=== PATIENT | male | born 1980 | race Caucasian/White ===

== ENCOUNTER 2017-12-06 16:10 | Emergency (ER) | payer BC, SELFPAY ==
--- NOTE | 2017-12-06 16:17 | PC.NURSE ---
PT STATES TO .NET ARCHITECT HE EXPERIENCE CHEST PAIN ABOUT AN HOUR AGO. A/O PWD, TO ER VIA WC
--- NOTE | 2017-12-06 16:27 | XR_ITS ---
XR chest 2V HISTORY: ITS.REASON: CHEST CONGESTION AND COUGH ORDERING PHYSICIAN: Mary Kent PATIENT AGE: 37 years COMPARISON: 03/15/2017 FINDINGS: The cardiomediastinal silhouette and pulmonary vascularity are within normal limits. The lungs are clear without infiltrates, suspicious nodules, or pleural effusions. No acute bony abnormalities. IMPRESSION: Negative chest, no acute finding
[2017-12-06 16:30] VITALS: BP 143/76; PULSE 69; RESP 20; TEMP 36.8; O2SAT 97; BMI 37.5
--- NOTE | 2017-12-06 16:37 | HMH.EDUTC ---
[facility] [place] Disposition Clinical Impression: URI (upper respiratory infection) Qualifiers: URI type: unspecified URI Qualified Code(s): J06.9 - Acute upper respiratory infection, unspecified Disposition: Home, Self-Care Condition on Discharge: Good Instructions: DI for Cough -- Adult, Sore Throat Additional Instructions: * Monitor Temp. Tylenol and/or Ibuprofen as needed. ER if fever is no less than 101 despite alternating Tylenol and Ibuprofen * Encourage fluids, water, Gatorade, powerade, pedialyte if /toddler/or child * Warm salt water gargles for throat irritation *Warm fluids *Sore throat lozenges *Sleep elevated *humidifier or vaporizer Lots of rest Increase fluids, water, Gatorade, powerade *Your throat swab was sent to lab for culture. Those results area typically sent to your primary care physician. Be sure to follow up in 2-3 days if no improvement so they can review those results and treat if necessary If you dont have primary care I recommend you get one, but in the mean time you will have to return to a walk in clinic Follow up IMMEDIATELY for new or worsening of symptoms OR no noticeable improvement over the next 48-72 hours. 911 immediately for any life threatening symptoms such as chest pain or difficulty breathing Prescriptions: Azithromycin [Z-Qamar 250mg Tab] 250 mg PO UD DOSE PK #6 tab Benzonatate [Tessalon Perle 100mg Cap] 100 mg PO TID PRN #15 cap PRN Reason: Cough predniSONE [Prednisone 5mg Tab Dose-Pack] 5 mg PO UD DOSE PK #21 pack Forms: Work/School Release Time of Disposition: 17:35 Medical Decision Making - Medical Records Medical records reviewed: Yes: I reviewed the patient's medical records. - Teofilo Inquiry Pt receiving controlled substance: No Teofilo was queried for this patient: No Vital Signs: 12/06/17 16:30 12/06/17 17:20 Temperature 98.2 F 98.2 F Temperature Source Temporal Artery Scan Pulse Rate 70 Pulse Rate [Right] 69 Respiratory Rate 20 20 Blood Pressure 144/70 Blood Pressure [Right Arm] 143/76 Blood Pressure Mean [Right Arm] 98 Blood Pressure Source [Right Arm] Automatic Cuff Blood Pressure Position [Right Arm] Sitting 02 Sat by Pulse Oximetry 97 Oxygen Delivery Method Room Air Orders (Tests/Meds): ORDERS Category Date Time Status CXR 2 view (NOT portable) [XR chest 2V] Stat Exams 12/06/17 16:27 Taken - Radiology Data #1 Image(s): Chest Image Reviewed: Yes I reviewed the patient's radiology image w/the ED provider Preliminary Findings: Normal/NAD, No Infiltrates Seen [facility] [place] HPI - General Stated complaint: cough,dizzy,pain in back Time Seen by Provider: 12/06/17 16:30 Mode of Arrival: Ambulatory Source of Information: Patient Limitations: No Limitations Description of Symptoms (Recalled from Triage Doc. by RN): COUGH, CONGESTION TODAY HEENT Symptoms (Recalled from RN notes): Yes Resp Symptoms (Recalled from RN notes): Yes Skin Symptoms (Recalled from RN notes): No MS Symptoms (Recalled from RN notes): No Functional Status (Recalled from RN notes): N - History of Present Illness Provider Complaint: Patient state that he has been having cough and congestion State that when he starts coughing he feels a little sore in his back States that he has been outside alot during this weather changes and was worried that he may have bronchitis or pneumonia States that he has also had nasal congestion and sore throat and over all not feeling well - Related Data Home Medications Medication Instructions Recorded Confirmed ibuprofen 200 mg capsule 200 mg PO ONCE 10/03/17 Previous Rx's Medication Instructions Recorded Azithromycin [Z-Qamar 250mg Tab] 250 mg PO UD DOSE PK #6 tab 12/06/17 Benzonatate [Tessalon Perle 100mg 100 mg PO TID PRN #15 cap 12/06/17 Cap] predniSONE [Prednisone 5mg Tab 5 mg PO UD DOSE PK #21 pack 12/06/17 Dose-Pack] Allergies Allergy/AdvReac Type Severity Reaction Status Date / Time No Known Allergie
--- NOTE | 2017-12-06 16:41 | ED_ITS ---
[facility] [place] Clinical Impression: URI (upper respiratory infection) Qualifiers: URI type: unspecified URI Qualified Code(s): J06.9 - Acute upper respiratory infection, unspecified Disposition: Home, Self-Care Condition on Discharge: Good Instructions: DI for Cough -- Adult, Sore Throat Additional Instructions: * Monitor Temp. Tylenol and/or Ibuprofen as needed. ER if fever is no less than 101 despite alternating Tylenol and Ibuprofen * Encourage fluids, water, Gatorade, powerade, pedialyte if /toddler/or child * Warm salt water gargles for throat irritation *Warm fluids *Sore throat lozenges *Sleep elevated *humidifier or vaporizer Lots of rest Increase fluids, water, Gatorade, powerade *Your throat swab was sent to lab for culture. Those results area typically sent to your primary care physician. Be sure to follow up in 2-3 days if no improvement so they can review those results and treat if necessary If you don? t have primary care I recommend you get one, but in the mean time you will have to return to a walk in clinic Follow up IMMEDIATELY for new or worsening of symptoms OR no noticeable improvement over the next 48-72 hours. 911 immediately for any life threatening symptoms such as chest pain or difficulty breathing Prescriptions: Azithromycin [Z-Qamar 250mg Tab] 250 mg PO UD DOSE PK #6 tab Benzonatate [Tessalon Perle 100mg Cap] 100 mg PO TID PRN #15 cap PRN Reason: Cough predniSONE [Prednisone 5mg Tab Dose-Pack] 5 mg PO UD DOSE PK #21 pack Forms: Work/School Release Time of Disposition: 17:35 Medical Decision Making - Medical Records Medical records reviewed: Yes: I reviewed the patient's medical records. - Teofilo Inquiry Pt receiving controlled substance: No Teofilo was queried for this patient: No Vital Signs: 12/06/17 16:30 12/06/17 17:20 Temperature 98.2 F 98.2 F Temperature Source Temporal Artery Scan Pulse Rate 70 Pulse Rate [Right] 69 Respiratory Rate 20 20 Blood Pressure 144/70 Blood Pressure [Right Arm] 143/76 Blood Pressure Mean [Right Arm] 98 Blood Pressure Source [Right Arm] Automatic Cuff Blood Pressure Position [Right Arm] Sitting 02 Sat by Pulse Oximetry 97 Oxygen Delivery Method Room Air Orders (Tests/Meds): ORDERS Category Date Time Status CXR 2 view (NOT portable) [XR chest 2V] Stat Exams 12/06/17 16:27 Taken - Radiology Data #1 Image(s): Chest Image Reviewed: Yes I reviewed the patient's radiology image w/the ED provider Preliminary Findings: Normal/NAD, No Infiltrates Seen [facility] [place] HPI - General Stated complaint: cough,dizzy,pain in back Time Seen by Provider: 12/06/17 16:30 Mode of Arrival: Ambulatory Source of Information: Patient Limitations: No Limitations Description of Symptoms (Recalled from Triage Doc. by RN): COUGH, CONGESTION TODAY HEENT Symptoms (Recalled from RN notes): Yes Resp Symptoms (Recalled from RN notes): Yes Skin Symptoms (Recalled from RN notes): No MS Symptoms (Recalled from RN notes): No Functional Status (Recalled from RN notes): N - History of Present Illness Provider Complaint: Patient state that he has been having cough and congestion State that when he starts coughing he feels a little sore in his back States that he has been outside alot during this weather changes and was worried that he may have bronchitis or pneumonia States that he has also had nasal congestion and sore throat and over
[2017-12-06 17:20] VITALS: BP 144/70; PULSE 70; RESP 20; TEMP 36.8
== END 2017-12-06 17:42 | disposition home or self-care (01) ==
PROVIDERS: Emergency Provider Nurse Practitioner; Family Provider Internal Medicine
DX: J06.9 Acute upper respiratory infection, unspecified (principal); I10 Essential (primary) hypertension
CPT/HCPCS: 71046; 99201

== ENCOUNTER 2019-03-19 14:09 | Emergency (ER) | payer SELFPAY ==
[2019-03-19 14:15] VITALS: BP 145/89; PULSE 94; RESP 18; TEMP 36.8; O2SAT 100; BMI 39.3
[2019-03-19 14:22] VITALS: BP 149/63; PULSE 84; RESP 18; TEMP 36.7; O2SAT 100; BMI 39.3
[2019-03-19 14:28] LABS: POC Glucose,Bedside 118 (70-110)
--- NOTE | 2019-03-19 14:29 | HMH.EDUTC ---
[facility] Disposition Clinical Impression: Otitis media Qualifiers: Otitis media type: unspecified Laterality: right Qualified Code(s): H66.91 - Otitis media, unspecified, right ear Disposition: Home, Self-Care Condition on Discharge: Good Instructions: Ear Infections (Alternative Therapy), Ear Infections (Middle Ear) (Alternative Therapy), Middle Ear Infection Additional Instructions: *Monitor Temp, Over the counter Motrin or Tylenol as directed/as needed Tylenol every 4 hours and Motrin every 6 hours (as long as your family doctor has told you that you can take it) for fever or pain. and straight to ER if unable to lower temp less than 101.0 after medication given *Warm salt water gargles may help to soothe the throat *Throat Lozenges *Warm fluids *Sleep elevated *Humidifier/Vaporizer Take medication as prescribed You was given a list of family doctors call and make appointment with Doctor of your choice for further testing and evaluation and monitor Finger sticks and evaluation for elevated blood pressure Return if needed Follow up IMMEDIATELY for new or worsening symptoms or no Noticeable improvement over the next 48-72 hours. 911 for difficulty breathing or swallowing Prescriptions: Amoxicillin [Amoxicillin 500mg Cap] 500 mg PO TID #30 cap Referrals: Provider,Referral, MD [Primary Care Provider] - As needed Time of Disposition: 14:34 Medical Decision Making - Teofilo Inquiry Pt receiving controlled substance: No Teofilo was queried for this patient: No Vital Signs: 03/19/19 14:15 03/19/19 14:22 Temperature 98.2 F 98.1 F Temperature Source Oral Oral Pulse Rate [Right Brachial] 94 H 84 Respiratory Rate 18 18 Blood Pressure [Right Arm] 145/89 H 149/63 H Blood Pressure Mean [Right Arm] 107 91 Blood Pressure Source [Right Arm] Automatic Cuff Blood Pressure Position [Right Arm] Sitting 02 Sat by Pulse Oximetry 100 100 Oxygen Delivery Method Room Air Room Air - Lab Data Lab Results 03/19/19 14:20: POC Glucose 118 H [facility] HPI - General Stated complaint: sugar was 53 Time Seen by Provider: 03/19/19 14:29 Mode of Arrival: Ambulatory Source of Information: Patient Limitations: No Limitations Description of Symptoms (Recalled from Triage Doc. by RN): PT C/O BLOOD SUGAR WAS READING 53 ON MOTHERS HOME METER. FSBS 118 HERE. PT C/O RT EAR PAIN WELL. HEENT Symptoms (Recalled from RN notes): Yes Resp Symptoms (Recalled from RN notes): No Skin Symptoms (Recalled from RN notes): No MS Symptoms (Recalled from RN notes): No Functional Status (Recalled from RN notes): N/A - History of Present Illness Provider Complaint: Patient state that he has been having pain in his right ear for over a week States that this morning he was in the shower and got a little dizzy after bending over State that he checked his blood sugar with his mothers machine and it said 53 States that he came in to have his ear looked at and recheck his blood sugar - Related Data Previous Rx's Medication Instructions Recorded Amoxicillin [Amoxicillin 500mg 500 mg PO TID #30 cap 03/19/19 Cap] Allergies Allergy/AdvReac Type Severity Reaction Status Date / Time No Known Allergies Allergy Verified 01/21/19 20:42 - Worker's Comp Is this a Worker's Comp case?: No [facility] History - Hepatitis A Screen Drug use history?: No High risk sexual behaviors?: No History of sexually transmitted infection?: No Currently employed?: No Childcare worker?: No Do you have indoor plumbing?: Yes Do you have electricity?: Yes Attestation statement:: This patient has been screened for Hepatitis A risk factors. I have reviewed the patient's past medical history: Yes Medical History: Reports:: Hypertension Denies:: Diabetes Mellitus Type 1, Diabetes Mellitus Type 2 Other Medical History: Reports: Other (IBS, environmental allergies, sinusitis) Laterality Cases: Bilateral: Other Other Surgeries: Yes: Cholecystectomy, Other (cleft p
--- NOTE | 2019-03-19 14:32 | ED_ITS ---
[facility] [place] Clinical Impression: Otitis media Qualifiers: Otitis media type: unspecified Laterality: right Qualified Code(s): H66.91 - Otitis media, unspecified, right ear Disposition: Home, Self-Care Condition on Discharge: Good Instructions: Ear Infections (Alternative Therapy), Ear Infections (Middle Ear) (Alternative Therapy), Middle Ear Infection Additional Instructions: *Monitor Temp, Over the counter Motrin or Tylenol as directed/as needed Tylenol every 4 hours and Motrin every 6 hours (as long as your family doctor has told you that you can take it) for fever or pain. and straight to ER if unable to lower temp less than 101.0 after medication given *Warm salt water gargles may help to soothe the throat *Throat Lozenges *Warm fluids *Sleep elevated *Humidifier/Vaporizer Take medication as prescribed You was given a list of family doctors call and make appointment with Doctor of your choice for further testing and evaluation and monitor Finger sticks and evaluation for elevated blood pressure Return if needed Follow up IMMEDIATELY for new or worsening symptoms or no Noticeable improvement over the next 48-72 hours. 911 for difficulty breathing or swallowing Prescriptions: Amoxicillin [Amoxicillin 500mg Cap] 500 mg PO TID #30 cap Referrals: Provider,Referral, MD [Primary Care Provider] - As needed Time of Disposition: 14:34 Medical Decision Making - Teofilo Inquiry Pt receiving controlled substance: No Teofilo was queried for this patient: No Vital Signs: 03/19/19 14:15 03/19/19 14:22 Temperature 98.2 F 98.1 F Temperature Source Oral Oral Pulse Rate [Right Brachial] 94 H 84 Respiratory Rate 18 18 Blood Pressure [Right Arm] 145/89 H 149/63 H Blood Pressure Mean [Right Arm] 107 91 Blood Pressure Source [Right Arm] Automatic Cuff Blood Pressure Position [Right Arm] Sitting 02 Sat by Pulse Oximetry 100 100 Oxygen Delivery Method Room Air Room Air - Lab Data Lab Results 03/19/19 14:20: POC Glucose 118 H [facility] [facility] [place] - General Stated complaint: sugar was 53 Time Seen by Provider: 03/19/19 14:29 Mode of Arrival: Ambulatory Source of Information: Patient Limitations: No Limitations Description of Symptoms (Recalled from Triage Doc. by RN): PT C/O BLOOD SUGAR WAS READING 53 ON MOTHERS HOME METER. FSBS 118 HERE. PT C/O RT EAR PAIN WELL. HEENT Symptoms (Recalled from RN notes): Yes Resp Symptoms (Recalled from RN notes): No Skin Symptoms (Recalled from RN notes): No MS Symptoms (Recalled from RN notes): No Functional Status (Recalled from RN notes): N/A - History of Present Illness Provider Complaint: Patient state that he has been having pain in his right ear for over a week States that this morning he was in the shower and got a little dizzy after bending over State that he checked his blood sugar with his mothers machine and it said 53 States that he came in to have his ear looked at and recheck his blood sugar - Related Data Previous Rx's Medication Instructions Recorded Amoxicillin [Amoxicillin 500mg 500 mg PO TID #30 cap 03/19/19 Cap] Allergies Allergy/AdvReac Type Severity Reaction Status Date / Time No Known Allergies Allergy Verified 01/21/19 20:42 - Worker's Comp
[2019-03-19 14:36] VITALS: BP 126/66; PULSE 65; RESP 18; TEMP 36.6; O2SAT 100
== END 2019-03-19 14:38 | disposition home or self-care (01) ==
LOC: ER 14:16 → UTC 14:17
PROVIDERS: Emergency Provider Nurse Practitioner
DX: H66.91 Otitis media, unspecified, right ear (principal); I10 Essential (primary) hypertension
CPT/HCPCS: 82962; 99201

== ENCOUNTER → 2019-06-17 11:01 | Outpatient (CLI) | payer BC, SELFPAY ==
[2019-06-17 13:01] LABS: Anion Gap 13.2 mEq/L (5-15); Blood Urea Nitrogen 14 mg/dL (7-18); Calcium 9.2 mg/dL (8.5-10.1); Carbon Dioxide 28 mmol/L (21.0-32.0); Chloride 103 mmol/L (98-107); Creatinine,Serum 0.78 mg/dL (0.70-1.30); Estimated Glomerular Filt Rate 113 ml/min (>60); Free Thyroxine Index 2.9 ug/dL (5.93-13.13); GFR (African American) 136 ML/MIN (>60); Glucose 93 mg/dL (74-106); Potassium 4.2 mmoL/L (3.5-5.1); Sodium 140 mmol/L (136-145); T4 (Thyroxine) 8.1 ug/dl (4.7-13.3); Thyroid Stimulating Hormone 3.31 uIU/ml (0.358-3.740); Triiodothryronine (T3) Uptake 36 % (31-39)
== END ==
PROVIDERS: PCP Internal Medicine; Visit Provider Urology
DX: R00.2 Palpitations (principal); K21.9 Gastro-esophageal reflux disease without esophagitis; R06.09 Other forms of dyspnea; R07.9 Chest pain, unspecified; Z87.891 Personal history of nicotine dependence
CPT/HCPCS: 36415; 80048; 84436; 84443; 84479; 93270

== ENCOUNTER → 2019-06-24 09:22 | Outpatient (CLI) | payer BC, SELFPAY ==
--- NOTE | 2019-06-24 09:24 | CA_ITS ---
APPROVED REPORT EXAM: Comprehensive 2D, Doppler, and color-flow Echocardiogram Cover Cutter Machine: Carin Valenzuela RVT Ht: 5 ft 11 in Wt: 261lbs BSA: 2.36 BP: 141/84 mmHg Indications: Shortness of Breath, Palpitations Chest Pain, Murmur, Shortness of Breath, Palpitations, Hypertension,Hx of smoking 2D Dimensions LVOT 2.10 cm (M/F) 1.5-2.5 M-Mode Dimensions RVDd 2.00 cm (0.9-2.6) LA Diam 4.50 cm (1.9-4.0) LVDd 6.60 cm (3.5-5.7) Ao Diam 2.60 cm (2.0-3.7) LVDs 4.60 cm (3.5-5.7) AV Cusp 2.00 cm (1.5-2.6) IVSd 1.00 cm (0.6-1.1) PWd 1.10 cm (0.6-1.1) EF (Teich) 56.60% FS 30.30% EDV (Teich) 224.00 mL ESV (Teich) 97.30 mL LV Diastology E/A Ratio 1.0 MED E' 7.21 (< 7 cm/sec) E'/MED E' Ratio 12.60 (>14) LAT E' 14.40 (<10 cm/sec) E/LAT E' Ratio 6.30 (>14) Aortic Valve AoV Peak Geronimo. 126.00 (50-130 cm/s) AO Peak GR. 6.00 mmHg Mitral Valve MV E Max Geronimo. 90.80 (40-130 cm/s) MV A Velocity 93.30 (40-130 cm/s) E/A Ratio 1.00 Pulmonary Valve PA Accel Time 134.00 (>120 msec) Tricuspid Valve TR P. Velocity 286.00 cm/s Left Ventricle Left atrium is mildly enlarged, left ventricle is normal size, left ventricle wall thickness is upper limit of the normal, there is preserved left ventricular systolic function, visually estimated ejection fraction 55% with no regional wall motion abnormality. Diastolic parameters are within normal range. Right Ventricle Right atrium and right ventricular normal size and contractility. Aortic Valve Aortic valve is minimally thickened and fibrosed, there is no aortic stenosis aortic insufficiency. Mitral Valve Mitral valve is grossly normal, there is no mitral stenosis, there is mild mitral regurgitation. Tricuspid Valve Tricuspid valve is grossly normal, there is mild tricuspid regurgitation, tricuspid regurgitation jet velocity is inadequate for calculation of the right ventricular systolic pressure. Pulmonic Valve Pulmonic valve is poorly visualized. Great Vessels Aortic root is normal size. Pericardium No significant pericardial effusion noted. Conclusion 1. Mildly enlarged left atrium, normal left ventricular size, visually estimated ejection fraction 55% with no regional wall motion abnormality, diastolic parameters are within normal range. 2. Mild mitral and tricuspid regurgitation 3. No significant pericardial effusion noted. Electronically signed by : Pranay Huff, 06/27/2019 16:08:04
== END ==
PROVIDERS: PCP Internal Medicine; Visit Provider Urology
DX: R07.9 Chest pain, unspecified (principal); R06.09 Other forms of dyspnea; R00.2 Palpitations; K21.9 Gastro-esophageal reflux disease without esophagitis; Z82.49 Family history of ischemic heart disease and other diseases of the circulatory system; Z87.891 Personal history of nicotine dependence
CPT/HCPCS: 93306

== ENCOUNTER → 2019-07-01 12:58 | Outpatient (CLI) | payer BC, SELFPAY ==
--- NOTE | 2019-07-01 | CA_ITS ---
APPROVED REPORT Exam: Exercise Treadmill Technologist: Stella De La Cruz HR: 64 bpm BP: 125/69 mmHg Indications: Chest pain Stress Test Details Test: Juan Jose HR Resting HR: 77 bpm Max Heart Rate (APMHR): 184 bpm Max HR Achieved: 143 bpm Target HR (85% APMHR): 156 bpm % of APMHR: 77 Recovery HR: 69 bpm BP Resting BP: 125.0/69.0 mmHg Max BP: 166.0/86.0 mmHg Recovery BP: 125.0/57.0 mmHg ECG Clinical Exercise duration: 10:14 min Highest Stage Achieved: Exercise capacity: 12.8 METs Stress ECG Conclusion Resting ECG: Sinus rhythm Juan Jose protocol completed. Patient exercised 10:14. Stopped due to lower back pain. Symptoms: Lower back pain, resolved in recovery. No chest pain, no shortness of breath, no dizziness. Arrhythmias/Ectopy: No ectopy noted. ST-T Changes: less than 1.5mm ST depression. Conclusion:Good exercise capapcity. No ectopy. Appropriate blood pressure response. Unable to achieved maximum heart rate(predicted) due to beta-hermilo. Test Summary REST . . . . . . . Sitting REST 04:54 0.0 0.0 77 . 125/ 69 . . Stage 1 01:00 10.0 1.7 88 . . . . Stage 1 02:00 10.0 1.7 94 . . . . Stage 1 03:00 10.0 1.7 100 . 138/ 80 . . Stage 2 01:00 12.0 2.5 112 . . . . Stage 2 02:00 12.0 2.5 113 . . . . Stage 2 03:00 12.0 2.5 113 . 142/ 80 . . Stage 3 01:00 14.0 3.4 124 . . . . Stage 3 02:00 14.0 3.4 128 . . . . Stage 3 03:00 14.0 3.4 128 . 160/ 84 . . Stage 4 01:00 16.0 4.2 142 . . . . Stage 4 01:14 16.0 4.2 142 . . . Stop exercise at 10:14 RECOVERY 01:00 0.0 0.0 105 . . . . RECOVERY 02:00 0.0 0.0 94 . 166/ 86 . . RECOVERY 03:00 0.0 0.0 73 . 166/ 86 . . RECOVERY 04:00 0.0 0.0 72 . 147/ 70 . . RECOVERY 05:00 0.0 0.0 70 . 147/ 70 . . RECOVERY 05:25 0.0 0.0 71 . 125/ 57 . . Electronically signed by : Pranay Huff, 07/01/2019 21:41:50
== END ==
PROVIDERS: PCP Internal Medicine; Visit Provider Nurse Practitioner Family
DX: R07.9 Chest pain, unspecified (principal); K21.9 Gastro-esophageal reflux disease without esophagitis
CPT/HCPCS: 93017

== ENCOUNTER → 2019-07-15 15:11 | Outpatient (CLI) | payer BC, SELFPAY ==
[2019-07-15 15:13] LABS: Microscopic, Urine URINE MICROSCOPIC (MICROSCOPIC)
[2019-07-15 15:55] LABS: Appearance,Urine CLEAR (Clear); Bilirubin,Urine Negative (Negative); Blood, Urine Negative (Negative); Color,Urine YELLOW (Yellow); Glucose,Urine (UA) Negative (Negative); Ketones,Urine Negative (Negative); Leukocyte Esterase,Urine Negative (Negative); Nitrate,Urine Negative (Negative); Protein,Urine Negative (Negative); Specific Gravity, Urine 1.025 (1.005-1.030); Urobilinogen,Urine 0.2 EU/dl (0.2)
[2019-07-15 16:09] LABS: Bacteria,Urine 1+ /lpf; Calcium Oxalate Crystals,Urine 2+ /lpf; Squamous Epithelial Cell,Urine Occasional #/hpf (0-5); WBC,Urine Occasional #/hpf (0-3)
[2019-07-15 17:11] LABS: Hemoglobin A1C 5.4 % (0.0-7.0)
[2019-07-15 17:42] LABS: Alanine Aminotransferase 30 U/L (12-78); Albumin Level 3.8 gm/dL (3.4-5.0); Albumin/Globulin Ratio 1.1 (1.1-1.8); Alkaline Phosphatase 66 U/L (46-116); Anion Gap 10.1 mEq/L (5-15); Aspartate Amino Transferase 15 U/L (15-37); Bilirubin,Total 0.2 mg/dL (0.2-1.0); Blood Urea Nitrogen 12 mg/dL (7-18); Calcium 8.8 mg/dL (8.5-10.1); Carbon Dioxide 25 mmol/L (21.0-32.0); Chloride 106 mmol/L (98-107); Chol/HDL Ratio 3.6 (1-3.5); Cholesterol 182 mg/dL (140-200); Estimated Glomerular Filt Rate 109 ml/min (>60); GFR (African American) 132 ML/MIN (>60); Globulin 3.5 gm/dl (1.3-3.2); Glucose 108 mg/dL (74-106); HDL Cholesterol 50 mg/dL (27-67); LDL Cholesterol 91 mg/dL (0-130); Potassium 4.1 mmoL/L (3.5-5.1); Sodium 137 mmol/L (136-145); Total Protein,Serum 7.3 gm/dL (6.4-8.2); Triglycerides 206 mg/dL (30-200); VLDL Cholesterol 41 mg/dL (0-40)
== END ==
PROVIDERS: Visit Provider Internal Medicine
DX: R53.83 Other fatigue (principal); E66.9 Obesity, unspecified; Z13.1 Encounter for screening for diabetes mellitus
CPT/HCPCS: 36415; 80053; 80061; 81001; 83036; 84443

== ENCOUNTER → 2019-07-19 21:30 | Outpatient (CLI) | payer BC, SELFPAY | PROVIDERS: PCP Internal Medicine; Visit Provider Nurse Practitioner Family | DX: G47.9 Sleep disorder, unspecified (principal); R06.83 Snoring; R40.0 Somnolence | CPT/HCPCS: G0399 ==

== ENCOUNTER 2020-01-08 18:55 | Emergency (ER) | payer BC, SELFPAY ==
[2020-01-08 19:20] VITALS: BP 138/91; PULSE 67; RESP 18; TEMP 36.8; O2SAT 97; BMI 37.8
[2020-01-08 19:25] LABS: POC Glucose,Bedside 142 (70-110)
[2020-01-08 19:33] VITALS: BP 138/91; PULSE 67; RESP 18; TEMP 36.8; O2SAT 97
--- NOTE | 2020-01-08 19:40 | HMH.EDUTC ---
[facility] [place] Disposition Clinical Impression: Hyperglycemia Disposition: Home, Self-Care Condition on Discharge: Good Instructions: DI for Hyperglycemia -- Adult Additional Instructions: Follow up with your regular doctor. Have your doctor do fasting lab work on you and watch you closely for s/s of diabetes. GO TO THE ER FOR ANY WORSENING SYMPTOMS OR CONCERNS Referrals: Rico Brady [Primary Care Provider] - Time of Disposition: 19:45 Medical Decision Making - Medical Records Medical records reviewed: No: I reviewed the patient's medical records. - Teofilo Inquiry Pt receiving controlled substance: No Vital Signs: 01/08/20 19:20 01/08/20 19:33 Temperature 98.3 F 98.3 F Temperature Source Oral Pulse Rate 67 Pulse Rate [Left Brachial] 67 Respiratory Rate 18 18 Blood Pressure 138/91 H Blood Pressure [Left Arm] 138/91 H Blood Pressure Mean [Left Arm] 106 Blood Pressure Source [Left Arm] Automatic Cuff Blood Pressure Position [Left Arm] Sitting 02 Sat by Pulse Oximetry 97 Oxygen Delivery Method Room Air - Lab Data Lab results reviewed: Yes: I reviewed the patient's lab results. Lab Results 01/08/20 19:16: POC Glucose 142 H Medical Decision Narrative: His blood sugar read 140 on the glucometer here in the [facility]. He states that he drunk a bunch of lemonade and ate fried chicked approx 45 minutes ago. [facility] [place] HPI - General Stated complaint: Sugar high Time Seen by Provider: 01/08/20 19:40 Mode of Arrival: Ambulatory Source of Information: Patient Limitations: No Limitations Description of Symptoms (Recalled from Triage Doc. by RN): PATIENT STATES HE CHECKED HIS BLOOD SUGAR AT HOME AND STATES HIS GLUCOMETER READ 188; PATIENT IS NOT DIABETIC AND REQUESTED HIS BLOOD SUGAR BE CHECKED HEENT Symptoms (Recalled from RN notes): No Resp Symptoms (Recalled from RN notes): No Skin Symptoms (Recalled from RN notes): No MS Symptoms (Recalled from RN notes): No Functional Status (Recalled from RN notes): WNL - History of Present Illness Provider Complaint: He does not have a history of diabetes himself. He has been using his dad's glucometer to check his blood sugar off and on for the past several months. Today he checked it and it read 180. It has never read this high. He has a pcp that he sees regularly. He states that he last had fasting lab work 2 or 3 months ago and he was told his results were normal. - Related Data Home Medications Medication Instructions Recorded Confirmed Bisoprolol Fumarate [Bisoprolol 10 mg PO DAILY 07/18/19 01/08/20 5mg Tablet] Escitalopram Oxalate 20 mg PO DAILY 07/18/19 01/08/20 Allergies Allergy/AdvReac Type Severity Reaction Status Date / Time No Known Allergies Allergy Verified 06/26/19 13:19 - Worker's Comp Is this a Worker's Comp case?: No [facility] History - Hepatitis A Screen Drug use history?: No High risk sexual behaviors?: No History of sexually transmitted infection?: No Currently employed?: No Childcare worker?: No Do you have indoor plumbing?: Yes Do you have electricity?: Yes Attestation statement:: This patient has been screened for Hepatitis A risk factors. I have reviewed the patient's past medical history: Yes Medical History: Reports:: Heart Murmur, Hypertension, Palpitations Denies:: Cancer, Diabetes Mellitus Type 1, Diabetes Mellitus Type 2, Internal Pacemaker, MRSA Other Medical History: Reports: Other (IBS, environmental allergies, sinusitis) Laterality Cases: Bilateral: Other Other Surgeries: Yes: Cholecystectomy, Other (cleft palate, lip, distal bicep tendon on right). No: Pacemaker Amputation: No Fractures: No - Social History Smoking Status: Former smoker Tobacco Type: cigarettes Alcohol Intake: never Substance Use Type: denies use Occupational Status: other Housing: house Household Members: spouse Family Hx:: Cancer, Diabetes, Coronary Artery Disease, Hypertension Comment: Father-CABG@60. Mother
== END 2020-01-08 19:52 | disposition home or self-care (01) ==
PROVIDERS: Emergency Provider Nurse Practitioner Family; PCP Internal Medicine
DX: R73.9 Hyperglycemia, unspecified (principal); I10 Essential (primary) hypertension; R00.2 Palpitations; Z87.891 Personal history of nicotine dependence; Z90.49 Acquired absence of other specified parts of digestive tract
CPT/HCPCS: 82962; 99201

== ENCOUNTER 2020-02-20 15:10 | Emergency (ER) | payer MEDICAID, SELFPAY ==
[2020-02-20 15:26] VITALS: BP 156/91; PULSE 88; RESP 20; TEMP 36.7; O2SAT 98; BMI 39.2
[2020-02-20 15:54] VITALS: BP 156/91; PULSE 88; RESP 20; TEMP 36.7; O2SAT 98; BMI 39.3
--- NOTE | 2020-02-20 15:57 | CT_ITS ---
PROCEDURE: CT HEAD/BRAIN WO CON CLINICAL INDICATION: pain Head injury with pain, Head injury with headache/pain, contusion, abrasion or hematoma, blurred vision with headache following injury COMPARISON: No exams were available for comparison TECHNIQUE: Axial images obtained. All CT scans at the facility use one or more dose reduction, viz: automated exposure control, ma/kV adjustment per patient size (including targeted exams where dose is matched to indication, i.e. head), or iterative reconstruction technique. FINDINGS: No midline shift, mass effect, intracranial hemorrhage, hydrocephalus, or extra-axial fluid collection is evident. The calvarium has an unremarkable appearance. Minor opacification noted in the right mastoid sinus no sinus air-fluid level. IMPRESSION: No acute intracranial finding Dictated by: Zak Lee MD 02/20/2020 16:18 Electronically signed by Zak Lee MD in [facility] 02/20/2020 16:18
--- NOTE | 2020-02-20 16:01 | PC.NURSE ---
PATIENT SENT TO ER PER ISELA SHELDON APRN FOR FURTHER EVALUATION
--- NOTE | 2020-02-20 17:03 | HMH.EDGENADL ---
ED Disposition Clinical Impression: Concussion Disposition: Home, Self-Care Condition on Discharge: Good Instructions: DI for Concussion Referrals: Rico Brady [Primary Care Provider] - - Critical Care Critical Care Time: No Attestation: On 02/20/20, the high probability of a clinically significant, sudden or life threatening deterioration of the following system(s) required my full and direct attention, intervention and personal management. The time I documented below is in addition to time spent performing reported procedures but includes the following listed in this critical care notation. Medical Decision Making - Medical Records Medical records reviewed: Yes: I reviewed the patient's medical records. - Teofilo Inquiry Pt receiving controlled substance: No Vital Signs: 02/20/20 15:26 02/20/20 15:54 Temperature 98.1 F 98.1 F Temperature Source Oral Oral Pulse Rate [Right Brachial] 88 88 Respiratory Rate 20 20 Blood Pressure [Right Arm] 156/91 H 156/91 H Blood Pressure Mean [Right Arm] 112 112 Blood Pressure Source [Right Arm] Automatic Cuff Automatic Cuff Blood Pressure Position [Right Arm] Sitting Sitting 02 Sat by Pulse Oximetry 98 98 Oxygen Delivery Method Room Air Room Air - Lab Data Lab results reviewed: Yes: I reviewed the patient's lab results. - CT Data CT Scan: Head Time Received: 17:00 Preliminary Findings: Normal/NAD General Adult HPI - General Chief complaint: PAIN Stated complaint: AO [id number] eye pain,headache home accident Time Seen by Provider: 02/20/20 17:00 Mode of Arrival: Ambulatory Limitations: No Limitations Description of Symptoms (Recalled from ER Triage Doc. by RN): PATIENT STATES THAT MONDAY HE WAS HEAD-BUTTED BY A HORSE ON THE RIGHT SIDE OF HIS HEAD. LAST NIGHT WHILE DRIVING HE STARTED NOTICING VERY BLURRED VISION TO HIS RIGHT EYE TO WHERE HE COULD NOT READ ROAD SIGNS. C/O LOCALIZED HEADACHE TO AREA OF INJURY. DENIES LOC, NAUSEA/VOMITING - History of Present Illness HPI narrative: 39-year-old male presents the ED with headache and some blurred blurred vision in his right eye. Patient states that on Monday of this week he was head butted by a horse did not have any loss of consciousness but he did state that it did stunned him. He denies any loss of balance. He denies any nausea or vomiting but he does have a slight headache that is been persistent since then. Otherwise no other acute issues. - Related Data Home Medications Medication Instructions Recorded Confirmed Bisoprolol Fumarate [Bisoprolol 5 mg PO DAILY 07/18/19 02/20/20 5mg Tablet] Aspirin [Aspirin 81mg chewable 81 mg PO DAILY 02/20/20 02/20/20 tab] dilTIAZem HCL [Diltiazem ER] 5 mg PO DAILY 02/20/20 02/20/20 Allergies Allergy/AdvReac Type Severity Reaction Status Date / Time No Known Allergies Allergy Verified 06/26/19 13:19 [facility] History - Hepatitis A Screen Drug use history?: No High risk sexual behaviors?: No History of sexually transmitted infection?: No Currently employed?: No Childcare worker?: No Do you have indoor plumbing?: Yes Do you have electricity?: Yes Attestation statement:: This patient has been screened for Hepatitis A risk factors. I have reviewed the patient's past medical history: Yes Medical History: Reports:: Heart Murmur, Hypertension, Palpitations Denies:: Cancer, Diabetes Mellitus Type 1, Diabetes Mellitus Type 2, Internal Pacemaker, MRSA Other Medical History: Reports: Other (IBS, environmental allergies, sinusitis) Laterality Cases: Bilateral: Other Other Surgeries: Yes: Cholecystectomy, Other (cleft palate, lip, distal bicep tendon on right). No: Pacemaker Amputation: No Fractures: No - Social History Smoking Status: Former smoker Tobacco Type: cigarettes Alcohol Intake: never Substance Use Type: denies use Occupational Status: employed Housing: house Household Members: spouse Family Hx:: Cancer, Diabetes, Coronary Artery
[2020-02-20 17:12] VITALS: BP 156/91; PULSE 88; RESP 20; TEMP 36.7; O2SAT 98
== END 2020-02-20 17:13 | disposition home or self-care (01) ==
LOC: UTC 15:15 → ER 15:54
PROVIDERS: Emergency Provider Family Medicine; PCP Internal Medicine
DX: S06.0X0A Concussion without loss of consciousness, initial encounter (principal); I10 Essential (primary) hypertension; W55.12XA Struck by horse, initial encounter; Y92.89 Other specified places as the place of occurrence of the external cause; Z87.891 Personal history of nicotine dependence; Z90.49 Acquired absence of other specified parts of digestive tract
CPT/HCPCS: 70450; 99282

== ENCOUNTER 2020-03-21 03:30 | Emergency (ER) | payer MEDICAID, SELFPAY ==
--- NOTE | 2020-03-21 03:27 | ECG_ITS ---
APPROVED REPORT Exam: Resting ECG HR:99 bpm ECG Measurements Heart Rate 99 AXES VA 152 P 48 QRSd 84 QRS 41 QT 370 T 15 QTc 474 <Conclusion> Normal sinus rhythm Possible Inferior infarct, old Abnormal ECG Electronically signed by : iMkey Yu, 03/21/2020 12:14:29
[2020-03-21 03:31] VITALS: BP 169/101; PULSE 92; RESP 16; TEMP 36.6; O2SAT 96; BMI 40.1
--- NOTE | 2020-03-21 03:38 | XR_ITS ---
PROCEDURE: XR CHEST 2V Patient Age:39Y CLINICAL HISTORY: chest pain Right-sided chest pain pain with inhaling. Nonsmoker COMPARISON: XR CHEST 2V from 05/27/2019 XR CHEST 2V from 09/01/2019 XR CHEST 2V from 10/10/2019 FINDINGS: PA and lateral chest performed Stable appearing chest with no significant change since 10/10/2019 CXR Heart upper normal in size. Pulmonary vascularity is only very slightly more pronounced than on previous studies but no vascular congestion, no overt CHF period but mediastinal structures unremarkable and stable A lungs are clear with nothing definitely acute. No infiltrates, suspicious nodules, nor pleural effusions. No acute bony abnormalities. IMPRESSION: No acute findings. Stable chestsince September 2019. Nothing definitely acute Dictated by: Pasha Garrison MD 03/22/2020 22:06 Electronically signed by Pasha Garrison MD in [place] 03/22/2020 22:06
--- NOTE | 2020-03-21 03:49 | PC.NURSE ---
pt transported to radiology via wheelchair.
[2020-03-21 03:51] LABS: Anion Gap 13.5 mEq/L (5-15); Blood Urea Nitrogen 19 mg/dl (9-20); Calcium 10.1 mg/dl (8.4-10.2); Carbon Dioxide 30 mmol/L (22.0-30.0); Chloride 98 mmol/L (98-107); Creatinine Clearance Estimated 182 mL/min (50-200); Estimated Glomerular Filt Rate 84 ml/min (>60); GFR (African American) 102 ML/MIN (>60); Glucose 132 mg/dl (74-100); Potassium 3.5 mmoL/L (3.5-5.1); Sodium 138 mmol/L (136-145)
[2020-03-21 03:53] LABS: Basophils % 0.4 % (0.1-2.0); Eosinophils # 0.2 K/mm3 (0.0-0.4); Eosinophils % 2.2 % (0.1-12.0); Hematocrit 47.1 % (42.0-52.0); Hemoglobin 15.9 g/dL (14.1-18.0); Lymphocytes # 2.6 K/mm3 (0.7-4.5); Lymphocytes % 27.4 % (10-50); Mean Corpuscular HGB Conc 33.8 g/dL (31.8-35.4); Mean Corpuscular Hemoglobin 30.2 pg (27.0-31.2); Mean Corpuscular Volume 89.1 fl (80-94); Mean Platelet Volume 7.9 fl (7.4-10.4); Monocytes # 0.6 K/mm3 (0.1-1.0); Monocytes % 6.5 % (1.7-9.3); Neutrophils # 6.1 K/mm3 (1.8-7.8); Neutrophils % 63.5 % (37.0-80.0); Platelet Count 266 K/mm3 (142-424); Red Blood Count 5.29 M/mm3 (4.60-6.20); Red Cell Distribution Width 12.7 % (11.5-17.5); White Blood Count 9.5 K/mm3 (4.8-10.8)
--- NOTE | 2020-03-21 03:54 | PC.NURSE ---
pt returned from radiology.
[2020-03-21 04:05] LABS: Troponin I < 0.01 ng/ml (0.00-0.034)
[2020-03-21 04:12] VITALS: BP 135/87; PULSE 78; RESP 18; O2SAT 97
[2020-03-21 04:18] LABS: Coronavirus 19 IgG Antibody Negative (Negative); Coronavirus 19 IgM Antibody Negative (Negative)
--- NOTE | 2020-03-21 04:25 | HMH.EDCP ---
ED Disposition Clinical Impression: Chest pain Qualifiers: Chest pain type: unspecified Qualified Code(s): R07.9 - Chest pain, unspecified Disposition: Home, Self-Care Condition on Discharge: Good Instructions: DI for Atypical Chest Pain Additional Instructions: please use meds and see pcp for follow up Referrals: Rico Brady [Primary Care Provider] - - Critical Care Critical Care Time: No Attestation: On 03/21/20, the high probability of a clinically significant, sudden or life threatening deterioration of the following system(s) required my full and direct attention, intervention and personal management. The time I documented below is in addition to time spent performing reported procedures but includes the following listed in this critical care notation. Medical Decision Making - Medical Records Medical records reviewed: Yes: I reviewed the patient's medical records. - Teofilo Inquiry Pt receiving controlled substance: No Vital Signs: 03/21/20 03:31 03/21/20 04:12 Temperature 97.8 F Temperature Source Oral Pulse Rate [Right] 92 H 78 Respiratory Rate 16 18 Blood Pressure [Right Arm] 169/101 H 135/87 Blood Pressure Mean [Right Arm] 123 103 Blood Pressure Source [Right Arm] Automatic Cuff Blood Pressure Position [Right Arm] Supine 02 Sat by Pulse Oximetry 96 97 Oxygen Delivery Method Room Air Room Air - Lab Data Lab results reviewed: Yes: I reviewed the patient's lab results. Lab Results 03/21/20 03:35: WBC 9.5, RBC 5.29, Hgb 15.9, Hct 47.1, MCV 89.1, MCH 30.2, MCHC 33.8, RDW 12.7, Plt Count 266, MPV 7.9, Neut % (Auto) 63.5, Lymph % (Auto) 27.4, [place] % (Auto) 6.5, Eos % (Auto) 2.2, Baso % (Auto) 0.4, Neut # (Auto) 6.1, Lymph # (Auto) 2.6, [place] # (Auto) 0.6, Eos # (Auto) 0.2, Baso # (Auto) 0.0 03/21/20 03:35: Sodium 138, Potassium 3.5, Chloride 98, Carbon Dioxide 30, Anion Gap 13.5, BUN 19, Creatinine 1.00, Estimated Creat Clear 182, Estimated GFR 84, Est GFR ( Amer) 102, Glucose 132 H, Calcium 10.1, Troponin I < 0.01 03/21/20 03:35: SARS-CoV-2 IgG Ab (Rapid) Negative, SARS-CoV-2 IgM Ab (Rapid) Negative Result diagrams: 03/21/20 03:35 03/21/20 03:35 Orders (Tests/Meds): ED MEDICATIONS Generic Name Dose Route Start Last Admin Trade Name Freq PRN Reason Stop Dose Admin Sodium Chloride 1,000 mls @ 999 mls/hr 03/21/20 03:45 03/21/20 03:47 Sod Chlor 0.9% 1000ml Bag IV 03/21/20 04:45 999 mls/hr .Q1H1M BARBARA Administration Discontinued Medications Generic Name Dose Route Start Last Admin Trade Name Freq PRN Reason Stop Dose Admin Aspirin 324 mg 03/21/20 03:38 03/21/20 03:47 Aspirin 81mg Chewable Tablet PO 03/21/20 03:39 324 mg ONCE ONE Administration Clonidine HCl 0.1 mg 03/21/20 03:44 03/21/20 03:47 Clonidine 0.1mg Tablet PO 03/21/20 03:45 0.1 mg ONCE ONE Administration Nitroglycerin 0.4 mg 03/21/20 03:38 03/21/20 03:47 Nitrostat 0.4mg Sl Tablet SL 03/21/20 03:39 1 tab ONCE ONE Administration ORDERS Category Date Time Status XR chest 2V Stat Exams 03/21/20 03:38 Taken Troponin I Q3H Lab 03/21/20 06:45 Ordered Troponin I Q3H Lab 03/21/20 09:45 Ordered - Radiology Data #1 Image(s): Chest Image Reviewed: Yes I reviewed the patient's radiology image Preliminary Findings: Normal/NAD - ECG Data Tracing #1 Normal Sinus Rhythm: Yes Ischemic changes: non-specific ST-T wave changes Chest Pain HPI - General Chief Complaint: Chest Pain Stated Complaint: Chest Pain Time Seen by Provider: 03/21/20 03:45 Mode of Arrival: Ambulatory Source of Information: Patient, Medical Record Limitations: No Limitations Description of Symptoms (Recalled from ER Triage Doc. by RN): Pt did not take his BP meds or his lexapro and now he feels anxious and having chest pain - History of Present Illness HPI narrative: pt has been off meds this week with episode of not feeling right with rt sided chest pain - felt like hot f
--- NOTE | 2020-03-21 04:36 | PC.NURSE ---
BRET WICK at bedside.
[2020-03-21 05:01] VITALS: BP 143/87; PULSE 81; RESP 16; TEMP 36.6; O2SAT 98
== END 2020-03-21 05:03 | disposition home or self-care (01) ==
PROVIDERS: Emergency Provider Emergency Medicine; PCP Internal Medicine
DX: R07.9 Chest pain, unspecified (principal); R01.1 Cardiac murmur, unspecified; R00.2 Palpitations; I10 Essential (primary) hypertension; F41.9 Anxiety disorder, unspecified; Z87.891 Personal history of nicotine dependence
CPT/HCPCS: 71046; 80048; 84484; 85025; 86328; 93005; 96365; 99283

== ENCOUNTER 2020-04-26 03:20 | Emergency (ER) | payer MEDICAID, SELFPAY ==
--- NOTE | 2020-04-26 03:30 | ECG_ITS ---
APPROVED REPORT Exam: Resting ECG HR:74 bpm ECG Measurements Heart Rate 74 AXES CO 156 P 39 QRSd 84 QRS 31 QT 396 T 30 QTc 439 <Conclusion> Normal sinus rhythm Normal ECG Electronically signed by : Mikey Yu, 04/26/2020 21:51:01
--- NOTE | 2020-04-26 03:36 | HMH.EDGENADL ---
ED Disposition Clinical Impression: Palpitations, PVCs (premature ventricular contractions), Chest wall pain Forearm strain Qualifiers: Encounter type: initial encounter Laterality: left Qualified Code(s): S56.912A - Strain of unspecified muscles, fascia and tendons at forearm level, left arm, initial encounter Disposition: Home, Self-Care Condition on Discharge: Good Instructions: DI for Palpitations, DI for Atypical Chest Pain Additional Instructions: Follow-up with your manager assurance, call for appointment. Additional instructions for CHEST PAIN: See your physician as soon as possible for further evaluation. Return immediately if worsening chest pain, vomiting, shortness of breath, fever, coughing of blood. Referrals: Rico Brady [Primary Care Provider] - - Critical Care Critical Care Time: No Attestation: On , the high probability of a clinically significant, sudden or life threatening deterioration of the following system(s) required my full and direct attention, intervention and personal management. The time I documented below is in addition to time spent performing reported procedures but includes the following listed in this critical care notation. Medical Decision Making - Teofilo Inquiry Pt receiving controlled substance: No Vital Signs: 04/26/20 03:40 04/26/20 03:55 Temperature 97.7 F Temperature Source Oral Pulse Rate [Right Brachial] 74 69 Respiratory Rate 11 L 18 Blood Pressure [Right Arm] 151/99 H 129/91 H Blood Pressure Mean [Right Arm] 116 103 Blood Pressure Source [Right Arm] Automatic Cuff Blood Pressure Position [Right Arm] Sitting 02 Sat by Pulse Oximetry 98 98 Oxygen Delivery Method Room Air Room Air - Lab Data Lab Results 04/26/20 03:39: WBC 9.3, RBC 5.12, Hgb 15.5, Hct 44.9, MCV 87.7, MCH 30.3, MCHC 34.5, RDW 12.8, Plt Count 274, MPV 8.2, Neut % (Auto) 67.7, Lymph % (Auto) 24.0, [place] % (Auto) 6.4, Eos % (Auto) 1.5, Baso % (Auto) 0.4, Neut # (Auto) 6.3, Lymph # (Auto) 2.2, [place] # (Auto) 0.6, Eos # (Auto) 0.1, Baso # (Auto) 0.0 04/26/20 03:39: Sodium 140, Potassium 3.7, Chloride 101, Carbon Dioxide 27, Anion Gap 15.7 H, BUN 15, Creatinine 0.80, Estimated Creat Clear 114, Estimated GFR 109, Est GFR ( Amer) 132, Glucose 101 H, Calcium 9.7, Troponin I < 0.01 04/26/20 03:39: SARS-CoV-2 IgG Ab (Rapid) Negative, SARS-CoV-2 IgM Ab (Rapid) Negative 04/26/20 03:47: Urine Color Yellow, Urine Appearance Clear, Urine pH 6.0, Ur Specific [place] 1.010, Urine Protein Negative, Urine Glucose (UA) Negative, Urine Ketones Negative, Urine Blood Negative, Urine Nitrate Negative, Urine Bilirubin Negative, Urine Urobilinogen 0.2, Ur Leukocyte Esterase Negative, Amorphous Sediment Trace Result diagrams: 04/26/20 03:39 04/26/20 03:39 Orders (Tests/Meds): ORDERS Category Date Time Status XR chest portable Stat Exams 04/26/20 04:03 Taken - Radiology Data #1 Image(s): Chest Image Reviewed: Yes I reviewed the patient's radiology image Preliminary Findings: Normal/NAD - ECG Data Tracing #1 EKG interpreted by Jermaine Blanton MD: Rhythm: sinus Rate: 74 [place]: normal Ectopy: none Conduction: normal ST Segment Changes: none T Wave Changes: none Q Waves: none No evidence of acute ischemia or injury Normal electrocardiogram General Adult HPI - General Stated complaint: chest palpitations,left rib pain Time Seen by Provider: 04/26/20 03:36 - History of Present Illness HPI narrative: The patient complains of a worsening of his palpitations, which is a chronic problem for him. He has had palpitations for a couple of years. He sees a manager assurance in [place], Dr. Hernandez. He takes bisoprolol for that as well as hypertension. He is also on diltiazem. He says that he has had a stress echocardiogram this year which was unremarkable. He says that he has had a cardiac cath a couple of years ago at [facility] that also was unremarkable. Aside from palpitations
[2020-04-26 03:40] VITALS: BP 151/99; PULSE 74; RESP 11; TEMP 36.5; O2SAT 98; BMI 45.1
[2020-04-26 03:55] VITALS: BP 129/91; PULSE 69; RESP 18; O2SAT 98
[2020-04-26 04:03] LABS: Microscopic, Urine URINE MICROSCOPIC (MICROSCOPIC)
--- NOTE | 2020-04-26 04:03 | XR_ITS ---
PROCEDURE: XR CHEST PORTABLE Patient Age:39Y CLINICAL HISTORY: L rib pain COMPARISON: XR CHEST 2V from 09/01/2019 XR CHEST 2V from 10/10/2019 XR CHEST 2V from 03/21/2020 FINDINGS: AP portable upright CXR with high slightly lordotic projection Heart appears upper normal in size in part accentuated by the lordotic projection. Initially question if there may be might be slight left atrial enlargement questioning slight splaying of the domonique but on further review I believe domonique satisfactory and are other lines accounting for this spurring is appearance The pulmonary vascularity appears normal to upper normal. No convincing focal pneumonia on this slightly limited portable chest film. Upper normal markings at the medial left base retrocardiac region accentuated I believe by technique possible mild atelectasis here. Doubt infiltrate. The lungs appear clear with nothing definitely acute t The chest wall (with attention particularly to the left chest wall) unremarkable on this limited portable study. No pneumothorax but no pleural effusion. IMPRESSION: Today's limited rather lordotic AP portable reveals NOTHING DEFINITELY ACUTE Upper normal markings medial left lung base may reflect mild atelectasis, unlikely infiltrate Heart upper normal in size, likely accentuated by today's AP projection.. Dictated by: Pasha Garrison MD 04/26/2020 12:29 Electronically signed by Pasha Garrison MD in [place] 04/26/2020 12:29
[2020-04-26 04:04] LABS: Basophils % 0.4 % (0.1-2.0); Eosinophils # 0.1 K/mm3 (0.0-0.4); Eosinophils % 1.5 % (0.1-12.0); Hematocrit 44.9 % (42.0-52.0); Hemoglobin 15.5 g/dL (14.1-18.0); Lymphocytes # 2.2 K/mm3 (0.7-4.5); Mean Corpuscular HGB Conc 34.5 g/dL (31.8-35.4); Mean Corpuscular Hemoglobin 30.3 pg (27.0-31.2); Mean Corpuscular Volume 87.7 fl (80-94); Mean Platelet Volume 8.2 fl (7.4-10.4); Monocytes # 0.6 K/mm3 (0.1-1.0); Monocytes % 6.4 % (1.7-9.3); Neutrophils # 6.3 K/mm3 (1.8-7.8); Neutrophils % 67.7 % (37.0-80.0); Platelet Count 274 K/mm3 (142-424); Red Blood Count 5.12 M/mm3 (4.60-6.20); Red Cell Distribution Width 12.8 % (11.5-17.5); White Blood Count 9.3 K/mm3 (4.8-10.8)
[2020-04-26 04:10] VITALS: BP 115/74; PULSE 66; RESP 17; O2SAT 96
[2020-04-26 04:11] LABS: Anion Gap 15.7 mEq/L (5-15); Blood Urea Nitrogen 15 mg/dl (9-20); Calcium 9.7 mg/dl (8.4-10.2); Carbon Dioxide 27 mmol/L (22.0-30.0); Chloride 101 mmol/L (98-107); Creatinine Clearance Estimated 114 mL/min (50-200); Estimated Glomerular Filt Rate 109 ml/min (>60); GFR (African American) 132 ML/MIN (>60); Glucose 101 mg/dl (74-100); Potassium 3.7 mmoL/L (3.5-5.1); Sodium 140 mmol/L (136-145)
[2020-04-26 04:11] LABS: Appearance,Urine CLEAR (Clear); Bilirubin,Urine Negative (Negative); Blood, Urine Negative (Negative); Color,Urine YELLOW (Yellow); Glucose,Urine (UA) Negative (Negative); Ketones,Urine Negative (Negative); Leukocyte Esterase,Urine Negative (Negative); Nitrate,Urine Negative (Negative); Protein,Urine Negative (Negative); Urobilinogen,Urine 0.2 EU/dl (0.2)
[2020-04-26 04:17] LABS: Amorphous Sediment,Urine Trace /lpf
[2020-04-26 04:21] LABS: Coronavirus 19 IgG Antibody Negative (Negative)
[2020-04-26 04:22] LABS: Coronavirus 19 IgM Antibody Negative (Negative)
[2020-04-26 04:24] LABS: Troponin I < 0.01 ng/ml (0.00-0.034)
[2020-04-26 04:34] VITALS: BP 115/78; PULSE 65; RESP 17; TEMP 36.5; O2SAT 97
== END 2020-04-26 04:37 | disposition home or self-care (01) ==
PROVIDERS: Emergency Provider Emergency Medicine; PCP Internal Medicine
DX: I49.3 Ventricular premature depolarization (principal); R07.89 Other chest pain; S56.912A Strain of unspecified muscles, fascia and tendons at forearm level, left arm, initial encounter; I10 Essential (primary) hypertension; R73.9 Hyperglycemia, unspecified; Z90.49 Acquired absence of other specified parts of digestive tract; Z87.891 Personal history of nicotine dependence
CPT/HCPCS: 71045; 80048; 81001; 84484; 85025; 86328; 93005; 99284

== ENCOUNTER 2020-09-29 13:27 | Emergency (ER) | payer OTHER, SELFPAY ==
[2020-09-29] VITALS (7 sets, daily range): BP systolic 111–145; BP diastolic 65–84; PULSE 60–82; RESP 14–18; TEMP 36.8; O2SAT 94–99; BMI 36.7
--- NOTE | 2020-09-29 13:25 | ECG_ITS ---
APPROVED REPORT Exam: Resting ECG HR:74 bpm ECG Measurements Heart Rate 74 AXES TX 140 P 39 QRSd 88 QRS 53 QT 382 T 50 QTc 424 Conclusion Normal sinus rhythm Normal ECG Electronically signed by : Wilfrido Lala, 09/29/2020 19:54:46
--- NOTE | 2020-09-29 13:34 | XR_ITS ---
PROCEDURE: XR CHEST 2V CLINICAL HISTORY: pain Chest pain COMPARISON: CR XR CHEST 2V from 10/10/2019 CR XR CHEST 2V from 03/21/2020 CR XR CHEST PORTABLE from 04/26/2020 FINDINGS: The cardiomediastinal silhouette and pulmonary vascularity are within normal limits. The lungs are clear without infiltrates, suspicious nodules, or pleural effusions. No acute bony abnormalities. IMPRESSION: No acute findings. Dictated by: Zak Lee MD 09/29/2020 15:01 Zak Lee MD in [facility] 09/29/2020 15:01
--- NOTE | 2020-09-29 13:40 | HMH.EDGENADL ---
ED Disposition Clinical Impression: Atypical chest pain, Epigastric pain Disposition: Home, Self-Care Condition on Discharge: Good Instructions: DI for Atypical Chest Pain Additional Instructions: You have been evaluated for chest pain, atypical. Please take all medications as prescribed. Follow-up with your primary care physician. Follow-up with your psychologist chief. Return to the emergency department if you have any new or worsening symptoms. Referrals: Ronnie Brady [Primary Care Provider] - Fidel Black MD [Staff Physician] - Time of Disposition: 15:53 - Critical Care Critical Care Time: No Attestation: On , the high probability of a clinically significant, sudden or life threatening deterioration of the following system(s) required my full and direct attention, intervention and personal management. The time I documented below is in addition to time spent performing reported procedures but includes the following listed in this critical care notation. Medical Decision Making - Medical Records Medical records reviewed: Yes: I reviewed the patient's medical records. - Teofilo Inquiry Pt receiving controlled substance: No Vital Signs: 09/29/20 13:27 09/29/20 14:11 09/29/20 14:36 Temperature 98.3 F Temperature Source Oral Pulse Rate [Left Radial] 81 68 63 Respiratory Rate 18 Blood Pressure [Right Arm] 145/84 H 123/65 115/67 Blood Pressure Mean [Right Arm] 104 84 83 Blood Pressure Source [Right Arm] Automatic Cuff Automatic Cuff Automatic Cuff Blood Pressure Position [Right Arm] Sitting Sitting Sitting 02 Sat by Pulse Oximetry 98 98 95 Oxygen Delivery Method Room Air Room Air Room Air 09/29/20 15:08 09/29/20 15:37 Temperature Temperature Source Pulse Rate [Left Radial] 63 60 Respiratory Rate Blood Pressure [Right Arm] 111/71 117/70 Blood Pressure Mean [Right Arm] 84 85 Blood Pressure Source [Right Arm] Automatic Cuff Automatic Cuff Blood Pressure Position [Right Arm] Sitting Sitting 02 Sat by Pulse Oximetry 97 99 Oxygen Delivery Method Room Air Room Air - Lab Data Lab Results 09/29/20 13:35: WBC 10.7, RBC 5.22, Hgb 15.9, Hct 46.1, MCV 88.4, MCH 30.4, MCHC 34.5, RDW 12.9, Plt Count 287, MPV 8.0, Neut % (Auto) 79.4, Lymph % (Auto) 14.5, [place] % (Auto) 5.3, Eos % (Auto) 0.5, Baso % (Auto) 0.3, Neut # (Auto) 8.5 H, Lymph # (Auto) 1.6, [place] # (Auto) 0.6, Eos # (Auto) 0.1, Baso # (Auto) 0.0 09/29/20 13:35: Sodium 142, Potassium 3.9, Chloride 103, Carbon Dioxide 27, Anion Gap 15.9 H, BUN 16, Creatinine 0.80, Estimated Creat Clear 206, Estimated GFR 108, Est GFR ( Amer) 131, Glucose 125 H, Calcium 10.3 H, Troponin I < 0.01 09/29/20 13:35: Lipase 109 09/29/20 13:35: SARS-CoV-2 IgG Ab (Rapid) Negative, SARS-CoV-2 IgM Ab (Rapid) Negative 09/29/20 15:30: Troponin I < 0.01 Result diagrams: 09/29/20 13:35 09/29/20 13:35 Orders (Tests/Meds): ED MEDICATIONS Discontinued Medications Generic Name Dose Route Start Last Admin Trade Name Freq PRN Reason Stop Dose Admin Aspirin 325 mg 09/29/20 13:40 09/29/20 13:43 Aspirin 325mg Tablet PO 09/29/20 13:41 Not Given ONCE ONE Aspirin 324 mg 09/29/20 13:44 09/29/20 13:45 Aspirin 81mg Chewable Tablet PO 09/29/20 13:45 324 mg ONCE ONE Administration ORDERS Category Date Time Status Troponin I Q3H Lab 09/29/20 19:45 Ordered Troponin I Q3H Lab 09/29/20 22:45 Ordered Troponin I Q3H Lab 09/30/20 01:45 Ordered Troponin I Q3H Lab 09/30/20 04:45 Ordered Troponin I Q3H Lab 09/30/20 07:45 Ordered Troponin I Q3H Lab 09/30/20 10:45 Ordered - ECG Data Tracing #1 Sinus rhythm with ventricular rate of 74 bpm. QRS 88, QTc 424. - ADAMS Score for Non-Stemi Age of Patient: 30-39 years old Heart Rate: 70-89 bpm Systolic Blood Pressure: 140-159 mmHg Serum Creatinine: 0.80-1.19 mg/dl CHF [place] Class: I-No CHF Other Risk Factors: None Non-Stemi Risk Score: 48 Medical Decision Narrative: 40-ye
[2020-09-29 13:59] LABS: Chloride 103 mmol/L (98-107); Potassium 3.9 mmoL/L (3.5-5.1); Sodium 142 mmol/L (136-145)
[2020-09-29 14:01] LABS: Blood Urea Nitrogen 16 mg/dl (9-20); Creatinine Clearance Estimated 206 mL/min (50-200); Estimated Glomerular Filt Rate 108 ml/min (>60); GFR (African American) 131 ML/MIN (>60)
[2020-09-29 14:02] LABS: Anion Gap 15.9 mEq/L (5-15); Calcium 10.3 mg/dl (8.4-10.2); Carbon Dioxide 27 mmol/L (22.0-30.0); Glucose 125 mg/dl (74-100); Lipase 109 U/L (23-300)
[2020-09-29 14:15] LABS: Basophils % 0.3 % (0.1-2.0); Eosinophils # 0.1 K/mm3 (0.0-0.4); Eosinophils % 0.5 % (0.1-12.0); Hematocrit 46.1 % (42.0-52.0); Hemoglobin 15.9 g/dL (14.1-18.0); Lymphocytes # 1.6 K/mm3 (0.7-4.5); Lymphocytes % 14.5 % (10-50); Mean Corpuscular HGB Conc 34.5 g/dL (31.8-35.4); Mean Corpuscular Hemoglobin 30.4 pg (27.0-31.2); Mean Corpuscular Volume 88.4 fl (80-94); Monocytes # 0.6 K/mm3 (0.1-1.0); Monocytes % 5.3 % (1.7-9.3); Neutrophils # 8.5 K/mm3 (1.8-7.8); Neutrophils % 79.4 % (37.0-80.0); Platelet Count 287 K/mm3 (142-424); Red Blood Count 5.22 M/mm3 (4.60-6.20); Red Cell Distribution Width 12.9 % (11.5-17.5); White Blood Count 10.7 K/mm3 (4.8-10.8)
[2020-09-29 14:18] LABS: Troponin I < 0.01 ng/ml (0.00-0.034)
[2020-09-29 14:23] LABS: Coronavirus 19 IgG Antibody Negative (Negative); Coronavirus 19 IgM Antibody Negative (Negative)
[2020-09-29 16:23] LABS: Troponin I < 0.01 ng/ml (0.00-0.034)
== END 2020-09-29 16:40 | disposition home or self-care (01) ==
PROVIDERS: Emergency Provider Emergency Medicine; PCP Pediatrics
DX: R07.89 Other chest pain (principal); R10.13 Epigastric pain; R01.1 Cardiac murmur, unspecified; I10 Essential (primary) hypertension; Z01.84 Encounter for antibody response examination; Z87.891 Personal history of nicotine dependence; Z79.899 Other long term (current) drug therapy
CPT/HCPCS: 71046; 80048; 83690; 84484; 85025; 86328; 93005; 99283

== ENCOUNTER 2021-02-08 20:40 | Emergency (ER) | payer BC, OTHER, SELFPAY ==
--- NOTE | 2021-02-08 20:34 | ECG_ITS ---
APPROVED REPORT Exam: Resting ECG HR:79 bpm ECG Measurements Heart Rate 79 AXES W[place] 128 P 51 QRSd 92 QRS 48 QT 366 T 44 QTc 419 Conclusion Normal sinus rhythm Normal ECG Electronically signed by : Wilfrido Lala, 02/09/2021 17:09:50
[2021-02-08 20:41] VITALS: BP 157/91; PULSE 86; RESP 22; TEMP 36.7; O2SAT 98; BMI 33.7
--- NOTE | 2021-02-08 20:49 | XR_ITS ---
PROCEDURE INFORMATION: Exam: XR Chest Exam date and time: 02/08/2021 8:49 PM Age: 40 years old Clinical indication: On breathing; Patient HX: Chestpain on inspiration SOB; Additional info: Chest pain TECHNIQUE: Imaging protocol: XR of the chest. Views: 2 views. COMPARISON: CR XR CHEST 2V 09/29/2020 1:57 PM FINDINGS: Lungs: Normal. Pleural spaces: Unremarkable. No pleural effusion. No pneumothorax. Heart/Mediastinum: Normal. Bones/joints: No acute abnormality. IMPRESSION: No acute findings.
[2021-02-08 20:57] LABS: Basophils % 0.3 % (0.1-2.0); Eosinophils # 0.1 K/mm3 (0.0-0.4); Eosinophils % 0.8 % (0.1-12.0); Hematocrit 41.8 % (42.0-52.0); Hemoglobin 14.2 g/dL (14.1-18.0); Lymphocytes # 2.3 K/mm3 (0.7-4.5); Lymphocytes % 22.9 % (10-50); Mean Corpuscular HGB Conc 33.9 g/dL (31.8-35.4); Mean Corpuscular Hemoglobin 29.2 pg (27.0-31.2); Mean Corpuscular Volume 86.4 fl (80-94); Mean Platelet Volume 8.1 fl (7.4-10.4); Monocytes # 0.6 K/mm3 (0.1-1.0); Monocytes % 6.3 % (1.7-9.3); Neutrophils # 7.1 K/mm3 (1.8-7.8); Neutrophils % 69.7 % (37.0-80.0); Platelet Count 265 K/mm3 (142-424); Red Blood Count 4.84 M/mm3 (4.60-6.20); Red Cell Distribution Width 13.4 % (11.5-17.5); White Blood Count 10.1 K/mm3 (4.8-10.8)
[2021-02-08 21:10] LABS: Anion Gap 9.4 mEq/L (5-15); Blood Urea Nitrogen 10 mg/dl (9-20); Calcium 9.4 mg/dl (8.4-10.2); Carbon Dioxide 27 mmol/L (22.0-30.0); Chloride 106 mmol/L (98-107); Creatinine Clearance Estimated 168 mL/min (50-200); Estimated Glomerular Filt Rate 94 ml/min (>60); GFR (African American) 114 ML/MIN (>60); Glucose 110 mg/dl (74-100); Potassium 3.4 mmoL/L (3.5-5.1); Sodium 139 mmol/L (136-145)
[2021-02-08 21:15] LABS: C-Reactive Protein 1.5 mg/L (0-4)
[2021-02-08 21:26] LABS: Troponin I < 0.01 ng/ml (0.00-0.034)
[2021-02-08 21:29] LABS: Erythrocyte Sedimentation Rate 20 mm/hr (0-15)
[2021-02-08 21:39] LABS: Procalcitonin < 0.030 ng/mL (0.0-2.0)
--- NOTE | 2021-02-08 21:45 | HMH.EDCP ---
ED Disposition Clinical Impression: Atypical chest pain Disposition: Home, Self-Care Condition on Discharge: Good Instructions: DI for Atypical Chest Pain Additional Instructions: see pcp for follow up Referrals: Ronnie Brady [Primary Care Provider] - - Critical Care Critical Care Time: No Attestation: On 02/08/21, the high probability of a clinically significant, sudden or life threatening deterioration of the following system(s) required my full and direct attention, intervention and personal management. The time I documented below is in addition to time spent performing reported procedures but includes the following listed in this critical care notation. Medical Decision Making - Medical Records Medical records reviewed: Yes: I reviewed the patient's medical records. - Teofilo Inquiry Pt receiving controlled substance: No Vital Signs: 02/08/21 20:41 Temperature 98.0 F Temperature Source Oral Pulse Rate [Right] 86 Respiratory Rate 22 Blood Pressure [Right Arm] 157/91 H Blood Pressure Mean [Right Arm] 113 Blood Pressure Source [Right Arm] Automatic Cuff Blood Pressure Position [Right Arm] Supine 02 Sat by Pulse Oximetry 98 Oxygen Delivery Method Room Air - Lab Data Lab results reviewed: Yes: I reviewed the patient's lab results. Lab Results 02/08/21 20:40: WBC 10.1, RBC 4.84, Hgb 14.2, Hct 41.8 L, MCV 86.4, MCH 29.2, MCHC 33.9, RDW 13.4, Plt Count 265, MPV 8.1, Neut % (Auto) 69.7, Lymph % (Auto) 22.9, [place] % (Auto) 6.3, Eos % (Auto) 0.8, Baso % (Auto) 0.3, Neut # (Auto) 7.1, Lymph # (Auto) 2.3, [place] # (Auto) 0.6, Eos # (Auto) 0.1, Baso # (Auto) 0.0 02/08/21 20:40: Sodium 139, Potassium 3.4 L, Chloride 106, Carbon Dioxide 27, Anion Gap 9.4, BUN 10, Creatinine 0.90, Estimated Creat Clear 168, Estimated GFR 94, Est GFR ( Amer) 114, Glucose 110 H, Calcium 9.4, Troponin I < 0.01, C-Reactive Protein 1.5 02/08/21 20:40: ESR 20 H 02/08/21 20:40: Procalcitonin < 0.030 Result diagrams: 02/08/21 20:40 02/08/21 20:40 Orders (Tests/Meds): ED MEDICATIONS Generic Name Dose Route Start Last Admin Trade Name Freq PRN Reason Stop Dose Admin Sodium Chloride 1,000 mls @ 999 mls/hr 02/08/21 21:00 02/08/21 21:08 Sod Chlor 0.9% 1000ml Bag IV 02/08/21 22:00 999 mls/hr .Q1H1M BARBARA Administration Discontinued Medications Generic Name Dose Route Start Last Admin Trade Name Freq PRN Reason Stop Dose Admin Aspirin 324 mg 02/08/21 20:49 02/08/21 21:07 Aspirin 81mg Chewable Tablet PO 02/08/21 20:50 324 mg ONCE ONE Administration Nitroglycerin 0.4 mg 02/08/21 20:49 02/08/21 21:07 Nitroglycerin 0.4mg Sl Tablet SL 02/08/21 20:50 1 tab ONCE ONE Administration Nitroglycerin 1 gm 02/08/21 21:30 02/08/21 21:32 Nitroglycerin 1 Gm Ointment TD 02/08/21 21:31 1 gm ONCE ONE Administration ORDERS Category Date Time Status XR chest 2V Stat Exams 02/08/21 20:49 Taken Troponin I Q3H Lab 02/08/21 23:50 Ordered Troponin I Q3H Lab 02/09/21 02:50 Ordered - Radiology Data #1 Image(s): Chest Image Reviewed: Yes I reviewed the patient's radiology image Preliminary Findings: Normal/NAD - ECG Data Tracing #1 Normal Sinus Rhythm: Yes Ischemic changes: non-specific ST-T wave changes Medical Decision Narrative: atypical chest pain with stable labs and exam Chest Pain HPI - General Chief Complaint: Chest Pain Stated Complaint: Chest Pain Time Seen by Provider: 02/08/21 21:00 Mode of Arrival: Ambulatory Source of Information: Patient, Medical Record Limitations: No Limitations Description of Symptoms (Recalled from ER Triage Doc. by RN): Pt states he has been having Chest Pain since this AM,pt thinks its anxiety. Pt has generalized chest pain, Nausea and SOA - History of Present Illness HPI narrative: ant chest pain today with no fever or rash MD complaint: chest pain indicative of cardiac Onset (ago): hour(s) Duration: intermitt
[2021-02-08 23:03] VITALS: BP 146/84; PULSE 82; RESP 16; TEMP 36.7; O2SAT 97
== END 2021-02-08 22:35 | disposition home or self-care (01) ==
PROVIDERS: Emergency Provider Emergency Medicine; PCP Pediatrics
DX: R07.89 Other chest pain (principal); I10 Essential (primary) hypertension; R00.2 Palpitations
CPT/HCPCS: 71046; 80048; 84145; 84484; 85025; 85651; 86140; 93005; 96365; 99282

== ENCOUNTER 2021-05-17 13:49 | Emergency (ER) | payer BC, SELFPAY ==
--- NOTE | 2021-05-17 14:43 | PC.NURSE ---
Went in to triage patient and he advised he only needed a tetanus shot. Looked up in registry for pateint and seen he had one in 2019. Pt advised he needed nothing else and decided to LWBS
[2021-05-17 14:45] VITALS: BP 0/0; PULSE 0; RESP 0; TEMP -17.7; TEMP 0; O2SAT 0
== END 2021-05-17 14:46 | disposition left against medical advice (07) ==
LOC: UTC 13:52
PROVIDERS: Emergency Provider Nurse Practitioner Family; PCP Emergency Medicine
DX: Z53.21 Procedure and treatment not carried out due to patient leaving prior to being seen by health care provider (principal)

== ENCOUNTER 2021-05-24 18:39 | Emergency (ER) | payer BC, SELFPAY ==
[2021-05-24 18:49] VITALS: BMI 34.8
--- NOTE | 2021-05-24 18:52 | XR_ITS ---
PROCEDURE INFORMATION: Exam: XR Lumbosacral Spine Exam date and time: 05/24/2021 6:52 PM Age: 40 years old Clinical indication: Low back pain TECHNIQUE: Imaging protocol: XR of the lumbosacral spine. Views: 2 or 3 views. COMPARISON: CR XR LUMBAR SPINE MIN 4V 07/18/2019 9:48 AM FINDINGS: Bones/joints: Normal. No acute fracture. Normal alignment. Soft tissues: Unremarkable. IMPRESSION: No acute findings.
--- NOTE | 2021-05-24 18:52 | XR_ITS ---
PROCEDURE INFORMATION: Exam: XR Left Knee Exam date and time: 05/24/2021 6:52 PM Age: 40 years old Clinical indication: Pain; Knee; Left TECHNIQUE: Imaging protocol: XR Left knee. Views: 3 views. COMPARISON: CR [id number] XR knee LT 3V 12/21/2018 9:14 AM FINDINGS: Bones/joints: Normal. Soft tissues: Normal. IMPRESSION: No acute findings.
[2021-05-24 20:20] VITALS: BP 125/75; PULSE 75; RESP 18; TEMP 36.6; O2SAT 98; BMI 35.6
--- NOTE | 2021-05-24 20:51 | HMH.EDUTC ---
[facility] [place] Disposition Clinical Impression: Low back pain Qualifiers: Chronicity: unspecified Back pain laterality: unspecified Sciatica presence: without sciatica Qualified Code(s): M54.5 - Low back pain Knee pain Qualifiers: Chronicity: unspecified Laterality: left Qualified Code(s): M25.562 - Pain in left knee Disposition: Home, Self-Care Condition on Discharge: Good Instructions: Low Back Pain, DI for Low Back Pain, DI for Knee Pain Additional Instructions: Make sure to follow up with your Family Doctor for further treatment and evaluation Return if needed Straight to ER if any life threatening symptoms *Ibuprofen herminia 6 hours with meal as needed for pain/inflammation if you can take it *Not additional anti-inflammatory like motrin, aleve, advil with the above amount of ibuprofen. You can still take Tylenol every 4 hours as needed if you need something else for pain *Ice 20 minutes every 2 hours for the first 48 hours after the initial injury followed by moist heat every 20 minutes 3-4 times a day to affected area *Keep this area active, no movement leads to more stiffness, However take it easy and avoid heavy lifting pushing or pulling *Follow up with you family doctor if no improvement for further treatment Referrals: Donn Rodriguez MD [Primary Care Provider] - As needed Time of Disposition: 21:02 Medical Decision Making - Teofilo Inquiry Pt receiving controlled substance: No Teofilo was queried for this patient: No Vital Signs: 05/24/21 20:20 05/24/21 21:12 Temperature 97.8 F 97.8 F Temperature Source Oral Pulse Rate 75 Pulse Rate [Right Brachial] 75 Respiratory Rate 18 18 Blood Pressure 125/75 Blood Pressure [Right Arm] 125/75 Blood Pressure Mean [Right Arm] 91 Blood Pressure Source [Right Arm] Automatic Cuff Blood Pressure Position [Right Arm] Sitting 02 Sat by Pulse Oximetry 98 Oxygen Delivery Method Room Air - Radiology Data #1 Image(s): L-Spine Image Reviewed: Yes I have reviewed radiologist's interpretation IMPRESSION: No acute findings. #2 Image(s): Knee Image Reviewed: Yes I have reviewed radiologist's interpretation IMPRESSION: No acute findings. Medical Decision Narrative: Discussed with patient about medication and he reports that PCP started him on Gabapentin and he would follow up with him he just wanted to get xrays done Patient requested injection of Toradol and patient declined state i dont want it [facility] [place] HPI - General Stated complaint: back pain knee pain no accident Time Seen by Provider: 05/24/21 20:51 Mode of Arrival: Ambulatory Source of Information: Patient Limitations: No Limitations Description of Symptoms (Recalled from Triage Doc. by RN): PATIENT C/O LEFT KNEE PAIN AND LOWER BACK PAIN THAT RADIATES DOWN FRONT OF LEG INTO GROIN HEENT Symptoms (Recalled from RN notes): No Resp Symptoms (Recalled from RN notes): No Skin Symptoms (Recalled from RN notes): No MS Symptoms (Recalled from RN notes): Yes Functional Status (Recalled from RN notes): wnl - History of Present Illness Provider Complaint: Patient state that he has been having pain in his lower back off and on that at times radiates to groin area and pain and swelling on and off in left knee for about a year State that he spoke with his PCP and they told him he may need to come in and get some xrays States that he works 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
[2021-05-24 21:12] VITALS: BP 125/75; PULSE 75; RESP 18; TEMP 36.6; O2SAT 98
== END 2021-05-24 21:13 | disposition home or self-care (01) ==
PROVIDERS: Emergency Provider Nurse Practitioner; PCP Emergency Medicine
DX: M54.5 Low back pain (principal); M25.562 Pain in left knee; K21.9 Gastro-esophageal reflux disease without esophagitis; I10 Essential (primary) hypertension; F41.9 Anxiety disorder, unspecified; Z79.899 Other long term (current) drug therapy
CPT/HCPCS: 72100; 73562; 99202; G0463

== ENCOUNTER 2021-06-20 16:01 | Emergency (ER) | payer BC, SELFPAY ==
[2021-06-20 16:02] VITALS: BP 141/83; PULSE 86; RESP 20; TEMP 36.7; O2SAT 96; BMI 37.3
--- NOTE | 2021-06-20 16:20 | CT_ITS ---
PROCEDURE INFORMATION: Exam: CT Lumbar Spine Without Contrast Exam date and time: 06/20/2021 4:20 PM Age: 40 years old Clinical indication: Injury or trauma; Work related; Sprain or strain, lumbar ligaments; Injury details: Patient was lifting heavy object at [employer] when he felt a pop in his low back. Pain in low back radiating down left leg. TECHNIQUE: Imaging protocol: Computed tomography images of the lumbar spine without contrast. Radiation optimization: All CT scans at this facility use at least one of these dose optimization techniques: automated exposure control; mA and/or kV adjustment per patient size (includes targeted exams where dose is matched to clinical indication); or iterative reconstruction. COMPARISON: CR XR LUMBAR SPINE 2-3V 05/24/2021 6:56 PM FINDINGS: Vertebrae: No acute fracture. Normal alignment. Discs/Spinal canal/Neural foramina: No significant disc protrusion. No severe spinal canal stenosis. No significant neural foraminal narrowing. Soft tissues: Unremarkable. IMPRESSION: No acute findings.
--- NOTE | 2021-06-20 16:56 | HMH.EDBACK ---
ED Disposition Clinical Impression: Lumbar radiculopathy Strain of lumbar region Qualifiers: Encounter type: initial encounter Qualified Code(s): S39.012A - Strain of muscle, fascia and tendon of lower back, initial encounter Disposition: Home, Self-Care Condition on Discharge: Good Instructions: DI for Low Back Pain Prescriptions: Ibuprofen [Ibuprofen 800mg Tablet] 800 mg PO TIDP PRN #20 tab PRN Reason: Moderate Pain [facility] methocarbamoL [Methocarbamol] 750 mg PO QID 7 Days #28 tab Transmission [facility]: [facility] Referrals: Donn Rodriguez MD [Primary Care Provider] - - Critical Care Critical Care Time: No Attestation: On 06/20/21, the high probability of a clinically significant, sudden or life threatening deterioration of the following system(s) required my full and direct attention, intervention and personal management. The time I documented below is in addition to time spent performing reported procedures but includes the following listed in this critical care notation. Medical Decision Making - Medical Records Medical records reviewed: Yes: I reviewed the patient's medical records. - Teofilo Inquiry Pt receiving controlled substance: No Vital Signs: 06/20/21 16:02 06/20/21 17:00 Temperature 98.1 F Temperature Source Oral Pulse Rate 79 Pulse Rate [Right Radial] 86 Respiratory Rate 20 Blood Pressure 107/66 L Blood Pressure [Right Arm] 141/83 H Blood Pressure Mean 80 Blood Pressure Mean [Right Arm] 102 Blood Pressure Source [Right Arm] Automatic Cuff Blood Pressure Position [Right Arm] Sitting 02 Sat by Pulse Oximetry 96 98 Oxygen Delivery Method Room Air Orders (Tests/Meds): ED MEDICATIONS Discontinued Medications Generic Name Dose Route Start Last Admin Trade Name Freq PRN Reason Stop Dose Admin Ketorolac Tromethamine 30 mg 06/20/21 16:20 06/20/21 16:51 Ketorolac 30mg/Ml Vial IM 06/20/21 16:21 30 mg ONCE ONE Administration Methocarbamol 1,000 mg 06/20/21 16:20 06/20/21 16:50 Methocarbamol 500mg Tablet PO 06/20/21 16:21 1,000 mg ONCE STA Administration - CT Data CT Scan: L-Spine Time Received: 17:[address] Reviewed: Yes: I have reviewed the patient's CT results, I have viewed the radiologist's interpretation Preliminary Findings: Normal/NAD - Reevaluation(s) Time: 17:26 Reevaluation #1: Reevaluation, patient is feeling better. There is no evidence of fracture or malalignment. No evidence spinal cord compression. Patient will follow up with PCP in 48 hours. Given strict return precautions. Verbalized understanding. Medical Decision Narrative: 40-year-old male presenting with some lower back pain. Patient symptoms appear to be consistent with disc herniation. No evidence of spinal cord compression. Imaging obtained. Treated symptomatically. Back Pain HPI - General Chief Complaint: Back Pain/Injury Stated Complaint: back pain from lifting at work Time Seen by Provider: 06/20/21 16:10 Mode of Arrival: Ambulatory Limitations: No Limitations Description of Symptoms (Recalled from ER Triage Doc. by RN): Pt c/o lower back pain that extends into left leg after lifting something out of the bathtub - History of Present Illness HPI Narrative: 40-year-old male presented to the emergency department with some lower back pain. The patient states that he was lifting something as he was twisting and he felt a large pop in his back. Is been having some consistent pain since then. It is dull in nature. Radiates down his left leg. States it is worse when he bends forward or tries to walk. Denies any fevers or chills. No chest pain or shortness of breath. No abdominal pain or vomiting. No headache or change in vision. - Related Data Home Medications Medication Instructions Recorded Confirmed Bisoprolol Fumarate [Bisoprolol 5 mg PO DAILY 07/18/19 04/14/21
[2021-06-20 17:00] VITALS: BP 107/66; PULSE 79; O2SAT 98
[2021-06-20 17:44] VITALS: BP 107/66; PULSE 79; RESP 18; TEMP 36.9; O2SAT 98
== END 2021-06-20 17:45 | disposition home or self-care (01) ==
PROVIDERS: Emergency Provider Emergency Medicine; PCP Emergency Medicine
DX: S39.012A Strain of muscle, fascia and tendon of lower back, initial encounter (principal); X50.0XXA Overexertion from strenuous movement or load, initial encounter; Y92.019 Unspecified place in single-family (private) house as the place of occurrence of the external cause; F41.9 Anxiety disorder, unspecified; K21.9 Gastro-esophageal reflux disease without esophagitis; I10 Essential (primary) hypertension; R01.1 Cardiac murmur, unspecified; Z87.891 Personal history of nicotine dependence
CPT/HCPCS: 72131; 96372; 99282

== ENCOUNTER 2021-08-10 16:00 | Outpatient (RCR) | payer BC, SELFPAY ==
--- NOTE | 2021-07-14 09:55 | HMH.PTOPEV ---
PT Outpatient Evaluation Rehab PT Outpatient Evaluation Start: 07/14/21 09:05 Freq: Status: Active Protocol: Document 07/14/21 09:43 THIAGO (Rec: 07/14/21 09:55 PHORNE [id number]) Electronically Signed By Dale Prather, PT 07/14/21 09:43 Outpatient Therapy Subjective History Subjective History Pt is 40 yowm who presents with c/o pain in low back x ~ 1 mo after, I lifted something and felt a 'pop' and my back started hurting after that and my legs felt really weak. Pt reports intermittent radiation of pain into B LE to knees distally as well as into the groin, worse on the R side. Lumbar CT performed at [facility] ED was negative for lumbar pathology. Pt reports no significant PMH. Chief Complaint Pain,Stiff Symptom Type Ache,Sharp Symptoms Relieved By Rest/Positioning,Prescription Meds Symptoms Aggravated By Sitting,Bending/Stooping Prior Functional Limitations None Current Functional Limitations Sitting,Bending/Stooping Symptom Description Intermittent,Activity Dependent Level of pain today (0-10) 5 Pain scale - at its worst (0-10) 10 Lumbopelvic Eval Posture Thoracic Spine Posture Standing Position Neutral Lumbar Spine Posture Standing Position Neutral Gait Observation General Gait Pattern Observation No Deviations/Normal Palapation tenderness bilateral lumbar spinal tenderness Yes paraspinal tenderness Yes Lumbar/Sacral Palpation Findings Tenderness Accessory Movement L-spine Vertebrae Accessory Movements Central [place] [place] that Elicit Symptoms L3 bilateral L4 bilateral Range of Motion Lumbar Spine Active Flexion Range of 0-45 Motion (degrees) Lumbar Spine Active Extension Range of 0-10 Motion (degrees) Left Lumbar Spine Lateral Flexion Active 0-10 Range of Motion (degrees) Right Lumbar Spine Lateral Flexion 0-10 Active Range of Motion (degrees) Lumbar Spine ROM Limitations Pain Manual Muscle Test Bilateral Knee Extension Strength Grade 5 Normal Knee Flexion Strength Grade 5 Normal Hip Flexion Strength Grade 5 Normal Hip Abduction Strength Grade 5 Normal Hip Adduction Strength Grade 5 Normal Gluteus Abel Strength Grade 5 Normal Extensor Hallucis Longus Strength Grade 5 Normal Ankle Dorsiflexion Strength
== END 2021-08-10 16:05 | disposition home or self-care (01) ==
LOC: PT 16:00
PROVIDERS: PCP Emergency Medicine; Visit Provider Emergency Medicine
DX: M54.16 Radiculopathy, lumbar region (principal); S39.92XA Unspecified injury of lower back, initial encounter
CPT/HCPCS: 97010; 97012; 97014; 97110; 97163; G0283

== ENCOUNTER → 2021-09-02 15:56 | Outpatient (CLI) | payer BC, SELFPAY ==
--- NOTE | 2021-09-02 15:56 | MR_ITS ---
PROCEDURE: MR LUMBAR SPINE WO CON CLINICAL INDICATION: back pain COMPARISON: No exams were available for comparison TECHNIQUE: Standard multiplanar multiecho sequences are performed without contrast. 3-D MIP and myelographic images are also rendered and reviewed FINDINGS: There is normal alignment. The spinal cord ends at the L1 level. L1-L2, L2-L3, and L3-L4 demonstrates mild facet and ligamentum hypertrophic change.. L4-5: Mild concentric bulging disc. There is a small central disc protrusion very slightly eccentric to the left abutting the anterior medial aspect of the left L5 nerve root and S1 nerve root. There is facet and ligamentum hypertrophic change resulting in bilateral lateral recess narrowing. This is greater on the left due to the disc protrusion with severe left lateral recess narrowing. There is moderate to severe left-sided foraminal narrowing and moderate right foraminal narrowing. Increased T2 signal involves the inferior facet on the right at L4 consistent with underlying bone marrow edema. Canal stenosis present at this level. L4-5: Minimal bulging disc. Mild facet hypertrophic change. IMPRESSION: 1. At L4-L5 there is a mild concentric bulging disc and there is a small central disc protrusion very slightly eccentric to the left abutting the anterior medial aspect of the left L5 nerve root and S1 nerve root. There is facet and ligamentum hypertrophic change resulting in bilateral lateral recess narrowing. This is greater on the left due to the disc protrusion with severe left lateral recess narrowing. There is moderate to severe left-sided foraminal narrowing and moderate right foraminal narrowing. Increased T2 signal involves the inferior facet on the right at L4 consistent with underlying bone marrow edema. Canal stenosis present at this level. 2. Multilevel facet and ligamentum hypertrophy. Dictated by: Zak Lee MD 09/03/2021 07:49 Zak Lee MD in OV 09/03/2021 07:49
== END ==
LOC: RAD 15:56
PROVIDERS: PCP Emergency Medicine; Visit Provider Emergency Medicine
DX: M54.9 Dorsalgia, unspecified (principal); M54.50 Low back pain, unspecified
CPT/HCPCS: 72148; 76376

== ENCOUNTER 2021-09-12 15:09 | Emergency (ER) | payer BC, SELFPAY ==
[2021-09-12 15:09] VITALS: BP 126/72; PULSE 74; RESP 16; TEMP 36.8; O2SAT 98; BMI 35.6
--- NOTE | 2021-09-12 15:29 | HMH.EDGENADL ---
ED Disposition Clinical Impression: Lumbar disc disease Disposition: Home, Self-Care Condition on Discharge: Fair Instructions: DI for Low Back Pain Additional Instructions: Continue current prescribed medications. Also take prednisone as prescribed. Follow-up with primary care provider on 09/14/2021 as scheduled. Follow-up with pain management on 09/16/2021 as scheduled. Additional instructions for BACK PAIN: Return immediately if back pain becomes intolerable, or if fever, numbness or weakness of your legs, loss of control of your bowels or bladder. Prescriptions: predniSONE [Prednisone 20mg Tab] 20 mg PO BID #10 tab Transmission Status: Pending to [facility] Referrals: Donn Rodriguez MD [Primary Care Provider] - - Critical Care Critical Care Time: No Attestation: On 09/12/21, the high probability of a clinically significant, sudden or life threatening deterioration of the following system(s) required my full and direct attention, intervention and personal management. The time I documented below is in addition to time spent performing reported procedures but includes the following listed in this critical care notation. Medical Decision Making - Medical Records Medical records reviewed: Yes: I reviewed the patient's medical records. MR Comment: Reviewed most recent primary care provider office note. He has been referred to pain management. It is noted that he has an appointment scheduled for 09/16/2021 and a primary care visit scheduled for 09/14/2021. Reviewed recent lumbar MRI, lumbar CT, and lumbar x-ray reports, see below. - Teofilo Inquiry Pt receiving controlled substance: No Vital Signs: 09/12/21 15:09 Temperature 98.3 F Temperature Source Oral Pulse Rate [Radial] 74 Respiratory Rate 16 Blood Pressure [Right Radial Artery] 126/72 Blood Pressure Mean [Right Radial Artery] 90 Blood Pressure Position [Right Radial Artery] Sitting 02 Sat by Pulse Oximetry 98 Oxygen Delivery Method Room Air Orders (Tests/Meds): back pain 07/18/19 10/02/18 06/20/21 PROCEDURE: MR LUMBAR SPINE WO CON CLINICAL INDICATION: back pain COMPARISON: No exams were available for comparison TECHNIQUE: Standard multiplanar multiecho sequences are performed without contrast. 3-D MIP and myelographic images are also rendered and reviewed FINDINGS: There is normal alignment. The spinal cord ends at the L1 level. L1-L2, L2-L3, and L3-L4 demonstrates mild facet and ligamentum hypertrophic change.. L4-5: Mild concentric bulging disc. There is a small central disc protrusion very slightly eccentric to the left abutting the anterior medial aspect of the left L5 nerve root and S1 nerve root. There is facet and ligamentum hypertrophic change resulting in bilateral lateral recess narrowing. This is greater on the left due to the disc protrusion with severe left lateral recess narrowing. There is moderate to severe left-sided foraminal narrowing and moderate right foraminal narrowing. Increased T2 signal involves the inferior facet on the right at L4 consistent with underlying bone marrow edema. Canal stenosis present at this level. L4-5: Minimal bulging disc. Mild facet hypertrophic change. IMPRESSION: 1. At L4-L5 there is a mild concentric bulging disc and there is a small central disc protrusion very slightly eccentric to the left abutting the anterior medial aspect of the left L5 nerve root and S1 nerve root. There is facet and ligamentum hypertrophic change resulting in bilateral lateral recess narrowing. This is greater on the left due to the disc protrusion with severe left lateral recess narrowing. There is moderate to severe left-sided foraminal narrowing and moderate right foraminal narrowing. Increased T2 signal involves the inferior facet on the right at L4 consistent with underlying bone marrow edema. Canal stenosis present
[2021-09-12 15:57] VITALS: BP 132/68; PULSE 78; RESP 16; TEMP 36.6; O2SAT 98
== END 2021-09-12 15:58 | disposition home or self-care (01) ==
PROVIDERS: Emergency Provider Emergency Medicine; PCP Emergency Medicine
DX: M54.16 Radiculopathy, lumbar region (principal); M47.816 Spondylosis without myelopathy or radiculopathy, lumbar region; I10 Essential (primary) hypertension; R01.1 Cardiac murmur, unspecified; K21.9 Gastro-esophageal reflux disease without esophagitis
CPT/HCPCS: 96372; 99282

== ENCOUNTER → 2021-09-16 10:15 | Outpatient (POV) | payer BC, SELFPAY ==
[2021-09-16 10:41] VITALS: BP 121/88; PULSE 62; RESP 18; O2SAT 97; BMI 36.0
--- NOTE | 2021-09-16 11:46 | HMH.PMCON ---
Assessment and Plan (1) Degenerative joint disease (DJD) of lumbar spine Status: Acute Category: Medical Code(s): M47.816 - Spondylosis without myelopathy or radiculopathy, lumbar region (2) Lumbar radiculopathy Status: Acute Category: Medical Code(s): M54.16 - Radiculopathy, lumbar region (3) Lumbar nerve root impingement Status: Acute Category: Medical Code(s): M54.16 - Radiculopathy, lumbar region - Assessment and plan all Dx Assessment and Plan for all problems:: The patient and I did review his MRI today. He does have nerve root impingement at the L5-S1 area. The patient does have a protruding disc at the L4-L5 area as well. He is having significant pain with any type of movement with radiation into his lower extremities. He is having numbness and tingling as well into the lower extremities. He has tried physical therapy for more than 6 weeks along with anti-inflammatories with minimal relief. He has had multiple visits to the emergency room for pain. He has had rounds of corticosteroids orally with out success. He was started on gabapentin which caused significant edema to his bilateral upper and lower extremities. After further review of the MRI, we will schedule him for a lumbar epidural steroid injection at L4-L5 area. He is not on any anticoagulation therapy. He is not diabetic. We will also order Lyrica 75 mg 1 tablet p.o. twice daily. We will plan to see him back in clinic after the injection for further evaluation. Possible side effects of corticosteroids have been discussed with the patient. Risks and benefits of the procedure have been explained to the patient. Patient would like to proceed with the procedure. Patient has been instructed to contact the clinic with any concerns before the next appointment. Dr. Coats has reviewed this note and agrees with this plan of care. This note was dictated using voice recognition software and make contain errors or omissions. HPI - Data of Consult Patient: new to practice Consult date: 09/16/21 Requesting Physician: Dary Chris APRN - Consult Narrative Reason for consult: back pain, leg pain History of present illness: Mr. Carter is a 41 year old male who presents today for consultation for low back pain and bilateral lower extremity pain. 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 He immediately felt pain in the low back area with pain into the groin area. He says his pain does worsen with twisting or when rising from a sitting position in a chair. He is having difficulty standing, walking. This started in June 2021. The pain is progressively worsening. He does say the pain is going into bilateral lower extremities with occasional numbness and tingling. He denies any history of fractures, surgical intervention to lumbar spine. He denies any bladder or bowel incontinence. He denies any saddle anesthesia. He has tried physical therapy for more than 6 weeks and got minimal relief. He has been taking anti-inflammatories as well as corticosteroids. He has gone to the emergency room on multiple occasions for worsening pain with minimal relief. Patient was started on gabapentin but was having significant swelling due to the medication. He has since stopped the medicine. Today, he does rate his pain a 7 out of 10. He does have imaging of his lumbar spine. CC: Dary Chris APRN [facility] History I have reviewed the patient's past medical history: Yes Medical History: Reports:: Anxiety, Gastroesophageal Reflux Disease(GERD), Heart Murmur, Hypertension, Palpitations Denies:: Cancer, Diabetes Mellitus Type 1, Diabetes Mellitus Type 2, Internal Pacemaker, MRSA *Have you ever received a pneumonia vaccine?: No *Have you received a flu vaccine this season?: No Other Medical History: Reports: Other Laterality Cases: Bilateral: Other Other Surgeries: Yes: Chel
== END ==
PROVIDERS: Visit Provider Clinical Nurse Specialist Family Health
DX: M47.896 Other spondylosis, lumbar region (principal); M54.16 Radiculopathy, lumbar region
CPT/HCPCS: 99202; G0463

== ENCOUNTER 2021-10-08 13:29 | Day surgery (SDC) | payer BC, SELFPAY ==
[2021-10-08 13:38] VITALS: BP 141/77; PULSE 64; RESP 20; TEMP 36.7; O2SAT 99; BMI 37.3
--- NOTE | 2021-10-08 14:13 | HMH.PMPROC ---
- Procedure Date: 10/08/21 Time: 14:13 Anesthesiologist:: Marie Gastelum MD Complications:: None Pre-procedure Diagnosis:: Degenerative disc disease of the lumbar spine with lumbar radiculopathy Post-procedure Diagnosis:: Same Indications for Procedure:: Patient very pleasant 41-year-old male who presents today with chronic low back pain radiating into the lower extremities related to above diagnosis. He is trialed conservative treatment including oral pain medications and stretching program for greater than 6 weeks. The plan for today is for the patient to undergo a lumbar epidural steroid injection at L5-S1 under fluoroscopy #1 Procedure Details:: Informed consent was obtained and the risk and benefits of the procedure was explained to the patient. The patient was taken to the procedure room. The patient was placed prone on the procedure table. The patient was prepped and draped in sterile fashion. C-arm fluoroscopy was used to view the lumbar spine. Skin and subcutaneous tissues were anesthetized using lidocaine. I placed an 18-gauge epidural needle and advanced into the L5-S1 interspace using fluoroscopic guidance and [id number] to air and saline. After confirmation of needle placement in the epidural space with dye I injected 1 mL of lidocaine 1.0% with Depo-Medrol 80 mg. Patient tolerated the procedure well with no complications. Plan and Disposition:: We will follow-up with this patient in 2 weeks. Will reevaluate pain symptoms at that time.
[2021-10-08 14:17] VITALS: BP 112/79; PULSE 60; RESP 18; O2SAT 99
[2021-10-08 14:18] VITALS: PULSE 66; RESP 18; O2SAT 99
[2021-10-08 14:31] VITALS: BP 147/82; PULSE 67; RESP 20; O2SAT 98
== END 2021-10-08 14:32 | disposition home or self-care (01) ==
LOC: SC.PAINP 13:30
PROVIDERS: PCP Emergency Medicine; Visit Provider Anesthesiology Pain Medicine
DX: M51.16 Intervertebral disc disorders with radiculopathy, lumbar region (principal); R00.2 Palpitations; I10 Essential (primary) hypertension; K21.9 Gastro-esophageal reflux disease without esophagitis; M19.90 Unspecified osteoarthritis, unspecified site; F41.9 Anxiety disorder, unspecified; F32.A Depression, unspecified; Z87.442 Personal history of urinary calculi; Z87.19 Personal history of other diseases of the digestive system
CPT/HCPCS: 62323; J1040; Q9966

== ENCOUNTER → 2021-11-01 09:28 | Outpatient (POV) | payer BC, SELFPAY ==
[2021-11-01 09:37] VITALS: BP 145/68; PULSE 74; RESP 18; O2SAT 97; BMI 37.1
--- NOTE | 2021-11-01 11:14 | HMH.PAINSOAP ---
[facility] Pain Management SOAP Note Subjective:: Patient is a 41-year-old white male who presents today for follow-up. The patient did have a lumbar epidural steroid injection on 10/08/2021. He rates his pain an 8 out of 10. He says he got 3 days of relief, but following the injection pain worsened. He says he feels the injection has made his pain different and worse in nature. He is having low back pain and left leg pain. He has tried gabapentin, Lyrica, tramadol and anti-inflammatories with minimal relief. He has had to quit work. He is not interested in further injective therapy due to minimal relief. He has tried physical therapy for more than 6 weeks and continues with home stretching. He is having significant pain today. He says he is unable to sleep stand or walk due to pain. Review of Systems General: No recent weight changes, no fever, no sleep disturbances Respiratory: No cough, no shortness of air, no recurring pulmonary infections Cardiovascular/peripheral vascular: No chest pain, no palpitations, no edema, no shortness of breath Gastrointestinal: No new onset incontinence, normal bowel movements reported Genitourinary: No new onset incontinence Musculoskeletal: Low back pain with radiation into left lower extremity Psychiatric: [Normal mood/affect] Neurological: [Denies weakness in extremities], [denies balance issues] Objective:: Physical exam General: Alert and oriented x3, no acute distress, pleasant and cooperative Lungs: Respirations even and unlabored, symmetrical chest expansion Eyes: PERRL Musculoskeletal: Flexion and extension of lumbar [spine] somewhat guarded secondary to pain, [antalgic gait noted] Neurological: Speech clear, no gross sensory deficit Assessment:: Degenerative disc disease lumbar spine with lumbar radiculopathy symptoms Plan:: We will order the patient prednisone 20 mg 1 tablet p.o. twice daily for 5 days. We did discuss possible intrathecal therapy versus spinal cord stimulation. Spinal cord stimulation is likely a better option for the patient. We will also get the patient a neurosurgical evaluation to determine if he is a neurosurgical candidate. We will follow-up with him in 2 weeks. Patient has been instructed to contact the clinic with any concerns before the next appointment. Dr. Coats has reviewed this note and agrees with this plan of care. This note was dictated using voice recognition software and make contain errors or omissions. [facility] History I have reviewed the patient's past medical history: Yes Medical History: Reports:: Anxiety, Gastroesophageal Reflux Disease(GERD), Heart Murmur, Hypertension, Palpitations Denies:: Cancer, Diabetes Mellitus Type 1, Diabetes Mellitus Type 2, Internal Pacemaker, MRSA *Have you ever received a pneumonia vaccine?: No *Have you received a flu vaccine this season?: No Other Medical History: Reports: Arthritis, Other Laterality Cases: Bilateral: Other Other Surgeries: Yes: Cholecystectomy, Other. No: Pacemaker Amputation: No Fractures: Yes - *Social History Smoking Status: Former smoker Tobacco Type: smokeless tobacco Alcohol Intake: never Substance Use Type: denies use *Occupational Status:: employed Housing: house Household Members: spouse *Travel in the last 8 weeks: None - Psychiatric History Pschychiatric History:: Reports:: Anxiety Family Hx:: Other
== END ==
PROVIDERS: Visit Provider Clinical Nurse Specialist Family Health
DX: M51.16 Intervertebral disc disorders with radiculopathy, lumbar region (principal)
CPT/HCPCS: 99212; G0463

== ENCOUNTER 2022-01-24 01:42 | Emergency (ER) | payer BC, SELFPAY ==
[2022-01-24 01:43] VITALS: BP 131/80; PULSE 65; RESP 19; TEMP 36.5; O2SAT 99; BMI 40.4
[2022-01-24 02:30] VITALS: BP 106/66; PULSE 48; O2SAT 98
[2022-01-24 02:45] LABS: Basophils # 0.2 K/mm3 (0-0.2); Eosinophils # 0.2 K/mm3 (0.0-0.4); Eosinophils % 2.8 % (0.1-12.0); Hematocrit 44.3 % (42.0-52.0); Lymphocytes # 2.5 K/mm3 (0.7-4.5); Lymphocytes % 29.6 % (10-50); Mean Corpuscular HGB Conc 33.9 g/dL (31.8-35.4); Mean Corpuscular Hemoglobin 30.2 pg (27.0-31.2); Mean Corpuscular Volume 89.1 fl (80-94); Mean Platelet Volume 8.3 fl (7.4-10.4); Monocytes # 0.5 K/mm3 (0.1-1.0); Monocytes % 5.9 % (1.7-9.3); Neutrophils # 5.1 K/mm3 (1.8-7.8); Neutrophils % 59.8 % (37.0-80.0); Platelet Count 270 K/mm3 (142-424); Red Blood Count 4.97 M/mm3 (4.60-6.20); Red Cell Distribution Width 12.7 % (11.5-17.5); White Blood Count 8.5 K/mm3 (4.8-10.8)
[2022-01-24 02:51] LABS: Alanine Aminotransferase 39 U/L (12-78); Albumin Level 4.4 g/dl (3.5-5.0); Alkaline Phosphatase 55 U/L (38-126); Anion Gap 11.7 mEq/L (5-15); Aspartate Amino Transferase 46 U/L (17-59); Bilirubin,Direct 0.2 mg/dl (0.0-0.4); Bilirubin,Indirect 0.5 mg/dL (0.0-0.9); Bilirubin,Total 0.7 mg/dl (0.2-1.3); Bilirubin,Unconjugated 0.5 mg/dL (0.0-1.1); Blood Urea Nitrogen 15 mg/dl (9-20); Calcium 9.1 mg/dl (8.4-10.2); Carbon Dioxide 30 mmol/L (22.0-30.0); Chloride 102 mmol/L (98-107); Creatinine Clearance Estimated 205 mL/min (50-200); Estimated Glomerular Filt Rate 108 ml/min (>60); GFR (African American) 130 ML/MIN (>60); Glucose 104 mg/dl (74-100); Potassium 3.7 mmoL/L (3.5-5.1); Sodium 140 mmol/L (136-145); Total Protein,Serum 7.2 g/dl (6.3-8.2)
[2022-01-24 02:56] LABS: C-Reactive Protein 2.8 mg/L (0-4)
[2022-01-24 03:00] VITALS: BP 115/64; PULSE 52; O2SAT 97
[2022-01-24 03:04] LABS: Troponin I < 0.01 ng/ml (0.00-0.034)
[2022-01-24 03:08] LABS: Procalcitonin 0.065 ng/mL (0.0-2.0)
[2022-01-24 03:10] LABS: Erythrocyte Sedimentation Rate 10 mm/hr (0-15)
[2022-01-24 03:30] VITALS: BP 123/80; PULSE 55; O2SAT 99
--- NOTE | 2022-01-24 03:30 | XR_ITS ---
PROCEDURE INFORMATION: Exam: XR Chest Exam date and time: 01/24/2022 3:42 AM Age: 41 years old Clinical indication: Pain; Right-sided; Additional info: R chest pain TECHNIQUE: Imaging protocol: XR of the chest. Views: 2 views. COMPARISON: CR XR CHEST 2V 02/08/2021 8:54 PM FINDINGS: Lungs: Normal. Pleural spaces: Unremarkable. No pleural effusion. No pneumothorax. Heart/Mediastinum: Normal. Bones/joints: No acute abnormality. IMPRESSION: No acute findings.
--- NOTE | 2022-01-24 03:50 | PC.NURSE ---
pt to Xray
--- NOTE | 2022-01-24 04:11 | HMH.EDGENADL ---
ED Disposition Clinical Impression: Chest pain Qualifiers: Chest pain type: unspecified Qualified Code(s): R07.9 - Chest pain, unspecified Disposition: Home, Self-Care Condition on Discharge: Good Instructions: DI for Atypical Chest Pain Additional Instructions: see pcp for follow up Referrals: Donn Rodriguez MD [Primary Care Provider] - - Critical Care Critical Care Time: No Attestation: On 01/24/22, the high probability of a clinically significant, sudden or life threatening deterioration of the following system(s) required my full and direct attention, intervention and personal management. The time I documented below is in addition to time spent performing reported procedures but includes the following listed in this critical care notation. Medical Decision Making - Medical Records Medical records reviewed: Yes: I reviewed the patient's medical records. - Teofilo Inquiry Pt receiving controlled substance: No Vital Signs: 01/24/22 01:43 01/24/22 02:30 01/24/22 03:00 Temperature 97.7 F Temperature Source Oral Pulse Rate 48 L 52 L Pulse Rate [Right] 65 Respiratory Rate 19 Blood Pressure 106/66 L 115/64 Blood Pressure [Right Arm] 131/80 Blood Pressure Mean [Right Arm] 97 02 Sat by Pulse Oximetry 99 98 97 Oxygen Delivery Method Room Air Room Air Room Air 01/24/22 03:30 Temperature Temperature Source Pulse Rate 55 L Pulse Rate [Right] Respiratory Rate Blood Pressure 123/80 Blood Pressure [Right Arm] Blood Pressure Mean [Right Arm] 02 Sat by Pulse Oximetry 99 Oxygen Delivery Method Room Air - Lab Data Lab results reviewed: Yes: I reviewed the patient's lab results. Lab Results 01/24/22 02:00: ESR 10 01/24/22 02:00: Troponin I < 0.01, C-Reactive Protein 2.8, Procalcitonin 0.065 01/24/22 02:00: WBC 8.5, RBC 4.97, Hgb 15.0, Hct 44.3, MCV 89.1, MCH 30.2, MCHC 33.9, RDW 12.7, Plt Count 270, MPV 8.3, Neut % (Auto) 59.8, Lymph % (Auto) 29.6, [place] % (Auto) 5.9, Eos % (Auto) 2.8, Baso % (Auto) 2.0, Neut # (Auto) 5.1, Lymph # (Auto) 2.5, [place] # (Auto) 0.5, Eos # (Auto) 0.2, Baso # (Auto) 0.2 01/24/22 02:00: Sodium 140, Potassium 3.7, Chloride 102, Carbon Dioxide 30, Anion Gap 11.7, BUN 15, Creatinine 0.80, Estimated Creat Clear 205, Estimated GFR 108, Est GFR ( Amer) 130, Glucose 104 H, Calcium 9.1, Total Bilirubin 0.7, Direct Bilirubin 0.2, Conjugated Bilirubin 0.0, Indirect Bilirubin 0.5, Unconjugated Bilirubin 0.5, AST 46, ALT 39, Alkaline Phosphatase 55, Total Protein 7.2, Albumin 4.4 Result diagrams: 01/24/22 02:00 01/24/22 02:00 Orders (Tests/Meds): ED MEDICATIONS Generic Name Dose Route Start Last Admin Trade Name Freq PRN Reason Stop Dose Admin Lactated Ringer's 1,000 mls @ 999 mls/hr 01/24/22 02:45 01/24/22 03:43 Lactated Ringer's 1000 Ml Bag IV 01/24/22 03:45 999 mls/hr .Q1H1M BARBARA Administration ORDERS Category Date Time Status CXR 2 view (NOT portable) [XR chest 2V] Stat Exams 01/24/22 03:30 Taken Troponin I Q3H Lab 01/24/22 05:00 Ordered Troponin I Q3H Lab 01/24/22 08:00 Ordered - Radiology Data #1 Image(s): Chest Image Reviewed: Yes I reviewed the patient's radiology image Preliminary Findings: Normal/NAD - ECG Data Tracing #1 Arrhythmias present: sinus genoveva Ischemic changes: non-specific ST-T wave changes ECG compared to prior tracings: there are no significant changes - ADAMS Score for Non-Stemi Age of Patient: 30-39 years old Heart Rate: 50-69 bpm Systolic Blood Pressure: 120-139 mmhg Serum Creatinine: 0.80-1.19 mg/dl CHF Killip Class: I-No CHF Other Risk Factors: None Non-Stemi Risk Score: 52 Medical Decision Narrative: stable exam at this time - atypical chest pain General Adult HPI - General Chief complaint: PAIN Stated complaint: Sharp muscpain in top rt side of chest Time Seen by Provider: 01/24/22 04:11 Mode of Arrival: Family Vehicle Source of Information: Patient, Medical Record
[2022-01-24 04:56] VITALS: BP 150/88; PULSE 53; RESP 16; TEMP 36.6; O2SAT 97
== END 2022-01-24 04:58 | disposition home or self-care (01) ==
PROVIDERS: Emergency Provider Emergency Medicine; PCP Emergency Medicine
DX: R07.9 Chest pain, unspecified (principal); F41.9 Anxiety disorder, unspecified; K21.9 Gastro-esophageal reflux disease without esophagitis; I10 Essential (primary) hypertension; R01.1 Cardiac murmur, unspecified; Z79.899 Other long term (current) drug therapy
CPT/HCPCS: 71046; 80048; 80076; 84145; 84484; 85025; 85651; 86140; 96360; 99283

== ENCOUNTER → 2022-01-24 11:59 | Outpatient (POV) | payer BC, SELFPAY ==
--- NOTE | 2022-01-24 02:02 | ECG_ITS ---
APPROVED REPORT Exam: Resting ECG HR:58 bpm ECG Measurements Heart Rate 58 AXES WV 147 P 36 QRSd 102 QRS 60 QT 416 T 5 QTc 413 Conclusion SINUS BRADYCARDIA Inferior Q waves of questionable significance. ABNORMAL ECG UNCONFIRMED REPORT Electronically signed by : Wilfrido Lala MD 01/26/2022 17:59:42
--- NOTE | 2022-01-24 12:33 | HMH.PAINSOAP ---
[facility] Pain Management SOAP Note Subjective:: Is a pleasant 41-year-old white male that returns our clinic today for follow-up visit. Patient has been denied spinal cord stimulator trial by insurance. Patient continues having low back pain as well as bilateral hip and leg radicular symptoms. Patient describes his pain as constant, dull, aching. It is lumbar back pain 8/10 most days. Patient did have a lumbar epidural steroid injection on 10/08/2021. He reports 1 to 2 days of relief. I discussed in detail with the patient regarding trying another lumbar epidural steroid injection. He wishes to proceed. Patient is also tried Lyrica, tramadol and other anti-inflammatories without any relief. Objective:: Patient is awake alert oriented x3. In no acute distress. Flexion extension lumbar spine somewhat guarded secondary to pain. Deep tendon reflexes upper lower extremities normal. Motor strength upper and lower extremities normal. There is no gross sensory deficit. Gait is normal. Assessment:: Degenerative disc disease lumbar spine. Lumbar radiculopathy symptoms. Plan:: Discussed in detail with the patient regarding a second lumbar epidural steroid injection. Patient wishes to proceed. [facility] History Medical History: Reports:: Anxiety, Gastroesophageal Reflux Disease(GERD), Heart Murmur, Hypertension, Palpitations Denies:: Cancer, Diabetes Mellitus Type 1, Diabetes Mellitus Type 2, Internal Pacemaker, MRSA *Have you ever received a pneumonia vaccine?: No *Have you received a flu vaccine this season?: No Other Medical History: Reports: Arthritis, Other Laterality Cases: Bilateral: Other Other Surgeries: Yes: Cholecystectomy, Other. No: Pacemaker Amputation: No Fractures: Yes - *Social History Smoking Status: Former smoker Tobacco Type: smokeless tobacco Alcohol Intake: never Substance Use Type: denies use *Occupational Status:: employed Housing: house Household Members: spouse *Travel in the last 8 weeks: Inside the [place] - Psychiatric History Pschychiatric History:: Reports:: Anxiety Family Hx:: Other
[2022-01-24 12:35] VITALS: BP 145/64; PULSE 68; RESP 18; TEMP 36.4; O2SAT 96; BMI 37.0
== END ==
LOC: SC.PAIN 11:59
PROVIDERS: Visit Provider Nurse Anesthetist, Certified Registered
DX: M51.16 Intervertebral disc disorders with radiculopathy, lumbar region (principal)
CPT/HCPCS: 93005; 99212; G0463

== ENCOUNTER 2022-02-09 14:33 | Emergency (ER) | payer BC, SELFPAY ==
[2022-02-09 15:30] VITALS: BP 118/71; PULSE 78; RESP 19; TEMP 37; O2SAT 98; BMI 35.8
[2022-02-09 15:51] LABS: UTC Influenza A Antigen Negative (Negative)
[2022-02-09 15:52] LABS: UTC Influenza B Antigen Negative (Negative)
--- NOTE | 2022-02-09 16:03 | HMH.EDUTC ---
[facility] Disposition Clinical Impression: Sinusitis Qualifiers: Sinusitis location: unspecified location Chronicity: unspecified Qualified Code(s): J32.9 - Chronic sinusitis, unspecified Disposition: Home, Self-Care Condition on Discharge: Good Instructions: Sinusitis, DI for Sinusitis Additional Instructions: *Monitor Temp, Over the counter Motrin or Tylenol as directed/as needed Tylenol every 4 hours and Motrin every 6 hours (as long as your family doctor has told you that you can take it) for fever or pain. and straight to ER if unable to lower temp less than 101.0 after medication given *Warm salt water gargles may help to soothe the throat *Throat Lozenges *Warm fluids like tea with honey may help to soothe the throat *Sleep elevated *Humidifier/Vaporizer Take medication as prescribed Follow up IMMEDIATELY for new or worsening symptoms or no Noticeable improvement over the next 48-72 hours. 911 for difficulty breathing or swallowing Prescriptions: Amoxicillin/Potassium Clav [Amox-Clav 875-125 mg Tablet] 1 tab PO BID #14 tab Transmission Status: Pending to [facility] methylPREDNISolone [Medrol 4mg tab] 4 mg PO DIRECTED #21 tab Transmission Status: Pending to [facility] Referrals: Donn Rodriguez MD [Primary Care Provider] - As needed Forms: Work/School Release Time of Disposition: 16:12 Medical Decision Making - Teofilo Inquiry Pt receiving controlled substance: No Teofilo was queried for this patient: No Vital Signs: 02/09/22 15:30 Temperature 98.6 F Temperature Source Oral Pulse Rate [Right Brachial] 78 Respiratory Rate 19 Blood Pressure [Right Arm] 118/71 Blood Pressure Mean [Right Arm] 86 Blood Pressure Source [Right Arm] Automatic Cuff Blood Pressure Position [Right Arm] Sitting 02 Sat by Pulse Oximetry 98 Oxygen Delivery Method Room Air - Lab Data Lab results reviewed: Yes: I reviewed the patient's lab results. Lab Results 02/09/22 15:51: Influenza Type A Ag Negative, Influenza Type B Ag Negative [facility] HPI - General Stated complaint: sinus drainage, bodyaches, sore throat, fever Time Seen by Provider: 02/09/22 16:03 Mode of Arrival: Ambulatory Source of Information: Patient Limitations: No Limitations Description of Symptoms (Recalled from Triage Doc. by RN): PATIENT C/O BODY ACHES, CHILLS, AND SINUS DRAINAGE X 3 DAYS HEENT Symptoms (Recalled from RN notes): Yes Resp Symptoms (Recalled from RN notes): No Skin Symptoms (Recalled from RN notes): No MS Symptoms (Recalled from RN notes): No Functional Status (Recalled from RN notes): WNL - History of Present Illness Provider Complaint: Patient states that he has been having sinus pain and pressure along with bodyaches, chills and headache States that he feels like he may have the flu or sinus infection so he came in to get checked - Related Data Home Medications Medication Instructions Recorded Confirmed Diclofenac Sodium [Voltaren 2 g TOPICAL QID 10/08/21 01/24/22 Arthritis Pain] Buspirone HCl [Buspar 10mg 10 mg PO BID 01/24/22 01/24/22 tablet] predniSONE [Prednisone 20mg 20 mg PO BID 01/24/22 01/24/22 Tab] Previous Rx's Medication Instructions Recorded bisoprolol fumarate 10 mg tablet 10 mg PO DAILY #30 tab 12/01/21 quetiapine 50 mg tablet 50 mg PO QHS #30 tab 12/27/21 hydrocodone 5 mg-acetaminophen 325 1 tab PO BID #14 tab 01/24/22 mg tablet methylprednisolone 4 mg tablets in See Rx Instructions PO PER PKG DIR 01/24/22 a dose pack #21 tab Amoxicillin/Potassium Clav 1 tab PO BID #14 tab 02/09/22 [Amox-Clav 875-125 mg Tablet] methylPREDNISolone [Medrol 4mg 4 mg PO DIRECTED #21 tab 02/09/22 tab] Allergies Allergy/AdvReac Type Severity Reaction Status Date / Time No Known Allergies Allergy Verified 12/27/21 09:03 - Worker's Comp Is this a Worker's Comp case?: No [facility] History - Hepatitis A Screen Attestation statement:: This patient has
[2022-02-09 16:13] VITALS: BP 118/71; PULSE 78; RESP 19; TEMP 37; O2SAT 98
== END 2022-02-09 16:15 | disposition home or self-care (01) ==
PROVIDERS: Emergency Provider Nurse Practitioner; PCP Emergency Medicine
DX: J32.9 Chronic sinusitis, unspecified (principal); K21.9 Gastro-esophageal reflux disease without esophagitis; R01.1 Cardiac murmur, unspecified; I10 Essential (primary) hypertension
CPT/HCPCS: 87804; 99212; G0463

== ENCOUNTER 2022-02-25 13:56 | Day surgery (SDC) | payer BC, SELFPAY ==
[2022-02-25 14:20] VITALS: BP 148/85; PULSE 77; RESP 20; TEMP 36.9; O2SAT 99; BMI 37.8
[2022-02-25 14:22] VITALS: BP 160/99; PULSE 76; RESP 18; O2SAT 98
[2022-02-25 14:23] VITALS: BP 159/91; PULSE 76; RESP 18; O2SAT 97
[2022-02-25 14:42] VITALS: BP 143/78; PULSE 78; RESP 20; O2SAT 98
--- NOTE | 2022-02-25 14:57 | HMH.PMPROC ---
- Procedure Date: 02/25/22 Time: 14:57 Anesthesiologist:: Gerardo Coats MD Complications:: None Pre-procedure Diagnosis:: Degenerative disc disease of lumbar spine with lumbar radiculopathy symptoms Post-procedure Diagnosis:: Same Indications for Procedure:: Patient is a pleasant 41-year-old white male who we are treating for low back pain with lumbar radiculopathy symptoms. He has increasing pain in his back rating down his legs. He has had previous epidural steroid injections which have given him temporary relief. He presents for repeat lumbar pleural steroid injection under fluoroscopy today. Procedure Details:: Informed consent was obtained and the risk and benefits of the procedure was explained to the patient. The patient was taken to the procedure room. The patient was placed prone on the procedure table. The patient was prepped and draped in sterile fashion. C-arm fluoroscopy was used to view the lumbar spine. Skin and subcutaneous tissues were anesthetized using lidocaine. I placed an 18-gauge epidural needle and advanced into the L4-L5 interspace using fluoroscopic guidance and [id number] to air. After confirmation of needle placement in the epidural space with dye I injected 2 mL of lidocaine 1.5% with Depo-Medrol 80 mg. Patient tolerated the procedure well with no complications. Plan and Disposition:: We will follow-up with him in 2 weeks. Will reevaluate symptoms at that time. He was denied for spinal cord stimulator trial. We will seek approval for intrathecal pump trial as a long-term solution to help him with his pain symptoms.
== END 2022-02-25 14:42 | disposition home or self-care (01) ==
LOC: SC.PAINP 13:58
PROVIDERS: PCP Emergency Medicine; Visit Provider Anesthesiology
DX: M51.16 Intervertebral disc disorders with radiculopathy, lumbar region (principal); M19.90 Unspecified osteoarthritis, unspecified site; I10 Essential (primary) hypertension; F41.9 Anxiety disorder, unspecified; K21.9 Gastro-esophageal reflux disease without esophagitis
CPT/HCPCS: 62323; J1040; Q9966

== ENCOUNTER 2022-03-11 11:10 | Emergency (ER) | payer BC, SELFPAY ==
--- NOTE | 2022-03-11 11:17 | HMH.EDUTC ---
[facility] [place] Disposition Clinical Impression: Right leg pain Sciatica Qualifiers: Laterality: right Qualified Code(s): M54.31 - Sciatica, right side Disposition: Home, Self-Care Condition on Discharge: Good Instructions: Sciatica, DI for Sciatica Additional Instructions: Go home and rest. It would be best if you rested tomorrow too. No heavy lifting. No twisting. Take the oral medications as directed. The muscle relaxer (cyclobenzaprine--Flexeril) will make you drowsy, so don't drive or operate heavy machinery after taking it. Don't start the oral steroids (medrol dose pack) until tomorrow, since you had the shots in here today. Follow up with your regular doctor. GO TO THE ER FOR ANY WORSENING SYMPTOMS OR CONCERN, ESPECIALLY BOWEL OR BLADDER ISSUES, SADDLE AREA NUMBNESS, FEVER, ETC Prescriptions: Cyclobenzaprine HCl [Cyclobenzaprine 10mg Tab] 10 mg PO BIDP PRN #20 tab PRN Reason: Muscle Spasm Transmission Status: Received by [employer] methylPREDNISolone [Medrol] 4 mg PO DIRECTED 6 Days #21 packet Transmission Status: Received by [employer] Referrals: Donn Rodriguez MD [Primary Care Provider] - Forms: Work/School Release Time of Disposition: 12:43 Medical Decision Making - Medical Records Medical records reviewed: No: I reviewed the patient's medical records. - Teofilo Inquiry Pt receiving controlled substance: No Vital Signs: 03/11/22 11:31 03/11/22 12:46 Temperature 98.8 F 98.8 F Temperature Source Oral Pulse Rate 68 Pulse Rate [Left Radial] 68 Respiratory Rate 18 18 Blood Pressure 127/76 Blood Pressure [Right Arm] 127/76 Blood Pressure Mean [Right Arm] 93 02 Sat by Pulse Oximetry 97 Orders (Tests/Meds): ED MEDICATIONS Discontinued Medications Generic Name Dose Route Start Last Admin Trade Name Freq PRN Reason Stop Dose Admin Ketorolac Tromethamine 60 mg 03/11/22 12:30 03/11/22 12:41 Ketorolac 60mg/2ml Vial IM 03/11/22 12:31 60 mg ONCE ONE Administration Methylprednisolone Sodium Succinate 125 mg 03/11/22 12:30 03/11/22 12:41 Methylprednisolone Sod Succ 125mg Vial IM 03/11/22 12:31 125 mg ONCE ONE Administration [facility] [place] HPI - General Stated complaint: rt leg pain no accident Time Seen by Provider: 03/11/22 11:40 - History of Present Illness Provider Complaint: He states that he has had right sided lower back pain that radiates down his right leg at times. He denies any fever, chills, falls or other trauma. - Related Data Home Medications Medication Instructions Recorded Confirmed Diclofenac Sodium [Voltaren 2 g TOPICAL QID 10/08/21 02/25/22 Arthritis Pain] Buspirone HCl [Buspar 10mg 10 mg PO BID 01/24/22 03/11/22 tablet] predniSONE [Prednisone 20mg 20 mg PO BID 01/24/22 02/25/22 Tab] Amoxicillin/Potassium Clav 1 tab PO BID 02/25/22 02/25/22 [Amox-Clav 875-125 mg Tablet] Hydrocod/Acet 5/325 mg [[place] 1 tab PO BID 02/25/22 02/25/22 5/325mg tablet] methylPREDNISolone [Medrol 4mg 4 mg PO DIRECTED 02/25/22 02/25/22 tab] Previous Rx's Medication Instructions Recorded bisoprolol fumarate 10 mg tablet 10 mg PO DAILY #30 tab 12/01/21 quetiapine 50 mg tablet 50 mg PO QHS #30 tab 12/27/21 Cyclobenzaprine HCl 10 mg PO BIDP PRN #20 tab 03/11/22 [Cyclobenzaprine 10mg Tab] methylPREDNISolone [Medrol] 4 mg PO DIRECTED 6 Days #21 03/11/22 packet Allergies Allergy/AdvReac Type Severity Reaction Status Date / Time No Known Allergies Allergy Verified 03/11/22 11:34 [facility] History - Hepatitis A Screen Attestation statement:: This patient has been screened for Hepatitis A risk factors. I have reviewed the patient's past medical history: Yes Medical History: Reports:: Anxiety, Gastroesophageal Reflux Disease(GERD), Heart Murmur, Hyperlipidemia, Hypertension, Palpitations Denies:: Cancer, Diabetes Mellitus Type 1, Diabetes Mellitus Type 2, Internal P
--- NOTE | 2022-03-11 11:29 | XR_ITS ---
FINAL REPORT CLINICAL HISTORY: pain FINDINGS: Three views of the right knee reveal no evidence of fracture or dislocation. The bony alignment is normal. The joint spaces are preserved. There is no evidence of joint effusion. No localized soft tissue abnormality is identified. IMPRESSION: No acute abnormality identified. Reviewed, Interpreted and Dictated by Roderick Grimaldo III, MD Transcribed by David Barrios Authenticated and [facility]
[2022-03-11 11:31] VITALS: BP 127/76; PULSE 68; RESP 18; TEMP 37.1; O2SAT 97; BMI 37.7
--- NOTE | 2022-03-11 11:35 | CA_ITS ---
FINAL REPORT TECHNIQUE: Color Doppler, duplex Doppler and compression sonography of the right lower extremity venous system was performed. CLINICAL HISTORY: RIGHT leg pain, no known injury. PAIN IN RIGHT LEG SINCE LUMBAR INJECTION 1 WK AGO FINDINGS: There is no evidence of deep venous thrombosis from the level of the groin to the calf. The veins are patent and compressible. IMPRESSION: No evidence of deep venous thrombosis right lower extremity. Reviewed, Interpreted and Dictated by Roderick Grimaldo III, MD Transcribed by Lisbeth Dias Authenticated and [facility]
[2022-03-11 12:46] VITALS: BP 127/76; PULSE 68; RESP 18; TEMP 37.1
== END 2022-03-11 12:49 | disposition home or self-care (01) ==
PROVIDERS: Emergency Provider Nurse Practitioner Family; PCP Emergency Medicine
DX: M54.31 Sciatica, right side (principal); R00.2 Palpitations; I10 Essential (primary) hypertension; K21.9 Gastro-esophageal reflux disease without esophagitis; E78.5 Hyperlipidemia, unspecified; M19.90 Unspecified osteoarthritis, unspecified site; F17.290 Nicotine dependence, other tobacco product, uncomplicated; Z79.51 Long term (current) use of inhaled steroids; Z79.52 Long term (current) use of systemic steroids; Z79.899 Other long term (current) drug therapy; Z82.49 Family history of ischemic heart disease and other diseases of the circulatory system
CPT/HCPCS: 73562; 93971; 96372; 99213; G0463

== ENCOUNTER 2022-03-18 07:40 | Day surgery (SDC) | payer BC, SELFPAY ==
[2022-03-18] VITALS (9 sets, daily range): BP systolic 129–161; BP diastolic 78–97; PULSE 59–74; RESP 18–22; TEMP 36.4; O2SAT 96–99; BMI 37.8
--- NOTE | 2022-03-18 09:09 | HMH.PMPROC ---
- Procedure Date: 03/18/22 Time: 09:09 Anesthesiologist:: Gerardo Coats MD Complications:: None Pre-procedure Diagnosis:: Degenerative disc disease of lumbar spine with lumbar radiculopathy symptoms Post-procedure Diagnosis:: Same Indications for Procedure:: Patient is a pleasant 41-year-old white male who we are treating for low back pain with lumbar radiculopathy symptoms. He has had epidural steroid injections without any long-lasting relief. He has failed all other conservative therapy including an injections physical therapy and oral medications. He is not a surgical candidate. He has had a successful psychological evaluation. He presents for intrathecal pump trial today. Procedure Details:: Pain pump trial Informed consent was obtained and the risk and benefits of the procedure was explained to the patient. The patient was taken to the procedure room and placed prone on the procedure table. Patient was prepped and draped in sterile fashion. C-arm fluoroscopy was used to view the lumbar spine. The skin and subcutaneous tissues were anesthetized using lidocaine. I placed a 18-gauge spinal needle into the L4-5 interspace and advanced until clear CSF was obtained. After this intrathecal catheter was inserted and advanced very easily to the L1 vertebral body. The needle was withdrawn. We were able to freely withdraw clear CSF through the catheter. We then injected intrathecal fentanyl single shot bolus of 25 mcg followed by saline and followed by the previous CSF that was withdrawn. The needle and catheter were then removed and a Band-Aid was placed. Patient tolerated the procedure well with no complications. We reevaluated the patient after 30 minutes to 1 hour. He was also reassessed by physical therapy. Patient was 60 to 70% better he was much more functional. 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 He is doing well with a pain pump trial. I do believe this is a successful trial. We will plan on seeking approval for permanent placement. This will be with intrathecal morphine 5 mg/mL to start at 0.25 mg/day. Catheter tip will be at the L1 vertebral body. Plan and Disposition:: Patient is doing very well. This was a successful intrathecal pump trial. We will seek approval for permanent placement. We will follow-up with him in 1 week to answer any questions and confirm treatment plan for permanent placement of intrathecal pain pump with morphine 5 mg/mL to start at 0.25 mg/day with catheter tip at the L1 vertebral body.
--- NOTE | 2022-03-18 09:28 | PC.NURSE ---
0822 pt complained of some itching, benadryl given at this time
== END 2022-03-18 10:25 | disposition home or self-care (01) ==
LOC: SC.PAINP 07:42
PROVIDERS: PCP Emergency Medicine; Visit Provider Anesthesiology
DX: M51.16 Intervertebral disc disorders with radiculopathy, lumbar region (principal); I10 Essential (primary) hypertension
CPT/HCPCS: 62327

== ENCOUNTER 2022-03-19 11:35 | Emergency (ER) | payer BC, SELFPAY ==
[2022-03-19] VITALS (10 sets, daily range): BP systolic 122–173; BP diastolic 63–97; PULSE 60–95; RESP 17–20; TEMP 36.6; O2SAT 62–100; BMI 37.8
--- NOTE | 2022-03-19 12:10 | PC.NURSE ---
Dr Coats paged
--- NOTE | 2022-03-19 12:12 | PC.NURSE ---
Dr Rodriguez speaking with Dr Coats
--- NOTE | 2022-03-19 12:12 | HMH.EDHA ---
ED Disposition Clinical Impression: Headache, spinal, postoperative Disposition: Home, Self-Care Condition on Discharge: Good Instructions: DI for Post-Spinal Puncture Headache Additional Instructions: fluids and call dr zamudio on monday Referrals: Donn Rodriguez MD [Primary Care Provider] - - Critical Care Critical Care Time: No Attestation: On 03/19/22, the high probability of a clinically significant, sudden or life threatening deterioration of the following system(s) required my full and direct attention, intervention and personal management. The time I documented below is in addition to time spent performing reported procedures but includes the following listed in this critical care notation. Medical Decision Making - Medical Records Medical records reviewed: Yes: I reviewed the patient's medical records. - Teofilo Inquiry Pt receiving controlled substance: No Vital Signs: 03/19/22 11:40 03/19/22 11:42 03/19/22 12:00 Temperature 97.8 F Temperature Source Oral Pulse Rate 60 64 Pulse Rate [Left Radial] 62 Respiratory Rate 17 20 Blood Pressure 173/97 H 164/82 H Blood Pressure [Right Arm] 173/97 H Blood Pressure Mean 114 116 Blood Pressure Mean [Right Arm] 122 02 Sat by Pulse Oximetry 100 98 98 Oxygen Delivery Method Room Air 03/19/22 13:42 Temperature Temperature Source Pulse Rate 70 Pulse Rate [Left Radial] Respiratory Rate 18 Blood Pressure 132/85 Blood Pressure [Right Arm] Blood Pressure Mean 97 Blood Pressure Mean [Right Arm] 02 Sat by Pulse Oximetry 97 Oxygen Delivery Method - Lab Data Lab results reviewed: Yes: I reviewed the patient's lab results. Orders (Tests/Meds): ED MEDICATIONS Discontinued Medications Generic Name Dose Route Start Last Admin Trade Name Connie PRN Reason Stop Dose Admin Fentanyl Citrate 50 mcg 03/19/22 14:04 03/19/22 14:06 Fentanyl 250mcg/5ml Vial IV 03/19/22 14:05 50 mcg ONCE ONE Administration Sodium Chloride 1,000 mls @ 999 mls/hr 03/19/22 12:15 03/19/22 12:30 Sod Chlor 0.9% 1000ml Bag IV 03/19/22 13:15 999 mls/hr .Q1H1M BARBARA Administration Midazolam HCl 2 mg 03/19/22 14:04 03/19/22 14:06 Midazolam 2mg/2ml Vial IV 03/19/22 14:05 2 mg ONCE ONE Administration - Physician Consults Physician Consulted: lizz Reason -: Pt condition Medical Decision Narrative: has post spinal headache and will have blood patch placed by ansthesia Headache HPI - General Chief Complaint: Headache Stated Complaint: upset stomach, h/a Time Seen by Provider: 03/19/22 11:35 Mode of Arrival: Ambulatory Source of Information: Patient, Medical Record Limitations: No Limitations Description of Symptoms (Recalled from ER Triage Doc. by RN): pt to ed c/o headache. pt states he had a pain pump trial procedure yesterday with dr zamudio. pt states they took spinal fluid and gave me medication in my back. pt states he had relief of chronic pain after the procedure, but woke up around midnight with nausea and a generalized headache. pt denies vomiting. pt denies visual changes. pt states he is sensitive to light, but not to sound. - History of Present Illness HPI Narrative: had procedure yesterday which included lumbar and now with headache and nausea MD Complaint: headache Onset (ago): hour(s) Onset description: gradual Location: diffuse Severity: moderate Quality: aching, different than previous headaches Associated symptoms: none Treatments prior to arrival: none - Related Data Home Medications Medication Instructions Recorded Confirmed Diclofenac Sodium [Voltaren 2 g TOPICAL QID 10/08/21 03/18/22 Arthritis Pain] Buspirone HCl [Buspar 10mg 10 mg PO BID 01/24/22 03/18/22 tablet] predniSONE [Prednisone 20mg 20 mg PO BID 01/24/22 03/18/22 Tab] Amoxicillin/Potassium Clav 1 tab PO BID 02/25/22 03/18/22 [Amox-Clav 875-125 mg Tablet] Hydrocod/Acet 5/325 mg [[place] 1 tab PO BID
--- NOTE | 2022-03-19 12:15 | PC.NURSE ---
Dr Rodriguez speaking with anesthesia
--- NOTE | 2022-03-19 12:16 | PC.NURSE ---
anesthesia reports they would be here in approx 45 minutes for blood patch
--- NOTE | 2022-03-19 14:49 | HMH.ANESCL ---
[facility] [place] Anesthesia Checklist - Patient Identification Patient Identification: Arm Band, Verbal (Name & ) - Structural Data Admitted From: Emergency Dept Planned Operative Procedure/s: Epidural Blood Patch Consent for Planned Operative Procedure(s) Verified: Yes Verified Documents: Surgical Consent - Airway Assessment C-Spine Mobility Assessed: Yes TMJ Mobility Assessed: Yes - Neurological Assessment Level of Consciousness: Awake, Alert, Appropriate - Anesthesia Plan ASA Class: III Anesthesia Type: Epidural [facility] [place] History I have reviewed the patient's past medical history: Yes Medical History: Reports:: Anxiety, Gastroesophageal Reflux Disease(GERD), Heart Murmur, Hyperlipidemia, Hypertension, Palpitations Denies:: Cancer, Diabetes Mellitus Type 1, Diabetes Mellitus Type 2, Internal Pacemaker, MRSA *Have you ever received a pneumonia vaccine?: No *Have you received a flu vaccine this season?: No Other Medical History: Reports: Arthritis, Other Anesthesia experience/problems:: none Laterality Cases: Bilateral: Other Other Surgeries: Yes: Cholecystectomy, Other. No: Pacemaker Amputation: No Fractures: Yes - *Social History Smoking Status: Current every day smoker Tobacco Type: cigarettes # Packs/Day (cigarettes): 1 Alcohol Intake: never Substance Use Type: denies use *Occupational Status:: employed Housing: house Household Members: spouse *Travel in the last 8 weeks: None - Psychiatric History Pschychiatric History:: Reports:: Anxiety Family Hx:: No significant family history
--- NOTE | 2022-03-19 14:53 | PC.NURSE ---
This RN at the bedside with Kym WELLS for spinal blood patch procedure. consent witnessed, procedure performed. verbal medication orders given by RISK ENGINEER. medication orders placed. pt lying flat in bed at this time with visitor back at the bedside. pt has no complaints of pain
--- NOTE | 2022-03-19 14:55 | HMH.PROC ---
[facility] Procedure Note Procedure Note:: Called to evaluate patient after c/o headache and light sensitivity after pain pump trial yesterday. Patient history reviewed and after discussing risks and benefits with patient proceeded with blood patch. Procedure completed after sterile prep and local infiltrate of 5 ml 1% lido. 18g Tuohy needle inserted at L2-3. KEEGAN at 10 cm. No blood or CSF noted. Catheter threaded to 20cm for verification of placement. 20 ml autoglogus blood injected with ease. Patient tolerated procedure well.
--- NOTE | 2022-03-19 15:07 | PC.NURSE ---
COTTON GINNER HELPER at the bedside speaking to family about procedure. states pt is to lay flat 1 hour post procedure.
--- NOTE | 2022-03-19 15:55 | PC.NURSE ---
pt ambulatory with no pain or issues
== END 2022-03-19 15:59 | disposition home or self-care (01) ==
PROVIDERS: Emergency Provider Emergency Medicine; PCP Emergency Medicine
DX: G97.1 Other reaction to spinal and lumbar puncture (principal); Y84.4 Aspiration of fluid as the cause of abnormal reaction of the patient, or of later complication, without mention of misadventure at the time of the procedure; R11.0 Nausea
CPT/HCPCS: 62273; 62270; 96361; 96374; 96375; 96376; 99285

== ENCOUNTER → 2022-03-21 12:56 | Outpatient (POV) | payer BC, SELFPAY ==
[2022-03-21 13:09] VITALS: BP 141/93; PULSE 69; RESP 20; TEMP 36.8; O2SAT 98; BMI 37.8
--- NOTE | 2022-03-21 13:17 | HMH.PAINSOAP ---
[facility] Pain Management SOAP Note Subjective:: Patient is a pleasant 41-year-old male who presents today for follow-up. Patient is current being treated for degenerative disc disease of lumbar spine with lumbar radiculopathy symptoms. We have been managing this patient with injective therapy such as lumbar epidural steroid injection. He gets significant but temporary relief from these injections. Pain is worse with lumbar flexion, extension, and rotation. 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 He cannot tolerate any prolonged activity such as standing and walking. He rates his pain as 8 out of 10. Since patient gets temporary relief from conservative therapy, we have discussed with the patient that he is a good candidate for intrathecal pain pump placement. During his intrathecal pain pump trial, patient had significant relief of 60-70%. Patient was able to walk around the postop area without difficulty. He did have headache related to lumbar puncture on Monday and had to go to the ER. They did a blood patch in the ER. He is doing okay so far with the headache. Review of Systems: General: No recent weight changes, no fever, no sleep disturbances Respiratory: No cough, no shortness of air, no recurring pulmonary infections Cardiovascular/peripheral vascular: No chest pain, no palpitations, no edema, no shortness of breath Gastrointestinal: No new onset incontinence, normal bowel movements reported Genitourinary: No new onset incontinence Musculoskeletal: Low back pain Psychiatric: [Normal mood/affect] Neurological: [Denies weakness in extremities], [denies balance issues] Objective:: Physical Exam: General: Alert and oriented x3, no acute distress, pleasant and cooperative Lungs: Respirations even and unlabored, symmetrical chest expansion Eyes: PERRL Musculoskeletal: Flexion and extension of lumbar [spine] somewhat guarded secondary to pain, [antalgic gait noted] Neurological: Speech clear, no gross sensory deficit Assessment:: Degenerative disease of lumbar spine with lumbar radiculopathy symptoms Plan:: Patient is significant relief after the intrathecal pain pump trial. We will schedule the patient for permanent placement of intrathecal pain pump. Dr. Coats has recommended to start the patient on morphine 5 mg/mL at a rate of 0.25 mg/day. We will place the catheter tip at the L1 vertebral body. Risks and benefits of the procedure have been explained to the patient. Patient would like to proceed with the procedure. Patient is not on any blood thinners. Patient has been instructed to contact the clinic with any concerns before the next appointment. Dr. Coats has reviewed this note and agrees with this plan of care. This note was dictated using voice recognition software and make contain errors or omissions. [facility] History Medical History: Reports:: Anxiety, Gastroesophageal Reflux Disease(GERD), Heart Murmur, Hyperlipidemia, Hypertension, Palpitations Denies:: Cancer, Diabetes Mellitus Type 1, Diabetes Mellitus Type 2, Internal Pacemaker, MRSA *Have you ever received a pneumonia vaccine?: Yes *Have you received a flu vaccine this season?: No Other Medical History: Reports: Arthritis, Other Laterality Cases: Bilateral: Other Other Surgeries: Yes: Cholecystectomy, Other. No: Pacemaker Amputation: No Fractures: Yes - *Social History Smoking Status: Current every day smoker Tobacco Type: cigarettes # Packs/Day (cigarettes): 1 Alcohol Intake: never Substance Use Type: denies use *Occupational Status:: other Housing: house Household Members: spouse *Travel in the last 8 weeks: None - Psychiatric History Pschychiatric History:: Reports:: Anxiety Family Hx:: No significant family history
== END ==
PROVIDERS: PCP Emergency Medicine; Visit Provider Student in an Organized Health Care Education/Training Program
DX: M51.16 Intervertebral disc disorders with radiculopathy, lumbar region (principal)
CPT/HCPCS: 99212; G0463

== ENCOUNTER 2022-03-31 16:38 | Emergency (ER) | payer OTHER, SELFPAY ==
[2022-03-31 16:51] VITALS: BP 148/88; PULSE 95; RESP 19; TEMP 38.2; O2SAT 99; BMI 38.4
--- NOTE | 2022-03-31 17:00 | HMH.EDUTC ---
[facility] [place] Disposition Clinical Impression: Pharyngitis Qualifiers: Pharyngitis/tonsillitis etiology: unspecified etiology Qualified Code(s): J02.9 - Acute pharyngitis, unspecified Otitis media Qualifiers: Otitis media type: suppurative Chronicity: acute Laterality: bilateral Recurrence: non-recurrent Spontaneous tympanic membrane rupture: without spontaneous rupture Qualified Code(s): H66.003 - Acute suppurative otitis media without spontaneous rupture of ear drum, bilateral Disposition: Home, Self-Care Condition on Discharge: Good Instructions: Strep Throat, DI for Strep Throat Additional Instructions: Drink plenty of fluids. Take tylenol or ibuprofen for pain or fever. Take the medications as directed. Follow up with your regular doctor. GO TO THE ER FOR ANY WORSENING SYMPTOMS Throw your tooth brush away and get a new one. Prescriptions: Amoxicillin/Potassium Clav [Amox-Clav 875-125 mg Tablet] 1 tab PO BID #20 tab Transmission Status: Received by [employer] methylPREDNISolone [Medrol] 4 mg PO DIRECTED 6 Days #21 packet Transmission Status: Received by [employer] Referrals: Donn Rodriguez MD [Primary Care Provider] - Forms: Work/School Release Time of Disposition: 17:12 Medical Decision Making - Medical Records Medical records reviewed: No: I reviewed the patient's medical records. - Teofilo Inquiry Pt receiving controlled substance: No Vital Signs: 03/31/22 16:51 03/31/22 17:17 Temperature 100.7 F H 99.0 F Temperature Source Temporal Artery Scan Pulse Rate 95 H Pulse Rate [Left Brachial] 95 H Respiratory Rate 19 19 Blood Pressure 148/88 H Blood Pressure [Left Arm] 148/88 H Blood Pressure Mean [Left Arm] 108 Blood Pressure Source [Left Arm] Automatic Cuff Blood Pressure Position [Left Arm] Sitting 02 Sat by Pulse Oximetry 99 Oxygen Delivery Method Room Air - Lab Data Lab Results 03/31/22 16:50: Group A Strep Rapid Negative Orders (Tests/Meds): ORDERS Category Date Time Status Strep Screen Confirmation Stat Micro 03/31/22 16:50 Received [facility] [place] HPI - General Stated complaint: L ear pain and fever 100.2 Time Seen by Provider: 03/31/22 17:00 Mode of Arrival: Ambulatory Source of Information: Patient Description of Symptoms (Recalled from Triage Doc. by RN): pt reports he has left ear pain that radiates down into his throat when swallowing. He reports a low grade fever and is unable to sleep due to the pain. he states this has been going on since last night and states he believes his may have strep. He has taking tylenol this AM. HEENT Symptoms (Recalled from RN notes): Yes (fever, ear ad throat pain) Resp Symptoms (Recalled from RN notes): No Skin Symptoms (Recalled from RN notes): No MS Symptoms (Recalled from RN notes): No Functional Status (Recalled from RN notes): na - History of Present Illness Provider Complaint: He states that his has had strep throat and now he is having a sore throat and low grade fever. He refuses a covid-19 test. - Related Data Home Medications Medication Instructions Recorded Confirmed Diclofenac Sodium [Voltaren 2 g TOPICAL QID 10/08/21 03/31/22 Arthritis Pain] Buspirone HCl [Buspar 10mg 10 mg PO BID 01/24/22 03/31/22 tablet] predniSONE [Prednisone 20mg 20 mg PO BID 01/24/22 03/31/22 Tab] Hydrocod/Acet 5/325 mg [[place] 1 tab PO BID 02/25/22 03/31/22 5/325mg tablet] methylPREDNISolone [Medrol] 4 mg PO DIRECTED 03/18/22 03/31/22 Previous Rx's Medication Instructions Recorded bisoprolol fumarate 10 mg tablet 10 mg PO DAILY #30 tab 12/01/21 quetiapine 50 mg tablet 50 mg PO QHS #30 tab 12/27/21 Cyclobenzaprine HCl 10 mg PO BIDP PRN #20 tab 03/11/22 [Cyclobenzaprine 10mg Tab] Amoxicillin/Potassium Clav 1 tab PO BID #20 tab 03/31/22 [Amox-Clav 875-125 mg Tablet] methylPREDNISolone [Medrol] 4 mg PO DIRECTED 6 Days #21 03/31/22 packet
[2022-03-31 17:17] VITALS: BP 148/88; PULSE 95; RESP 19; TEMP 37.2
[2022-03-31 17:31] LABS: Strep Scrn Group A (Rapid) Negative (Negative)
== END 2022-03-31 17:17 | disposition home or self-care (01) ==
PROVIDERS: Emergency Provider Nurse Practitioner Family; PCP Emergency Medicine
DX: J02.9 Acute pharyngitis, unspecified (principal); H66.003 Acute suppurative otitis media without spontaneous rupture of ear drum, bilateral
CPT/HCPCS: 87430; 99212; G0463

== ENCOUNTER 2022-04-11 14:33 | Emergency (ER) | payer OTHER, SELFPAY ==
[2022-04-11 15:10] VITALS: BP 126/82; PULSE 91; RESP 18; TEMP 37.7; O2SAT 98; BMI 39.8
--- NOTE | 2022-04-11 15:21 | HMH.EDUTC ---
[facility] [place] Clinical Impression: Bronchitis Sinusitis Qualifiers: Sinusitis location: unspecified location Chronicity: unspecified Qualified Code(s): J32.9 - Chronic sinusitis, unspecified Disposition: Home, Self-Care Condition on Discharge: Good Instructions: Sinusitis, DI for Sinusitis, DI for Acute Bronchitis Additional Instructions: ? Start antibiotic today. Be sure to complete entire prescription even if feeling better ? Monitor temp. Tylenol every 4 hours as needed and / or ibuprofen every 6 hours as needed ( As long as your primary care physician has told you that it ok to take both. For fever/aches/pains ER if no less than 101 despite Tylenol or Motrin ? Humidifier/vaporizer or hot steamy shower ? Mucinex for your cough Be sure to drink lots of water. Follow up IMMEDIATELY for new or worsening of symptoms OR no noticeable improvement over the next 48-72 hours. 911 immediately for any life threatening symptoms such as chest pain or difficulty breathing Prescriptions: guaiFENesin [Mucinex 600mg tablet] 1 - 2 tab PO Q12HP PRN #20 tab PRN Reason: Congestion Transmission Status: Pending to [facility] Fluticasone Propionate [Flonase 50mcg nasal spray 16gm] 1 spr NS DAILY #1 each Transmission Status: Pending to [facility] Azithromycin [Z-Qamar 250mg Tab] 250 mg PO DIRECTED #6 tab Transmission Status: Pending to [facility] Referrals: Donn Rodriguez MD [Primary Care Provider] - As needed Forms: Work/School Release Time of Disposition: 15:43 Medical Decision Making - Teofilo Inquiry Pt receiving controlled substance: No Teofilo was queried for this patient: No Vital Signs: 04/11/22 15:10 04/11/22 15:37 Temperature 99.8 F H 99.8 F H Temperature Source Oral Pulse Rate 91 H Pulse Rate [Right Brachial] 91 H Respiratory Rate 18 18 Blood Pressure 126/82 Blood Pressure [Right Arm] 126/82 Blood Pressure Mean [Right Arm] 96 Blood Pressure Source [Right Arm] Automatic Cuff Blood Pressure Position [Right Arm] Sitting 02 Sat by Pulse Oximetry 98 Oxygen Delivery Method Room Air [facility] [place] HPI - General Stated complaint: fever, cough, congestion Time Seen by Provider: 04/11/22 15:21 Mode of Arrival: Ambulatory Source of Information: Patient Limitations: No Limitations Description of Symptoms (Recalled from Triage Doc. by RN): PATIENT C/O FEVER, CONGESTION, COUGH WITH MUCOUS, SINUS CONGESTION, HEADACHE, AND DIZZINESS X 2 DAYS HEENT Symptoms (Recalled from RN notes): Yes Resp Symptoms (Recalled from RN notes): Yes Skin Symptoms (Recalled from RN notes): No MS Symptoms (Recalled from RN notes): No Functional Status (Recalled from RN notes): WNL - History of Present Illness Provider Complaint: Patient states that he has been having sinus congestion, pressure and drainage in the back of his throat and coughing up mucous at times States that he feels like his ears are full and makes him feel a little dizzy at times States that his girlfriend has been having similar symptoms and was tested for COVID and it was negative States that he just got off antiobitics but they didnt help much - Related Data Home Medications Medication Instructions Recorded Confirmed Diclofenac Sodium [Voltaren 2 g TOPICAL QID 10/08/21 03/31/22 Arthritis Pain] Buspirone HCl [Buspar 10mg 10 mg PO BID 01/24/22 03/31/22 tablet] predniSONE [Prednisone 20mg 20 mg PO BID 01/24/22 03/31/22 Tab] Hydrocod/Acet 5/325 mg [[place] 1 tab PO BID 02/25/22 03/31/22 5/325mg tablet] methylPREDNISolone [Medrol] 4 mg PO DIRECTED 03/18/22 03/31/22 Previous Rx's Medication Instructions Recorded quetiapine 50 mg tablet 50 mg PO QHS #30 tab 12/27/21 Cyclobenzaprine HCl 10 mg PO BIDP PRN #20 tab 03/11/22 [Cyclobenzaprine 10mg Tab] Amoxicillin/Potassium Clav 1 tab PO BID #20 tab 03/31/22 [Amox-Clav 875-125 mg Tablet] methylPREDNISolone [Medrol] 4 mg PO DIRECTED 6 Days #21 /
[2022-04-11 15:37] VITALS: BP 126/82; PULSE 91; RESP 18; TEMP 37.7; O2SAT 98
== END 2022-04-11 15:59 | disposition home or self-care (01) ==
PROVIDERS: Emergency Provider Nurse Practitioner; PCP Emergency Medicine
DX: J40 Bronchitis, not specified as acute or chronic (principal); J32.9 Chronic sinusitis, unspecified; U07.1 COVID-19
CPT/HCPCS: 99212; C9803; G0463; U0003; U0005

== ENCOUNTER 2022-06-14 09:20 | Emergency (ER) | payer OTHER, SELFPAY ==
[2022-06-14 09:23] VITALS: BP 113/60; PULSE 89; RESP 16; TEMP 36.6; O2SAT 98; BMI 37.3
--- NOTE | 2022-06-14 09:38 | ECG_ITS ---
APPROVED REPORT Exam: Resting ECG HR:88 bpm ECG Measurements Heart Rate 88 AXES NM 142 P 45 QRSd 93 QRS 39 QT 363 T 34 QTc 409 Conclusion SINUS RHYTHM Old inferior Q waves - questionable significance BORDERLINE ECG UNCONFIRMED REPORT Electronically signed by : Wilfrido Lala MD 06/14/2022 21:08:15
--- NOTE | 2022-06-14 09:40 | XR_ITS ---
FINAL REPORT CLINICAL HISTORY: chest pain, dizziness, x last night COMPARISON: January 24, 2022 FINDINGS: PORTABLE CHEST. The heart is normal in size. The mediastinum is unremarkable. There is linear density at the lung bases consistent with scar or atelectasis. The lungs are otherwise clear. There is no pneumothorax. IMPRESSION: Bibasilar scar or atelectasis. Reviewed, Interpreted and Dictated by Etienne Cuellar MD Transcribed by Grisel Alfaro Authenticated and [facility]
[2022-06-14 10:05] VITALS: BP 115/68; PULSE 72; RESP 13; O2SAT 93
--- NOTE | 2022-06-14 10:10 | HMH.EDGENADL ---
Discharge Plan Disposition Patient Disposition: Home, Self-Care Condition: Good Prescriptions Prescriptions: No Action quetiapine [Seroquel] 100 mg tablet 100 mg PO QHS Qty: 30 1RF omeprazole 20 mg capsule,delayed release(DR/EC) 20 mg PO DAILY Qty: 30 2RF bisoprolol fumarate 10 mg tablet See Rx Instructions .ROUTE .COMPLEX Qty: 30 1RF Dose Instruction: TAKE ONE TABLET BY MOUTH EVERY DAY Rx Instructions: TAKE ONE TABLET BY MOUTH EVERY DAY hydroxyzine pamoate [Vistaril] 25 mg capsule 25 mg PO TID PRN (Reason: for increased anxiety) Qty: 90 0RF diclofenac sodium 20 GM gel 2 g TP QID Rx Instructions: apply to single elbow, wrist or hand; for hand includes palm/fingers/back of hand cyclobenzaprine 10 MG tablet 10 mg PO BIDP PRN (Reason: Muscle Spasm) Qty: 20 0RF hydrocodone-acetaminophen 1 TAB tablet 1 tab PO BID azithromycin 250 MG tablet 250 mg PO DIRECTED Qty: 6 0RF Rx Instructions: Take two (2) tablets on day #1, then one (1) tablet day #2 thru #5 guaifenesin 600 MG tablet extended release 12hr 1 - 2 tab PO Q12HP PRN (Reason: Congestion) Qty: 20 0RF fluticasone propionate 120 SPRAY bottle 1 spr NS DAILY Qty: 1 0RF Rx Instructions: one spray in each nostril daily Referrals Follow up/Referrals: Donn Rodriguez MD [Primary Care Provider] - See instructions Activity Restrictions/Add. Instructions Additional Instructions/Restrictions: Call Dr. Black's office and Dr. Rodriguez's office to arrange follow-up appointments. Return to the emergency department if symptoms recur. Clinical Impressions Clinical Impression: Elevated blood pressure reading Stand Alone Forms Stand Alone Forms: Work/School Release Discharge ED Provider: Jermaine Blanton General Adult HPI General Chief complaint: PAIN Stated complaint: high blood pressure, panic attack Time Seen by Provider: 06/14/22 10:40 Mode of Arrival: Ambulatory Source of Information: Patient Limitations: No Limitations Description of Symptoms (Recalled from ER Triage Doc. by RN): to ed per pvt car states today at work had sudden onset of dizziness, lightheaded, nausea, rt side chest pain and dark spots in my eyes states squad took his b/p and it was 190/110 and told he should get that check. pt denies any c/o now symptoms have resolved. History of Present Illness HPI narrative: States he is here for a high blood pressure episode . Patient states that at work this morning he had an episode where he felt lightheaded and nauseated. He says that at work they told him he did not look good and therefore called 911. He says ambulance checked his blood pressure manually and stated it was 190/110. Patient denies any chest pain to me. Denies shortness of breath. Denies headache. States that he did have cramping of his hands last night where he had to use his other hand to straighten out his fingers. He has a history of hypertension and takes bisoprolol. He says he has been told that he might have a little cardiomyopathy . States he has no history of [place] or coronary artery disease/stents. He has been seeing Dr. Hernandez for cardiology, but has not been seen in a couple of years. He has also been seen at cardiology clinic here prior to being seen by Dr. Hernandez, but thinks that he might return to seeing Dr. Black. Related Data Home Medications Medication Instructions Recorded Confirmed diclofenac sodium 1 % topical gel 2 g topical QID . 10/08/21 04/22/22 hydrocodone 5 mg-acetaminophen 325 1 tab PO BID Pain 02/25/22 04/22/22 mg tablet Previous Rx's Medication Instructions Recorded cyclobenzaprine 10 mg tablet 10 mg PO BIDP PRN Muscle Spasm #20 03/11/22 tabs azithromycin 250 mg tablet 250 mg PO DIRECTED #6 tabs 04/11/22 bisoprolol fumarate 10 mg tablet See Rx Instructions .Route 04/11/22 .COMPLEX #30 tabs fluticasone propionate 50 1 spr intranasal DAILY #1 ea
[2022-06-14 10:13] LABS: Basophils # 0.1 K/mm3 (0-0.2); Basophils % 0.5 % (0.1-2.0); Eosinophils # 0.1 K/mm3 (0.0-0.4); Eosinophils % 1.2 % (0.1-12.0); Hematocrit 42.8 % (42.0-52.0); Hemoglobin 14.2 g/dL (14.1-18.0); Lymphocytes # 1.3 K/mm3 (0.7-4.5); Lymphocytes % 12.1 % (10-50); Mean Corpuscular HGB Conc 33.3 g/dL (31.8-35.4); Mean Corpuscular Hemoglobin 29.6 pg (27.0-31.2); Mean Platelet Volume 8.4 fl (7.4-10.4); Monocytes # 0.7 K/mm3 (0.1-1.0); Neutrophils # 8.9 K/mm3 (1.8-7.8); Neutrophils % 80.2 % (37.0-80.0); Platelet Count 309 K/mm3 (142-424); Red Blood Count 4.81 M/mm3 (4.60-6.20); Red Cell Distribution Width 13.1 % (11.5-17.5)
[2022-06-14 10:14] LABS: Chloride 101 mmol/L (98-107); Potassium 3.7 mmoL/L (3.5-5.1); Sodium 140 mmol/L (136-145)
[2022-06-14 10:17] LABS: Anion Gap 17.7 mEq/L (5-15); Blood Urea Nitrogen 16 mg/dl (9-20); Carbon Dioxide 25 mmol/L (22.0-30.0); Creatinine Clearance Estimated 165 mL/min (50-200); Estimated Glomerular Filt Rate 83 ml/min (>60); GFR (African American) 101 ML/MIN (>60)
[2022-06-14 10:18] LABS: Calcium 9.3 mg/dl (8.4-10.2); Glucose 121 mg/dl (74-100)
[2022-06-14 10:30] VITALS: BP 99/50; PULSE 77; RESP 18; O2SAT 96
[2022-06-14 10:33] LABS: Troponin I < 0.01 ng/ml (0.00-0.034)
[2022-06-14 11:00] VITALS: BP 111/69; PULSE 77; RESP 18; O2SAT 96
[2022-06-14 11:09] VITALS: BP 112/65; PULSE 87; RESP 16; TEMP 36.6; O2SAT 98
== END 2022-06-14 11:10 | disposition home or self-care (01) ==
PROVIDERS: Emergency Provider Emergency Medicine; PCP Emergency Medicine
DX: I10 Essential (primary) hypertension (principal); Z79.899 Other long term (current) drug therapy
CPT/HCPCS: 71045; 80048; 84484; 85025; 93005; 99284

== ENCOUNTER 2022-06-22 17:19 | Emergency (ER) | payer OTHER, SELFPAY ==
--- NOTE | 2022-06-22 17:30 | XR_ITS ---
PROCEDURE INFORMATION: Exam: XR Left Foot Exam date and time: 06/22/2022 5:32 PM Age: 41 years old Clinical indication: Injury or trauma; Fall; Sprain or strain; Foot; Left TECHNIQUE: Imaging protocol: Radiologic exam of the Left foot. Views: 3 or more views. COMPARISON: CR Ankle L 06/22/2022 5:30 PM FINDINGS: Bones/joints: There is no evidence of acute fracture. There is no evidence of joint malalignment or dislocation. Calcaneal spurs are present. Soft tissues: No focal soft tissue swelling. IMPRESSION: 1. No evidence of acute fracture. 2. No evidence of acute dislocation.
--- NOTE | 2022-06-22 17:30 | XR_ITS ---
PROCEDURE INFORMATION: Exam: XR Left Ankle Exam date and time: 06/22/2022 5:30 PM Age: 41 years old Clinical indication: Injury or trauma; Fall; Sprain or strain; Ankle; Left TECHNIQUE: Imaging protocol: Radiologic exam of the Left ankle. Views: 3 or more views. COMPARISON: CR XR KNEE LT 3V 05/24/2021 7:00 PM FINDINGS: Bones/joints: There is no evidence of acute fracture. There is no evidence of joint malalignment or dislocation. Calcaneal spurs are present. Soft tissues: No focal soft tissue swelling. IMPRESSION: 1. No evidence of acute fracture. 2. No evidence of acute dislocation.
[2022-06-22 17:42] VITALS: BP 125/78; PULSE 61; RESP 17; TEMP 37; O2SAT 100; BMI 38.9
--- NOTE | 2022-06-22 17:46 | EXP.UTC ---
Discharge Plan Disposition Patient Disposition: Home, Self-Care Condition: Good Prescriptions Prescriptions: No Action quetiapine [Seroquel] 100 mg tablet 100 mg PO QHS Qty: 30 1RF bisoprolol fumarate 10 mg tablet See Rx Instructions .ROUTE .COMPLEX Qty: 30 1RF Dose Instruction: TAKE ONE TABLET BY MOUTH EVERY DAY Rx Instructions: TAKE ONE TABLET BY MOUTH EVERY DAY fluticasone propionate 120 SPRAY bottle 1 spr NS DAILY Qty: 1 0RF Rx Instructions: one spray in each nostril daily Referrals Follow up/Referrals: Donn Rodriguez MD [Primary Care Provider] - See instructions Lionel Mitchell MD [Staff Physician] - See instructions Kristal Mcwilliams DPM [Staff Physician] - See instructions Activity Restrictions/Add. Instructions Additional Instructions/Restrictions: Rest the extremity, Elevate the extremity as tolerated while you are resting. Take ibuprofen for pain. Follow up with Dr. Mcwilliams (podiaty). Sometimes there can be fractures that don't show up well on the first set of x-rays. So, you should follow up. I put in a referral but you need to call her office and schedule an appointment. Follow up with your regular doctor. GO TO THE ER FOR ANY WORSENING SYMPTOMS Clinical Impressions Clinical Impression: Left ankle sprain Stand Alone Forms Stand Alone Forms: Work/School Release Instructions Patient Instructions: Ankle Sprain, DI for Ankle Pain, How to Use a Walking Boot Discharge ED Provider: Abdulaziz Trujillo [facility] General Stated complaint: AO 06/20 FELL ON LEFT ANKLE Mode of Arrival: Ambulatory Source of Information: Patient Limitations: No Limitations Time Seen by Provider: 06/22/22 17:46 Description of Symptoms (Recalled from Triage Doc. by RN): C/O left ankle pain after slipping down a hill HEENT Symptoms (Recalled from RN notes): No Resp Symptoms (Recalled from RN notes): No Skin Symptoms (Recalled from RN notes): No MS Symptoms (Recalled from RN notes): Yes (Lt ankle pain) Functional Status (Recalled from RN notes): n/a History of Present Illness Provider Complaint: He states that 2 days ago he slipped on a hill and twisted his left ankle. He has had left foot and ankle pain since then. Related Data Previous Rx's Medication Instructions Recorded fluticasone propionate 50 1 spr intranasal DAILY #1 ea 04/11/22 mcg/actuation nasal spray,suspension quetiapine 100 mg tablet (Seroquel) 100 mg PO QHS #30 tabs 04/20/22 bisoprolol fumarate 10 mg tablet See Rx Instructions .Route 06/16/22 .COMPLEX #30 tabs Allergies Allergy/AdvReac Type Severity Reaction Status Date / Time No Known Allergies Allergy Verified 06/16/22 10:32 Worker's Comp Is this a Worker's Comp case?: No PFSH PFSH Medical History Daytime somnolence Dyspnea Ex-smoker Restless sleeper Snoring Social History Smoking Status: Never smoker alcohol intake: never substance use type: denies use current occupational status: other Travel in the last 8 weeks: None household members: spouse housing: house number of children: 1 caffeine: Yes ROS Obtained: Yes All systems reviewed & no additional complaints except as documented Constitutional Constitutional: Denies chills and Denies fever(s) Integumentary/Breasts Skin/Breast: Denies redness, Denies rash and Denies wounds Neurologic Neurologic: Denies paresthesias Physical Exam General General appearance: alert and in no apparent distress Head Head exam: atraumatic, normocephalic and normal inspection Eye Eye exam: Present normal appearance, PERRL and EOMI ENT ENT exam: Present normal exam, normal oropharynx, mucous membranes moist, TM's normal bilaterally and normal external ear exam Neck Neck exam: Present normal inspection, full ROM and trachea midline; Absent meningismus or lymphadenopathy Chest Ch
[2022-06-22 19:18] VITALS: BP 125/78; PULSE 61; RESP 17; TEMP 37; O2SAT 100
== END 2022-06-22 19:23 | disposition home or self-care (01) ==
PROVIDERS: Emergency Provider Nurse Practitioner Family; PCP Emergency Medicine
DX: S93.402A Sprain of unspecified ligament of left ankle, initial encounter (principal); W01.0XXA Fall on same level from slipping, tripping and stumbling without subsequent striking against object, initial encounter
CPT/HCPCS: 73610; 73630; 99212; G0463

== ENCOUNTER → 2022-06-28 07:51 | Outpatient (CLI) | payer OTHER, SELFPAY ==
--- NOTE | 2022-06-28 07:51 | CA_ITS ---
FINAL REPORT TECHNIQUE: Grayscale, color Doppler and duplex Doppler ultrasound of the kidneys, aorta and renal arteries was performed. Multiple velocities were measured. CLINICAL HISTORY: HTN,HX KIDNEY STONES,OBESITY,EX SMOKER FINDINGS: Aorta velocity: 120 cm/sec Right kidney: 11.0 cm. No evidence of hydronephrosis or mass. Right intrarenal RI: 0.60 Right renal artery velocity: 190 cm/sec. Right RAR (Renal artery-Aortic Ratio): 1.58 Left Kidney: 11.9 cm. No evidence of hydronephrosis or mass. Left intrarenal RI: 0.58 Left renal artery velocity: 115 cm/sec. Left RAR (Renal Artery-Aortic Ratio): 0.95 IMPRESSION: No evidence of significant renal artery stenosis on the left. Less than 60% renal artery stenosis on the right. CT angiogram or postcontrast MR angiogram would be more sensitive for evaluation of possible renal artery stenosis. Reviewed, Interpreted and Dictated by Roderick Grimaldo III, MD Transcribed by Grisel Alfaro Authenticated and [facility]
--- NOTE | 2022-06-28 08:42 | US_ITS ---
FINAL REPORT TECHNIQUE: Ultrasound images of the kidneys were obtained. CLINICAL HISTORY: I10 - Essential (primary) hypertension FINDINGS: US RETROPERITONEAL The right kidney measures 10 cm in length. It is normal in echogenicity. There is no hydronephrosis. Normal flow is noted. The left kidney measures 10.8 cm in length. It is normal in echogenicity. There is no hydronephrosis. Normal flow is noted. The spleen is unremarkable and measures 10.9 cm in length. IMPRESSION: Unremarkable exam. Reviewed, Interpreted and Dictated by Roderick Grimaldo III, MD Transcribed by Grisel Alfaro Authenticated and [facility]
== END ==
PROVIDERS: PCP Emergency Medicine; Visit Provider Physician Assistant
DX: R06.00 Dyspnea, unspecified (principal); R42 Dizziness and giddiness; R55 Syncope and collapse; R00.2 Palpitations; I10 Essential (primary) hypertension; R94.31 Abnormal electrocardiogram [ECG] [EKG]
CPT/HCPCS: 76770; 93976

== ENCOUNTER → 2022-07-05 06:55 | Outpatient (CLI) | payer OTHER, SELFPAY ==
--- NOTE | 2022-07-05 | CA_ITS ---
APPROVED REPORT Exam: Exercise Treadmill Technologist: Nannette Adler, Ht: 5 ft 10 in Wt: 272 lbs BSA: 2.38 m2 HR: 81 bpm BP: 140/71 mmHg Rhythm: NSR, T WAVE ABNS IN LEADS III, AVF, BORDERLINE Q WAVES INFERIORLY Indications: Abn EKG Medical History Medical History: HTN Medications: BisOPROLOL,,,,, Seroquel,,,,, FluTacasone,,,,, Allergies: No known drug allergies Cardiac Risk Factors: HTN, FHX of CAD, Smoking Stress Test Details Test: Juan Jose HR Resting HR: 74 bpm Max Heart Rate (APMHR): 181.530244 bpm Max HR Achieved: 131 bpm Target HR (85% APMHR): 153.127478 bpm % of APMHR: 72.38 Recovery HR: 81 bpm BP Resting BP: 123/77 mmHg Max BP: 150/70 mmHg Recovery BP: 140.0/71.0 mmHg ECG Resting ECG: NSR, T WAVE ABNS IN LEADS III, AVF, BORDERLINE Q WAVES INFERIORLY Clinical Exercise duration: 09:00 min Highest Stage Achieved: Stage 3: 3.4 mph at 14% grade. Exercise capacity: 10.1 METs Stress ECG Conclusion PT EXERCISED 9:00 ON JUAN JOSE PROTOCOL, COMPLETING 3 STAGES. MAX HR: 131 % OF PM: 72% MAX B/P: 150/70 METS: 10.1 TEST STOPPED DUE TO: SOA, LEG PAIN NO CP. ALLOWING FOR MOTION ARTIFACT, THERE ARE NO SIGNIFICANT CHANGE COMPARED TO BASELINE. PROBABLY NORMAL GXT TO HR ACHIEVED (72% OF PM) BLUNTED HR RESPONSE ON BETA BREANNA MYOVIEW IMAGES REPORTED SEPARATELY. Test Summary RECOVERY 04:00 0.0 0.0 76 . 147/ 73 . . REST . . . . . . . Standing REST 04:20 0.0 0.0 74 . 123/ 77 . . Stage 1 01:00 10.0 1.7 90 . . . . Stage 1 02:00 10.0 1.7 94 . . . . Stage 1 03:00 10.0 1.7 93 . 144/ 70 . . Stage 2 01:00 12.0 2.5 102 . . . . Stage 2 02:00 12.0 2.5 109 . . . . Stage 2 03:00 12.0 2.5 112 . 150/ 70 . . Stage 3 01:00 14.0 3.4 119 . . . . Stage 3 02:00 14.0 3.4 124 . . . . Stage 3 03:00 14.0 3.4 131 . . . Stop exercise at 09:00 RECOVERY 01:00 0.0 0.0 101 . . . . RECOVERY 02:00 0.0 0.0 83 . . . . RECOVERY 03:00 0.0 0.0 78 . 147/ 68 . . RECOVERY 04:00 0.0 0.0 76 . 147/ 73 . . RECOVERY 05:00 0.0 0.0 81 . 140/ 71 . . RECOVERY 05:18 0.0 0.0 81 . 140/ 71 . . Electronically signed by : Pranay Huff MD 07/06/2022 05:56:04
--- NOTE | 2022-07-05 07:01 | NM_ITS ---
APPROVED REPORT Exam: Nuclear Stress Test Indication: HTN, FM HX, PALPITATIONS, ABN EKG Patient Location: Outpatient Stress Tech: Nannette Adler NE Tech:Norma Yanez HENRIQUEZafar RT (R)(N)(M) Ht: 5 ft 10 in Wt: 272 lbs HR: 63 bpm BP: 119/77 mmHg BSA: 2.38 m2 TID: 1.09 BMI: 39.0 History: HTN, FM HX, PALPITATIONS, ABN EKG Procedure: Patient exercised on Juan Jose protocol 9:00 minutes and sec, resting heart rate 63 bpm, resting blood pressure 119/77 mmHg, with exercise maximum heart rate achived was 131 bpm which is 72 % of the maximum predicted heart rate and blood pressure was 150/70 mmHg. Test was stopped due to LEG FATIGUE. Patient denied any complaint of chest pain. Patient has Good exercise capacity, achieved 10.1 METs of workload on treadmill, the blood pressure response to exercise was Adequate. Electrocardiogram Resting electrocardiogram shows sinus rhythm nonspecific ST-T changes, with exercise there is less than 1.[address] segment depression noted from the baseline EKG. The EKG portion of the exercise Myoview is nondiagnostic as patient did not achieve the target heart rate. Cardiac Stress and Resting SPECT Images: Cardiac Stress and Resting SPECT images were obtained using technetium 99m Myoview 31.2 mCi stress and 10.34 mCi at rest. Gated SPECT for analysis of segmental wall motion and calculation of the ejection fraction also done. Prone images were also obtained. Cardiac stress and rest SPECT images show uniform myocardial activity without segmental perfusion abnormality, computer derived ejection fraction is 51% with no regional wall motion abnormality, right ventricle is normal size and contractility. Conclusion: 1. The EKG portion of the exercise Myoview was nondiagnostic as patient did not achieve the target heart rate, patient has good exercise capacity achieved 10.1 METs of workload on treadmill, the blood pressure response to exercise was adequate, there was no exercise-induced chest discomfort. 2. No scintigraphic evidence of reversible ischemia seen at this level of exercise, computer generated ejection fraction is 51% with no regional wall motion abnormality, right ventricle is normal size and contractility. 3. Normal exercise Myoview study at this submaximal heart rate. Electronically signed by : Pranay Huff MD 07/06/2022 06:01:24
--- NOTE | 2022-07-05 07:37 | CA_ITS ---
APPROVED REPORT EXAM: Comprehensive 2D, Doppler, and color-flow Echocardiogram Pyroglazer: Suzanne Rodriguez, KARL, RVS Ht: 5 ft 10 in Wt: 273lbs BSA: 2.38 BP: 130/83 mmHg Indications: Palpitations, HTN, Ex-smoker, PASTRANA, Near synope 2D Dimensions IVSd 1.21 cm LVEF (Visual) 75.00 % PWd 0.92 cm LA Volume 59.60 mL LVDd 4.66 cm LA Volume Index 25.00 mL/m2 (M/F) 16-34 LVDs 2.62 cm Aortic Root 3.01 cm Left Atrium 3.66 cm LVOT 2.12 cm (M/F) 1.5-2.5 M-Mode Dimensions LA Diam 3.89 cm (1.9-4.0) Ao Diam 2.94 cm (2.0-3.7) EPSs 0.95 cm TAPSE 1.92 (<1.7) LV Diastology E Decel Time 247.00 (160-240 msec) E/A Ratio 1.58 MED E' 7.40 (< 7 cm/sec) MED A' 8.40 cm/s E'/MED E' Ratio 10.61 (>14) LAT E' 14.00 (<10 cm/sec) LAT A' 8.70 cm/s E/LAT E' Ratio 5.61 (>14) Aortic Valve LVOT Max 118.00 (70-110 cm/s) LVOT VTI 22.02 cm AoV Peak Geronimo. 130.00 (50-130 cm/s) AO Peak GR. 6.80 mmHg AO Mean GR. 3.40 (<5 mmHg) AO VTI 23.32 (18-25 cm) YORDAN (VTI) 3.33 (2.5-4.5 cm2) Mitral Valve MV A Velocity 50.00 (40-130 cm/s) E/A Ratio 1.58 MV Decel. Time 247.00 (160-240 ms) MV PHT 73.00 ms Pulmonary Valve PV Peak Velocity 94.00 (50-150 cm/s) Tricuspid Valve TR P. Velocity 221.00 cm/s RAP Estimate 10.00 mmHg RVSP 29.60 mmHg Left Ventricle Left atrium is normal size, left ventricle is normal size, estimated ejection fraction 55% with no regional wall motion abnormality, diastolic parameters are within normal range. Right Ventricle Right atrium and right ventricle are normal size and contractility. Aortic Valve Aortic valve is grossly normal there is no aortic stenosis aortic insufficiency. Mitral Valve Mitral valve is grossly normal, there is trace mitral regurgitation. Tricuspid Valve Tricuspid valve grossly normal, there is trace tricuspid regurgitation, tricuspid regurgitation jet velocity is inadequate for calculation of the right ventricular systolic pressure. Pulmonic Valve Pulmonic valve is poorly visualized. Great Vessels Aortic root is normal size. Inferior vena cava is normal size with normal inspiratory collapse. Pericardium No significant pericardial effusion noted. Conclusion 1. Normal left ventricular size preserved left ventricular systolic function, estimated ejection fraction 55% with no regional wall motion abnormality, diastolic parameters are within normal range. 2. Trace mitral and tricuspid regurgitation. 3. No significant pericardial effusion. 4. Inferior vena cava normal size with normal inspiratory collapse. Electronically signed by : Pranay Huff MD 07/05/2022 19:15:55
== END ==
PROVIDERS: PCP Emergency Medicine; Visit Provider Physician Assistant
DX: R06.00 Dyspnea, unspecified (principal); R42 Dizziness and giddiness; R00.2 Palpitations; R55 Syncope and collapse; I10 Essential (primary) hypertension; R94.31 Abnormal electrocardiogram [ECG] [EKG]
CPT/HCPCS: 78452; 93017; 93306; A9502

== ENCOUNTER 2022-07-16 10:53 | Emergency (ER) | payer OTHER, SELFPAY ==
[2022-07-16] VITALS (11 sets, daily range): BP systolic 113–150; BP diastolic 55–80; PULSE 54–77; RESP 16–18; TEMP 36.7–36.8; O2SAT 97–100; BMI 39.0
--- NOTE | 2022-07-16 10:53 | ECG_ITS ---
APPROVED REPORT Exam: Resting ECG HR:70 bpm ECG Measurements Heart Rate 70 AXES NC 151 P 49 QRSd 94 QRS 45 QT 373 T 45 QTc 393 Conclusion SINUS RHYTHM NORMAL ECG UNCONFIRMED REPORT Electronically signed by : Wilfrido Lala MD 07/17/2022 15:19:18
--- NOTE | 2022-07-16 11:06 | HMH.EDGENADL ---
Discharge Plan Disposition Patient Disposition: Home, Self-Care Condition: Good Chief Complaint: Chest Pain Prescriptions Prescriptions: No Action quetiapine [Seroquel] 100 mg tablet 100 mg PO QHS Qty: 30 1RF desvenlafaxine succinate [Pristiq] 50 mg tablet extended release 24 hr 50 mg PO DAILY Qty: 30 1RF bisoprolol fumarate 10 mg tablet See Rx Instructions .ROUTE .COMPLEX Qty: 30 1RF Dose Instruction: TAKE ONE TABLET BY MOUTH EVERY DAY Rx Instructions: TAKE ONE TABLET BY MOUTH EVERY DAY omeprazole 20 mg capsule,delayed release(DR/EC) 20 mg PO DAILY Label Comments: TAKE ONE CAPSULE BY MOUTH EVERY DAY Referrals Follow up/Referrals: Provider,Referral, MD [Referring] - See instructions Activity Restrictions/Add. Instructions Additional Instructions/Restrictions: Contact your prescriber of Pristiq to discuss whether symptoms are possibly related to that medication. Additional instructions for CHEST PAIN: See your physician as soon as possible for further evaluation. Return immediately if worsening chest pain, vomiting, shortness of breath, fever, coughing of blood. Clinical Impressions Clinical Impression: Atypical chest pain, Hot flashes Discharge ED Provider: Jermaine Blanton General Adult HPI General Chief complaint: Chest Pain Stated complaint: Chest Pain Time Seen by Provider: 07/16/22 11:08 History of Present Illness HPI narrative: Complains of intermittent chest pain and hot flashes that began this morning while at work. He describes the chest pain as a pinching sensation that is brief, lasting less than 1 minute in his left upper parasternal area. He says that the area of pain is also tender to touch and he can bring on the pain by pushing on the area. He has had associated sensations of hot flashes. He says that he called 911 because of the symptoms and paramedics came and checked him out and told him that his heart looked normal. He declined transport by EMS and arrives ambulatory. He does not have any known cardiac disease, he says that he had a stress test done for an abnormal EKG a couple of weeks ago that was normal. He says he sees Genaro Napoles at [facility]. He has hypertension and takes bisoprolol. He does not have diabetes or hyperlipidemia to his knowledge. He is a non-smoker. No recent surgeries, hospitalizations, travel. He says that he was recently started on Pristiq and wonders whether the symptoms are related. He sees Pam Soliz at [facility]. Related Data Home Medications Medication Instructions Recorded Confirmed omeprazole 20 mg capsule,delayed 20 mg PO DAILY 06/30/22 07/14/22 release Previous Rx's Medication Instructions Recorded bisoprolol fumarate 10 mg tablet See Rx Instructions .Route 06/16/22 .COMPLEX #30 tabs desvenlafaxine succinate 50 mg 50 mg PO DAILY #30 tabs 07/14/22 tablet,extended release 24 hr (Pristiq) quetiapine 100 mg tablet (Seroquel) 100 mg PO QHS #30 tabs 07/14/22 Allergies Allergy/AdvReac Type Severity Reaction Status Date / Time No Known Allergies Allergy Verified 07/14/22 11:17 [facility] Medical History (Updated 07/16/22 @ 15:16 by Jermaine Blanton MD) Daytime somnolence Dyspnea Ex-smoker Generalized anxiety disorder Restless 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
--- NOTE | 2022-07-16 11:31 | XR_ITS ---
PROCEDURE INFORMATION: Exam: XR Chest Exam date and time: 07/16/2022 11:36 AM Age: 41 years old Clinical indication: Chest wall pain; Additional info: Chest pain TECHNIQUE: Imaging protocol: Radiologic exam of the chest. Views: 2 views. COMPARISON: CR XR CHEST PORTABLE 06/14/2022 10:05 AM FINDINGS: Lungs: Unremarkable. No consolidation. Pleural spaces: Unremarkable. No pleural effusion. No pneumothorax. Heart/Mediastinum: Unremarkable. No cardiomegaly. Bones/joints: Unremarkable. IMPRESSION: No acute findings.
[2022-07-16 11:39] LABS: Basophils # 0.1 K/mm3 (0-0.2); Basophils % 0.8 % (0.1-2.0); Eosinophils # 0.3 K/mm3 (0.0-0.4); Eosinophils % 4.1 % (0.1-12.0); Hematocrit 41.4 % (42.0-52.0); Hemoglobin 13.4 g/dL (14.1-18.0); Lymphocytes % 28.1 % (10-50); Mean Corpuscular HGB Conc 32.4 g/dL (31.8-35.4); Mean Corpuscular Hemoglobin 29.3 pg (27.0-31.2); Mean Corpuscular Volume 90.5 fl (80-94); Mean Platelet Volume 8.8 fl (7.4-10.4); Monocytes # 0.5 K/mm3 (0.1-1.0); Neutrophils # 4.3 K/mm3 (1.8-7.8); Platelet Count 256 K/mm3 (142-424); Red Blood Count 4.58 M/mm3 (4.60-6.20); White Blood Count 7.2 K/mm3 (4.8-10.8)
[2022-07-16 11:40] LABS: Chloride 100 mmol/L (98-107); Sodium 139 mmol/L (136-145)
[2022-07-16 11:41] LABS: Potassium 3.8 mmoL/L (3.5-5.1)
--- NOTE | 2022-07-16 11:42 | PC.NURSE ---
PT TO XR
[2022-07-16 11:43] LABS: Alanine Aminotransferase 38 U/L (12-78); Albumin Level 4.4 g/dl (3.5-5.0); Albumin/Globulin Ratio 1.5 (1.1-1.8); Alkaline Phosphatase 56 U/L (38-126); Anion Gap 14.8 mEq/L (5-15); Aspartate Amino Transferase 39 U/L (17-59); Bilirubin,Total 0.3 mg/dl (0.2-1.3); Blood Urea Nitrogen 16 mg/dl (9-20); Carbon Dioxide 28 mmol/L (22.0-30.0); Creatinine Clearance Estimated 216 mL/min (50-200); Estimated Glomerular Filt Rate 108 ml/min (>60); GFR (African American) 130 ML/MIN (>60); Globulin 2.9 g/dL (1.3-3.2); Total Protein,Serum 7.3 g/dl (6.3-8.2)
[2022-07-16 11:44] LABS: Calcium 8.8 mg/dl (8.4-10.2); Glucose 105 mg/dl (74-100)
--- NOTE | 2022-07-16 11:48 | PC.NURSE ---
PT RETURNED FROM XR
[2022-07-16 11:56] LABS: Troponin I < 0.01 ng/ml (0.00-0.034)
--- NOTE | 2022-07-16 12:01 | PC.NURSE ---
ROUNDED ON PT AT THIS TIME, NO NEEDS VOICED. CALL LIGHT WITHIN REACH
--- NOTE | 2022-07-16 12:57 | PC.NURSE ---
PT TO BR, UA OBTAINED AND SENT TO LAB
[2022-07-16 13:36] LABS: Microscopic, Urine URINE MICROSCOPIC (MICROSCOPIC)
[2022-07-16 13:47] LABS: Appearance,Urine CLEAR (Clear); Bilirubin,Urine Negative (Negative); Blood, Urine Negative (Negative); Color,Urine YELLOW (Yellow); Glucose,Urine (UA) Negative (Negative); Ketones,Urine Negative (Negative); Leukocyte Esterase,Urine Negative (Negative); Nitrate,Urine Negative (Negative); Protein,Urine Negative (Negative); Urobilinogen,Urine 0.2 EU/dl (0.2)
--- NOTE | 2022-07-16 14:10 | PC.NURSE ---
ROUNDED ON PT AT THIS TIME. UPDATED ON POC. NO NEEDS AT THIS TIME
[2022-07-16 14:16] LABS: Bacteria,Urine Trace /lpf; Mucus,Urine 1+ /lpf; Squamous Epithelial Cell,Urine Occasional #/hpf (0-5)
--- NOTE | 2022-07-16 14:30 | PC.NURSE ---
REPEAT TROP DRAWN AND SENT TO LAB. NO NEEDS VOICED
--- NOTE | 2022-07-16 14:36 | PC.NURSE ---
rounded on pt at this time, no new needs and 2nd troponin drawn and sent to lab
[2022-07-16 15:11] LABS: Troponin I < 0.01 ng/ml (0.00-0.034)
--- NOTE | 2022-07-16 15:13 | PC.NURSE ---
ED MD AT BEDSIDE TO UPDATE PT ON POC
[2022-07-19 22:40] LABS: Neisseria gonorrhoeae, NAA Negative (Negative)
== END 2022-07-16 15:28 | disposition home or self-care (01) ==
PROVIDERS: Emergency Provider Emergency Medicine; PCP Emergency Medicine
DX: R07.2 Precordial pain (principal); R23.2 Flushing; R94.31 Abnormal electrocardiogram [ECG] [EKG]; R06.00 Dyspnea, unspecified; R40.0 Somnolence; F41.1 Generalized anxiety disorder; Z87.891 Personal history of nicotine dependence
CPT/HCPCS: 71046; 80053; 81001; 84484; 85025; 87491; 87591; 93005; 99284

== ENCOUNTER 2022-08-16 15:13 | Emergency (ER) | payer OTHER, SELFPAY ==
[2022-08-16 16:03] VITALS: BP 117/57; PULSE 69; RESP 18; O2SAT 100; BMI 39.0
--- NOTE | 2022-08-16 16:33 | PC.NURSE ---
BRET WICK at
--- NOTE | 2022-08-16 16:43 | HMH.EDGENADL ---
Discharge Plan Disposition Patient Disposition: Home, Self-Care Condition: Good Prescriptions Prescriptions: New prednisone 20 mg tablet 20 mg PO BID Qty: 10 0RF hydrocodone-acetaminophen 5-325 mg tablet 1 tab PO Q6H PRN (Reason: pain) Qty: 10 0RF No Action quetiapine [Seroquel] 100 mg tablet 100 mg PO QHS Qty: 30 1RF desvenlafaxine succinate [Pristiq] 50 mg tablet extended release 24 hr 50 mg PO DAILY Qty: 30 1RF bisoprolol fumarate 10 mg tablet 10 mg PO DAILY Qty: 90 3RF omeprazole 20 mg capsule,delayed release(DR/EC) 20 mg PO DAILY PRN Label Comments: TAKE ONE CAPSULE BY MOUTH EVERY DAY Referrals Follow up/Referrals: Donn Rodriguez MD [Primary Care Provider] - See instructions Activity Restrictions/Add. Instructions Additional Instructions/Restrictions: Prednisone as prescribed. Ronceverte as needed for pain. Additional instructions for BACK PAIN: See your physician as soon as possible for further evaluation. Return immediately if back pain becomes intolerable, or if fever, numbness or weakness of your legs, loss of control of your bowels or bladder. Additional instructions for CONTROLLED SUBSTANCES: You have been prescribed a medication that is a controlled substance. Controlled substances include pain medications known as opiates and sedative nerve medications known as benzodiazepines. Tramadol, fioricet, and gabapentin are also controlled substances. Some common opiates include: Codeine (such as Tylenol #3) Hydrocodone (Vicodin, Lortab, Lorcet, Ronceverte) Oxycodone (Percocet, Percodan, Oxycodone, Oxy IR) Some common benzodiazepines include: Diazepam (Valium) Lorazepam (Ativan) Alprazolam (Xanax) Clonazepam (Klonopin) Oxazepam (Serax) All of these controlled substances are highly addictive and frequently abused. Misuse can and frequently does lead to addiction as well as overdose and . Medication should be stored in a locked cabinet or other secure storage unit. Do not store the medication in a motor vehicle. Short term supplies, 3 days or less, are prescribed because of the highly addictive nature of the medication. Any of the controlled substance medication NOT taken should be disposed of properly and NOT SAVED. The recommended method of disposing of unused medications is: Place the medicines in a sealable plastic bag. If the medicine is a solid, crush it or add water to dissolve it. Add something undesirable (cat litter, coffee grounds, etc.) Dispose of sealed bag in household trash Do not flush or pour unused medicines down a sink or drain. Controlled substances should not be shared, given away or sold. Because of the addictive nature and frequent abuse, these medications are sometimes stolen. These medications should be kept in a safe place where they cannot be stolen. Do not keep them in your car or purse. Lost or stolen prescriptions for controlled substances WILL NOT BE REFILLED in this emergency department, regardless of whether a police report was filed. Clinical Impressions Clinical Impression: Acute low back pain with sciatica, DDD (degenerative disc disease), lumbar Instructions Patient Instructions: DI for Back Pain With Sciatica, DI for Degenerative Disc Disease Discharge ED Provider: Jermaine Blanton General Adult HPI General Chief complaint: PAIN Stated complaint: Pain right side in back Time Seen by Provider: 08/16/22 16:28 Mode of Arrival: Family Vehicle Limitations: No Limitations Description of Symptoms (Recalled from ER Triage Doc. by RN): complains of right sided back pain that extendes from groin down his leg, reports he has a history of the same type of pain in the past but while working today the pain became more severe History of Present Illness HPI narrative: States that he has a history of chronic back pain, degenerative disc disease. States that at work today he was doing some lifting and started having kristy
[2022-08-16 18:02] VITALS: BP 132/74; PULSE 85; RESP 16; TEMP 36.6; O2SAT 98
== END 2022-08-16 18:11 | disposition home or self-care (01) ==
PROVIDERS: Emergency Provider Emergency Medicine; PCP Emergency Medicine
DX: M54.41 Lumbago with sciatica, right side (principal); M51.36 Other intervertebral disc degeneration, lumbar region; G89.29 Other chronic pain; Z79.1 Long term (current) use of non-steroidal anti-inflammatories (NSAID); Z79.899 Other long term (current) drug therapy; Z87.891 Personal history of nicotine dependence
CPT/HCPCS: 96372; 99284

== ENCOUNTER 2022-12-31 20:28 | Emergency (ER) | payer OTHER, SELFPAY ==
[2022-12-31 20:49] VITALS: BP 125/70; PULSE 71; RESP 18; TEMP 36.6; O2SAT 98; BMI 40.1
--- NOTE | 2022-12-31 20:56 | ECG_ITS ---
APPROVED REPORT Exam: Resting ECG HR:76 bpm ECG Measurements Heart Rate 76 AXES WV 158 P 61 QRSd 91 QRS 60 QT 386 T 47 QTc 416 Conclusion SINUS RHYTHM NORMAL ECG UNCONFIRMED REPORT Electronically signed by : Wilfrido Lala MD 01/01/2023 15:55:21
--- NOTE | 2022-12-31 20:56 | XR_ITS ---
PROCEDURE INFORMATION: Exam: XR Chest Exam date and time: 12/31/2022 9:09 PM Age: 42 years old Clinical indication: Other: Weakness TECHNIQUE: Imaging protocol: Radiologic exam of the chest. Views: 2 views. COMPARISON: CR XR CHEST 2V 07/16/2022 11:36 AM FINDINGS: Lungs: No focal consolidation. Pleural spaces: No pleural effusion. No pneumothorax. Heart/Mediastinum: Unremarkable cardiomediastinal silhouette. Bones/joints: No acute osseous findings. IMPRESSION: No focal consolidation.
[2022-12-31 21:04] LABS: Basophils % 0.4 % (0.1-2.0); Eosinophils # 0.3 K/mm3 (0.0-0.4); Hematocrit 43.2 % (42.0-52.0); Hemoglobin 14.5 g/dL (14.1-18.0); Lymphocytes # 2.4 K/mm3 (0.7-4.5); Lymphocytes % 26.6 % (10-50); Mean Corpuscular HGB Conc 33.4 g/dL (31.8-35.4); Mean Corpuscular Hemoglobin 29.4 pg (27.0-31.2); Mean Corpuscular Volume 87.8 fl (80-94); Mean Platelet Volume 8.5 fl (7.4-10.4); Monocytes # 0.4 K/mm3 (0.1-1.0); Monocytes % 4.9 % (1.7-9.3); Neutrophils # 5.8 K/mm3 (1.8-7.8); Neutrophils % 65.1 % (37.0-80.0); Platelet Count 258 K/mm3 (142-424); Red Blood Count 4.92 M/mm3 (4.60-6.20); Red Cell Distribution Width 12.8 % (11.5-17.5); White Blood Count 8.9 K/mm3 (4.8-10.8)
--- NOTE | 2022-12-31 21:04 | HMH.EDNVD ---
Discharge Plan Disposition Patient Disposition: Home, Self-Care Chief Complaint: Nausea/Vomiting/Diarrhea Prescriptions Prescriptions: No Action Trintellix 10 mg tablet 10 mg PO .COMPLEX Qty: 30 1RF Rx Instructions: 10 mg PO take 1/2 tablet for 8 days; then increase to 1 tablet; meloxicam 7.5 mg tablet 7.5 mg PO DAILY Qty: 15 0RF hydrocodone-acetaminophen 5-325 mg tablet 1 tab PO TID PRN (Reason: pain) Qty: 63 0RF omeprazole 20 mg capsule,delayed release(DR/EC) 20 mg PO DAILY PRN Label Comments: TAKE ONE CAPSULE BY MOUTH EVERY DAY bisoprolol fumarate 10 mg tablet See Rx Instructions .ROUTE .COMPLEX Qty: 30 1RF Dose Instruction: TAKE ONE TABLET BY MOUTH EVERY DAY Rx Instructions: TAKE ONE TABLET BY MOUTH EVERY DAY quetiapine [Seroquel] 100 mg tablet 100 mg PO QHS Qty: 30 1RF Referrals Follow up/Referrals: Donn Rodriguez MD [Primary Care Provider] - See instructions Clinical Impressions Clinical Impression: Chest pain Instructions Patient Instructions: DI for Chest Pain Discharge ED Provider: Jennifer (ED)Donn Nausea/Vomiting/Diarrhea HPI General Chief complaint: Nausea/Vomiting/Diarrhea Stated complaint: weakness,congestion dizzy Time Seen by Provider: 12/31/22 21:05 Mode of Arrival: Ambulatory Source of Information: Patient, Spouse and Medical Record Limitations: No Limitations Description of Symptoms (Recalled from ER Triage Doc. by RN): Pt arrives via private vehicle C/o weakness, diarrhea, dizziness and heart palpitations for prior week. Also c/o testicular pain. History of Present Illness HPI Narrative: feeling sob and weak this week with hx of gi illness - no fever complaint: nausea, vomiting, diarrhea and abdominal pain Onset (ago): day(s) Associated Abdominal Pain: Yes Location of pain: periumbilical Severity: moderate Quality: cramping Consistency: intermittent Associated symptoms: weakness Related Data Home Medications Medication Instructions Recorded Confirmed omeprazole 20 mg capsule,delayed 20 mg PO DAILY PRN 07/21/22 08/25/22 release Previous Rx's Medication Instructions Recorded hydrocodone 5 mg-acetaminophen 325 1 tab PO TID PRN pain #63 tabs 08/23/22 mg tablet meloxicam 7.5 mg tablet 7.5 mg PO DAILY #15 tabs 08/23/22 vortioxetine 10 mg tablet 10 mg PO .COMPLEX #30 tabs 08/23/22 (Trintellix) bisoprolol fumarate 10 mg tablet See Rx Instructions .Route 08/24/22 .COMPLEX #30 tabs quetiapine 100 mg tablet (Seroquel) 100 mg PO QHS #30 tabs 11/17/22 Allergies Allergy/AdvReac Type Severity Reaction Status Date / Time No Known Allergies Allergy Verified 08/23/22 14:01 [facility] Disclaimer: The information contained in this section may have been updated after the patient was seen, as this information can be updated by other users. Medical History Daytime somnolence Dyspnea Ex-smoker Generalized anxiety disorder Restless sleeper Snoring Vasovagal episode Family History Other No significant family history Social History Smoking Status: Former smoker alcohol intake: never substance use type: denies use current occupational status: employed and other Travel in the last 8 weeks: None household members: spouse housing: house number of children: 1 caffeine: Yes ROS Obtained: Yes All systems reviewed & no additional complaints except as documented Physical Exam General General appearance: alert Head Head exam: normocephalic Eye Eye exam: Present PERRL and EOMI ENT ENT exam: Present mucous membranes moist Neck Neck exam: Present trachea midline Respiratory Respiratory exam: Absent respiratory distress Cardiovascular Cardiovascular exam: Present regular rate Abdominal Exam Abdominal exam
[2022-12-31 21:09] LABS: Alanine Aminotransferase 38 U/L (12-78); Albumin Level 4.5 g/dl (3.5-5.0); Albumin/Globulin Ratio 1.5 (1.1-1.8); Alkaline Phosphatase 64 U/L (38-126); Amylase 90 U/L (30-110); Anion Gap 6.6 mEq/L (5-15); Aspartate Amino Transferase 40 U/L (17-59); Bilirubin,Total 0.5 mg/dl (0.2-1.3); Blood Urea Nitrogen 18 mg/dl (9-20); Calcium 9.1 mg/dl (8.4-10.2); Carbon Dioxide 29 mmol/L (22.0-30.0); Chloride 101 mmol/L (98-107); Creatinine Clearance Estimated 196 mL/min (50-200); Estimated Glomerular Filt Rate 93 ml/min (>60); GFR (African American) 113 ML/MIN (>60); Globulin 3.1 g/dL (1.3-3.2); Glucose 133 mg/dl (74-100); Lipase 136 U/L (23-300); Potassium 3.6 mmoL/L (3.5-5.1); Sodium 133 mmol/L (136-145); Total Protein,Serum 7.6 g/dl (6.3-8.2)
[2022-12-31 21:23] LABS: Troponin I < 0.01 ng/ml (0.00-0.034)
[2022-12-31 21:45] VITALS: BP 111/68; BP 112/75; BP 115/65; PULSE 66; PULSE 69; PULSE 72
[2022-12-31 21:54] LABS: Hemoglobin A1C 7.6 % (4.0-6.0)
[2022-12-31 22:30] VITALS: BP 115/66; PULSE 71; RESP 15; O2SAT 97
[2023-01-01 00:23] LABS: Troponin I < 0.01 ng/ml (0.00-0.034)
[2023-01-01 00:46] VITALS: BP 120/68; PULSE 70; RESP 18; TEMP 36.6; O2SAT 99
== END 2023-01-01 01:16 | disposition home or self-care (01) ==
PROVIDERS: Emergency Provider Emergency Medicine; PCP Emergency Medicine
DX: R07.9 Chest pain, unspecified (principal); R11.2 Nausea with vomiting, unspecified; R19.7 Diarrhea, unspecified; R10.33 Periumbilical pain
CPT/HCPCS: 71046; 80053; 82150; 83036; 83690; 84484; 85025; 93005; 96360; 96374; 99285; J2405

== ENCOUNTER 2023-01-06 18:12 | Emergency (ER) | payer OTHER, SELFPAY ==
[2023-01-06] VITALS (7 sets, daily range): BP systolic 127–174; BP diastolic 73–91; PULSE 69–75; RESP 10–18; TEMP 36.6–36.7; O2SAT 97–100; BMI 39.3
--- NOTE | 2023-01-06 18:12 | ECG_ITS ---
APPROVED REPORT Exam: Resting ECG HR:66 bpm ECG Measurements Heart Rate 66 AXES SD 138 P 42 QRSd 94 QRS 35 QT 402 T 34 QTc 416 Conclusion SINUS RHYTHM NORMAL ECG UNCONFIRMED REPORT Electronically signed by : Wilfrido aLla MD 01/07/2023 08:32:59
--- NOTE | 2023-01-06 18:25 | XR_ITS ---
PROCEDURE INFORMATION: Exam: XR Chest Exam date and time: 01/06/2023 7:33 PM Age: 42 years old Clinical indication: Pain; Chest pressure; Additional info: Cp radiating to L shoulder TECHNIQUE: Imaging protocol: Radiologic exam of the chest. Views: 1 view. COMPARISON: CR XR CHEST 2V 12/31/2022 9:09 PM FINDINGS: Lungs: Unremarkable. No consolidation. Pleural spaces: Unremarkable. No pleural effusion. No pneumothorax. Heart/Mediastinum: Unremarkable. No cardiomegaly. Bones/joints: Unremarkable. IMPRESSION: No acute findings.
--- NOTE | 2023-01-06 18:25 | CT_ITS ---
PROCEDURE INFORMATION: Exam: CTA Neck With Contrast Exam date and time: 01/06/2023 7:31 PM Age: 42 years old Clinical indication: Vertigo; Additional info: L neck pain and intermittent dizziness TECHNIQUE: Imaging protocol: Computed tomographic angiography of the neck with contrast. 3D rendering (Not supervised by radiologist): MIP and/or 3D reconstructed images were created by the technologist. Radiation optimization: All CT scans at this facility use at least one of these dose optimization techniques: automated exposure control; mA and/or kV adjustment per patient size (includes targeted exams where dose is matched to clinical indication); or iterative reconstruction. Contrast material: ISOVUE 370; Contrast volume: 100 ml; Contrast route: INTRAVENOUS (IV); REPORTING DATA: Count of CT and Cardiac NM exams in prior 12 months: This patient has received 0 known CTs and 0 known cardiac nuclear medicine studies in the 12 months prior to the current study. COMPARISON: CT HEAD/BRAIN WO CON 02/20/2020 4:01 PM FINDINGS: Right common carotid artery: No stenosis. No dissection or occlusion. Right internal carotid artery: No stenosis of the extracranial segment. No dissection or occlusion. Right external carotid artery: No occlusion or stenosis of the origin. Left common carotid artery: No stenosis. No dissection or occlusion. Left internal carotid artery: No stenosis of the extracranial segment. No dissection or occlusion. Left external carotid artery: No occlusion or stenosis of the origin. Right vertebral artery: No stenosis. No dissection or occlusion. Left vertebral artery: No stenosis. No dissection or occlusion. Soft tissues: Normal. No significant soft tissue swelling. Bones/joints: No acute fracture. IMPRESSION: No stenosis or occlusion. REFERENCES: NASCET CRITERIA. The degree of stenosis in the cervical segment of the internal carotid artery is based on NASCET criteria. Normal is no stenosis. Mild is less than 50% stenosis. Moderate is 50-69% stenosis. Severe is 70% to 99% stenosis. Total occlusion is no detectable patent lumen.
--- NOTE | 2023-01-06 18:28 | HMH.EDGENADL ---
Discharge Plan Disposition Patient Disposition: Home, Self-Care Condition: Good Prescriptions Prescriptions: New hydroxyzine HCl 25 mg tablet 25 mg PO Q8H PRN (Reason: anxiety) Qty: 15 0RF No Action quetiapine [Seroquel] 100 mg tablet 100 mg PO QHS Qty: 30 1RF Trintellix 10 mg tablet 10 mg PO .COMPLEX Qty: 30 1RF Rx Instructions: 10 mg PO take 1/2 tablet for 8 days; then increase to 1 tablet; meloxicam 7.5 mg tablet 7.5 mg PO DAILY Qty: 15 0RF hydrocodone-acetaminophen 5-325 mg tablet 1 tab PO TID PRN (Reason: pain) Qty: 63 0RF omeprazole 20 mg capsule,delayed release(DR/EC) 20 mg PO DAILY PRN Label Comments: TAKE ONE CAPSULE BY MOUTH EVERY DAY bisoprolol fumarate 10 mg tablet See Rx Instructions .ROUTE .COMPLEX Qty: 30 1RF Dose Instruction: TAKE ONE TABLET BY MOUTH EVERY DAY Rx Instructions: TAKE ONE TABLET BY MOUTH EVERY DAY metformin 500 mg tablet 500 mg PO BID Qty: 60 2RF Referrals Follow up/Referrals: Donn Rodriguez MD [Primary Care Provider] - See instructions Clinical Impressions Clinical Impression: Chest pain, Acute neck pain, Anxiety Discharge ED Provider: Salomon Poon General Adult HPI <Salomon Poon MD - Last Filed: 01/06/23 20:13> General Chief complaint: Chest Pain Stated complaint: chest pain Time Seen by Provider: 01/06/23 18:20 History of Present Illness HPI narrative: Patient is a 42-year-old male with past medical history of hypertension who presents emergency department for evaluation of chest pain and left neck pain. Chest pain is intermittent and fleeting, less than 5 minutes in duration, substernal radiating to his left shoulder multiple times over the last few days. Neck pain onset was acute, today, radiating from his ear down his lateral neck into his clavicle. Patient has intermittent dizziness which is poorly characterized. No syncope. Due to persistent symptoms he presents here for continued evaluation. Related Data Home Medications Medication Instructions Recorded Confirmed omeprazole 20 mg capsule,delayed 20 mg PO DAILY PRN 07/21/22 01/02/23 release Previous Rx's Medication Instructions Recorded hydrocodone 5 mg-acetaminophen 325 1 tab PO TID PRN pain #63 tabs 08/23/22 mg tablet meloxicam 7.5 mg tablet 7.5 mg PO DAILY #15 tabs 08/23/22 bisoprolol fumarate 10 mg tablet See Rx Instructions .Route 08/24/22 .COMPLEX #30 tabs metformin 500 mg tablet 500 mg PO BID #60 tabs 01/02/23 quetiapine 100 mg tablet (Seroquel) 100 mg PO QHS #30 tabs 01/02/23 vortioxetine 10 mg tablet 10 mg PO .COMPLEX #30 tabs 01/02/23 (Trintellix) hydroxyzine HCl 25 mg tablet 25 mg PO Q8H PRN anxiety #15 tabs 01/06/23 Allergies Allergy/AdvReac Type Severity Reaction Status Date / Time No Known Allergies Allergy Verified 01/02/23 11:39 PFSH <Salomon Poon MD - Last Filed: 01/06/23 20:13> PFS Disclaimer: The information contained in this section may have been updated after the patient was seen, as this information can be updated by other users. Medical History Daytime somnolence Dyspnea Ex-smoker Generalized anxiety disorder Restless sleeper Snoring Vasovagal episode Family History Other No significant family history Social History Smoking Status: Never smoker alcohol intake: never substance use type: denies use current occupational status: employed and other Travel in the last 8 weeks: None household members: spouse housing: house number of children: 1 caffeine: Yes <Salomon Poon MD - Last Filed: 01/06/23 20:13> ROS Obtained: Yes Systems reviewed as appropriate & no additional complaints except as documented Physical Exam <Salomon Poon MD - Last Filed: 01/06/23 20:13> G
[2023-01-06 18:45] LABS: Basophils % 0.5 % (0.1-2.0); Eosinophils # 0.2 K/mm3 (0.0-0.4); Eosinophils % 2.7 % (0.1-12.0); Hematocrit 41.8 % (42.0-52.0); Lymphocytes # 2.2 K/mm3 (0.7-4.5); Lymphocytes % 27.9 % (10-50); Mean Corpuscular HGB Conc 33.5 g/dL (31.8-35.4); Mean Corpuscular Hemoglobin 28.9 pg (27.0-31.2); Mean Corpuscular Volume 86.2 fl (80-94); Mean Platelet Volume 8.3 fl (7.4-10.4); Monocytes # 0.5 K/mm3 (0.1-1.0); Monocytes % 6.2 % (1.7-9.3); Neutrophils # 4.8 K/mm3 (1.8-7.8); Neutrophils % 62.7 % (37.0-80.0); Platelet Count 288 K/mm3 (142-424); Red Blood Count 4.85 M/mm3 (4.60-6.20); Red Cell Distribution Width 12.7 % (11.5-17.5); White Blood Count 7.7 K/mm3 (4.8-10.8)
[2023-01-06 19:08] LABS: Anion Gap 11.8 mEq/L (5-15); Blood Urea Nitrogen 17 mg/dl (9-20); Carbon Dioxide 25 mmol/L (22.0-30.0); Chloride 103 mmol/L (98-107); Creatinine Clearance Estimated 192 mL/min (50-200); Estimated Glomerular Filt Rate 93 ml/min (>60); GFR (African American) 113 ML/MIN (>60); Glucose 91 mg/dl (74-100); Potassium 3.8 mmoL/L (3.5-5.1); Sodium 136 mmol/L (136-145)
--- NOTE | 2023-01-06 19:20 | PC.NURSE ---
Pt gone to RAD via stretcher
[2023-01-06 19:21] LABS: Troponin I < 0.01 ng/ml (0.00-0.034)
[2023-01-06 19:37] LABS: Hemoglobin A1C 5.3 % (4.0-6.0)
--- NOTE | 2023-01-06 19:38 | PC.NURSE ---
Pt back from RAD via stretcher
--- NOTE | 2023-01-06 20:06 | PC.NURSE ---
Dr. Poon at [facility]
[2023-01-06 21:36] LABS: Troponin I < 0.01 ng/ml (0.00-0.034)
== END 2023-01-06 22:00 | disposition home or self-care (01) ==
PROVIDERS: Emergency Provider Emergency Medicine; PCP Emergency Medicine
DX: R07.9 Chest pain, unspecified (principal); M54.2 Cervicalgia
CPT/HCPCS: 70498; 71045; 80048; 83036; 84484; 85025; 93005; 99285; Q9967

== ENCOUNTER 2023-04-24 13:56 | Emergency (ER) | payer SELFPAY ==
[2023-04-24 13:57] VITALS: BP 114/58; PULSE 76; RESP 16; TEMP 36.7; O2SAT 98; BMI 38.9
[2023-04-24 14:31] VITALS: BP 113/67; PULSE 70; O2SAT 98
--- NOTE | 2023-04-24 14:55 | HMH.EDGENADL ---
Discharge Plan Disposition Patient Disposition: Home, Self-Care Prescriptions Prescriptions: New methocarbamol 750 mg tablet 1,500 mg PO TID 5 Days Qty: 30 0RF prednisone 20 mg tablet 40 mg PO BID 5 Days Qty: 20 0RF No Action bisoprolol fumarate 10 mg tablet See Rx Instructions .ROUTE .COMPLEX Qty: 30 1RF Dose Instruction: TAKE ONE TABLET BY MOUTH EVERY DAY Rx Instructions: TAKE ONE TABLET BY MOUTH EVERY DAY metformin 500 mg tablet 500 mg PO BID Qty: 60 2RF quetiapine [Seroquel] 100 mg tablet 100 mg PO QHS Qty: 30 1RF hydroxyzine HCl 25 mg tablet 25 mg PO Q8H PRN (Reason: anxiety) Qty: 15 0RF Referrals Follow up/Referrals: Dnon Rodriguez MD [Primary Care Provider] - See instructions Clinical Impressions Clinical Impression: Sciatica Qualifiers: Laterality: left Qualified Code(s): M54.32 - Sciatica, left side Stand Alone Forms Stand Alone Forms: Work/School Release Instructions Patient Instructions: DI for Low Back Pain Discharge ED Provider: Jagdeep Hyman General Adult HPI General Chief complaint: Back Pain/Injury Stated complaint: back and ankle pain, no accident Time Seen by Provider: 04/24/23 13:57 Mode of Arrival: Ambulatory Source of Information: Patient Limitations: No Limitations Description of Symptoms (Recalled from ER Triage Doc. by RN): Patient reports lower back pain since yesterday with no accident. Also states he thinks that he may have rolled his left ankle. History of Present Illness HPI narrative: This is a 42-year-old male with history of chronic back pain, obesity, sciatica presenting with left leg pain. Patient states that he awoke around 3 AM with lower back pain and crunching. Patient states that he denies any injury or heavy lifting recently. Denies bowel or bladder dysfunction, weakness of his legs, saddle anesthesia, or any other concerns. Is being evaluated for pain pump by pain team, but not currently considering this. Has not taken anything for the pain. Related Data Previous Rx's Medication Instructions Recorded bisoprolol fumarate 10 mg tablet See Rx Instructions .Route 08/24/22 .COMPLEX #30 tabs metformin 500 mg tablet 500 mg PO BID #60 tabs 01/02/23 hydroxyzine HCl 25 mg tablet 25 mg PO Q8H PRN anxiety #15 tabs 01/06/23 quetiapine 100 mg tablet (Seroquel) 100 mg PO QHS #30 tabs 04/06/23 methocarbamol 750 mg tablet 1,500 mg PO TID 5 days #30 tabs 04/24/23 prednisone 20 mg tablet 40 mg PO BID 5 days #20 tabs 04/24/23 Allergies Allergy/AdvReac Type Severity Reaction Status Date / Time No Known Allergies Allergy Verified 01/10/23 15:06 [facility] Disclaimer: The information contained in this section may have been updated after the patient was seen, as this information can be updated by other users. Medical History Daytime somnolence Dyspnea Ex-smoker Generalized anxiety disorder Restless sleeper Snoring Vasovagal episode Family History Other No significant family history Social History Smoking Status: Never smoker alcohol intake: never substance use type: denies use current occupational status: employed and other Travel in the last 8 weeks: None household members: spouse housing: house number of children: 1 caffeine: Yes ROS Obtained: Yes All systems reviewed & no additional complaints except as documented Physical Exam General General appearance: alert, in no apparent distress and other ( ) Head Head exam: atraumatic and normocephalic Eye Eye exam: Present normal appearance, PERRL and EOMI ENT ENT exam: Present mucous membranes moist Neck Neck exam: Present normal inspection, full ROM and trachea midline Respiratory Respiratory exam: Absent respiratory distress, wheezes, stridor, accessory muscle
[2023-04-24 15:01] VITALS: BP 119/67; PULSE 71; O2SAT 97
--- NOTE | 2023-04-24 15:24 | PC.NURSE ---
NURSE JANSEN ROUNDED ON PT
[2023-04-24 15:30] VITALS: BP 119/67; PULSE 65; RESP 18; TEMP 36.7; O2SAT 96
== END 2023-04-24 15:31 | disposition home or self-care (01) ==
PROVIDERS: Emergency Provider Emergency Medicine; PCP Emergency Medicine
DX: M54.42 Lumbago with sciatica, left side (principal); F41.1 Generalized anxiety disorder
CPT/HCPCS: 96372; 99283

== ENCOUNTER 2023-08-27 09:22 | Emergency (ER) | payer BC, SELFPAY ==
[2023-08-27 09:30] VITALS: BP 135/89; PULSE 63; RESP 18; TEMP 36.8; O2SAT 97; BMI 40.3
--- NOTE | 2023-08-27 09:52 | EXP.UTC ---
Discharge Plan Disposition Patient Disposition: Home, Self-Care Condition: Good Prescriptions Prescriptions: New benzonatate [benzonatate] 100 mg capsule 100 mg PO TIDP PRN (Reason: Cough) Qty: 30 0RF methylprednisolone 4 mg Tablets,Dose Pack 4 mg PO DIRECTED Qty: 21 0RF amoxicillin-pot clavulanate 875-125 mg Tablet 1 tab PO Q12H Qty: 20 0RF No Action bisoprolol fumarate 10 mg tablet See Rx Instructions .ROUTE .COMPLEX Qty: 30 1RF Dose Instruction: TAKE ONE TABLET BY MOUTH EVERY DAY Rx Instructions: TAKE ONE TABLET BY MOUTH EVERY DAY vilazodone [Viibryd] 20 mg tablet See Rx Instructions PO DAILY 30 Days Qty: 30 1RF Rx Instructions: take 1/2 tablet (10mg) for 8 days; then increase to 1 whole tablet PO daily; must administer with a meal/food olanzapine [Zyprexa] 10 mg tablet 10 mg PO HS Qty: 30 1RF Referrals Follow up/Referrals: Provider,Referral, MD [Primary Care Provider] - See instructions Activity Restrictions/Add. Instructions Additional Instructions/Restrictions: Drink plenty of fluids. Take tylenol or ibuprofen for pain or fever. Take the medications as directed. Follow up with your regular doctor. GO TO THE ER FOR ANY WORSENING SYMPTOMS Clinical Impressions Clinical Impression: Pleurisy, Acute bronchitis Stand Alone Forms Stand Alone Forms: Work/School Release Instructions Patient Instructions: DI for Acute Bronchitis, DI for Pleurisy Discharge ED Provider: Abdulaziz Trujillo [facility] General Stated complaint: lung pain,sinus drainage Time Seen by Provider: 08/27/23 09:52 History of Present Illness Provider Complaint: He states that for the past 4 days he has had sinus congestion, chest congestion, pleuritic type chest pain, scratchy throat and malaise. He denies shortness of breath. Related Data Previous Rx's Medication Instructions Recorded bisoprolol fumarate 10 mg tablet See Rx Instructions .Route 08/24/22 .COMPLEX #30 tabs vilazodone 20 mg tablet (Viibryd) See Rx Instructions PO DAILY 30 06/05/23 days #30 tabs olanzapine 10 mg tablet (Zyprexa) 10 mg PO HS #30 tabs 07/11/23 amoxicillin 875 mg-potassium 1 tab PO Q12H #20 tabs 08/27/23 clavulanate 125 mg tablet benzonatate 100 mg capsule 100 mg PO TIDP PRN Cough #30 caps 08/27/23 methylprednisolone 4 mg tablets in 4 mg PO DIRECTED #21 tabs 08/27/23 a dose pack Allergies Allergy/AdvReac Type Severity Reaction Status Date / Time No Known Allergies Allergy Verified 08/27/23 09:53 [facility] Disclaimer: The information contained in this section may have been updated after the patient was seen, as this information can be updated by other users. Medical History Daytime somnolence Dyspnea Ex-smoker Generalized anxiety disorder Restless sleeper Snoring Vasovagal episode Family History Other No significant family history Social History Smoking Status: Never smoker alcohol intake: never substance use type: denies use current occupational status: employed and other Travel in the last 8 weeks: None household members: spouse housing: house number of children: 1 caffeine: Yes ROS Obtained: Yes All systems reviewed & no additional complaints except as documented Constitutional Constitutional: Reports poor appetite Eyes Eyes: Reports system reviewed and no additional complaints, except as documented ENT Ears, Nose, Mouth, and Throat: Reports as per HPI Cardiovascular Cardiovascular: Reports system reviewed and no additional complaints, except as documented and Denies chest pain Respiratory Respiratory: Denies shortness of breath, Reports chest congestion, Reports cough, Denies stridor and Denies wheezing Gastrointestinal Gastrointestingal: Reports system reviewed and no addition
--- NOTE | 2023-08-27 10:01 | XR_ITS ---
PROCEDURE INFORMATION: Exam: XR Chest Exam date and time: 08/27/2023 9:57 AM Age: 43 years old Clinical indication: Cough; Additional info: Cough, congestion TECHNIQUE: Imaging protocol: Radiologic exam of the chest. Views: 2 views. COMPARISON: CR XR CHEST PORTABLE 01/06/2023 7:33 PM FINDINGS: Lungs: Unremarkable. No consolidation. Pleural spaces: Unremarkable. No pleural effusion. No pneumothorax. Heart/Mediastinum: Unremarkable. No cardiomegaly. Bones/joints: There is a mild dextroconvex curvature of the thoracic spine. IMPRESSION: No acute cardiopulmonary disease.
--- NOTE | 2023-08-27 10:16 | ECG_ITS ---
APPROVED REPORT Exam: Resting ECG HR:66 bpm ECG Measurements Heart Rate 66 AXES OH 143 P 59 QRSd 90 QRS 47 QT 390 T 39 QTc 403 Conclusion SINUS RHYTHM NORMAL ECG UNCONFIRMED REPORT Electronically signed by : Wilfrido Lala MD 08/28/2023 17:39:26
[2023-08-27 10:55] VITALS: BP 135/89; PULSE 63; RESP 18; TEMP 36.8; O2SAT 97
== END 2023-08-27 10:40 | disposition home or self-care (01) ==
PROVIDERS: Emergency Provider Nurse Practitioner Family
DX: R09.1 Pleurisy (principal); J20.9 Acute bronchitis, unspecified; R09.81 Nasal congestion; R09.89 Other specified symptoms and signs involving the circulatory and respiratory systems; R07.0 Pain in throat; R53.81 Other malaise; Z87.891 Personal history of nicotine dependence
CPT/HCPCS: 71046; 87635; 93005; 99212; 99214; G0463

== ENCOUNTER → 2023-08-31 09:51 | Outpatient (CLI) | payer BC, SELFPAY ==
--- NOTE | 2023-08-31 09:52 | CA_ITS ---
FINAL REPORT CLINICAL HISTORY: PE,EDEMA,PT ON ELIQUS,HTN,OBESTIY COMPARISON: None FINDINGS: Color Doppler, duplex Doppler and compression sonography of the bilateral lower extremities was performed. There is no evidence of deep venous thrombosis from the level of the groin to the calf. The deep veins are patent and compressible. IMPRESSION: No evidence of deep venous thrombosis bilateral lower extremities. Reviewed, Interpreted and Dictated by Roderick Grimaldo III, MD Transcribed by Genet Rodriguez Authenticated and [facility]
== END ==
LOC: RT 09:52
PROVIDERS: PCP Internal Medicine; Visit Provider Physician Assistant
DX: R06.00 Dyspnea, unspecified (principal); R07.9 Chest pain, unspecified; I26.99 Other pulmonary embolism without acute cor pulmonale; R94.31 Abnormal electrocardiogram [ECG] [EKG]; R60.0 Localized edema; E66.9 Obesity, unspecified; Z68.39 Body mass index [BMI] 39.0-39.9, adult; Z82.49 Family history of ischemic heart disease and other diseases of the circulatory system
CPT/HCPCS: 93970

== ENCOUNTER 2023-09-07 17:02 | Emergency (ER) | payer BC, SELFPAY ==
[2023-09-07] VITALS (7 sets, daily range): BP systolic 126–141; BP diastolic 71–87; PULSE 65–74; RESP 16–20; TEMP 36.6; O2SAT 95–98; BMI 39.7
--- NOTE | 2023-09-07 17:02 | ECG_ITS ---
APPROVED REPORT Exam: Resting ECG HR:75 bpm ECG Measurements Heart Rate 75 AXES RI 152 P 55 QRSd 94 QRS 41 QT 379 T 5 QTc 408 Conclusion SINUS RHYTHM PROBABLE INFERIOR MYOCARDIAL INFARCTION , PROBABLY OLD [35 ms Q WAVE IN II/aVF] ABNORMAL ECG UNCONFIRMED REPORT Electronically signed by : Wilfrido Lala MD 09/08/2023 14:45:29
--- NOTE | 2023-09-07 17:14 | XR_ITS ---
PROCEDURE INFORMATION: Exam: XR Chest Exam date and time: 09/07/2023 5:17 PM Age: 43 years old Clinical indication: Pain; Shortness of breath; Right-sided; Additional info: Cp SOA TECHNIQUE: Imaging protocol: Radiologic exam of the chest. Views: 1 view. COMPARISON: CR XR CHEST 2V 08/27/2023 9:57 AM FINDINGS: Lungs: Unremarkable. No consolidation. Pleural spaces: Unremarkable. No pleural effusion. No pneumothorax. Heart/Mediastinum: Unremarkable. No cardiomegaly. Bones/joints: Unremarkable. IMPRESSION: No acute findings.
[2023-09-07 17:22] LABS: Basophils % 0.4 % (0.1-2.0); Eosinophils # 0.1 K/mm3 (0.0-0.4); Eosinophils % 0.9 % (0.1-12.0); Hematocrit 44.7 % (42.0-52.0); Hemoglobin 15.2 g/dL (14.1-18.0); Lymphocytes # 2.1 K/mm3 (0.7-4.5); Lymphocytes % 20.7 % (10-50); Mean Corpuscular Hemoglobin 29.5 pg (27.0-31.2); Mean Corpuscular Volume 86.7 fl (80-94); Mean Platelet Volume 8.2 fl (7.4-10.4); Monocytes # 0.5 K/mm3 (0.1-1.0); Monocytes % 5.4 % (1.7-9.3); Neutrophils # 7.4 K/mm3 (1.8-7.8); Neutrophils % 72.7 % (37.0-80.0); Platelet Count 294 K/mm3 (142-424); Red Blood Count 5.16 M/mm3 (4.60-6.20); Red Cell Distribution Width 13.1 % (11.5-17.5); White Blood Count 10.1 K/mm3 (4.8-10.8)
[2023-09-07 17:25] LABS: Chloride 105 mmol/L (98-107); Sodium 139 mmol/L (136-145)
[2023-09-07 17:26] LABS: Potassium 3.9 mmoL/L (3.5-5.1)
[2023-09-07 17:28] LABS: Alanine Aminotransferase 43 U/L (12-78); Alkaline Phosphatase 64 U/L (38-126); Aspartate Amino Transferase 37 U/L (17-59); Bilirubin,Total 0.5 mg/dl (0.2-1.3); Blood Urea Nitrogen 19 mg/dl (9-20); Creatinine Clearance Estimated 192 mL/min (50-200); Estimated Glomerular Filt Rate 93 ml/min (>60); GFR (African American) 113 ML/MIN (>60)
[2023-09-07 17:29] LABS: Albumin Level 4.9 g/dl (3.5-5.0); Albumin/Globulin Ratio 1.4 (1.1-1.8); Anion Gap 11.9 mEq/L (5-15); Calcium 9.6 mg/dl (8.4-10.2); Carbon Dioxide 26 mmol/L (22.0-30.0); Globulin 3.4 g/dL (1.3-3.2); Glucose 119 mg/dl (74-100); Total Protein,Serum 8.3 g/dl (6.3-8.2)
[2023-09-07 17:38] LABS: NT Pro Brain Natriuretic Pep. < 20.0 pg/mL (0-125)
[2023-09-07 17:43] LABS: Troponin I < 0.01 ng/ml (0.00-0.034)
--- NOTE | 2023-09-07 17:43 | HMH.EDCP ---
Discharge Plan Disposition Patient Disposition: Home, Self-Care Condition: Good Prescriptions Prescriptions: No Action Eliquis 5 mg tablet 5 mg PO BID bisoprolol fumarate 10 mg tablet See Rx Instructions .ROUTE .COMPLEX Qty: 30 1RF Dose Instruction: TAKE ONE TABLET BY MOUTH EVERY DAY Rx Instructions: TAKE ONE TABLET BY MOUTH EVERY DAY vilazodone [Viibryd] 20 mg tablet See Rx Instructions PO DAILY 30 Days Qty: 30 1RF Rx Instructions: take 1/2 tablet (10mg) for 8 days; then increase to 1 whole tablet PO daily; must administer with a meal/food olanzapine [Zyprexa] 10 mg tablet 10 mg PO HS Qty: 30 1RF Referrals Follow up/Referrals: Provider,Referral, MD [Primary Care Provider] - See instructions Activity Restrictions/Add. Instructions Additional Instructions/Restrictions: Call your family doctor to establish care for this visit to the emergency department and schedule follow-up within 48 hours to ensure improvement. If you have any worsening of your condition or any other concerning signs or symptoms, return to the emergency department or your primary care doctor for further evaluation. Take Eliquis as prescribed. Take Tylenol 1000 mg every 6 hours (4 times daily) and ibuprofen 400 mg every 6 hours (4 times daily) as needed with food and water to prevent GI upset and kidney damage. Clinical Impressions Clinical Impression: Chest pain Discharge ED Provider: Jagdeep Hyman [facility] General Chief Complaint: Chest Pain Stated Complaint: cp Time Seen by Provider: 09/07/23 17:08 Mode of Arrival: Ambulatory Source of Information: Patient Limitations: No Limitations Description of Symptoms (Recalled from ER Triage Doc. by RN): pt reports substernal chest pain that started a few hours ago, denies radiation, denies nausea or vomiting, reports dizziness and shortness of breath, states he was dx with PE in his R lung 2 weeks ago History of Present Illness HPI narrative: 43-year-old male history of hypertension, hyperlipidemia, recent diagnosis of unprovoked PE currently on Eliquis presenting with right-sided chest pain. Patient states that he had a right-sided PE diagnosed a couple weeks prior to arrival. States that today, he was driving a few hours prior to arrival when he had acute onset right-sided chest pain. Worse with taking deep breaths. No diaphoresis, nausea or vomiting, cough, or any other concerns. Has not taken anything for pain. Related Data Home Medications Medication Instructions Recorded Confirmed apixaban 5 mg tablet (Eliquis) 5 mg PO BID 08/31/23 09/07/23 Previous Rx's Medication Instructions Recorded bisoprolol fumarate 10 mg tablet See Rx Instructions .Route 08/24/22 .COMPLEX #30 tabs vilazodone 20 mg tablet (Viibryd) See Rx Instructions PO DAILY 30 06/05/23 days #30 tabs olanzapine 10 mg tablet (Zyprexa) 10 mg PO HS #30 tabs 09/07/23 Allergies Allergy/AdvReac Type Severity Reaction Status Date / Time No Known Allergies Allergy Verified 09/07/23 17:17 [facility] Disclaimer: The information contained in this section may have been updated after the patient was seen, as this information can be updated by other users. Medical History (Updated 09/07/23 @ 20:02 by Jagdeep Hyman MD) Daytime somnolence Dyspnea Edema of left lower extremity Ex-smoker Generalized anxiety disorder Pulmonary embolism Restless sleeper Snoring Vasovagal episode Family History Other No significant family history Social History Smoking Status: Never smoker alcohol intake: never substance use type: denies use current occupational status: employed and other Travel in the last 8 weeks: None household members: spouse housing: house number of children: 1 caffeine: Yes ROS Obtained: Yes All systems reviewed & no additional complaints ex
--- NOTE | 2023-09-07 18:04 | PC.NURSE ---
Rounded on patient; call light within reach patient
--- NOTE | 2023-09-07 19:58 | PC.NURSE ---
Rounded on patient; call light within reach
== END 2023-09-07 20:09 | disposition home or self-care (01) ==
PROVIDERS: Emergency Provider Emergency Medicine
DX: R07.9 Chest pain, unspecified (principal); R55 Syncope and collapse; I12.9 Hypertensive chronic kidney disease with stage 1 through stage 4 chronic kidney disease, or unspecified chronic kidney disease; E78.5 Hyperlipidemia, unspecified; N18.9 Chronic kidney disease, unspecified; J44.9 Chronic obstructive pulmonary disease, unspecified; Z79.01 Long term (current) use of anticoagulants
CPT/HCPCS: 71045; 80053; 83880; 84484; 85025; 93005; 96374; 99285

== ENCOUNTER → 2023-09-11 15:01 | Outpatient (CLI) | payer BC, SELFPAY ==
--- NOTE | 2023-09-11 15:01 | CA_ITS ---
APPROVED REPORT EXAM: Comprehensive 2D, Doppler, and color-flow Echocardiogram Sewer Builder: Laxmi Flores RDCS Ht: 5 ft 10 in Wt: 277lbs BSA: 2.40 BP: 140/80 mmHg Indications: PULMONARY EMBOLISM,SOA 2D Dimensions Left Atrium 4.20 cm M: 3.0 - 4.0 EF AP4 53.30 % LVOT 2.04 cm (M/F) 1.5-2.5 GL Strain -11.3 % M-Mode Dimensions RVDd 2.47 cm (0.9-2.6) LVDd 5.22 cm (3.5-5.7) Ao Diam 3.23 cm (2.0-3.7) LVDs 3.93 cm (3.5-5.7) IVSd 1.25 cm (0.6-1.1) PWd 0.75 cm (0.6-1.1) EF (Teich) 48.70% FS 24.70% EDV (Teich) 130.70 mL ESV (Teich) 67.10 mL LV Diastology E Decel Time 150 (160-240 msec) E/A Ratio 1.5 MED E' 9.5 (>= 7 cm/sec) E'/MED E' Ratio 8.91 (<= 14) LAT E' 12.0 (>= 10 cm/sec) E/LAT E' Ratio 7.05 (<= 14) Mitral Valve MV E Max Geronimo. 85.0 (40-130 cm/s) MV A Velocity 58.0 (40-130 cm/s) E/A Ratio 1.45 MV Decel. Time 150 (160-240 ms) Left Ventricle The left ventricle is normal size. The left ventricular systolic function is normal. The left ventricular ejection fraction is within the normal range. There is normal left ventricular wall thickness. There is normal LV segmental wall motion. The left ventricular diastolic function is normal. LVEF is 55%. Right Ventricle The right ventricle size is difficult to estimate as the RV free wall is not well-visualized, but grossly appears at least mildly dilated. The right ventricular systolic function is normal. Atria The left atrium size is normal. The right atrium size is normal. There is no Doppler evidence of interatrial shunt. Aortic Valve The aortic valve is mildly thickened. There is no aortic valvular stenosis. Trace aortic regurgitation. Mitral Valve The mitral valve is normal in structure. No evidence of mitral valve stenosis. Trace mitral regurgitation. Tricuspid Valve The tricuspid valve leaflets are thin and pliable. Trace tricuspid regurgitation. There is insufficient TR jet to estimate RVSP. Pulmonic Valve The pulmonary valve is normal in structure. Trace pulmonic regurgitation. Great Vessels The aortic root is normal in size. The ascending aorta is normal in size. IVC is normal in size and collapses >50% with inspiration. Pericardium There is no pericardial effusion. Other Information Study Quality: Technically Difficult Conclusion Technically difficult study due to poor acoustic windows. Normal biventricular systolic function. The right ventricle size is difficult to estimate as the RV free wall is not well-visualized, but grossly appears at least mildly dilated. No significant valvular stenosis or regurgitation. Compared to prior study from 06/2022, the RV dilation is new. Electronically signed by : Judi Hurt MD 09/17/2023 21:13:10
== END ==
LOC: RT 15:01
PROVIDERS: PCP Internal Medicine; Visit Provider Internal Medicine
DX: R06.00 Dyspnea, unspecified (principal); R60.0 Localized edema; R07.9 Chest pain, unspecified; I26.99 Other pulmonary embolism without acute cor pulmonale; R94.31 Abnormal electrocardiogram [ECG] [EKG]; Z82.49 Family history of ischemic heart disease and other diseases of the circulatory system; E66.9 Obesity, unspecified; Z68.39 Body mass index [BMI] 39.0-39.9, adult
CPT/HCPCS: 93306

== ENCOUNTER 2023-09-21 19:04 | Emergency (ER) | payer BC, SELFPAY ==
[2023-09-21 19:05] VITALS: BP 140/81; PULSE 75; RESP 12; TEMP 36.6; O2SAT 98; BMI 38.9
--- NOTE | 2023-09-21 19:16 | CT_ITS ---
PROCEDURE INFORMATION: Exam: CTA Chest With Contrast Exam date and time: 09/21/2023 7:41 PM Age: 43 years old Clinical indication: Pain; Chest pressure; Additional info: Recent pte diagnosis, here with cp TECHNIQUE: Imaging protocol: Computed tomographic angiography of the chest with contrast. Exam focused on the arteries. 3D rendering (Not supervised by radiologist): MIP and/or 3D reconstructed images were created by the technologist. Radiation optimization: All CT scans at this facility use at least one of these dose optimization techniques: automated exposure control; mA and/or kV adjustment per patient size (includes targeted exams where dose is matched to clinical indication); or iterative reconstruction. Contrast material: ISOVUE; Contrast volume: 75 ml; Contrast route: INTRAVENOUS (IV); REPORTING DATA: Count of CT and Cardiac NM exams in prior 12 months: This patient has received [address] and 0 known cardiac nuclear medicine studies in the 12 months prior to the current study. COMPARISON: CR XR CHEST PORTABLE 09/07/2023 5:17 PM FINDINGS: Pulmonary arteries: Normal. No pulmonary emboli. Aorta: Unremarkable. No aortic aneurysm. No aortic dissection. Lungs: Mild bilateral lower lobe atelectasis. No consolidation or significant nodules. Pleural spaces: Unremarkable. No pneumothorax. No pleural effusion. Heart: Unremarkable. No cardiomegaly. No pericardial effusion. Lymph nodes: Unremarkable. No enlarged lymph nodes. Gallbladder and bile ducts: Status post cholecystectomy. Bones/joints: Unremarkable. No acute fracture. Soft tissues: Unremarkable. IMPRESSION: 1. No evidence of a pulmonary embolism. 2. No acute findings.
--- NOTE | 2023-09-21 19:16 | ED_ITS ---
Discharge Plan Disposition Patient Disposition: Home, Self-Care Prescriptions Prescriptions: No Action olanzapine [Zyprexa] 10 mg tablet 10 mg PO HS Qty: 30 1RF Eliquis 5 mg tablet 5 mg PO BID Qty: 60 5RF bisoprolol fumarate 10 mg tablet 10 mg PO DAILY Qty: 90 3RF meloxicam 7.5 mg tablet 7.5 mg PO DAILY Patient Comments: TAKE ONE TABLET BY MOUTH EVERY DAY --TAKE WITH FOOD-- Referrals Follow up/Referrals: Provider,MD Orion [Primary Care Provider] - See instructions Sonya Rodriguez MD [Physician] - See instructions Activity Restrictions/Add. Instructions Additional Instructions/Restrictions: There is no evidence of a cardiopulmonary emergency today in our emergency department specifically no evidence of a pulmonary embolism on your CAT scan. I question the initial diagnosis and I would recommend that you go to [facility] and get a printed disc with your images as well as any medical records and I would advise that you follow-up with our market development specialist, Dr. Rodriguez so that he can compare the CT scan that was done 3 weeks ago with one we just performed at [place] and make a determination on whether or not you need to stay on long-term anticoagulation which I would not like you to stay on if it is not necessary. For now please keep taking your Eliquis until more definitive decision is made by our market development specialist. Otherwise no other emergent medical condition identified today. Clinical Impressions Clinical Impression: Chest pain Discharge ED Provider: Malik Harris General Adult HPI General Chief complaint: Shortness of Breath/Dyspnea Stated complaint: SOA Time Seen by Provider: 09/21/23 19:08 History of Present Illness HPI narrative: Patient is a 43-year-old male who claims to have had a recent diagnosis of a pulmonary embolism diagnosed [address] [facility] and started on Eliquis. Also has a history of significant anxiety and states that since that time he has been very anxious about his symptoms presents today with worsening chest pain epigastric discomfort and some left arm discomfort and some intermittent shortness of breath and lightheadedness. Denies any fevers chills cough etc. No exertional symptoms no diaphoresis associated with this. Does not have a definitive cause of a pulmonary embolism and states that it was random. Related Data Home Medications Medication Instructions Recorded Confirmed meloxicam 7.5 mg tablet 7.5 mg PO DAILY 09/21/23 09/21/23 Previous Rx's Medication Instructions Recorded olanzapine 10 mg tablet (Zyprexa) 10 mg PO HS #30 tabs 09/07/23 apixaban 5 mg tablet (Eliquis) 5 mg PO BID #60 tabs 09/11/23 bisoprolol fumarate 10 mg tablet 10 mg PO DAILY #90 tabs 09/12/23 Allergies Allergy/AdvReac Type Severity Reaction Status Date / Time No Known Allergies Allergy Verified 09/07/23 17:17 [facility] Disclaimer: The information contained in this section may have been updated after the patient was seen, as this information can be updated by other users. Medical History (Updated 09/21/23 @ 19:19 by Malik Harris MD) Daytime somnolence Dyspnea Edema of left lower extremity Ex-smoker Generalized anxiety disorder Pulmonary embolism Restless sleeper Snoring Vasovagal episode Family History Other No significant family history Social History Smoking Status: Never smoker alcohol intake: never substance use type: denies use current occupational status: employed and other Travel in the last 8 weeks: None household members: spouse housing: house number of children: 1 caffeine: Yes ROS Obtained: Yes All systems reviewed & no additional complaints except as documented Physical Exam General General appearance: alert and in no apparent distress Respiratory Respiratory exam: Present normal lung sounds bilaterally; Absent respiratory distress Cardiovascular Cardiovascular exam: Present regular rate; Absent tachycardia Abdominal Exam Abdominal exam: Present soft; Absent distention or tenderness Neurological Exam Neurological exam: Present alert and oriented X3 Psychiatric Psychiatric exam: Present flat affect Medical Decision Making Teofilo Inquiry Pt receiving controlled substance: No Vital Signs: 09/21/23 19:05 09/21/23 19:30 09/21/23 20:01 Temperature 97.9 F Temperature Source Oral Pulse Rate 77 76 Pulse Rate [Radial] 75 Respiratory Rate 12 12 12 Blood Pressure 147/85 H 134/83 Blood Pressure [Right Arm] 140/81 Blood Pressure Mean [Right Arm] 100 Blood Pressure Source Blood Pressure Source [Right Arm] Automatic Cuff Blood Pressure Position 02 Sat by Pulse Oximetry 98 96 95 Oxygen Delivery Method Room Air 09/21/23 20:25 Temperature 98.1 F Temperature Source Oral Pulse Rate 76 Pulse Rate [Radial] Respiratory Rate 12 Blood Pressure 134/83 Blood Pressure [Right Arm] Blood Pressure Mean [Right Arm] Blood Pressure Source Automatic Cuff Blood Pressure Source [Right Arm] Blood Pressure Position Sitting 02 Sat by Pulse Oximetry Oxygen Delivery Method Room Air Lab Data Lab results reviewed: Yes I reviewed the patient's lab results. Lab Results 09/21/23 19:11: WBC 9.3, RBC 4.94, Hgb 14.8, Hct 42.4, MCV 85.9, MCH 30.0, MCHC 34.9, RDW 13.0, Plt Count 269, MPV 8.2, Neut % (Auto) 66.5, Lymph % (Auto) 25.6, Bucks % (Auto) 5.5, Eos % (Auto) 2.1, Baso % (Auto) 0.4, Neut # (Auto) 6.2, Lymph # (Auto) 2.4, Bucks # (Auto) 0.5, Eos # (Auto) 0.2, Baso # (Auto) 0.0, Sodium 135 L, Potassium 3.5, Chloride 102, Carbon Dioxide 25, Anion Gap 11.5, BUN 18, Creatinine 0.90, Estimated Creat Clear 188, Estimated GFR 93, Est GFR ( Amer) 113, Glucose 112 H, Calcium 9.2, Total Bilirubin 0.5, AST 36, ALT 43, Alkaline Phosphatase 62, Troponin I < 0.01, Total Protein 7.9, Albumin 4.8, Globulin 3.1, Albumin/Globulin Ratio 1.5, Lipase 90 09/21/23 19:11 09/21/23 19:11 Orders (Tests/Meds): ED MEDICATIONS Discontinued Medications Generic Name Dose Route Start Last Admin Trade Name Freq PRN Reason Stop Dose Admin Hydroxyzine Pamoate 25 mg 09/21/23 20:20 09/21/23 20:25 Hydroxyzine Pamoate 25mg Capsule PO 09/21/23 20:21 25 mg ONCE ONE Administration Iopamidol 75 ml 09/21/23 19:43 09/21/23 19:43 Iopamidol-370 (76%);100ml Bottle IV 09/21/23 19:44 75 ml ONCE ONE Administration Ketorolac Tromethamine 15 mg 09/21/23 19:16 09/21/23 19:26 Ketorolac 30mg/Ml Vial IV 09/21/23 19:17 15 mg ONCE ONE Administration Sodium Chloride 50 ml 09/21/23 19:43 09/21/23 19:43 0.9 % Sodium Chloride 50 Ml Vial IV 09/21/23 19:44 50 ml ONCE ONE Administration Sodium Chloride 10 ml 09/21/23 19:43 09/21/23 19:43 Sodium Chloride 0.9% 10ml Syr (Rad Only) IV 09/21/23 19:44 10 ml ONCE ONE Administration ORDERS Category Date Time Status CT angio chest PE protocol Stat Cat Scan 09/21/23 19:16 Completed CBC w/Auto Diff [Complete Blood Count Auto Diff] Stat Lab 09/21/23 19:11 Completed CMP [Comprehensive Metabolic Panel] Stat Lab 09/21/23 19:11 Completed Lipase Stat Lab 09/21/23 19:11 Completed Trop I [Troponin I] Stat Lab 09/21/23 19:11 Completed Troponin I Q3H Lab 09/21/23 22:30 Ordered Troponin I Q3H Lab 09/22/23 01:30 Ordered ECG initial Besson Routine Y 09/21/23 19:25 Completed Medical Decision Narrative: Patient is a 43-year-old male presenting today with anxiety left arm discomfort epigastric and chest discomfort and shortness of breath with recent diagnosis of pulmonary embolism. He is on Eliquis states he has been compliant with his medications we do not have any imaging of his chest here he looks very well also looks very anxious which I believe is the majority of his symptoms today but we will get a CT PE to evaluate for possible worsening of his clot burden or any type of strain on his heart. Additionally we will get an EKG and troponin basic blood work and give him some Toradol and reassess. EKG performed which I first interpreted shows a ventricular rate of 75 normal sinus rhythm no acute ST segment elevations depressions or T wave inversions to suggest acute ischemia however there are some inferior Q waves may be old inferior OK. Nondiagnostic from an acute standpoint. Normal axis. No significant conduction abnormalities. Reassessment 8:29 PM patient feeling anxious he was given a dose of hydroxyzine for that anxiety. CT scan was performed which I personally interpreted also with the radiology read which shows no acute cardiopulmonary emergency specifically no evidence of a pulmonary embolism. After only several weeks of symptoms I would not expect his clots had to completely dissolved at this point. I question his initial diagnosis. For this reason I told him to follow-up with our market development specialist and to go get a printed disc from [facility] and our market development specialist review today's images and images from 3 weeks ago to make a long- term determination on whether not he needs to be on anticoagulation. He is agreeable to this plan. Troponin negative EKG nonischemic patient very well- appearing on discharge this is not consistent with an acute cardiopulmonary emergency was discharged in stable condition Critical Care Critical Care Time Critical Care Time: No
--- NOTE | 2023-09-21 19:25 | ECG_ITS ---
APPROVED REPORT Exam: Resting ECG HR:75 bpm ECG Measurements Heart Rate 75 AXES MA 154 P 49 QRSd 95 QRS 32 QT 382 T 21 QTc 411 Conclusion SINUS RHYTHM POSSIBLE INFERIOR MYOCARDIAL INFARCTION , PROBABLY OLD [30 ms Q WAVE IN II/aVF] BORDERLINE ECG UNCONFIRMED REPORT Electronically signed by : Wilfrido Lala MD 09/22/2023 07:46:29
[2023-09-21] MEDS: KETOROLAC 30MG/ML VIAL 15 MG IV (19:26)
[2023-09-21 19:28] LABS: Basophils % 0.4 % (0.1-2.0); Eosinophils # 0.2 K/mm3 (0.0-0.4); Eosinophils % 2.1 % (0.1-12.0); Hematocrit 42.4 % (42.0-52.0); Hemoglobin 14.8 g/dL (14.1-18.0); Lymphocytes # 2.4 K/mm3 (0.7-4.5); Lymphocytes % 25.6 % (10-50); Mean Corpuscular HGB Conc 34.9 g/dL (31.8-35.4); Mean Corpuscular Volume 85.9 fl (80-94); Mean Platelet Volume 8.2 fl (7.4-10.4); Monocytes # 0.5 K/mm3 (0.1-1.0); Monocytes % 5.5 % (1.7-9.3); Neutrophils # 6.2 K/mm3 (1.8-7.8); Neutrophils % 66.5 % (37.0-80.0); Platelet Count 269 K/mm3 (142-424); Red Blood Count 4.94 M/mm3 (4.60-6.20); White Blood Count 9.3 K/mm3 (4.8-10.8)
[2023-09-21 19:30] VITALS: BP 147/85; PULSE 77; RESP 12; O2SAT 96
[2023-09-21 19:32] LABS: Alanine Aminotransferase 43 U/L (12-78); Albumin Level 4.8 g/dl (3.5-5.0); Albumin/Globulin Ratio 1.5 (1.1-1.8); Alkaline Phosphatase 62 U/L (38-126); Anion Gap 11.5 mEq/L (5-15); Aspartate Amino Transferase 36 U/L (17-59); Bilirubin,Total 0.5 mg/dl (0.2-1.3); Blood Urea Nitrogen 18 mg/dl (9-20); Calcium 9.2 mg/dl (8.4-10.2); Carbon Dioxide 25 mmol/L (22.0-30.0); Chloride 102 mmol/L (98-107); Creatinine Clearance Estimated 188 mL/min (50-200); Estimated Glomerular Filt Rate 93 ml/min (>60); GFR (African American) 113 ML/MIN (>60); Globulin 3.1 g/dL (1.3-3.2); Glucose 112 mg/dl (74-100); Lipase 90 U/L (23-300); Potassium 3.5 mmoL/L (3.5-5.1); Sodium 135 mmol/L (136-145); Total Protein,Serum 7.9 g/dl (6.3-8.2)
--- NOTE | 2023-09-21 19:39 | PC.NURSE ---
patient gone to CT at this time.
[2023-09-21] MEDS: SODIUM CHLORIDE 0.9% 10ML SYR (RAD ONLY) 10 ML IV (19:43)
[2023-09-21] MEDS: IOPAMIDOL-370 (76%);100ML BOTTLE 75 ML IV (19:43)
[2023-09-21] MEDS: 0.9 % SODIUM CHLORIDE 50 ML VIAL IV (19:43)
[2023-09-21 19:44] LABS: Troponin I < 0.01 ng/ml (0.00-0.034)
--- NOTE | 2023-09-21 19:49 | PC.NURSE ---
patient back in room at this time.
[2023-09-21 20:01] VITALS: BP 134/83; PULSE 76; RESP 12; O2SAT 95
[2023-09-21 20:25] VITALS: BP 134/83; PULSE 76; RESP 12; TEMP 36.7; O2SAT 97
[2023-09-21] MEDS: hydrOXYzine pamoate 25MG CAPSULE 25 MG PO (20:25)
== END 2023-09-21 20:35 | disposition home or self-care (01) ==
PROVIDERS: Emergency Provider Student in an Organized Health Care Education/Training Program
DX: R07.9 Chest pain, unspecified (principal); R10.13 Epigastric pain; F41.9 Anxiety disorder, unspecified
CPT/HCPCS: 71275; 80053; 83690; 84484; 85025; 93005; 96374; 99285; Q9967

== ENCOUNTER 2023-09-28 06:56 | Outpatient (CLI) | payer BC, SELFPAY ==
[2023-09-28 07:20] VITALS: BP 138/85; PULSE 75; RESP 18; TEMP 36.4; O2SAT 95; BMI 38.9
[2023-09-28] MEDS: METOPROLOL TARTRATE 50MG TABLET 100 MG PO (07:30)
[2023-09-28 08:30] VITALS: BP 126/81; PULSE 60; RESP 18; O2SAT 97
[2023-09-28] MEDS: METOPROLOL TARTRATE 5MG/5ML VIAL 5 MG IV (08:30)
[2023-09-28] MEDS: NITROGLYCERIN 0.4MG SL TABLET 0.800000000000000044 MG SL (08:30)
--- NOTE | 2023-09-28 08:36 | CT_ITS ---
APPROVED REPORT Cost Estimating Manager: CLINICAL INDICATION Risk stratification, preventative care, chest pain TECHNIQUE Image Acquisition: A 128 slice MDCT scanner (Top10.coma View) was used for data acquisition. A noncontrast coronary calcium scan was performed. A CT attenuation threshold of 130 Hounsfield units (HU) was used for the detection of calcium in contiguous voxels of 1 sq mm in area to be counted as individual lesions. A tube voltage of 120 KVp was used. The patient was initially planned to undergo CCTA, including IV contrast. However, his IV line was difficult to insert, resulting in extravasation of IV contrast. Subsequently, he underwent CAC only. Image Reconstruction Transaxial images were reconstructed at 0.67 mm slide thickness. Data was reviewed interactively on an advanced workstation capable of 2 and 3-dimensional displays in all conventional reconstruction formats, including multiplanar reformations, maximum intensity projections, curved multiplanar reformations, and volume rendered reconstructions. When applicable, selected routine images describing the relevant coronary anatomy and pathology were saved and sent to PACS. Complications None Technical Quality Overall image quality was good. Total DLP (Dose-Length Product) is 257.5 mGy-cm. The reported value represents the total of one or more individual components during the CT acquisition of this date and at this time, and as such, the same value may appear in more than one CT report depending on the interpreting/reporting physicians. COMPARISON None FINDINGS CT Coronary Calcium Scoring LMA (Left Main Artery) = 0 LAD (Left Anterior Descending) = 0 LCX (Left Coronary Circumflex) = 0 RCA (Right Coronary Artery) = 0 Total Calcium Score = 0 using the AJ-130 method. IMPRESSION -The patient was initially planned to undergo CCTA, including IV contrast. However, his IV line was difficult to insert, resulting in extravasation of IV contrast. Subsequently, he underwent CAC only. -Coronary artery calcification is absent. -Total Calcium Score (Agatston Score) = 0 using the AJ-130 method. The interpretation of the calcium heart score is based on the following continuum*: 0 = no calcified plaque detected (risk of coronary artery disease is very low ??? less than 5%) 1-10 = calcium detected in extremely minimal levels (risk of coronary diseases is still low ??? less than 10%) 11-100 = mild levels of plaque detected with certainty (mild or minimal narrowing of heart arteries is likely) 101-400 = definite,at least moderate levels of plaque detected (relatively high risk of a heart attack within 3-5 years) >401-999 = extensive levels of plaque detected (high risk of heart attack, high levels of vascular disease are present, high likelihood of at least one significant coronary narrowing) *The calcium heart score quantifies the burden of coronary calcification/plaque in the coronary arteries. The calcium heart score does not evaluate the presence or the burden of non-calcified (i.e. soft) plaque. The coronary and cardiac findings of this Coronary Calcium CT were reviewed, reported, and signed by Pedrito Hurt MD (Clamper). Conclusion Electronically signed by : Judi Hurt MD 09/28/2023 15:19:15
[2023-09-28 08:45] VITALS: BP 149/84; PULSE 65; RESP 18; O2SAT 97
[2023-09-28 09:00] VITALS: BP 108/70; PULSE 64; RESP 18; O2SAT 97
[2023-09-28 09:20] VITALS: BP 149/89; PULSE 66; RESP 16; TEMP 36.4; O2SAT 98
[2023-09-28 09:30] VITALS: BP 136/80; PULSE 60; RESP 16; O2SAT 98
--- NOTE | 2023-09-28 09:33 | HMH.ITSTN ---
Patient registered for CCTA. Nursing had difficulty getting an iv. Patient was stuck several times. We used ultrasound twice and were able to get a good iv in the left AC. First part of scan was done successfully but when I started the contrast the patient iv came out. I stopped the exam and patient this informed us that he no longer wanted to complete the study. We transferred patient back to post op to start is 1 hour recovery due to medication given.
== END 2023-09-28 09:45 | disposition home or self-care (01) ==
PROVIDERS: PCP Internal Medicine; Visit Provider Internal Medicine
DX: R94.31 Abnormal electrocardiogram [ECG] [EKG] (principal); R06.00 Dyspnea, unspecified; R07.9 Chest pain, unspecified; R60.0 Localized edema; Z82.49 Family history of ischemic heart disease and other diseases of the circulatory system
CPT/HCPCS: 75571

== ENCOUNTER → 2023-09-29 09:40 | Outpatient (CLI) | payer BC, SELFPAY | LOC: SL 10-02 09:43 | PROVIDERS: PCP Internal Medicine; Visit Provider Physician Assistant | DX: R06.83 Snoring (principal) | CPT/HCPCS: G0399 ==

== ENCOUNTER 2023-10-29 14:05 | Emergency (ER) | payer BC, SELFPAY ==
[2023-10-29 14:05] VITALS: BP 155/76; PULSE 79; RESP 16; TEMP 36.9; O2SAT 96; BMI 40.3
--- NOTE | 2023-10-29 14:06 | ECG_ITS ---
APPROVED REPORT Exam: Resting ECG HR:77 bpm ECG Measurements Heart Rate 77 AXES NC 142 P 56 QRSd 96 QRS 40 QT 380 T 20 QTc 412 Conclusion SINUS RHYTHM POSSIBLE INFERIOR MYOCARDIAL INFARCTION , PROBABLY OLD [30 ms Q WAVE IN II/aVF] BORDERLINE ECG UNCONFIRMED REPORT Electronically signed by : Wilfrido Lala MD 10/30/2023 17:17:40
--- NOTE | 2023-10-29 14:08 | CT_ITS ---
PROCEDURE INFORMATION: Exam: CTA Chest With Contrast Exam date and time: 10/29/2023 3:13 PM Age: 43 years old Clinical indication: Shortness of breath; Additional info: Lightheadedness/soa, questionable dx of pe TECHNIQUE: Imaging protocol: Computed tomographic angiography of the chest with contrast. Exam focused on the arteries. 3D rendering (Not supervised by radiologist): MIP and/or 3D reconstructed images were created by the technologist. Radiation optimization: All CT scans at this facility use at least one of these dose optimization techniques: automated exposure control; mA and/or kV adjustment per patient size (includes targeted exams where dose is matched to clinical indication); or iterative reconstruction. Contrast material: ISOVUE; Contrast volume: 75 ml; Contrast route: INTRAVENOUS (IV); COMPARISON: CT ANGIO CHEST PE PROTOCOL 09/21/2023 7:41 PM FINDINGS: Pulmonary arteries: No evidence of pulmonary embolism. Aorta: No aortic dissection or aneurysm. Lungs: No evidence of acute airspace infiltrate. No pulmonary edema. Pleural spaces: No pneumothorax. No pleural effusion. Heart: No cardiomegaly. No significant pericardial effusion. Coronary arteries: No evidence of calcific coronary artery disease. Lymph nodes: No enlarged lymph nodes by CT criteria. Bones/joints: No acute osseous abnormality. Soft tissues: Gynecomastia. IMPRESSION: 1. No evidence of pulmonary embolism or other acute process in the chest. 2. Gynecomastia.
--- NOTE | 2023-10-29 14:12 | ED_ITS ---
Discharge Plan Disposition Patient Disposition: Home, Self-Care Prescriptions Prescriptions: New hydroxyzine HCl 25 mg tablet 25 mg PO Q8H PRN (Reason: panic attack(s)) Qty: 20 0RF No Action olanzapine [Zyprexa] 10 mg tablet 10 mg PO HS Qty: 30 1RF Eliquis 5 mg tablet 5 mg PO BID Qty: 60 5RF bisoprolol fumarate 10 mg tablet 10 mg PO DAILY Qty: 90 3RF meloxicam 7.5 mg tablet 7.5 mg PO DAILY Patient Comments: TAKE ONE TABLET BY MOUTH EVERY DAY --TAKE WITH FOOD-- Referrals Follow up/Referrals: Provider,MD Orion [Primary Care Provider] - See instructions Sonya Rodriguez MD [Physician] - See instructions Activity Restrictions/Add. Instructions Additional Instructions/Restrictions: At this time it was felt you are safe to be discharged home. If new or worsening symptoms please do not hesitate to return the emergency department. If symptoms persist please continue to follow-up with your doctor that prescribes your anxiety medications as discussed. Please call and schedule an appointment with pulmonology listed above. Clinical Impressions Clinical Impression: Shortness of breath, Anxiety, Dizziness Instructions Patient Instructions: DI for Anxiety -- Adult, DI for Panic Disorder Discharge ED Provider: Lavonne Ferrell HPI <Lavonne Ferrell DO - Last Filed: 10/29/23 15:02> General Chief Complaint: Shortness of Breath/Dyspnea Stated Complaint: shortness of breath Time Seen by Provider: 10/29/23 14:06 Mode of Arrival: Ambulatory Source of Information: Patient Limitations: No Limitations Description of Symptoms (Recalled from ER Triage Doc. by RN): Patient reports going to [facility] approx 1 hour ago when he became dizzy and could not catch his breath. History of Present Illness HPI narrative: This patient is a 43-year-old male with history of obesity, hypertension, VINNIE, and GERD presenting to the emergency department for evaluation with concern for lightheadedness and shortness of breath. On medical review, patient had a questionable diagnosis of PE in the past. He was evaluated at [facility] apparently and had been diagnosed with a PE. He was prescribed Eliquis, which she has been taking since. He was evaluated here on 09/07 and 09/21/2023 after the initial diagnosis of the PE for chest pain, workup was not immediately concerning for PE at those times. It appears that it was mostly thought to be related to anxiety. Patient states that he is very anxious. He states that he woke up feeling anxious and like he could not get a good breath in. He went to [facility] and was walking around when he felt like he was having a panic attack. He states that he became very lightheaded and could not catch his breath. He is requesting something for anxiety at this time. He denies any fevers, chills, vision changes, numbness, tingling, weakness, balance issues, true vertigo, chest pain, abdominal pain, or other issues. Related Data Home Medications Medication Instructions Recorded Confirmed meloxicam 7.5 mg tablet 7.5 mg PO DAILY 09/21/23 09/26/23 Previous Rx's Medication Instructions Recorded olanzapine 10 mg tablet (Zyprexa) 10 mg PO HS #30 tabs 09/07/23 apixaban 5 mg tablet (Eliquis) 5 mg PO BID #60 tabs 09/11/23 bisoprolol fumarate 10 mg tablet 10 mg PO DAILY #90 tabs 09/12/23 hydroxyzine HCl 25 mg tablet 25 mg PO Q8H PRN panic attack(s) 10/29/23 #20 tabs Allergies Allergy/AdvReac Type Severity Reaction Status Date / Time No Known Allergies Allergy Verified 09/26/23 09:11 [facility] <Lavonne Ferrell DO - Last Filed: 10/29/23 15:02> [facility] Disclaimer: The information contained in this section may have been updated after the patient was seen, as this information can be updated by other users. Medical History Daytime somnolence Dyspnea Edema of left lower extremity Ex-smoker Generalized anxiety disorder Pulmonary embolism Restless sleeper Snoring Vasovagal episode Surgical History History of cholecystectomy History of surgery on arm Family History Other No significant family history Social History Smoking Status: Never smoker alcohol intake: former substance use type: denies use current occupational status: employed and other Travel in the last 8 weeks: None household members: spouse housing: house number of children: 1 caffeine: Yes <Lavonne Ferrell DO - Last Filed: 10/29/23 15:02> ROS Obtained: Yes All systems reviewed & no additional complaints except as documented Physical Exam <Lavonne Ferrell DO - Last Filed: 10/29/23 15:02> General General appearance: alert and anxious Head Head exam: atraumatic and normocephalic Eye Eye exam: Present normal appearance, PERRL and EOMI ENT ENT exam: Present normal exam, normal oropharynx, mucous membranes moist and normal external ear exam Neck Neck exam: Present normal inspection, full ROM and trachea midline; Absent tenderness Chest Chest inspection: Present normal inspection and symmetric chest wall rise; Absent tenderness Respiratory Respiratory exam: Present normal lung sounds bilaterally; Absent respiratory distress, wheezes, stridor or accessory muscle use Cardiovascular Cardiovascular exam: Present regular rate and normal rhythm Abdominal Exam Abdominal exam: Present soft; Absent distention, tenderness or guarding Extremities Exam Extremities exam: Present normal inspection, full ROM and normal capillary refill; Absent tenderness or edema Back Exam Back exam: Present normal inspection and full ROM; Absent tenderness Neurological Exam Neurological exam: Present alert, oriented X3, CN II-XII intact and normal gait; Absent motor sensory deficit Psychiatric Psychiatric exam: Present anxious Skin Skin exam: Present warm and dry HEART Score <Lavonne Ferrell DO - Last Filed: 10/29/23 15:02> HEART Score HEART Score assessment performed?: No <Salomon Poon MD - Last Filed: 10/29/23 15:59> HEART Score History (anamnesis): Slightly suspicious ECG: Normal Age: <45 years Risk factors: 1-2 risk factors Troponin: </= normal limit HEART Score: 1 Critical Care <Lavonne Ferrell DO - Last Filed: 10/29/23 15:02> Critical Care Time Critical Care Time: No Medical Decision Making <Lavonne Ferrell DO - Last Filed: 10/29/23 15:02> Medical Records Medical records reviewed: Yes I reviewed the patient's medical records. Teofilo Inquiry Pt receiving controlled substance: No Vital Signs Vital Signs: 10/29/23 14:05 10/29/23 15:27 Temperature 98.4 F Temperature Source Oral Pulse Rate 69 Pulse Rate [Radial] 79 Respiratory Rate 16 Blood Pressure 150/88 H Blood Pressure [Right Arm] 155/76 H Blood Pressure Mean [Right Arm] 102 Blood Pressure Source [Right Arm] Automatic Cuff Blood Pressure Position [Right Arm] Sitting 02 Sat by Pulse Oximetry 96 98 Oxygen Delivery Method Room Air Room Air Lab Data Labs: Lab Results 10/29/23 14:10: WBC 8.4, RBC 4.97, Hgb 15.1, Hct 43.4, MCV 87.2, MCH 30.3, MCHC 34.7, RDW 12.8, Plt Count 265, MPV 8.3, Neut % (Auto) 70.4, Lymph % (Auto) 21.7, Gilchrist % (Auto) 5.4, Eos % (Auto) 2.0, Baso % (Auto) 0.5, Neut # (Auto) 5.9, Lymph # (Auto) 1.8, Gilchrist # (Auto) 0.5, Eos # (Auto) 0.2, Baso # (Auto) 0.0, Sodium 138, Potassium 3.9, Chloride 104, Carbon Dioxide 27, Anion Gap 10.9, BUN 11, Creatinine 0.70, Estimated Creat Clear 250, Estimated GFR 124, Est GFR ( Amer) 150, Glucose 120 H, Calcium 9.2, Total Bilirubin 0.6, AST 40, ALT 41, Alkaline Phosphatase 52, Troponin I < 0.01, Total Protein 7.8, Albumin 4.4, Globulin 3.4 H, Albumin/Globulin Ratio 1.3, SARS-CoV-2 (PCR) Not detected, Influenza A Untype (PCR) Not detected, Influenza Type B (PCR) Not detected 10/29/23 14:16: VBG pH 7.37, VBG pCO2 39.0, VBG pO2 70.8 H, VBG HCO3 21.8 L, VBG Total CO2 23.0, VBG O2 Saturation 94.4 H, VBG Base Excess -3.6 L 10/29/23 14:10 10/29/23 14:10 Response Orders (Tests/Meds): ED MEDICATIONS Generic Name Dose Route Start Last Admin Trade Name Freq PRN Reason Stop Dose Admin Sodium Chloride 10 ml 10/29/23 15:16 10/29/23 15:18 Sodium Chloride 0.9% 10ml Syr (Rad Only) IV 11/28/23 15:15 10 ml NEEDED PRN Administration Maintain IV Site Discontinued Medications Generic Name Dose Route Start Last Admin Trade Name Yobanyq PRN Reason Stop Dose Admin Hydroxyzine Pamoate 25 mg 10/29/23 14:09 10/29/23 14:34 Hydroxyzine Pamoate 25mg Capsule PO 10/29/23 14:10 25 mg ONCE ONE Administration Iopamidol 75 ml 10/29/23 15:16 10/29/23 15:19 Iopamidol-370 (76%);100ml Bottle IV 10/29/23 15:17 75 ml ONCE ONE Administration Sodium Chloride 50 ml 10/29/23 15:16 10/29/23 15:18 0.9 % Sodium Chloride 50 Ml Vial IV 10/29/23 15:17 50 ml ONCE ONE Administration ORDERS Category Date Time Status CT angio chest PE protocol Stat Cat Scan 10/29/23 14:08 Completed Complete Blood Count Auto Diff Stat Lab 10/29/23 14:10 Completed Comprehensive Metabolic Panel Stat Lab 10/29/23 14:10 Completed Rapid PCR Covid and Flu A/B Stat Lab 10/29/23 14:10 Completed Troponin I Q3H Lab 10/29/23 17:15 Ordered Troponin I Q3H Lab 10/29/23 20:15 Ordered Troponin I Stat Lab 10/29/23 14:10 Completed Venous Blood Gas Stat RT 10/29/23 14:16 Completed ECG Data Tracing #1: ECG Narrative: Normal sinus rhythm with a ventricular rate of [address] changes concerning for ischemia. Benign early repolarization. ECG initial impression date: 10/29/23 ECG initial impression time: 14:08 [facility] Narrative Medical Decision Narrative: In summary, this patient is a 43-year-old male presenting to the Emergency Department for evaluation of shortness of breath, lightheadedness, and anxiety. Differential diagnoses considered include but are not limited to anxiety, ACS, dysrhythmia, PE, respiratory failure. Ruling out the most morbid conditions michelle ve assessment. On exam, the patient is well-appearing. He has reassuring vital signs on cardiac telemetry. No significant hypoxia or tachycardia. He is feeling better now except for still anxious I feel that he most likely has symptoms triggered by anxiety given that he states that he felt like he was having a panic attack, however will obtain CBC, CMP, troponin, EKG, and CT PE protocol, especially given his questionable PE history. He was given oral hydroxyzine for symptomatic improvement. On reassessment, the patient is resting comfortably with normal vital signs on cardiac telemetry. Troponin is pending. CT PE is also pending. I do still feel that his symptoms are likely related to anxiety. Patient care signed apnea, provider, Dr. Poon. HEART SCORE pending trop <Salomon Poon MD - Last Filed: 10/29/23 15:59> Vital Signs Vital Signs: 10/29/23 14:05 10/29/23 15:27 Temperature 98.4 F Temperature Source Oral Pulse Rate 69 Pulse Rate [Radial] 79 Respiratory Rate 16 Blood Pressure 150/88 H Blood Pressure [Right Arm] 155/76 H Blood Pressure Mean [Right Arm] 102 Blood Pressure Source [Right Arm] Automatic Cuff Blood Pressure Position [Right Arm] Sitting 02 Sat by Pulse Oximetry 96 98 Oxygen Delivery Method Room Air Room Air Lab Data Labs: Lab Results 10/29/23 14:10: WBC 8.4, RBC 4.97, Hgb 15.1, Hct 43.4, MCV 87.2, MCH 30.3, MCHC 34.7, RDW 12.8, Plt Count 265, MPV 8.3, Neut % (Auto) 70.4, Lymph % (Auto) 21.7, Gilchrist % (Auto) 5.4, Eos % (Auto) 2.0, Baso % (Auto) 0.5, Neut # (Auto) 5.9, Lymph # (Auto) 1.8, Gilchrist # (Auto) 0.5, Eos # (Auto) 0.2, Baso # (Auto) 0.0, Sodium 138, Potassium 3.9, Chloride 104, Carbon Dioxide 27, Anion Gap 10.9, BUN 11, Creatinine 0.70, Estimated Creat Clear 250, Estimated GFR 124, Est GFR ( Amer) 150, Glucose 120 H, Calcium 9.2, Total Bilirubin 0.6, AST 40, ALT 41, Alkaline Phosphatase 52, Troponin I < 0.01, Total Protein 7.8, Albumin 4.4, Globulin 3.4 H, Albumin/Globulin Ratio 1.3, SARS-CoV-2 (PCR) Not detected, Influenza A Untype (PCR) Not detected, Influenza Type B (PCR) Not detected 10/29/23 14:16: VBG pH 7.37, VBG pCO2 39.0, VBG pO2 70.8 H, VBG HCO3 21.8 L, VBG Total CO2 23.0, VBG O2 Saturation 94.4 H, VBG Base Excess -3.6 L Response Orders (Tests/Meds): ED MEDICATIONS Generic Name Dose Route Start Last Admin Trade Name Freq PRN Reason Stop Dose Admin Sodium Chloride 10 ml 10/29/23 15:16 10/29/23 15:18 Sodium Chloride 0.9% 10ml Syr (Rad Only) IV 11/28/23 15:15 10 ml NEEDED PRN Administration Maintain IV Site Discontinued Medications Generic Name Dose Route Start Last Admin Trade Name Freq PRN Reason Stop Dose Admin Hydroxyzine Pamoate 25 mg 10/29/23 14:09 10/29/23 14:34 Hydroxyzine Pamoate 25mg Capsule PO 10/29/23 14:10 25 mg ONCE ONE Administration Iopamidol 75 ml 10/29/23 15:16 10/29/23 15:19 Iopamidol-370 (76%);100ml Bottle IV 10/29/23 15:17 75 ml ONCE ONE Administration Sodium Chloride 50 ml 10/29/23 15:16 10/29/23 15:18 0.9 % Sodium Chloride 50 Ml Vial IV 10/29/23 15:17 50 ml ONCE ONE Administration ORDERS Category Date Time Status CT angio chest PE protocol Stat Cat Scan 10/29/23 14:08 Completed Complete Blood Count Auto Diff Stat Lab 10/29/23 14:10 Completed Comprehensive Metabolic Panel Stat Lab 10/29/23 14:10 Completed Rapid PCR Covid and Flu A/B Stat Lab 10/29/23 14:10 Completed Troponin I Q3H Lab 10/29/23 17:15 Ordered Troponin I Q3H Lab 10/29/23 20:15 Ordered Troponin I Stat Lab 10/29/23 14:10 Completed Venous Blood Gas Stat RT 10/29/23 14:16 Completed MDM Narrative Medical Decision Narrative: In summary, this patient is a 43-year-old male presenting to the Emergency Department for evaluation of shortness of breath, lightheadedness, and anxiety. Differential diagnoses considered include but are not limited to anxiety, ACS, dysrhythmia, PE, respiratory failure. Ruling out the most morbid conditions drove assessment. On exam, the patient is well-appearing. He has reassuring vital signs on card iac telemetry. No significant hypoxia or tachycardia. He is feeling better now except for still anxious I feel that he most likely has symptoms triggered by anxiety given that he states that he felt like he was having a panic attack, however will obtain CBC, CMP, troponin, EKG, and CT PE protocol, especially given his questionable PE history. He was given oral hydroxyzine for symptomatic improvement. On reassessment, the patient is resting comfortably with normal vital signs on cardiac telemetry. Troponin is pending. CT PE is also pending. I do still feel that his symptoms are likely related to anxiety. Patient care signed apnea, provider, Dr. Poon. Salomon Poon: Upon assumption of care patient is hemodynamically stable. Workup thus far is reviewed by me, hematologic labs are nonactionable, compensated acid-base status, no critical electrolyte abnormalities or MELANI. Ini tial troponin below detectable limit. CTA chest is conducted and formal reads are pending upon my assumption of care. Formal CTA chest shows no acute pathology. The exact etiology of the patient's shortness of breath and intermittent dizziness is unclear however I suspect anxiety is a significant factor. Patient will be referred to pulmonology for exclusion of other causes of dyspnea and was instructed to follow-up with his PCP for long-term management of his antianxiety medications.
[2023-10-29 14:32] LABS: Basophils % 0.5 % (0.1-2.0); Eosinophils # 0.2 K/mm3 (0.0-0.4); Hematocrit 43.4 % (42.0-52.0); Hemoglobin 15.1 g/dL (14.1-18.0); Lymphocytes # 1.8 K/mm3 (0.7-4.5); Lymphocytes % 21.7 % (10-50); Mean Corpuscular HGB Conc 34.7 g/dL (31.8-35.4); Mean Corpuscular Hemoglobin 30.3 pg (27.0-31.2); Mean Corpuscular Volume 87.2 fl (80-94); Mean Platelet Volume 8.3 fl (7.4-10.4); Monocytes # 0.5 K/mm3 (0.1-1.0); Monocytes % 5.4 % (1.7-9.3); Neutrophils # 5.9 K/mm3 (1.8-7.8); Neutrophils % 70.4 % (37.0-80.0); Platelet Count 265 K/mm3 (142-424); Red Blood Count 4.97 M/mm3 (4.60-6.20); Red Cell Distribution Width 12.8 % (11.5-17.5); White Blood Count 8.4 K/mm3 (4.8-10.8)
[2023-10-29] MEDS: hydrOXYzine pamoate 25MG CAPSULE 25 MG PO (14:34)
[2023-10-29 14:42] LABS: Coronavirus 19, PCR Not Detected (NotDetected); Influenza A, PCR Not Detected (NotDetected); Influenza B, PCR Not Detected (NotDetected)
[2023-10-29 14:48] LABS: VBG Base Excess -3.6 mmol/L (-2.4-2.3); VBG HCO3 21.8 mmol/L (23-30); VBG Oxygen Saturation 94.4 % (50-70); VBG PH 7.37 mmol/L (7.31-7.41); VBG PO2 70.8 mmol/L (28-40)
[2023-10-29 14:51] LABS: Chloride 104 mmol/L (98-107); Sodium 138 mmol/L (136-145)
[2023-10-29 14:52] LABS: Potassium 3.9 mmoL/L (3.5-5.1)
[2023-10-29 14:54] LABS: Alanine Aminotransferase 41 U/L (12-78); Alkaline Phosphatase 52 U/L (38-126); Aspartate Amino Transferase 40 U/L (17-59); Bilirubin,Total 0.6 mg/dl (0.2-1.3); Blood Urea Nitrogen 11 mg/dl (9-20); Creatinine Clearance Estimated 250 mL/min (50-200); Estimated Glomerular Filt Rate 124 ml/min (>60); GFR (African American) 150 ML/MIN (>60)
[2023-10-29 14:55] LABS: Albumin Level 4.4 g/dl (3.5-5.0); Albumin/Globulin Ratio 1.3 (1.1-1.8); Anion Gap 10.9 mEq/L (5-15); Calcium 9.2 mg/dl (8.4-10.2); Carbon Dioxide 27 mmol/L (22.0-30.0); Globulin 3.4 g/dL (1.3-3.2); Glucose 120 mg/dl (74-100); Total Protein,Serum 7.8 g/dl (6.3-8.2)
[2023-10-29 15:08] LABS: Troponin I < 0.01 ng/ml (0.00-0.034)
[2023-10-29] MEDS: SODIUM CHLORIDE 0.9% 10ML SYR (RAD ONLY) 10 ML IV (15:18)
[2023-10-29] MEDS: 0.9 % SODIUM CHLORIDE 50 ML VIAL IV (15:18)
[2023-10-29] MEDS: IOPAMIDOL-370 (76%);100ML BOTTLE 75 ML IV (15:19)
[2023-10-29 15:27] VITALS: BP 150/88; PULSE 69; O2SAT 98
[2023-10-29 15:58] VITALS: BP 150/88; PULSE 66; RESP 18; TEMP 36.6; O2SAT 96
== END 2023-10-29 16:03 | disposition home or self-care (01) ==
PROVIDERS: Emergency Provider Emergency Medicine
DX: R06.02 Shortness of breath (principal); R42 Dizziness and giddiness; F41.1 Generalized anxiety disorder; I10 Essential (primary) hypertension; K21.9 Gastro-esophageal reflux disease without esophagitis; E66.01 Morbid (severe) obesity due to excess calories; Z68.41 Body mass index [BMI] 40.0-44.9, adult; Z86.711 Personal history of pulmonary embolism
CPT/HCPCS: 71275; 80053; 82803; 84484; 85025; 87636; 93005; 99284; Q9967

== ENCOUNTER 2023-11-07 19:01 | Emergency (ER) | payer BC, SELFPAY ==
--- NOTE | 2023-11-07 20:13 | ECG_ITS ---
APPROVED REPORT Exam: Resting ECG HR:68 bpm ECG Measurements Heart Rate 68 AXES FL 139 P 53 QRSd 93 QRS 35 QT 391 T 38 QTc 408 Conclusion SINUS RHYTHM Inferior q Waves are old and of uncertain significance BORDERLINE ECG UNCONFIRMED REPORT Electronically signed by : Wilfrido Lala MD 11/07/2023 21:52:56
[2023-11-07 20:17] VITALS: BP 167/108; PULSE 91; RESP 20; TEMP 36.7; O2SAT 97; BMI 40.1
[2023-11-07 20:20] VITALS: BP 146/93; PULSE 70; O2SAT 97
--- NOTE | 2023-11-07 20:25 | XR_ITS ---
PROCEDURE INFORMATION: Exam: XR Chest Exam date and time: 11/07/2023 8:36 PM Age: 43 years old Clinical indication: Dyspnea TECHNIQUE: Imaging protocol: Radiologic exam of the chest. Views: 1 view. COMPARISON: CT ANGIO CHEST PE PROTOCOL 10/29/2023 3:13 PM FINDINGS: Lungs: See Pleural spaces finding. Pleural spaces: Low lung volumes are present without pleural effusions or consolidations that project above the diaphragm. Heart/Mediastinum: Unremarkable. No cardiomegaly. Bones/joints: Unremarkable. IMPRESSION: No acute findings.
--- NOTE | 2023-11-07 20:26 | ED_ITS ---
Discharge Plan Disposition Patient Disposition: Home, Self-Care Prescriptions Prescriptions: No Action Jardiance 10 mg tablet 10 mg PO DAILY Ozempic 1 mg/dose (4 mg/3 mL) pen injector 1 mg SQ WEEKLY olanzapine [Zyprexa] 10 mg tablet 10 mg PO HS Qty: 30 1RF Eliquis 5 mg tablet 5 mg PO BID Qty: 60 5RF bisoprolol fumarate 10 mg tablet 10 mg PO DAILY Qty: 90 3RF hydroxyzine HCl 25 mg tablet 25 mg PO Q8H PRN (Reason: panic attack(s)) Qty: 20 0RF meloxicam 7.5 mg tablet 7.5 mg PO DAILY Patient Comments: TAKE ONE TABLET BY MOUTH EVERY DAY --TAKE WITH FOOD-- Referrals Follow up/Referrals: Jono Lundberg DO [Primary Care Provider] - See instructions Fidel Black MD [Staff Physician] - See instructions Activity Restrictions/Add. Instructions Additional Instructions/Restrictions: Please follow-up with Dr. Black or your primary care doctor as needed. Clinical Impressions Clinical Impression: Chest pain Discharge ED Provider: Malik Harris General Adult HPI General Chief complaint: Chest Pain Stated complaint: cough, mary, painful breath Time Seen by Provider: 11/07/23 20:12 History of Present Illness HPI narrative: Patient is a 43-year-old male present today with chest pain has been ongoing for the last 8 hours. Has a questionable diagnosis of pulmonary embolism at an outside hospital but has been seen here multiple times in the last few weeks to months with CTs demonstrating no PE. He still is taking his apixaban. He is followed by cardiology here. He was scheduled for a coronary CTA and this was unable to be completed secondary to extravasation of contrast. Patient has no fevers chills cough exertional symptoms no diaphoresis or dyspnea associated with this. No new leg swelling no hemoptysis etc. Related Data Home Medications Medication Instructions Recorded Confirmed meloxicam 7.5 mg tablet 7.5 mg PO DAILY 09/21/23 11/01/23 empagliflozin 10 mg tablet 10 mg PO DAILY 11/01/23 11/01/23 (Jardiance) semaglutide 1 mg/dose (4 mg/3 mL) 1 mg SQ WEEKLY 11/01/23 11/01/23 subcutaneous pen injector (Ozempic) Previous Rx's Medication Instructions Recorded olanzapine 10 mg tablet (Zyprexa) 10 mg PO HS #30 tabs 09/07/23 apixaban 5 mg tablet (Eliquis) 5 mg PO BID #60 tabs 09/11/23 bisoprolol fumarate 10 mg tablet 10 mg PO DAILY #90 tabs 09/12/23 hydroxyzine HCl 25 mg tablet 25 mg PO Q8H PRN panic attack(s) 10/29/23 #20 tabs Allergies Allergy/AdvReac Type Severity Reaction Status Date / Time metformin AdvReac Intermediate Swelling Verified 11/01/23 09:17 of Lip/Tongue/Throat [facility] Disclaimer: The information contained in this section may have been updated after the patient was seen, as this information can be updated by other users. Medical History Daytime somnolence Dyspnea Edema of left lower extremity Ex-smoker Generalized anxiety disorder Pulmonary embolism Restless sleeper Snoring Vasovagal episode Surgical History History of cholecystectomy History of surgery on arm Family History Other No significant family history Social History Smoking Status: Never smoker alcohol intake: former substance use type: denies use current occupational status: employed and other Travel in the last 8 weeks: None household members: spouse housing: house number of children: 1 caffeine: Yes ROS Obtained: Yes All systems reviewed & no additional complaints except as documented Physical Exam General General appearance: alert Respiratory Respiratory exam: Present normal lung sounds bilaterally; Absent respiratory distress Cardiovascular Cardiovascular exam: Present regular rate and normal rhythm Neurological Exam Neurological exam: Present alert Medical Decision Making Teofilo Inquiry Pt receiving controlled substance: No Vital Signs: 11/07/23 20:17 11/07/23 20:20 11/07/23 20:50 Temperature 98.1 F Temperature Source Oral Pulse Rate 70 Pulse Rate [Left Radial] 91 H Respiratory Rate 20 Blood Pressure 146/93 H 148/91 H Blood Pressure [Right Arm] 167/108 H Blood Pressure Mean 106 Blood Pressure Mean [Right Arm] 127 Blood Pressure Source [Right Arm] Automatic Cuff Blood Pressure Position [Right Arm] Supine 02 Sat by Pulse Oximetry 97 97 Oxygen Delivery Method Room Air 11/07/23 21:00 Temperature Temperature Source Pulse Rate 69 Pulse Rate [Left Radial] Respiratory Rate Blood Pressure 155/98 H Blood Pressure [Right Arm] Blood Pressure Mean Blood Pressure Mean [Right Arm] Blood Pressure Source [Right Arm] Blood Pressure Position [Right Arm] 02 Sat by Pulse Oximetry 98 Oxygen Delivery Method Lab Data Lab results reviewed: Yes I reviewed the patient's lab results. Lab Results 11/07/23 20:28: WBC 9.7, RBC 4.86, Hgb 14.6, Hct 42.6, MCV 87.7, MCH 30.0, MCHC 34.2, RDW 12.8, Plt Count 282, MPV 8.4, Neut % (Auto) 73.6, Lymph % (Auto) 19.5, Moody % (Auto) 4.9, Eos % (Auto) 1.7, Baso % (Auto) 0.2, Neut # (Auto) 7.2, Lymph # (Auto) 1.9, Moody # (Auto) 0.5, Eos # (Auto) 0.2, Baso # (Auto) 0.0, Sodium 139, Potassium 3.9, Chloride 105, Carbon Dioxide 25, Anion Gap 12.9, BUN 15, Creatinine 0.80, Estimated Creat Clear 218, Estimated GFR 107, Est GFR ( Amer) 129, Glucose 106 H, Calcium 9.4, Total Bilirubin 0.7, AST 37, ALT 41, Alkaline Phosphatase 74, Troponin I < 0.01, NT-Pro-B Natriuret Pep < 20.0, Total Protein 7.9, Albumin 4.5, Globulin 3.4 H, Albumin/Globulin Ratio 1.3, Lipase 62 11/07/23 20:28 11/07/23 20:28 Orders (Tests/Meds): ORDERS Category Date Time Status CXR --portable [XR chest portable] Stat Exams 11/07/23 20:25 Taken BNP [Brain Natriuretic Peptide] Stat Lab 11/07/23 20:28 Completed CBC w/Auto Diff [Complete Blood Count Auto Diff] Stat Lab 11/07/23 20:28 Completed CMP [Comprehensive Metabolic Panel] Stat Lab 11/07/23 20:28 Completed Lipase Stat Lab 11/07/23 20:28 Completed Trop I [Troponin I] Stat Lab 11/07/23 20:28 Completed Troponin I Q3H Lab 11/07/23 23:30 Ordered Troponin I Q3H Lab 11/08/23 02:30 Ordered ECG initial Besson Routine Y 11/07/23 20:13 Completed ECG Data Tracing #1: I reviewed this ECG and interpreted as documented below: Sinus rhythm of 68 some Q waves in inferior leads which are nonspecific no acute ST segment elevations or depressions no significant conduction abnormal ities and there is a normal axis Medical Decision Narrative: Very well-appearing 43-year-old male presents today with chest pain ongoing for 8 hours will require single troponin rule out myocardial injury or acute coronary syndrome. I would not pursue further workup of pulmonary embolism as he has been here multiple times with negative workups recently. There is no evidence secondarily of myocardial injury will not look into this further. I discussed with him the risk and benefits of ongoing evaluations for this and repeat CT imaging and radiation exposure associated with this and the risk of him developing a malignancy with unnecessary radiation exposure and he agrees with not getting further imaging or testing evaluation for this. I do not suspect he has any worsening pulm embolisms etc. I still question his initial diagnosis. He has been followed by cardiology sound like they wanted to do a coronary CTA but this failed due to contrast extravasation. If his initial workup here is negative I will recommend he follow back up with cardiology. EKG is unremarkable specifically from an ischemic standpoint. Reassessment troponin undetectably low as stated above with ongoing unchanged symptoms this is not consistent with acute coronary syndrome after 8 hours. Chest x-ray performed which I personally interpreted shows no acute cardiopulmonary emergency labs otherwise unremarkable patient remains very stable and comfortable in appearance. He has been advised to follow-up with his ruby rails developer or his primary care doctor as needed. Critical Care Critical Care Time Critical Care Time: No
[2023-11-07 20:39] LABS: Basophils % 0.2 % (0.1-2.0); Eosinophils # 0.2 K/mm3 (0.0-0.4); Eosinophils % 1.7 % (0.1-12.0); Hematocrit 42.6 % (42.0-52.0); Hemoglobin 14.6 g/dL (14.1-18.0); Lymphocytes # 1.9 K/mm3 (0.7-4.5); Lymphocytes % 19.5 % (10-50); Mean Corpuscular HGB Conc 34.2 g/dL (31.8-35.4); Mean Corpuscular Volume 87.7 fl (80-94); Mean Platelet Volume 8.4 fl (7.4-10.4); Monocytes # 0.5 K/mm3 (0.1-1.0); Monocytes % 4.9 % (1.7-9.3); Neutrophils # 7.2 K/mm3 (1.8-7.8); Neutrophils % 73.6 % (37.0-80.0); Platelet Count 282 K/mm3 (142-424); Red Blood Count 4.86 M/mm3 (4.60-6.20); Red Cell Distribution Width 12.8 % (11.5-17.5); White Blood Count 9.7 K/mm3 (4.8-10.8)
[2023-11-07 20:41] LABS: Chloride 105 mmol/L (98-107)
[2023-11-07 20:42] LABS: Potassium 3.9 mmoL/L (3.5-5.1); Sodium 139 mmol/L (136-145)
[2023-11-07 20:44] LABS: Alanine Aminotransferase 41 U/L (12-78); Alkaline Phosphatase 74 U/L (38-126); Aspartate Amino Transferase 37 U/L (17-59); Bilirubin,Total 0.7 mg/dl (0.2-1.3); Blood Urea Nitrogen 15 mg/dl (9-20); Creatinine Clearance Estimated 218 mL/min (50-200); Estimated Glomerular Filt Rate 107 ml/min (>60); GFR (African American) 129 ML/MIN (>60)
[2023-11-07 20:45] LABS: Albumin Level 4.5 g/dl (3.5-5.0); Albumin/Globulin Ratio 1.3 (1.1-1.8); Anion Gap 12.9 mEq/L (5-15); Calcium 9.4 mg/dl (8.4-10.2); Carbon Dioxide 25 mmol/L (22.0-30.0); Globulin 3.4 g/dL (1.3-3.2); Glucose 106 mg/dl (74-100); Lipase 62 U/L (23-300); Total Protein,Serum 7.9 g/dl (6.3-8.2)
[2023-11-07 20:50] VITALS: BP 148/91
--- NOTE | 2023-11-07 20:50 | PC.NURSE ---
Rounded on pt at this time pt voices no needs
[2023-11-07 20:54] LABS: NT Pro Brain Natriuretic Pep. < 20.0 pg/mL (0-125)
[2023-11-07 20:58] LABS: Troponin I < 0.01 ng/ml (0.00-0.034)
[2023-11-07 21:00] VITALS: BP 155/98; PULSE 69; O2SAT 98
[2023-11-07 21:11] VITALS: PULSE 76
[2023-11-07 21:12] VITALS: BP 155/98; PULSE 74; RESP 20; TEMP 36.7; O2SAT 98
== END 2023-11-07 21:13 | disposition home or self-care (01) ==
PROVIDERS: Emergency Provider Student in an Organized Health Care Education/Training Program; PCP Internal Medicine
DX: R07.9 Chest pain, unspecified (principal); R05.9 Cough, unspecified; Z87.891 Personal history of nicotine dependence; Z86.711 Personal history of pulmonary embolism
CPT/HCPCS: 71045; 80053; 83690; 83880; 84484; 85025; 93005; 99285

== ENCOUNTER 2023-11-16 11:28 | Outpatient (CLI) | payer BC, SELFPAY ==
[2023-11-16 12:12] LABS: C-Reactive Protein 3.1 mg/L (0-4)
[2023-11-19 10:13] LABS: Antinuclear Antibodies (ANA) Negative
== END 2023-11-16 23:59 ==
PROVIDERS: PCP Internal Medicine; Visit Provider Internal Medicine Pulmonary Disease
DX: R06.09 Other forms of dyspnea (principal); J84.9 Interstitial pulmonary disease, unspecified
CPT/HCPCS: 36415; 86038; 86140

== ENCOUNTER 2023-11-20 16:43 | Emergency (ER) | payer BC, SELFPAY ==
[2023-11-20] VITALS (8 sets, daily range): BP systolic 123–141; BP diastolic 65–92; PULSE 65–80; RESP 15; TEMP 36.7; O2SAT 96–98; BMI 40.3
--- NOTE | 2023-11-20 16:39 | ECG_ITS ---
APPROVED REPORT Exam: Resting ECG HR:74 bpm ECG Measurements Heart Rate 74 AXES MA 140 P 46 QRSd 89 QRS 31 QT 394 T 16 QTc 422 Conclusion SINUS RHYTHM NORMAL ECG UNCONFIRMED REPORT Electronically signed by : Wilfrido Lala MD 11/21/2023 19:03:40
--- NOTE | 2023-11-20 17:02 | HMH.EDGENADL ---
Discharge Plan Disposition Patient Disposition: Home, Self-Care Prescriptions Prescriptions: No Action Jardiance 10 mg tablet 10 mg PO DAILY Ozempic 1 mg/dose (4 mg/3 mL) pen injector 1 mg SQ WEEKLY olanzapine [Zyprexa] 10 mg tablet 10 mg PO HS Qty: 30 1RF Eliquis 5 mg tablet 5 mg PO BID Qty: 60 5RF bisoprolol fumarate 10 mg tablet 10 mg PO DAILY Qty: 90 3RF albuterol sulfate [Ventolin HFA] 90 mcg/actuation HFA aerosol inhaler 2 inh inhalation Q6H PRN (Reason: shortness of breath or wheezing) 90 Days Qty: 18 3RF hydroxyzine HCl 25 mg tablet 25 mg PO Q8H PRN (Reason: panic attack(s)) Qty: 20 0RF meloxicam 7.5 mg tablet 7.5 mg PO DAILY Patient Comments: TAKE ONE TABLET BY MOUTH EVERY DAY --TAKE WITH FOOD-- Activity Restrictions/Add. Instructions Additional Instructions/Restrictions: Follow-up with your labor service representative and soft sugar cutter as previously instructed. If you continue to have the symptoms I would also recommend you follow-up with a lab systems analyst or a surgeon for an outpatient endoscopy as esophageal pathology could be contributing to your discomfort. Clinical Impressions Clinical Impression: Atypical chest pain Discharge ED Provider: Malik Harris General Adult HPI General Chief complaint: Shortness of Breath/Dyspnea Stated complaint: chest pain Time Seen by Provider: 11/20/23 16:51 History of Present Illness HPI narrative: Patient is a 43-year-old male whom I taken care of numerous times presenting today with chest pain. He has recently been followed by Dr. Rodriguez and Dr. Black without any significant pathology to explain patient's symptoms. Patient presents today with substernal chest discomfort which she describes as palpitations and pressure that started this morning. Has had numerous CT imaging and ED evaluations recently without any significant abnormalities. Had a questionable diagnosis of a pulmonary embolism several months ago and is still on his anticoagulation. No shortness of breath fevers chills cough etc. Not had any evaluation of his esophagus. Denies any food associated symptoms or oppositionality. Also states has had some intermittent blurred vision which is currently at his baseline. Was recently worked up for diabetes which was negative. Related Data Home Medications Medication Instructions Recorded Confirmed meloxicam 7.5 mg tablet 7.5 mg PO DAILY 09/21/23 11/16/23 empagliflozin 10 mg tablet 10 mg PO DAILY 11/01/23 11/16/23 (Jardiance) semaglutide 1 mg/dose (4 mg/3 mL) 1 mg SQ WEEKLY 11/01/23 11/16/23 subcutaneous pen injector (Ozempic) Previous Rx's Medication Instructions Recorded olanzapine 10 mg tablet (Zyprexa) 10 mg PO HS #30 tabs 09/07/23 apixaban 5 mg tablet (Eliquis) 5 mg PO BID #60 tabs 09/11/23 bisoprolol fumarate 10 mg tablet 10 mg PO DAILY #90 tabs 09/12/23 hydroxyzine HCl 25 mg tablet 25 mg PO Q8H PRN panic attack(s) 10/29/23 #20 tabs albuterol sulfate 90 mcg/actuation 2 inh inhalation Q6H PRN shortness 11/16/23 aerosol inhaler (Ventolin HFA) of breath or wheezing 90 days #18 grams Allergies Allergy/AdvReac Type Severity Reaction Status Date / Time metformin AdvReac Intermediate Swelling Verified 11/16/23 10:25 of Lip/Tongue/Throat PFSH PFS Disclaimer: The information contained in this section may have been updated after the patient was seen, as this information can be updated by other users. Medical History (Updated 11/20/23 @ 17:02 by Malik Harris MD) Daytime somnolence Dyspnea Dyspnea on exertion Edema of left lower extremity Ex-smoker Generalized anxiety disorder History of pulmonary embolism Pulmonary embolism Restless sleeper Snoring Vasovagal episode Wheezing Surgical History History of cholecystectomy History of surgery on arm Family History Other No significant family history Social History (Updated 11/16/23 @ 10:26 by Isabelle Childers) Smoking Status: Former smoker tobacco type: cigarettes packs per day: 1 alcohol intake: former substance use type: denies use current occupational status: employed and other Travel in the last 8 weeks: Inside the [place] household members: spouse housing: house number of children: 1 caffeine: Yes ROS Obtained: Yes All systems reviewed & no additional complaints except as documented Physical Exam General General appearance: alert Respiratory Respiratory exam: Present normal lung sounds bilaterally Cardiovascular Cardiovascular exam: Present regular rate Neurological Exam Neurological exam: Present alert Medical Decision Making Teofilo Inquiry Pt receiving controlled substance: No Vital Signs: 11/20/23 16:44 11/20/23 16:51 11/20/23 17:00 Temperature 98.0 F Temperature Source Oral Pulse Rate 80 73 Pulse Rate [Left Radial] 77 Respiratory Rate 15 Blood Pressure 128/78 131/81 Blood Pressure [Right Arm] 141/92 H Blood Pressure Mean 94 93 Blood Pressure Mean [Right Arm] 108 02 Sat by Pulse Oximetry 98 97 96 11/20/23 17:30 11/20/23 18:00 11/20/23 18:06 Temperature Temperature Source Pulse Rate 70 68 70 Pulse Rate [Left Radial] Respiratory Rate Blood Pressure 123/71 133/80 127/71 Blood Pressure [Right Arm] Blood Pressure Mean 88 90 84 Blood Pressure Mean [Right Arm] 02 Sat by Pulse Oximetry 97 97 98 11/20/23 18:30 Temperature Temperature Source Pulse Rate 65 Pulse Rate [Left Radial] Respiratory Rate Blood Pressure 123/65 Blood Pressure [Right Arm] Blood Pressure Mean 79 Blood Pressure Mean [Right Arm] 02 Sat by Pulse Oximetry 97 Lab Data Lab results reviewed: Yes I reviewed the patient's lab results. Lab Results 11/20/23 17:18: WBC 10.0, RBC 4.72, Hgb 14.5, Hct 43.1, MCV 91.3, MCH 30.6, MCHC 33.6, RDW 12.8, Plt Count 260, MPV 8.3, Neut % (Auto) 71.7, Lymph % (Auto) 20.7, Wright % (Auto) 6.0, Eos % (Auto) 1.4, Baso % (Auto) 0.2, Neut # (Auto) 7.2, Lymph # (Auto) 2.1, Wright # (Auto) 0.6, Eos # (Auto) 0.1, Baso # (Auto) 0.0, D-Dimer 0.37, Sodium 140, Potassium 3.5, Chloride 107, Carbon Dioxide 27, Anion Gap 9.5, BUN 12, Creatinine 0.80, Estimated GFR 107, Est GFR ( Amer) 129, Glucose 97, Calcium 9.2, Magnesium 2.0, Total Bilirubin 0.4, AST 34, ALT 37, Alkaline Phosphatase 72, Troponin I < 0.01, Total Protein 7.5, Albumin 4.4, Globulin 3.1, Albumin/Globulin Ratio 1.4, TSH 2.21 11/20/23 17:18 11/20/23 17:18 Orders (Tests/Meds): ED MEDICATIONS Discontinued Medications Generic Name Dose Route Start Last Admin Trade Name Freq PRN Reason Stop Dose Admin Belladonna Alkaloids 60 ml 11/20/23 17:01 11/20/23 17:14 Belladonna Alkaloids 60 Ml Ml PO 11/20/23 17:02 60 ml ONCE ONE Administration Hydroxyzine Pamoate 25 mg 11/20/23 18:09 11/20/23 18:13 Hydroxyzine Pamoate 25mg Capsule PO 11/20/23 18:10 25 mg ONCE ONE Administration ORDERS Category Date Time Status CXR --portable [XR chest portable] Stat Exams 11/20/23 17:54 Completed CBC w/Auto Diff [Complete Blood Count Auto Diff] Stat Lab 11/20/23 17:18 Completed CMP [Comprehensive Metabolic Panel] Stat Lab 11/20/23 17:18 Completed D-Dimer Stat Lab 11/20/23 17:18 Completed Magnesium Stat Lab 11/20/23 17:18 Completed TSH [Thyroid Stimulating Hormone] Stat Lab 11/20/23 17:18 Completed Trop I [Troponin I] Stat Lab 11/20/23 17:18 Completed Troponin I Q3H Lab 11/20/23 20:15 Ordered Troponin I Q3H Lab 11/20/23 23:15 Ordered HEART Score History (anamnesis): Slightly suspicious ECG: Normal Age: <45 years Risk factors: No known risk factors Troponin: </= normal limit HEART Score: 0 Medical Decision Narrative: Well-appearing 43-year-old male at his baseline has not taken care of numerous times. He is followed by pulmonology and cardiology here. EKG was performed which I first interpreted which shows a ventricular rate of 74 no acute ischemic changes noted there is Q-wave in lead III and inverted T wave in lead III but no continuous ischemic changes noted no conduction abnormalities there is a normal axis overall overall nondiagnostic EKG. Will get a single troponin D-dimer with a cutoff of 1.[address] PE evaluation. Also get basic electrolytes magnesium TSH to evaluate for arrhythmia and will give a GI cocktail from a therapeutic and diagnostic standpoint as well as this could be esophageal since this has not been looked into in the past I will suggest that he follow-up for an endoscopy if he is not had 1. Assessment 6:53 PM workup is unremarkable chest x-ray performed on first interpreted shows no acute cardiopulmonary emergency troponin undetectably low given duration of symptoms is not consistent with acute coronary syndrome. Labs otherwise unremarkable D-dimer below threshold for getting a CT PE patient's been advised to follow-up with primary care doctor labor service representative and/or soft sugar cutter. Patient was discharged in stable condition. Critical Care Critical Care Time Critical Care Time: No
[2023-11-20] MEDS: BELLADONNA ALKALOIDS 60 ML ML PO (17:14)
[2023-11-20 17:32] LABS: Basophils % 0.2 % (0.1-2.0); Eosinophils # 0.1 K/mm3 (0.0-0.4); Eosinophils % 1.4 % (0.1-12.0); Hematocrit 43.1 % (42.0-52.0); Hemoglobin 14.5 g/dL (14.1-18.0); Lymphocytes # 2.1 K/mm3 (0.7-4.5); Lymphocytes % 20.7 % (10-50); Mean Corpuscular HGB Conc 33.6 g/dL (31.8-35.4); Mean Corpuscular Hemoglobin 30.6 pg (27.0-31.2); Mean Corpuscular Volume 91.3 fl (80-94); Mean Platelet Volume 8.3 fl (7.4-10.4); Monocytes # 0.6 K/mm3 (0.1-1.0); Neutrophils # 7.2 K/mm3 (1.8-7.8); Neutrophils % 71.7 % (37.0-80.0); Platelet Count 260 K/mm3 (142-424); Red Blood Count 4.72 M/mm3 (4.60-6.20); Red Cell Distribution Width 12.8 % (11.5-17.5)
[2023-11-20 17:38] LABS: Alanine Aminotransferase 37 U/L (12-78); Albumin Level 4.4 g/dl (3.5-5.0); Albumin/Globulin Ratio 1.4 (1.1-1.8); Alkaline Phosphatase 72 U/L (38-126); Anion Gap 9.5 mEq/L (5-15); Aspartate Amino Transferase 34 U/L (17-59); Bilirubin,Total 0.4 mg/dl (0.2-1.3); Blood Urea Nitrogen 12 mg/dl (9-20); Calcium 9.2 mg/dl (8.4-10.2); Carbon Dioxide 27 mmol/L (22.0-30.0); Chloride 107 mmol/L (98-107); Estimated Glomerular Filt Rate 107 ml/min (>60); GFR (African American) 129 ML/MIN (>60); Globulin 3.1 g/dL (1.3-3.2); Glucose 97 mg/dl (74-100); Potassium 3.5 mmoL/L (3.5-5.1); Sodium 140 mmol/L (136-145); Total Protein,Serum 7.5 g/dl (6.3-8.2)
[2023-11-20 17:43] LABS: D-Dimer 0.37 ug/mL (0.0-0.5)
[2023-11-20 17:52] LABS: Troponin I < 0.01 ng/ml (0.00-0.034)
--- NOTE | 2023-11-20 17:54 | XR_ITS ---
PROCEDURE INFORMATION: Exam: XR Chest Exam date and time: 11/20/2023 5:51 PM Age: 43 years old Clinical indication: Dyspnea TECHNIQUE: Imaging protocol: Radiologic exam of the chest. Views: 1 view. COMPARISON: CR XR CHEST PORTABLE 11/07/2023 8:36 PM FINDINGS: Lungs: No evidence of acute pulmonary disease or infiltrates Pleural spaces: No large effusion or pneumothorax. Heart/Mediastinum: Stable cardiac and mediastinal contours. Bones/joints: No evidence of acute osseous abnormalities within the visualized portions of the thoracic spine and ribs. Osseous structures appear appropriate for patient age. IMPRESSION: No dense parenchymal consolidation, pleural effusion, or pneumothorax.
[2023-11-20 18:09] LABS: Thyroid Stimulating Hormone 2.21 uIU/mL (0.465-4.68)
[2023-11-20] MEDS: hydrOXYzine pamoate 25MG CAPSULE 25 MG PO (18:13)
== END 2023-11-20 19:01 | disposition home or self-care (01) ==
PROVIDERS: Emergency Provider Student in an Organized Health Care Education/Training Program; PCP Internal Medicine
DX: R07.9 Chest pain, unspecified (principal); H53.8 Other visual disturbances; Z86.711 Personal history of pulmonary embolism; Z87.891 Personal history of nicotine dependence; Z79.01 Long term (current) use of anticoagulants
CPT/HCPCS: 71045; 80053; 83735; 84443; 84484; 85025; 85378; 93005; 99285

== ENCOUNTER 2023-12-04 18:34 | Emergency (ER) | payer BC, SELFPAY ==
[2023-12-04 18:37] VITALS: BP 143/87; PULSE 70; RESP 19; TEMP 36.4; O2SAT 98; BMI 40.3
--- NOTE | 2023-12-04 18:42 | ECG_ITS ---
APPROVED REPORT Exam: Resting ECG HR:73 bpm ECG Measurements Heart Rate 73 AXES TX 151 P 45 QRSd 92 QRS 27 QT 388 T 4 QTc 414 Conclusion SINUS RHYTHM PROBABLE INFERIOR MYOCARDIAL INFARCTION , PROBABLY OLD [35 ms Q WAVE IN II/aVF] ABNORMAL ECG UNCONFIRMED REPORT Electronically signed by : Abdulaziz Harris, 12/04/2023 23:39:15
--- NOTE | 2023-12-04 18:55 | PC.NURSE ---
Labs obtained and then IV blew. IV removed by Steffi Falk RN.
--- NOTE | 2023-12-04 19:00 | XR_ITS ---
PROCEDURE INFORMATION: Exam: XR Chest Exam date and time: 12/04/2023 7:00 PM Age: 43 years old Clinical indication: Dyspnea TECHNIQUE: Imaging protocol: Radiologic exam of the chest. Views: 1 view. COMPARISON: CR XR CHEST PORTABLE 11/20/2023 5:51 PM FINDINGS: Lungs: Low lung volumes. Mild bibasilar atelectasis. No consolidation. Pleural spaces: No pleural effusion. No pneumothorax. Heart/Mediastinum: No cardiomegaly. Bones/joints: Unremarkable. IMPRESSION: No acute pulmonary findings.
--- NOTE | 2023-12-04 19:02 | ED_ITS ---
Discharge Plan Disposition Patient Disposition: Home, Self-Care Prescriptions Prescriptions: No Action Jardiance 10 mg tablet 10 mg PO DAILY Ozempic 1 mg/dose (4 mg/3 mL) pen injector 1 mg SQ WEEKLY olanzapine [Zyprexa] 10 mg tablet 10 mg PO HS Qty: 30 1RF Eliquis 5 mg tablet 5 mg PO BID Qty: 60 5RF bisoprolol fumarate 10 mg tablet 10 mg PO DAILY Qty: 90 3RF albuterol sulfate [Ventolin HFA] 90 mcg/actuation HFA aerosol inhaler 2 inh inhalation Q6H PRN (Reason: shortness of breath or wheezing) 90 Days Qty: 18 3RF hydroxyzine HCl 25 mg tablet 25 mg PO Q8H PRN (Reason: panic attack(s)) Qty: 20 0RF meloxicam 7.5 mg tablet 7.5 mg PO DAILY Patient Comments: TAKE ONE TABLET BY MOUTH EVERY DAY --TAKE WITH FOOD-- Referrals Follow up/Referrals: Jono Lundberg DO [Primary Care Provider] - See instructions Clinical Impressions Clinical Impression: Chest pain, Anxiety Discharge ED Provider: Malik Harris [facility] General Chief Complaint: Shortness of Breath/Dyspnea Stated Complaint: CP from breathing in,dizziness Time Seen by Provider: 12/04/23 18:54 Mode of Arrival: Ambulatory Source of Information: Patient Limitations: No Limitations Description of Symptoms (Recalled from ER Triage Doc. by RN): pt presents to ED with c/o pain in chest when breathing. pt was seen at [facility] for same issues approx 3-4 hours ago. pt was given gi cocktail and was discharged home with no findings. pt reports when he was on the way home, he began to have the pain again. History of Present Illness HPI narrative: Patient is a 43-year-old male very well-known to our emergency department. He has been here numerous times for chest pain recently has followed up with cardiology and has not had any type of emergent medical condition identified. Several months ago he had a questionable diagnosis of possible pulmonary embolism but had CT angios done here which were negative. He went to [facility] today for chest pain says he had blood work and a CAT scan that were done all of which she states were negative when he was going home and states that his chest pain was worsened which made him come to our emergency department. States they were busy and felt as though they may not have been as thorough as normal so he came to our emergency department. Related Data Home Medications Medication Instructions Recorded Confirmed meloxicam 7.5 mg tablet 7.5 mg PO DAILY 09/21/23 11/16/23 empagliflozin 10 mg tablet 10 mg PO DAILY 11/01/23 11/16/23 (Jardiance) semaglutide 1 mg/dose (4 mg/3 mL) 1 mg SQ WEEKLY 11/01/23 11/16/23 subcutaneous pen injector (Ozempic) Previous Rx's Medication Instructions Recorded olanzapine 10 mg tablet (Zyprexa) 10 mg PO HS #30 tabs 09/07/23 apixaban 5 mg tablet (Eliquis) 5 mg PO BID #60 tabs 09/11/23 bisoprolol fumarate 10 mg tablet 10 mg PO DAILY #90 tabs 09/12/23 hydroxyzine HCl 25 mg tablet 25 mg PO Q8H PRN panic attack(s) 10/29/23 #20 tabs albuterol sulfate 90 mcg/actuation 2 inh inhalation Q6H PRN shortness 11/16/23 aerosol inhaler (Ventolin HFA) of breath or wheezing 90 days #18 grams Allergies Allergy/AdvReac Type Severity Reaction Status Date / Time metformin AdvReac Intermediate Swelling Verified 12/04/23 18:49 of Lip/Tongue/Throat [facility] Disclaimer: The information contained in this section may have been updated after the patient was seen, as this information can be updated by other users. 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 Snoring Daytime somnolence Dyspnea Surgical History History of surgery on arm History of cholecystectomy Family History Other No significant family history Social History (Updated 11/16/23 @ 10:26 by Isabelle Childers) Smoking Status: Former smoker tobacco type: cigarettes packs per day: 1 alcohol intake: former substance use type: denies use current occupational status: employed and other Travel in the last 8 weeks: Inside the [place] household members: spouse housing: house number of children: 1 caffeine: Yes ROS Obtained: Yes All systems reviewed & no additional complaints except as documented Physical Exam General General appearance: alert and in no apparent distress Respiratory Respiratory exam: Present normal lung sounds bilaterally Cardiovascular Cardiovascular exam: Present regular rate and normal rhythm Neurological Exam Neurological exam: Present alert and oriented X3 HEART Score HEART Score HEART Score assessment performed?: Yes History (anamnesis): Slightly suspicious ECG: Normal Age: <45 years Risk factors: No known risk factors Troponin: </= normal limit HEART Score: 0 Critical Care Critical Care Time Critical Care Time: No Medical Decision Making Teofilo Inquiry Pt receiving controlled substance: No Vital Signs Vital Signs: 12/04/23 18:37 Temperature 97.5 F L Temperature Source Oral Pulse Rate [Left Radial] 70 Respiratory Rate 19 Blood Pressure [Right Arm] 143/87 H Blood Pressure Mean [Right Arm] 105 02 Sat by Pulse Oximetry 98 Oxygen Delivery Method Room Air Lab Data Lab results reviewed: Yes I reviewed the patient's lab results. Labs: Lab Results 12/04/23 18:49: WBC 10.6, RBC 4.94, Hgb 15.0, Hct 45.5, MCV 92.0, MCH 30.4, MCHC 33.0, RDW 12.9, Plt Count 295, MPV 8.6, Neut % (Auto) 80.4 H, Lymph % (Auto) 13.1, [place] % (Auto) 5.1, Eos % (Auto) 0.9, Baso % (Auto) 0.5, Neut # (Auto) 8.5 H, Lymph # (Auto) 1.4, [place] # (Auto) 0.5, Eos # (Auto) 0.1, Baso # (Auto) 0.1, Sodium 136, Potassium 3.9, Chloride 104, Carbon Dioxide 26, Anion Gap 9.9, BUN 11, Creatinine 0.80, Estimated Creat Clear 219, Estimated GFR 107, Est GFR ( Amer) 129, Glucose 108 H, Calcium 9.6, Total Bilirubin 0.5, AST 36, ALT 46, Alkaline Phosphatase 68, Troponin I < 0.01, Total Protein 7.6, Albumin 4.5, Globulin 3.1, Albumin/Globulin Ratio 1.5, Lipase 65 12/04/23 18:49 12/04/23 18:49 Response Orders (Tests/Meds): ORDERS Category Date Time Status CXR --portable [XR chest portable] Stat Exams 12/04/23 19:00 Completed CBC w/Auto Diff [Complete Blood Count Auto Diff] Stat Lab 12/04/23 18:49 Completed CMP [Comprehensive Metabolic Panel] Stat Lab 12/04/23 18:49 Completed Lipase Stat Lab 12/04/23 18:49 Completed Trop I [Troponin I] Stat Lab 12/04/23 18:49 Completed Troponin I Q3H Lab 12/04/23 22:00 Ordered Troponin I Q3H Lab 12/05/23 01:00 Ordered ECG Data Tracing #1: Attestation: I reviewed this ECG and interpreted as documented below: ECG Narrative: Ventricular rate 73 no acute ischemic changes noted there is a T wave inversion and Q wave in lead III but otherwise noncontiguous leads no acute ST segment changes noted no conduction abnormalities. MDM Narrative Medical Decision Narrative: Patient is a 43-year-old male very well-known to our emergency department here with chronic and recurrent chest pain. He is followed by cardiology here. Recently left at [facility] where presumably he had troponins and a CAT scan done. Try to get those records. EKG was performed which was nonischemic and not concerning. Will get a single troponin and chest x-ray. I suspect that the patient has significant anxiety and stress which is leading to his symptoms at this point. I discussed this with him. Assuming his workup is negative and that we can confirm the test that were done recently at [place] we will let him go with close outpatient follow-up. X-ray was performed which I personally interpreted shows no acute cardiopulmonary emergency. Troponin undetectably low. At this point the patient appears very similar to the other numerous times that have seen him recently for the same complaint. Not concerned about an acute cardiopulmonary emergency has been advised to follow-up with outpatient physicians as previously instructed. He was discharged in stable condition.
[2023-12-04 19:11] LABS: Basophils # 0.1 K/mm3 (0-0.2); Basophils % 0.5 % (0.1-2.0); Eosinophils # 0.1 K/mm3 (0.0-0.4); Eosinophils % 0.9 % (0.1-12.0); Hematocrit 45.5 % (42.0-52.0); Lymphocytes # 1.4 K/mm3 (0.7-4.5); Lymphocytes % 13.1 % (10-50); Mean Corpuscular Hemoglobin 30.4 pg (27.0-31.2); Mean Platelet Volume 8.6 fl (7.4-10.4); Monocytes # 0.5 K/mm3 (0.1-1.0); Monocytes % 5.1 % (1.7-9.3); Neutrophils # 8.5 K/mm3 (1.8-7.8); Neutrophils % 80.4 % (37.0-80.0); Platelet Count 295 K/mm3 (142-424); Red Blood Count 4.94 M/mm3 (4.60-6.20); Red Cell Distribution Width 12.9 % (11.5-17.5); White Blood Count 10.6 K/mm3 (4.8-10.8)
[2023-12-04 19:48] LABS: Chloride 104 mmol/L (98-107); Potassium 3.9 mmoL/L (3.5-5.1); Sodium 136 mmol/L (136-145)
[2023-12-04 19:50] LABS: Blood Urea Nitrogen 11 mg/dl (9-20); Creatinine Clearance Estimated 219 mL/min (50-200); Estimated Glomerular Filt Rate 107 ml/min (>60); GFR (African American) 129 ML/MIN (>60)
[2023-12-04 19:51] LABS: Alanine Aminotransferase 46 U/L (12-78); Albumin Level 4.5 g/dl (3.5-5.0); Albumin/Globulin Ratio 1.5 (1.1-1.8); Alkaline Phosphatase 68 U/L (38-126); Anion Gap 9.9 mEq/L (5-15); Aspartate Amino Transferase 36 U/L (17-59); Bilirubin,Total 0.5 mg/dl (0.2-1.3); Calcium 9.6 mg/dl (8.4-10.2); Carbon Dioxide 26 mmol/L (22.0-30.0); Globulin 3.1 g/dL (1.3-3.2); Glucose 108 mg/dl (74-100); Lipase 65 U/L (23-300); Total Protein,Serum 7.6 g/dl (6.3-8.2)
[2023-12-04 20:03] LABS: Troponin I < 0.01 ng/ml (0.00-0.034)
[2023-12-04 20:51] VITALS: BP 124/78; PULSE 76; RESP 18; TEMP 36.4; O2SAT 98
== END 2023-12-04 20:54 | disposition home or self-care (01) ==
PROVIDERS: Emergency Provider Student in an Organized Health Care Education/Training Program; PCP Internal Medicine
DX: R07.1 Chest pain on breathing (principal); F41.9 Anxiety disorder, unspecified; Z86.711 Personal history of pulmonary embolism; Z87.891 Personal history of nicotine dependence; Z86.718 Personal history of other venous thrombosis and embolism
CPT/HCPCS: 71045; 80053; 83690; 84484; 85025; 93005; 99285

== ENCOUNTER 2023-12-12 17:10 | Emergency (ER) | payer BC, SELFPAY ==
[2023-12-12 17:15] VITALS: BP 139/84; PULSE 80; RESP 18; TEMP 37.1; O2SAT 98; BMI 40.3
--- NOTE | 2023-12-12 17:33 | XR_ITS ---
PROCEDURE INFORMATION: Exam: XR Right Knee Exam date and time: 12/12/2023 5:41 PM Age: 43 years old Clinical indication: Pain; Knee; Right; Patient HX: Hit on trailer hitch TECHNIQUE: Imaging protocol: Radiologic exam of the right knee. Views: 3 views. COMPARISON: CR XR KNEE RT 3V 03/11/2022 12:07 PM FINDINGS: Bones/joints: See Soft tissues finding. Soft tissues: Mild prepatellar soft tissue swelling without acute osseous abnormality. IMPRESSION: Mild prepatellar soft tissue swelling without acute osseous abnormality.
--- NOTE | 2023-12-12 17:42 | EXP.UTC ---
Discharge Plan Disposition Patient Disposition: Home, Self-Care Condition: Good Prescriptions Prescriptions: No Action Jardiance 10 mg tablet 10 mg PO DAILY Ozempic 1 mg/dose (4 mg/3 mL) pen injector 1 mg SQ WEEKLY olanzapine [Zyprexa] 10 mg tablet 10 mg PO HS Qty: 30 1RF Eliquis 5 mg tablet 5 mg PO BID Qty: 60 5RF bisoprolol fumarate 10 mg tablet 10 mg PO DAILY Qty: 90 3RF albuterol sulfate [Ventolin HFA] 90 mcg/actuation HFA aerosol inhaler 2 inh inhalation Q6H PRN (Reason: shortness of breath or wheezing) 90 Days Qty: 18 3RF hydroxyzine HCl 25 mg tablet 25 mg PO Q8H PRN (Reason: panic attack(s)) Qty: 20 0RF meloxicam 7.5 mg tablet 7.5 mg PO DAILY Patient Comments: TAKE ONE TABLET BY MOUTH EVERY DAY --TAKE WITH FOOD-- Clinical Impressions Clinical Impression: Pain in right knee Discharge ED Provider: Abdulaziz Trujillo [facility] General Stated complaint: AO two weeks ago right knee swollen, pain Time Seen by Provider: 12/12/23 17:42 History of Present Illness Provider Complaint: He states that he stepped down wrong on his right knee off of a trailer about 2 weeks ago. He has had intermittent right knee pain since then. Related Data Home Medications Medication Instructions Recorded Confirmed meloxicam 7.5 mg tablet 7.5 mg PO DAILY 09/21/23 11/16/23 empagliflozin 10 mg tablet 10 mg PO DAILY 11/01/23 11/16/23 (Jardiance) semaglutide 1 mg/dose (4 mg/3 mL) 1 mg SQ WEEKLY 11/01/23 11/16/23 subcutaneous pen injector (Ozempic) Previous Rx's Medication Instructions Recorded olanzapine 10 mg tablet (Zyprexa) 10 mg PO HS #30 tabs 09/07/23 apixaban 5 mg tablet (Eliquis) 5 mg PO BID #60 tabs 09/11/23 bisoprolol fumarate 10 mg tablet 10 mg PO DAILY #90 tabs 09/12/23 hydroxyzine HCl 25 mg tablet 25 mg PO Q8H PRN panic attack(s) 10/29/23 #20 tabs albuterol sulfate 90 mcg/actuation 2 inh inhalation Q6H PRN shortness 11/16/23 aerosol inhaler (Ventolin HFA) of breath or wheezing 90 days #18 grams Allergies Allergy/AdvReac Type Severity Reaction Status Date / Time metformin AdvReac Intermediate Swelling Verified 12/12/23 18:00 of Lip/Tongue/Throat [facility] Disclaimer: The information contained in this section may have been updated after the patient was seen, as this information can be updated by other users. 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 Snoring Daytime somnolence Dyspnea Surgical History History of surgery on arm History of cholecystectomy Family History Other No significant family history Social History Smoking Status: Former smoker tobacco type: cigarettes packs per day: 1 alcohol intake: former substance use type: denies use current occupational status: employed and other Travel in the last 8 weeks: [place] the [place] household members: spouse housing: house number of children: 1 caffeine: Yes ROS Obtained: Yes All systems reviewed & no additional complaints except as documented Constitutional Constitutional: Denies chills and Denies fever(s) Eyes Eyes: Denies eye discharge ENT Ears, Nose, Mouth, and Throat: Denies dizziness, Denies otalgia and Denies sore throat Cardiovascular Cardiovascular: Denies chest pain Respiratory Respiratory: Denies shortness of breath, Denies chest congestion, Denies cough, Denies stridor and Denies wheezing Gastrointestinal Gastrointestingal: Denies nausea or vomiting Musculoskeletal Musculoskeletal: Reports as per HPI Integumentary/Breasts Skin/Breast: Denies rash Neurologic Neurologic: Denies dizziness and Denies paresthesias Allergic/Immunologic Allergic/Immunologic: Denies wheezing Physical Exam General General appearance: alert and in no apparent distress Head Head exam: atraumatic, normocephalic and normal inspection Eye Eye exam: Present normal appearance, PERRL and EOMI ENT ENT exam: Present normal exam, normal oropharynx, mucous membranes moist, TM's normal bilaterally and normal external ear exam Neck Neck exam: Present normal inspection, full ROM and trachea midline; Absent meningismus or lymphadenopathy Chest Chest inspection: Present normal inspection and symmetric chest wall rise; Absent tenderness Respiratory Respiratory exam: Present normal lung sounds bilaterally; Absent respiratory distress Cardiovascular Cardiovascular exam: Present regular rate and normal rhythm; Absent JVD Abdominal Exam Abdominal exam: Present soft and normal bowel sounds; Absent distention, tenderness or guarding Extremities Exam Extremities exam: Present normal capillary refill; Absent calf tenderness Expanded Lower Extremity Exam Right: Hip/Pelvis exam: Present normal inspection and full ROM; Absent tenderness Upper leg exam: Present normal inspection and full ROM; Absent tenderness Knee exam: Present normal inspection, full ROM, tenderness, swelling and knee extension intact; Absent abrasion, laceration, ecchymosis, deformity, crepitus, dislocation, erythema, effusion, anterior drawer sign, posterior draw sign, pain with valgus, laxity with valgus, pain with varus or laxity with varus Lower leg exam: Present normal inspection, full ROM and Achilles tendon intact; Absent tenderness or Homans' sign Ankle exam: Present normal inspection and full ROM; Absent tenderness Foot/toe exam: Present normal inspection and full ROM; Absent tenderness Neurovascular/Tendon exam: Present normal capillary refill and normal 2-point discrimination; Absent pulse deficit, motor deficit, sensory deficit, tendon deficit, extremity cold to touch or pallor Gait: observed and normal Back Exam Back exam: Present normal inspection; Absent tenderness Neurological Exam Neurological exam: Present alert and oriented X3 Psychiatric Psychiatric exam: Present normal affect and normal mood Skin Skin exam: Present warm, dry, intact and normal color Lymphatic Lymphatic Findings: no adenopathy Medical Decision Making Medical Records Medical records reviewed: No I reviewed the patient's medical records. Teofilo Inquiry Pt receiving controlled substance: No Orders (Tests/Meds): ORDERS Category Date Time Status Knee XR right 3 views [XR knee RT 3V] Stat Exams 12/12/23 17:33 Ordered Radiology Data #1: Image(s): Knee Image Reviewed: Yes I reviewed the patient's radiology image and Yes I have reviewed radiologist's interpretation Preliminary Findings: No Fracture Seen PROCEDURE INFORMATION: Exam: XR Right Knee Exam date and time: 12/12/2023 5:41 PM Age: 43 years old Clinical indication: Pain; Knee; Right; Patient HX: Hit on trailer hitch TECHNIQUE: Imaging protocol: Radiologic exam of the right knee. Views: 3 views. COMPARISON: CR XR KNEE RT 3V 03/11/2022 12:07 PM FINDINGS: Bones/joints: See Soft tissues finding. Soft tissues: Mild prepatellar soft tissue swelling without acute osseous abnormality. IMPRESSION: Mild prepatellar soft tissue swelling without acute osseous abnormality.
[2023-12-12 18:35] VITALS: BP 139/84; PULSE 80; RESP 18; TEMP 37.1; O2SAT 98
== END 2023-12-12 18:35 | disposition home or self-care (01) ==
PROVIDERS: Emergency Provider Nurse Practitioner Family; PCP Internal Medicine
DX: M25.561 Pain in right knee (principal); X50.1XXA Overexertion from prolonged static or awkward postures, initial encounter; F41.1 Generalized anxiety disorder; Z86.711 Personal history of pulmonary embolism; Z87.891 Personal history of nicotine dependence
CPT/HCPCS: 73562; 99212; 99213; G0463

== ENCOUNTER 2024-01-01 16:10 | Emergency (ER) | payer BC, SELFPAY ==
--- NOTE | 2024-01-01 16:08 | ECG_ITS ---
APPROVED REPORT Exam: Resting ECG HR:86 bpm ECG Measurements Heart Rate 86 AXES IN 143 P 31 QRSd 90 QRS -6 QT 356 T -2 QTc 399 Conclusion SINUS RHYTHM MODERATE VOLTAGE CRITERIA FOR LVH, CONSIDER NORMAL VARIANT [MEETS CRITERIA IN ONE OF: R(aVL), S(V1), R(V5), R(V5/V6)+S(V1)] BORDERLINE ECG UNCONFIRMED REPORT Electronically signed by : Abdulaziz Harris, 01/01/2024 22:35:09
[2024-01-01 16:10] VITALS: BP 143/89; PULSE 88; RESP 18; TEMP 36.6; O2SAT 96; BMI 40.1
--- NOTE | 2024-01-01 16:16 | PC.NURSE ---
DR MENG AT BEDSIDE
--- NOTE | 2024-01-01 16:18 | XR_ITS ---
FINAL REPORT CLINICAL HISTORY: dyspnea FINDINGS: A single portable view of the chest was obtained. The heart size and pulmonary vascularity are within normal limits. The mediastinum is within normal limits. Mild right base opacities are favored to represent atelectasis or scarring. The bony thorax is intact. IMPRESSION: Mild right base opacities, favor atelectasis or scarring. Reviewed, Interpreted and Dictated by Roderick Grimaldo III, MD Transcribed by Caitlin Aviles Authenticated and [facility]
--- NOTE | 2024-01-01 16:27 | ED_ITS ---
Discharge Plan Disposition Patient Disposition: Home, Self-Care Prescriptions Prescriptions: New hydroxyzine pamoate 50 mg capsule 50 mg PO Q8H PRN (Reason: anxiety ) 7 Days Qty: 21 0RF No Action Jardiance 10 mg tablet 10 mg PO DAILY Ozempic 1 mg/dose (4 mg/3 mL) pen injector 1 mg SQ WEEKLY olanzapine [Zyprexa] 10 mg tablet 10 mg PO HS Qty: 30 1RF Eliquis 5 mg tablet 5 mg PO BID Qty: 60 5RF bisoprolol fumarate 10 mg tablet 10 mg PO DAILY Qty: 90 3RF albuterol sulfate [Ventolin HFA] 90 mcg/actuation HFA aerosol inhaler 2 inh inhalation Q6H PRN (Reason: shortness of breath or wheezing) 90 Days Qty: 18 3RF hydroxyzine HCl 25 mg tablet 25 mg PO Q8H PRN (Reason: panic attack(s)) Qty: 20 0RF meloxicam 7.5 mg tablet 7.5 mg PO DAILY Patient Comments: TAKE ONE TABLET BY MOUTH EVERY DAY --TAKE WITH FOOD-- Referrals Follow up/Referrals: Provider,Referral, MD [Referring] - See instructions Activity Restrictions/Add. Instructions Additional Instructions/Restrictions: No emergent medical condition identified today. Your symptoms are most likely secondary to anxiety please keep your follow-up with Pam Soliz on January 08. Return with significant worsening symptoms. Clinical Impressions Clinical Impression: Chest pain, Anxiety Discharge ED Provider: Malik Harris General Adult HPI General Chief complaint: Anxiety Stated complaint: shortness of breath Time Seen by Provider: 01/01/24 16:14 Mode of Arrival: Ambulatory Source of Information: Patient Limitations: No Limitations Description of Symptoms (Recalled from ER Triage Doc. by RN): patient reports to ER with pain when breathing. Patient states he has been having episodes of pain on right side of chest with breathing, patient states he was seen at [facility] on Monday and diagnosed with pleurisy. History of Present Illness HPI narrative: Patient is a 43-year-old male very well-known to myself presenting today with recurrent and chronic chest pain and difficulty breathing. He had extensive evaluation by pulmonology and cardiology including coronary CTA recently had a CT PE at [place] just a few days ago which was normal as well. Had a questionable pulmonary embolism months ago has been on Eliquis but has never been confirmed with any imaging at our institution. He has had multiple negative workups in our emergency department is followed by health promotion specialist. He presents today with recurrence of similar symptoms including substernal chest pressure nonexertional nonradiating no fevers chills etc. Does suffer from chronic anxiety. Related Data Home Medications Medication Instructions Recorded Confirmed meloxicam 7.5 mg tablet 7.5 mg PO DAILY 09/21/23 11/16/23 empagliflozin 10 mg tablet 10 mg PO DAILY 11/01/23 11/16/23 (Jardiance) semaglutide 1 mg/dose (4 mg/3 mL) 1 mg SQ WEEKLY 11/01/23 11/16/23 subcutaneous pen injector (Ozempic) Previous Rx's Medication Instructions Recorded olanzapine 10 mg tablet (Zyprexa) 10 mg PO HS #30 tabs 09/07/23 apixaban 5 mg tablet (Eliquis) 5 mg PO BID #60 tabs 09/11/23 bisoprolol fumarate 10 mg tablet 10 mg PO DAILY #90 tabs 09/12/23 hydroxyzine HCl 25 mg tablet 25 mg PO Q8H PRN panic attack(s) 10/29/23 #20 tabs albuterol sulfate 90 mcg/actuation 2 inh inhalation Q6H PRN shortness 11/16/23 aerosol inhaler (Ventolin HFA) of breath or wheezing 90 days #18 grams hydroxyzine pamoate 50 mg capsule 50 mg PO Q8H PRN anxiety 7 days 01/01/24 #21 caps Allergies Allergy/AdvReac Type Severity Reaction Status Date / Time metformin AdvReac Intermediate Swelling Verified 12/12/23 18:00 of Lip/Tongue/Throat PFSH [facility] Disclaimer: The information contained in this section may have been updated after the patient was seen, as this information can be updated by other users. 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 Snoring Daytime somnolence Dyspnea Surgical History History of surgery on arm History of cholecystectomy Family History Other No significant family history Social History Smoking Status: Never smoker alcohol intake: former substance use type: denies use current occupational status: employed and other Travel in the last 8 weeks: Inside the [place] household members: spouse housing: house number of children: 1 caffeine: Yes ROS Obtained: Yes All systems reviewed & no additional complaints except as documented Physical Exam General General appearance: alert and in no apparent distress Respiratory Respiratory exam: Present normal lung sounds bilaterally; Absent respiratory distress Cardiovascular Cardiovascular exam: Present regular rate and normal rhythm Abdominal Exam Abdominal exam: Present soft; Absent distention or tenderness Neurological Exam Neurological exam: Present alert and oriented X3 Medical Decision Making Teofilo Inquiry Pt receiving controlled substance: No Vital Signs: 01/01/24 16:10 Temperature 97.9 F Temperature Source Oral Pulse Rate [Right] 88 Respiratory Rate 18 Blood Pressure [Right Arm] 143/89 H Blood Pressure Mean [Right Arm] 107 Blood Pressure Source [Right Arm] Automatic Cuff 02 Sat by Pulse Oximetry 96 Oxygen Delivery Method Room Air Lab Data Lab results reviewed: Yes I reviewed the patient's lab results. Lab Results 01/01/24 16:17: WBC 10.4, RBC 4.77, Hgb 14.5, Hct 43.4, MCV 90.8, MCH 30.4, MCHC 33.5, RDW 12.6, Plt Count 290, MPV 8.3, Neut % (Auto) 75.0, Lymph % (Auto) 18.2, [place] % (Auto) 4.8, Eos % (Auto) 1.4, Baso % (Auto) 0.6, Neut # (Auto) 7.8, Lymph # (Auto) 1.9, [place] # (Auto) 0.5, Eos # (Auto) 0.1, Baso # (Auto) 0.1, Sodium 139, Potassium 4.1, Chloride 106, Carbon Dioxide 26, Anion Gap 11.1, BUN 13, Creatinine 0.70, Estimated Creat Clear 249, Estimated GFR 124, Est GFR ( Amer) 150, Glucose 100, Calcium 9.7, Total Bilirubin 0.3, AST 38, ALT 42, Alkaline Phosphatase 69, Troponin I < 0.01, Total Protein 7.7, Albumin 4.5, Globulin 3.2, Albumin/Globulin Ratio 1.4 01/01/24 16:17 01/01/24 16:17 Orders (Tests/Meds): ED MEDICATIONS Generic Name Dose Route Start Last Admin Trade Name Connie PRN Reason Stop Dose Admin Hydroxyzine Pamoate 50 mg 01/01/24 17:00 Hydroxyzine Pamoate 25mg Capsule PO 01/01/24 17:01 ONCE ONE ORDERS Category Date Time Status CXR --portable [XR chest portable] Stat Exams 01/01/24 16:18 Taken CBC w/Auto Diff [Complete Blood Count Auto Diff] Stat Lab 01/01/24 16:17 Completed CMP [Comprehensive Metabolic Panel] Stat Lab 01/01/24 16:17 Completed Trop I [Troponin I] Stat Lab 01/01/24 16:17 Completed Troponin I Q3H Lab 01/01/24 19:30 Ordered Troponin I Q3H Lab 01/01/24 22:30 Ordered ECG Data Tracing #1: I reviewed this ECG and interpreted as documented below: Ventricular rate of 86 no acute ischemic changes noted no significant conduction abnormalities normal axis HEART Score History (anamnesis): Slightly suspicious ECG: Normal Age: <45 years Risk factors: No known risk factors Troponin: </= normal limit HEART Score: 0 Medical Decision Narrative: 43-year-old male presenting today with above history and physical. Incredibly unlikely this is a cardiopulmonary emergency. Will get a single troponin he has a low heart score EKG is not on ischemic. He is PERC negative had a recent negative CT PE also had a recent normal coronary CTA and is followed by health promotion specialist and ent consultant. He has been compliant with his Eliquis however his diagnosis of pulmonary embolism has been questionable in the past. This is most likely anxiety. Will reassess after his initial workup is complete Chest x-ray performed which I personally interpreted which shows no acute abnormalities Reassessment 5 PM labs unremarkable. Patient anxious he was given a dose of Vistaril in the ED he has a follow-up appointment with Pam Soliz on the of this month prescription of Vistaril is also been given he was discharged in stable condition peer Critical Care Critical Care Time Critical Care Time: No
[2024-01-01 16:29] LABS: Basophils # 0.1 K/mm3 (0-0.2); Basophils % 0.6 % (0.1-2.0); Eosinophils # 0.1 K/mm3 (0.0-0.4); Eosinophils % 1.4 % (0.1-12.0); Hematocrit 43.4 % (42.0-52.0); Hemoglobin 14.5 g/dL (14.1-18.0); Lymphocytes # 1.9 K/mm3 (0.7-4.5); Lymphocytes % 18.2 % (10-50); Mean Corpuscular HGB Conc 33.5 g/dL (31.8-35.4); Mean Corpuscular Hemoglobin 30.4 pg (27.0-31.2); Mean Corpuscular Volume 90.8 fl (80-94); Mean Platelet Volume 8.3 fl (7.4-10.4); Monocytes # 0.5 K/mm3 (0.1-1.0); Monocytes % 4.8 % (1.7-9.3); Neutrophils # 7.8 K/mm3 (1.8-7.8); Platelet Count 290 K/mm3 (142-424); Red Blood Count 4.77 M/mm3 (4.60-6.20); Red Cell Distribution Width 12.6 % (11.5-17.5); White Blood Count 10.4 K/mm3 (4.8-10.8)
[2024-01-01 16:32] LABS: Chloride 106 mmol/L (98-107); Potassium 4.1 mmoL/L (3.5-5.1); Sodium 139 mmol/L (136-145)
[2024-01-01 16:34] LABS: Blood Urea Nitrogen 13 mg/dl (9-20); Creatinine Clearance Estimated 249 mL/min (50-200); Estimated Glomerular Filt Rate 124 ml/min (>60); GFR (African American) 150 ML/MIN (>60)
[2024-01-01 16:35] LABS: Alanine Aminotransferase 42 U/L (12-78); Albumin Level 4.5 g/dl (3.5-5.0); Albumin/Globulin Ratio 1.4 (1.1-1.8); Alkaline Phosphatase 69 U/L (38-126); Anion Gap 11.1 mEq/L (5-15); Aspartate Amino Transferase 38 U/L (17-59); Bilirubin,Total 0.3 mg/dl (0.2-1.3); Calcium 9.7 mg/dl (8.4-10.2); Carbon Dioxide 26 mmol/L (22.0-30.0); Globulin 3.2 g/dL (1.3-3.2); Glucose 100 mg/dl (74-100); Total Protein,Serum 7.7 g/dl (6.3-8.2)
[2024-01-01 16:47] LABS: Troponin I < 0.01 ng/ml (0.00-0.034)
[2024-01-01] MEDS: hydrOXYzine pamoate 25MG CAPSULE 50 MG PO (17:06)
[2024-01-01 17:07] VITALS: BP 129/80; PULSE 79; RESP 18; TEMP 36.6; O2SAT 96
== END 2024-01-01 17:10 | disposition home or self-care (01) ==
PROVIDERS: Emergency Provider Student in an Organized Health Care Education/Training Program; PCP Internal Medicine
DX: R07.9 Chest pain, unspecified (principal); F41.1 Generalized anxiety disorder
CPT/HCPCS: 71045; 80053; 84484; 85025; 93005; 99284

== ENCOUNTER 2024-01-05 16:47 | Emergency (ER) | payer BC, SELFPAY ==
[2024-01-05 16:48] VITALS: BP 134/75; PULSE 70; RESP 17; TEMP 37.1; O2SAT 97; BMI 40.3
[2024-01-05 17:00] VITALS: BP 151/81; PULSE 83; O2SAT 98
--- NOTE | 2024-01-05 17:11 | XR_ITS ---
PROCEDURE INFORMATION: Exam: XR Chest Exam date and time: 01/05/2024 5:14 PM Age: 43 years old Clinical indication: Shortness of breath; Additional info: SOB TECHNIQUE: Imaging protocol: Radiologic exam of the chest. Views: 1 view. COMPARISON: CR XR CHEST PORTABLE 01/01/2024 4:17 PM FINDINGS: Lungs: Normal. Pleural spaces: Normal. No pleural effusion. No pneumothorax. Heart/Mediastinum: Normal. No cardiomegaly. Bones/joints: Unremarkable. IMPRESSION: No acute findings.
--- NOTE | 2024-01-05 17:13 | PC.NURSE ---
DR CHAMPION AT BEDSIDE
--- NOTE | 2024-01-05 17:16 | HMH.EDGENADL ---
Discharge Plan Disposition Patient Disposition: Home, Self-Care Chief Complaint: Anxiety Prescriptions Prescriptions: No Action Jardiance 10 mg tablet 10 mg PO DAILY Ozempic 1 mg/dose (4 mg/3 mL) pen injector 1 mg SQ WEEKLY olanzapine [Zyprexa] 10 mg tablet 10 mg PO HS Qty: 30 1RF Eliquis 5 mg tablet 5 mg PO BID Qty: 60 5RF bisoprolol fumarate 10 mg tablet 10 mg PO DAILY Qty: 90 3RF albuterol sulfate [Ventolin HFA] 90 mcg/actuation HFA aerosol inhaler 2 inh inhalation Q6H PRN (Reason: shortness of breath or wheezing) 90 Days Qty: 18 3RF hydroxyzine HCl 25 mg tablet 25 mg PO Q8H PRN (Reason: panic attack(s)) Qty: 20 0RF meloxicam 7.5 mg tablet 7.5 mg PO DAILY Patient Comments: TAKE ONE TABLET BY MOUTH EVERY DAY --TAKE WITH FOOD-- hydroxyzine pamoate 50 mg capsule 50 mg PO Q8H PRN (Reason: anxiety ) 7 Days Qty: 21 0RF Referrals Follow up/Referrals: Jono Lundberg DO [Primary Care Provider] - See instructions Activity Restrictions/Add. Instructions Additional Instructions/Restrictions: At this time it was felt you are safe to be discharged home. If new or worsening symptoms please do not hesitate to return the emergency department. Please follow-up with behavioral health for long-term control of your anxiety as discussed. Clinical Impressions Clinical Impression: Chest discomfort, Anxiety Discharge ED Provider: Salomon Poon General Adult HPI General Chief complaint: Anxiety Stated complaint: soa chills Time Seen by Provider: 01/05/24 17:10 Mode of Arrival: Ambulatory Source of Information: Patient Limitations: No Limitations Description of Symptoms (Recalled from ER Triage Doc. by RN): Patient states he has been having chills all over and feels like he cant get a full breath. States he took his anxiety meds with no improvement. patient denies other symptoms at this time. History of Present Illness HPI narrative: Patient is a 43-year-old male with past medical history of chest pain, anxiety, pleurisy, PVCs, multiple liver comorbidities who presents emergency department for evaluation of shortness of breath. Onset was acute, occurring since this morning, associated nausea and chills, he took his hydroxyzine with no improvement. Patient has follow-up on the with behavioral health. He has substernal pressure that is associated with this. No other acute complaints at this time. Related Data Home Medications Medication Instructions Recorded Confirmed meloxicam 7.5 mg tablet 7.5 mg PO DAILY 09/21/23 11/16/23 empagliflozin 10 mg tablet 10 mg PO DAILY 11/01/23 11/16/23 (Jardiance) semaglutide 1 mg/dose (4 mg/3 mL) 1 mg SQ WEEKLY 11/01/23 11/16/23 subcutaneous pen injector (Ozempic) Previous Rx's Medication Instructions Recorded olanzapine 10 mg tablet (Zyprexa) 10 mg PO HS #30 tabs 09/07/23 apixaban 5 mg tablet (Eliquis) 5 mg PO BID #60 tabs 09/11/23 bisoprolol fumarate 10 mg tablet 10 mg PO DAILY #90 tabs 09/12/23 hydroxyzine HCl 25 mg tablet 25 mg PO Q8H PRN panic attack(s) 10/29/23 #20 tabs albuterol sulfate 90 mcg/actuation 2 inh inhalation Q6H PRN shortness 11/16/23 aerosol inhaler (Ventolin HFA) of breath or wheezing 90 days #18 grams hydroxyzine pamoate 50 mg capsule 50 mg PO Q8H PRN anxiety 7 days 01/01/24 #21 caps Allergies Allergy/AdvReac Type Severity Reaction Status Date / Time metformin AdvReac Intermediate Swelling Verified 12/12/23 18:00 of Lip/Tongue/Throat PFSH [facility] Disclaimer: The information contained in this section may have been updated after the patient was seen, as this information can be updated by other users. 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 Snoring Daytime somnolence Dyspnea Surgical History History of surgery on arm History of cholecystectomy Family History Other No significant family history Social History Smoking Status: Never smoker alcohol intake: former substance use type: denies use current occupational status: employed and other Travel in the last 8 weeks: [place] the [place] household members: spouse housing: house number of children: 1 caffeine: Yes ROS Obtained: Yes Systems reviewed as appropriate & no additional complaints except as documented Physical Exam General General appearance: alert and in no apparent distress Head Head exam: atraumatic and normocephalic Eye Eye exam: Present PERRL and EOMI ENT ENT exam: Present mucous membranes moist Neck Neck exam: Present normal inspection Chest Chest inspection: Present normal inspection and symmetric chest wall rise Respiratory Respiratory exam: Present normal lung sounds bilaterally; Absent respiratory distress Cardiovascular Cardiovascular exam: Present regular rate and normal rhythm Abdominal Exam Abdominal exam: Present soft; Absent tenderness Extremities Exam Extremities exam: Present normal inspection Neurological Exam Neurological exam: Present alert; Absent motor sensory deficit Psychiatric Psychiatric exam: Present normal affect Skin Skin exam: Present warm and dry Medical Decision Making Teofilo Inquiry Pt receiving controlled substance: No Vital Signs: 01/05/24 16:48 01/05/24 17:00 01/05/24 18:01 Temperature 98.7 F Temperature Source Oral Pulse Rate 83 82 Pulse Rate [Right] 70 Respiratory Rate 17 Blood Pressure 151/81 H 136/87 Blood Pressure [Right Arm] 134/75 Blood Pressure Mean [Right Arm] 94 02 Sat by Pulse Oximetry 97 98 95 Oxygen Delivery Method Room Air 01/05/24 18:30 Temperature Temperature Source Pulse Rate 75 Pulse Rate [Right] Respiratory Rate Blood Pressure 128/78 Blood Pressure [Right Arm] Blood Pressure Mean [Right Arm] 02 Sat by Pulse Oximetry 93 L Oxygen Delivery Method Lab Data Lab Results 01/05/24 17:20: WBC 11.2 H, RBC 4.71, Hgb 14.2, Hct 43.0, MCV 91.3, MCH 30.2, MCHC 33.0, RDW 12.7, Plt Count 298, MPV 8.3, Neut % (Auto) 78.8, Lymph % (Auto) 15.2, [place] % (Auto) 4.7, Eos % (Auto) 0.6, Baso % (Auto) 0.7, Neut # (Auto) 8.9 H, Lymph # (Auto) 1.7, [place] # (Auto) 0.5, Eos # (Auto) 0.1, Baso # (Auto) 0.1, Sodium 138, Potassium 4.2, Chloride 104, Carbon Dioxide 27, Anion Gap 11.2, BUN 10, Creatinine 0.70, Estimated Creat Clear 250, Estimated GFR 124, Est GFR ( Amer) 150, Glucose 96, Calcium 9.8, Total Bilirubin 0.7, AST 32, ALT 38, Alkaline Phosphatase 65, Troponin I < 0.01, NT-Pro-B Natriuret Pep 20.1, Total Protein 7.3, Albumin 4.4, Globulin 2.9, Albumin/Globulin Ratio 1.5, SARS-CoV-2 (PCR) Not detected, Influenza A Untype (PCR) Not detected, Influenza Type B (PCR) Not detected 01/05/24 17:20 01/05/24 17:20 Orders (Tests/Meds): ED MEDICATIONS Discontinued Medications Generic Name Dose Route Start Last Admin Trade Name Freq PRN Reason Stop Dose Admin Hydroxyzine Pamoate 25 mg 01/05/24 17:11 01/05/24 17:25 Hydroxyzine Pamoate 25mg Capsule PO 01/05/24 17:12 Not Given ONCE ONE Lorazepam 0.5 mg 01/05/24 17:17 01/05/24 17:24 Lorazepam 2mg/Ml Vial IV 01/05/24 17:18 0.5 mg ONCE ONE Administration Ondansetron HCl 4 mg 01/05/24 17:17 01/05/24 17:25 Ondansetron 4mg/2ml Vial IV 01/05/24 17:18 4 mg ONCE ONE Administration ORDERS Category Date Time Status CXR --portable [XR chest portable] Stat Exams 01/05/24 17:11 Completed POCUS Point of Care (ER Only) Stat Exams 01/05/24 17:14 Completed BNP [NT Pro Brain Natriuretic Pep.] Stat Lab 01/05/24 17:20 Completed CBC w/Auto Diff [Complete Blood Count Auto Diff] Stat Lab 01/05/24 17:20 Completed CMP [Comprehensive Metabolic Panel] Stat Lab 01/05/24 17:20 Completed Rapid PCR Covid and Flu A/B Stat Lab 01/05/24 17:20 Completed Trop I [Troponin I] Stat Lab 01/05/24 17:20 Completed Troponin I Q3H Lab 01/05/24 20:15 Ordered Troponin I Q3H Lab 01/05/24 23:15 Ordered EKG Request [ECG Request] Stat Y 01/05/24 17:11 Ordered ECG Data Tracing #1: Independently interpreted by me, rate 70, rhythm is regular, axis is normal, no ST elevation in anatomical contiguous leads, Q waves in the inferior leads unchanged from prior, QTc 423. HEART Score History (anamnesis): Slightly suspicious ECG: Non-specific disturbance Age: <45 years Risk factors: 1-2 risk factors Medical Decision Narrative: In summary patient is a 43-year-old male well-known to the emergency department who presents emergency department for evaluation of chest pain, cough, nausea, chills. Patient is hemodynamically stable nontoxic-appearing upon arrival, afebrile. Patient is PERC negative. Doubt cardiac etiology at this time however workup will be conducted with chest x-ray, EKG, single troponin, hematologic labs. Given that symptoms are refractory to Vistaril 0.5 mg of Ativan will be administered, 4 mg of IV Zofran will be administered. Differential also includes viral syndrome given the chills. Patient has follow-up with [facility] on the 16 of this month which he will likely benefit from. Workup reviewed by me, hematologic labs are nonactionable, no MELANI or critical electrolyte abnormality, no anemia, initial troponin undetectably low, viral swab negative. BNP normal. Chest x-ray informally interpreted by me, no acute lobar opacities or large pneumothorax, formal read no acute process. Upon repeat evaluation patient had resolving symptoms status post 0.5 mg Ativan. The utility of Ativan is a long-term control medication and how it is not indicated was discussed. Patient will follow-up with [facility] on an outpatient basis. Procedures Miscellaneous Procedure Procedure Performed: Indication: Shortness of breath Identified cardiac views: Apical four-chamber Findings: Cardiac activity present, no large pericardial effusion, gross wall motion and ejection fraction normal Impression: -From above Images were to permanent archive The study was technically adequate CPT: 10984 This study was performed by me, and I personally interpreted all images/videos. Based on my clinical judgement, these images were adequate although suboptimal and did not necessitate further imaging. Critical Care Critical Care Time Critical Care Time: No
--- NOTE | 2024-01-05 17:18 | ECG_ITS ---
APPROVED REPORT Exam: Resting ECG HR:70 bpm ECG Measurements Heart Rate 70 AXES OH 145 P 51 QRSd 96 QRS 39 QT 403 T 9 QTc 423 Conclusion SINUS RHYTHM PROBABLE INFERIOR MYOCARDIAL INFARCTION , PROBABLY OLD [35 ms Q WAVE IN II/aVF] ABNORMAL ECG Electronically signed by : HAI CHAMPION, 01/05/2024 20:47:05
[2024-01-05] MEDS: LORazepam 2MG/ML VIAL 0.5 MG IV (17:24)
[2024-01-05] MEDS: ONDANSETRON 4MG/2ML VIAL 4 MG IV (17:25)
[2024-01-05 17:30] LABS: Coronavirus 19, PCR Not Detected (NotDetected); Influenza A, PCR Not Detected (NotDetected); Influenza B, PCR Not Detected (NotDetected)
[2024-01-05 17:56] LABS: NT Pro Brain Natriuretic Pep. 20.1 pg/mL (0-125)
[2024-01-05 18:01] VITALS: BP 136/87; PULSE 82; O2SAT 95
[2024-01-05 18:01] LABS: Troponin I < 0.01 ng/ml (0.00-0.034)
--- NOTE | 2024-01-05 18:10 | PC.NURSE ---
ROUNDED ON PT, NO NEEDS AT THIS TIME. CALL LIGHT WITHIN REACH. FAMILY AT BEDSIDE
[2024-01-05 18:30] VITALS: BP 128/78; PULSE 75; O2SAT 93
--- NOTE | 2024-01-05 18:51 | PC.NURSE ---
DR CHAMPION ADDED LABS, LAB NOTIFIED TO USE BLOOD SENT EARLIER
[2024-01-05 18:56] LABS: Basophils # 0.1 K/mm3 (0-0.2); Basophils % 0.7 % (0.1-2.0); Eosinophils # 0.1 K/mm3 (0.0-0.4); Eosinophils % 0.6 % (0.1-12.0); Hemoglobin 14.2 g/dL (14.1-18.0); Lymphocytes # 1.7 K/mm3 (0.7-4.5); Lymphocytes % 15.2 % (10-50); Mean Corpuscular Hemoglobin 30.2 pg (27.0-31.2); Mean Corpuscular Volume 91.3 fl (80-94); Mean Platelet Volume 8.3 fl (7.4-10.4); Monocytes # 0.5 K/mm3 (0.1-1.0); Monocytes % 4.7 % (1.7-9.3); Neutrophils # 8.9 K/mm3 (1.8-7.8); Neutrophils % 78.8 % (37.0-80.0); Platelet Count 298 K/mm3 (142-424); Red Blood Count 4.71 M/mm3 (4.60-6.20); Red Cell Distribution Width 12.7 % (11.5-17.5); White Blood Count 11.2 K/mm3 (4.8-10.8)
[2024-01-05 18:58] LABS: Chloride 104 mmol/L (98-107); Potassium 4.2 mmoL/L (3.5-5.1); Sodium 138 mmol/L (136-145)
[2024-01-05 19:00] LABS: Blood Urea Nitrogen 10 mg/dl (9-20); Creatinine Clearance Estimated 250 mL/min (50-200); Estimated Glomerular Filt Rate 124 ml/min (>60); GFR (African American) 150 ML/MIN (>60)
--- NOTE | 2024-01-05 19:00 | PC.NURSE ---
received report patient states no needs at this time
[2024-01-05 19:01] LABS: Alanine Aminotransferase 38 U/L (12-78); Albumin Level 4.4 g/dl (3.5-5.0); Albumin/Globulin Ratio 1.5 (1.1-1.8); Alkaline Phosphatase 65 U/L (38-126); Anion Gap 11.2 mEq/L (5-15); Aspartate Amino Transferase 32 U/L (17-59); Bilirubin,Total 0.7 mg/dl (0.2-1.3); Calcium 9.8 mg/dl (8.4-10.2); Carbon Dioxide 27 mmol/L (22.0-30.0); Globulin 2.9 g/dL (1.3-3.2); Glucose 96 mg/dl (74-100); Total Protein,Serum 7.3 g/dl (6.3-8.2)
[2024-01-05 19:36] VITALS: BP 134/87; PULSE 78; RESP 18; TEMP 36.6; O2SAT 95
== END 2024-01-05 19:30 | disposition home or self-care (01) ==
PROVIDERS: Emergency Provider Emergency Medicine; PCP Internal Medicine
DX: R07.9 Chest pain, unspecified (principal); R06.02 Shortness of breath; F41.1 Generalized anxiety disorder; R11.0 Nausea; Z87.891 Personal history of nicotine dependence
CPT/HCPCS: 71045; 80053; 83880; 84484; 85025; 87636; 93005; 96374; 96375; 99285; J2405

== ENCOUNTER 2024-01-07 14:24 | Emergency (ER) | payer BC, SELFPAY ==
[2024-01-07 15:15] VITALS: BP 125/68; PULSE 77; RESP 18; TEMP 36.7; O2SAT 98; BMI 44.9
--- NOTE | 2024-01-07 15:16 | XR_ITS ---
PROCEDURE INFORMATION: Exam: XR Right Knee Exam date and time: 01/07/2024 3:16 PM Age: 43 years old Clinical indication: Injury or trauma; Fall; Blunt trauma; Knee; Right; Additional info: Fell 6 weeks ago TECHNIQUE: Imaging protocol: Radiologic exam of the right knee. Views: 3 views. COMPARISON: CR XR KNEE RT 3V 12/12/2023 5:41 PM FINDINGS: Bones/joints: Normal. No fracture evident Soft tissues: Normal. IMPRESSION: No acute findings.
--- NOTE | 2024-01-07 15:37 | ED_ITS ---
Discharge Plan Disposition Patient Disposition: Home, Self-Care Condition: Good Prescriptions Prescriptions: No Action Jardiance 10 mg tablet 10 mg PO DAILY olanzapine [Zyprexa] 10 mg tablet 10 mg PO HS Qty: 30 1RF Eliquis 5 mg tablet 5 mg PO BID Qty: 60 5RF bisoprolol fumarate 10 mg tablet 10 mg PO DAILY Qty: 90 3RF Referrals Follow up/Referrals: Jono Lundberg DO [Primary Care Provider] - See instructions Activity Restrictions/Add. Instructions Additional Instructions/Restrictions: You was given outpatient order for Ultrasound of your right knee, call Scheduling in the morning first thing and inform them that you need to get scheduled for Ultrasound of right knee and that you have an outpatient order [phone] you was given outpatient order for Venous Doppler for your right lower extremity they should call you tomorrow with appointment Follow up with your Family Doctor for the results and further treatment If you have any worsening of bruising, swelling or discoloration of right lower extremity go straight to Emergency Room Clinical Impressions Clinical Impression: Knee pain Stand Alone Forms Stand Alone Forms: Work/School Release Instructions Patient Instructions: Contusion Discharge ED Provider: Mary Kent [facility] [place] HPI General Stated complaint: right leg pain Mode of Arrival: Ambulatory Source of Information: Patient Limitations: No Limitations Time Seen by Provider: 01/07/24 15:37 Description of Symptoms (Recalled from Triage Doc. by RN): PATIENT STATES HE INJURED HIS RIGHT LEFT APPROX 6 WEEKS AGO AND NOW HAS A BRUISE TO RIGHT CALF THAT APPEARED YESTERDAY HEENT Symptoms (Recalled from RN notes): No Resp Symptoms (Recalled from RN notes): No Skin Symptoms (Recalled from RN notes): No MS Symptoms (Recalled from RN notes): Yes Functional Status (Recalled from RN notes): WNL History of Present Illness Provider Complaint: Patient states that he fell about 6wks ago and hurt his right knee States that he he has been having pain and swelling on and off since States he did fall a few days ago but fell on his left leg and now noticing bruising to his right leg behind his knee patient states on Eliquis Related Data Home Medications Medication Instructions Recorded Confirmed empagliflozin 10 mg tablet 10 mg PO DAILY 11/01/23 11/16/23 (Jardiance) Previous Rx's Medication Instructions Recorded olanzapine 10 mg tablet (Zyprexa) 10 mg PO HS #30 tabs 09/07/23 apixaban 5 mg tablet (Eliquis) 5 mg PO BID #60 tabs 09/11/23 bisoprolol fumarate 10 mg tablet 10 mg PO DAILY #90 tabs 09/12/23 Allergies Allergy/AdvReac Type Severity Reaction Status Date / Time metformin AdvReac Intermediate Swelling Verified 12/12/23 18:00 of Lip/Tongue/Throat Worker's Comp Is this a Worker's Comp case?: No [facility] Disclaimer: The information contained in this section may have been updated after the patient was seen, as this information can be updated by other users. 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 Snoring Daytime somnolence Dyspnea Surgical History History of surgery on arm History of cholecystectomy Family History Other No significant family history Social History Smoking Status: Never smoker alcohol intake: former substance use type: denies use current occupational status: employed and other Travel in the last 8 weeks: Inside the [place] household members: spouse housing: house number of children: 1 caffeine: Yes ROS Obtained: Yes All systems reviewed & no additional complaints except as documented and Yes Systems reviewed as appropriate & no additional complaints except as documented Constitutional Constitutional: Reports system reviewed and no additional complaints, except as documented and Reports as per HPI Cardiovascular Cardiovascular: Reports system reviewed and no additional complaints, except as documented and Reports as per HPI Respiratory Respiratory: Reports system reviewed and no additional complaints, except as documented and Reports as per HPI Gastrointestinal Gastrointestingal: Reports system reviewed and no additional complaints, except as documented and as per HPI Musculoskeletal Musculoskeletal: Reports system reviewed and no additional complaints, except as documented and Reports as per HPI Comments: bruising behind right knee Physical Exam General General appearance: alert and in no apparent distress Respiratory Respiratory exam: Present normal lung sounds bilaterally; Absent respiratory distress or wheezes Cardiovascular Cardiovascular exam: Present regular rate, normal rhythm and normal heart sounds Expanded Lower Extremity Exam Right: Leg image: 2 1. bruising noted, no warmth, no redness 2. swollen area noted, no redness, no warmth no discoloration Knee exam: Present ecchymosis; Absent tenderness Lower leg exam: Present ecchymosis and Achilles tendon intact; Absent Homans' sign Gait: observed and normal Neurological Exam Neurological exam: Present alert, oriented X3 and normal gait Medical Decision Making Teofilo Inquiry Pt receiving controlled substance: No Teofilo was queried for this patient: No Vital Signs: 01/07/24 15:15 Temperature 98.1 F Temperature Source Oral Pulse Rate [Left Brachial] 77 Respiratory Rate 18 Blood Pressure [Left Arm] 125/68 Blood Pressure Mean [Left Arm] 87 Blood Pressure Source [Left Arm] Automatic Cuff Blood Pressure Position [Left Arm] Sitting 02 Sat by Pulse Oximetry 98 Oxygen Delivery Method Room Air Orders (Tests/Meds): ORDERS Category Date Time Status XR knee RT 3V Stat Exams 01/07/24 15:16 Taken Radiology Data #1: Image(s): Knee Image Reviewed: Yes I have reviewed radiologist's interpretation IMPRESSION: No acute findings. Medical Decision Narrative: Patient states that he is on Eliquis 5mg BID for PE discussed with patient to make sure that he continues taking this medication and will order venous doppler of right lower extremity Spoke with Dr Lundberg and informed him of patient complaints and findings Will order out patient Venous Doppler and Ultrasound of palpable area on right knee and request results be sent to Dr Lundberg patient was given out patient orders for both
[2024-01-07 17:07] VITALS: BP 125/68; PULSE 77; RESP 18; TEMP 36.7; O2SAT 98
== END 2024-01-07 17:10 | disposition home or self-care (01) ==
PROVIDERS: Emergency Provider Nurse Practitioner; PCP Internal Medicine
DX: M25.561 Pain in right knee (principal); S80.01XA Contusion of right knee, initial encounter; Z79.01 Long term (current) use of anticoagulants; W19.XXXA Unspecified fall, initial encounter; Z86.711 Personal history of pulmonary embolism; F41.1 Generalized anxiety disorder
CPT/HCPCS: 73562; 99212; 99214; G0463

== ENCOUNTER 2024-01-08 16:21 | Outpatient (CLI) | payer BC, SELFPAY ==
--- NOTE | 2024-01-08 | CA_ITS ---
FINAL REPORT TECHNIQUE: extremity venous duplex was performed with augmentation and compression. CLINICAL HISTORY: HTN, obesity. RLE pain x 3 weeks. 6 weeks ago he fell off trailer and injured right leg. Bruising present. He states he had a PE 6 months ago and was placed on Eliquis. Continues to take this blood thinner. COMPARISON: None FINDINGS: Proper flow is seen throughout the deep venous system. There is no evidence of deep venous thrombosis of the right lower extremity. IMPRESSION: No deep venous thrombosis of the right lower extremity. Reviewed, Interpreted and Dictated by Etienne Cuellar MD Transcribed by Genet Rodriguez Authenticated and . [facility]
== END 2024-01-08 23:59 | disposition home or self-care (01) ==
LOC: RT 16:25
PROVIDERS: PCP Internal Medicine; Visit Provider Nurse Practitioner
DX: M79.604 Pain in right leg (principal); S80.11XA Contusion of right lower leg, initial encounter
CPT/HCPCS: 93971

== ENCOUNTER 2024-01-09 08:52 | Outpatient (CLI) | payer BC, SELFPAY ==
--- NOTE | 2024-01-09 09:01 | US_ITS ---
FINAL REPORT CLINICAL HISTORY: RT PALPABLE AREA BELOW RIGHT KNEE COMPARISON: None FINDINGS: Limited sonographic images were obtained of the soft tissues of the right knee in the area of interest. There is a hypoechoic ovoid collection measuring up to 5.3 x 0.7 cm which corresponds to the clinical abnormality. This likely represents posttraumatic hematoma or seroma. IMPRESSION: Probable posttraumatic hematoma or seroma in the area of interest. Reviewed, Interpreted and Dictated by Etienne Cuellar MD Transcribed by Jennifer Verma Authenticated and [facility]
== END 2024-01-09 23:59 | disposition home or self-care (01) ==
LOC: RAD 08:53
PROVIDERS: PCP Internal Medicine; Visit Provider Nurse Practitioner
DX: M25.561 Pain in right knee (principal); R22.41 Localized swelling, mass and lump, right lower limb
CPT/HCPCS: 76882

== ENCOUNTER 2024-01-16 17:38 | Emergency (ER) | payer BC, SELFPAY ==
--- NOTE | 2024-01-16 17:48 | XR_ITS ---
PROCEDURE INFORMATION: Exam: XR Chest Exam date and time: 01/16/2024 5:52 PM Age: 43 years old Clinical indication: Dyspnea; Additional info: Dyspnea, chest pain TECHNIQUE: Imaging protocol: Radiologic exam of the chest. Views: 1 view. COMPARISON: CR XR CHEST PORTABLE 01/05/2024 5:14 PM FINDINGS: Lungs: No consolidation. Pleural spaces: No pleural effusion. No pneumothorax. Heart/Mediastinum: No cardiomegaly. Bones/joints: Unremarkable. IMPRESSION: No acute pulmonary findings.
[2024-01-16 17:51] VITALS: BP 138/80; PULSE 88; RESP 20; TEMP 36.8; O2SAT 97; BMI 40.1
--- NOTE | 2024-01-16 17:54 | ED_ITS ---
Discharge Plan Disposition Patient Disposition: Home, Self-Care Condition: Good Prescriptions Prescriptions: No Action Jardiance 10 mg tablet 10 mg PO DAILY olanzapine [Zyprexa] 10 mg tablet 10 mg PO HS Qty: 30 1RF hydroxyzine pamoate [Vistaril] 25 mg capsule 25 mg PO QID PRN (Reason: for increased anxiety) Qty: 120 1RF Eliquis 5 mg tablet 5 mg PO BID Qty: 60 5RF bisoprolol fumarate 10 mg tablet 10 mg PO DAILY Qty: 90 3RF Referrals Follow up/Referrals: Jono Lundberg DO [Primary Care Provider] - See instructions Activity Restrictions/Add. Instructions Additional Instructions/Restrictions: Please call your mental health provider first thing in the morning to establish a follow-up for this visit. Please follow-up with your PCP in 1 week. Please follow-up with cardiology closely at your normal scheduled visit. Clinical Impressions Clinical Impression: Right-sided chest pain, Anxiety disorder Discharge ED Provider: Jagdeep Hyman HPI <MEDARDO Beck - Last Filed: 01/16/24 22:01> General Chief Complaint: Shortness of Breath/Dyspnea Stated Complaint: SOA, lung pain, abd pain Time Seen by Provider: 01/16/24 17:44 History of Present Illness HPI narrative: Patient presents for evaluation of chest pain and shortness of breath. Patient reports that he has a long history of anxiety and felt short of breath with some chest pain that he thought might be anxiety so he took his normal Vistaril however it offered no relief from him symptoms. Patient states that this feels different than his previous episodes of anxiety including how fast it came on along with the chest pain. Patient also reports nausea but no diaphoresis vomiting headache chills hemoptysis hematochezia melena Related Data Home Medications Medication Instructions Recorded Confirmed empagliflozin 10 mg tablet 10 mg PO DAILY 11/01/23 11/16/23 (Jardiance) Previous Rx's Medication Instructions Recorded apixaban 5 mg tablet (Eliquis) 5 mg PO BID #60 tabs 09/11/23 bisoprolol fumarate 10 mg tablet 10 mg PO DAILY #90 tabs 09/12/23 hydroxyzine pamoate 25 mg capsule 25 mg PO QID PRN for increased 01/09/24 (Vistaril) anxiety #120 caps olanzapine 10 mg tablet (Zyprexa) 10 mg PO HS #30 tabs 01/09/24 Allergies Allergy/AdvReac Type Severity Reaction Status Date / Time metformin AdvReac Intermediate Swelling Verified 12/12/23 18:00 of Lip/Tongue/Throat [facility] <MEDARDO Beck - Last Filed: 01/16/24 22:01> [facility] Disclaimer: The information contained in this section may have been updated after the patient was seen, as this information can be updated by other users. 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 Snoring Daytime somnolence Dyspnea Surgical History History of surgery on arm History of cholecystectomy Family History Other No significant family history Social History Smoking Status: Never smoker alcohol intake: former substance use type: denies use current occupational status: employed and other Travel in the last 8 weeks: Inside the [place] household members: spouse housing: house number of children: 1 caffeine: Yes <MEDARDO Bekc - Last Filed: 01/16/24 22:01> ROS Obtained: Yes Systems reviewed as appropriate & no additional complaints except as documented Physical Exam <MEDARDO Beck - Last Filed: 01/16/24 22:01> General General appearance: alert and in no apparent distress Head Head exam: atraumatic and normal inspection Eye Eye exam: Present normal appearance, PERRL and EOMI ENT ENT exam: Present normal exam, normal oropharynx and mucous membranes moist Neck Neck exam: Present normal inspection, full ROM and trachea midline; Absent lymphadenopathy Chest Chest inspection: Present normal inspection and symmetric chest wall rise Respiratory Respiratory exam: Present normal lung sounds bilaterally; Absent respiratory distress, wheezes or accessory muscle use Cardiovascular Cardiovascular exam: Present regular rate, normal rhythm, normal heart sounds, +S1 and +S2 Abdominal Exam Abdominal exam: Present soft (But obese) and normal bowel sounds; Absent tenderness Extremities Exam Extremities exam: Present normal inspection and full ROM Back Exam Back exam: Present normal inspection and full ROM; Absent tenderness Neurological Exam Neurological exam: Present alert, oriented X3 and CN II-XII intact Psychiatric Psychiatric exam: Present normal affect and normal mood Skin Skin exam: Present warm, dry and normal color HEART Score <MEDARDO Beck - Last Filed: 01/16/24 22:01> HEART Score HEART Score assessment performed?: Yes History (anamnesis): Slightly suspicious ECG: Non-specific disturbance Age: <45 years Risk factors: 3 or more risk factors Troponin: </= normal limit HEART Score: 3 <Jagdeep Hyman MD - Last Filed: 01/16/24 22:23> HEART Score HEART Score: 3 Critical Care <MEDARDO Beck - Last Filed: 01/16/24 22:01> Critical Care Time Critical Care Time: No Medical Decision Making <MEDARDO Beck - Last Filed: 01/16/24 22:01> Medical Records Medical records reviewed: Yes I reviewed the patient's medical records. Teofilo Inquiry Pt receiving controlled substance: No Vital Signs Vital Signs: 01/16/24 17:51 01/16/24 18:24 01/16/24 18:30 Temperature 98.2 F Temperature Source Oral Pulse Rate 82 88 Pulse Rate [Left Radial] 88 Respiratory Rate 20 12 12 Blood Pressure 118/72 111/73 Blood Pressure [Right Arm] 138/80 Blood Pressure Mean [Right Arm] 99 Blood Pressure Source Blood Pressure Position 02 Sat by Pulse Oximetry 97 99 98 Oxygen Delivery Method Room Air Room Air Room Air 01/16/24 22:04 Temperature 98.5 F Temperature Source Oral Pulse Rate 68 Pulse Rate [Left Radial] Respiratory Rate 18 Blood Pressure 139/90 Blood Pressure [Right Arm] Blood Pressure Mean [Right Arm] Blood Pressure Source Automatic Cuff Blood Pressure Position Sitting 02 Sat by Pulse Oximetry Oxygen Delivery Method Room Air Lab Data Lab results reviewed: Yes I reviewed the patient's lab results. Labs: Lab Results 01/16/24 17:54: WBC 9.4, RBC 4.90, Hgb 14.4, Hct 44.0, MCV 89.7, MCH 29.5, MCHC 32.8, RDW 13.1, Plt Count 297, MPV 8.3, Neut % (Auto) 74.1, Lymph % (Auto) 18.4, [place] % (Auto) 5.4, Eos % (Auto) 1.5, Baso % (Auto) 0.6, Neut # (Auto) 7.0, Lymph # (Auto) 1.7, [place] # (Auto) 0.5, Eos # (Auto) 0.1, Baso # (Auto) 0.1, PT 10.4, INR 0.96, D-Dimer 0.93 H, Sodium 139, Potassium 3.8, Chloride 107, Carbon Dioxide 26, Anion Gap 9.8, BUN 11, Creatinine 0.80, Estimated Creat Clear 218, Estimated GFR 107, Est GFR ( Amer) 129, Glucose 134 H, Calcium 9.6, Magnesium 1.8, Total Bilirubin 0.4, AST 41, ALT 55, Alkaline Phosphatase 59, Troponin I < 0.01, NT-Pro-B Natriuret Pep < 20.0, Total Protein 7.5, Albumin 4.3, Globulin 3.2, Albumin/Globulin Ratio 1.3, Lipase 126, TSH 2.27 01/16/24 17:56: SARS-CoV-2 (PCR) Not detected, Influenza A Untype (PCR) Not detected, Influenza Type B (PCR) Not detected 01/16/24 18:48: Urine Color Yellow, Urine Appearance Clear, Urine pH 6.0, Ur Specific [place] >= 1.030, Urine Protein Negative, Urine Glucose (UA) Negative, Urine Ketones Negative, Urine Blood Negative, Urine Nitrate Negative, Urine Bilirubin Negative, Urine Urobilinogen 0.2, Ur Leukocyte Esterase Negative, Urine RBC Occasional, Urine WBC Occasional, Ur Squamous Epith Cells Occasional, Urine Bacteria None, Urine Mucus Trace 01/16/24 21:15: Troponin I < 0.01 01/16/24 17:54 01/16/24 17:54 Response Orders (Tests/Meds): ED MEDICATIONS Discontinued Medications Generic Name Dose Route Start Last Admin Trade Name Freq PRN Reason Stop Dose Admin Acetaminophen 1,000 mg 01/16/24 17:48 01/16/24 18:15 Acetaminophen 1,000mg/100ml Vial IV 01/16/24 17:49 1,000 mg ONCE ONE Administration Albuterol/Ipratropium 3 ml 01/16/24 17:48 01/16/24 18:15 Ipratropium/Albuterol 3 Ml [facility] hospital 01/16/24 17:49 3 ml ONCE ONE Administration Belladonna Alkaloids 60 ml 01/16/24 18:00 01/16/24 18:15 Belladonna Alkaloids 60 Ml Ml PO 01/16/24 18:01 60 ml ONCE ONE Administration Diazepam 2 mg 01/16/24 17:48 01/16/24 18:15 Diazepam 10mg/2ml Syringe IV 01/16/24 17:49 2 mg ONCE ONE Administration Iopamidol 75 ml 01/16/24 19:09 01/16/24 19:11 Iopamidol-370 (76%);100ml Bottle IV 01/16/24 19:10 75 ml ONCE ONE Administration Ketorolac Tromethamine 15 mg 01/16/24 17:48 01/16/24 18:15 Ketorolac 30mg/Ml Vial IV 01/16/24 17:49 15 mg ONCE ONE Administration Sodium Chloride 50 ml 01/16/24 19:09 01/16/24 19:11 0.9 % Sodium Chloride 50 Ml Vial IV 01/16/24 19:10 50 ml ONCE ONE Administration Sodium Chloride 10 ml 01/16/24 19:09 01/16/24 19:11 Sodium Chloride 0.9% 10ml Syr (Rad Only) IV 02/15/24 19:08 10 ml NEEDED PRN Administration Maintain IV Site ORDERS Category Date Time Status CT angio chest PE protocol Stat Cat Scan 01/16/24 18:59 Completed Chest XR -- portable [XR chest portable] Stat Exams 01/16/24 17:48 Completed BNP [NT Pro Brain Natriuretic Pep.] Stat Lab 01/16/24 17:54 Completed CBC w/Auto Diff [Complete Blood Count Auto Diff] Stat Lab 01/16/24 17:54 Completed CMP [Comprehensive Metabolic Panel] Stat Lab 01/16/24 17:54 Completed D-Dimer Stat Lab 01/16/24 17:54 Completed INR [Prothrombin Time INR] Stat Lab 01/16/24 17:54 Completed Lipase Stat Lab 01/16/24 17:54 Completed Magnesium Stat Lab 01/16/24 17:54 Completed Rapid PCR Covid and Flu A/B Stat Lab 01/16/24 17:56 Completed TSH [Thyroid Stimulating Hormone] Stat Lab 01/16/24 17:54 Completed Trop I [Troponin I] Stat Lab 01/16/24 17:54 Completed Troponin I Q3H Lab 01/16/24 21:15 Completed UA [Urinalysis and Microscopic] Stat Lab 01/16/24 18:48 Completed MDM Narrative Medical Decision Narrative: In summary patient is a 43-year-old male who presents to the emergency department for evaluation of shortness of breath and chest pain. Patient is hemodynamically stable upon arrival, febrile. Physical exam is remarkable for nonreducible subjective chest pain in the right chest that radiates to his back. Differential diagnosis includes ACS versus PE versus pancreatitis versus pneumonia versus gastrointestinal cause versus anxiety etc. Initial workup will be conducted with twelve-lead EKG plan for chest x-ray hematologic labs urinalysis. Initial interventions include Toradol Tylenol GI cocktail Valium. Initial workup reviewed by me shows an elevated D-dimer but the remainder of his hematologic labs are nonactionable including a normal troponin. The patient was placed in observation status at 1900 because of continued right sided chest pain refractory to any interventions. Medical necessity for observational status is serial troponins. The patient was provided serial reevaluations and cardiac monitoring while awaiting results. Results of his second troponin are again undetectable. Because of these results we have essentially ruled out any life- threatening or serious problem including ACS and PE. Total time in observation was 170 minutes. Patient will be referred to cardiology and PCP for close follow-up and patient will call his mental health provider for close follow-up as well. EKG independently interpreted, sinus rhythm 84 beats a minute no ST or T wave changes concerning for acute ischemia. Patient does have isolated T wave inversions in lead III without reciprocal change. Nondiagnostic. Intervals within normal limits. [place] normal. <Jagdeep Hyman MD - Last Filed: 01/16/24 22:23> Vital Signs Vital Signs: 01/16/24 17:51 01/16/24 18:24 01/16/24 18:30 Temperature 98.2 F Temperature Source Oral Pulse Rate 82 88 Pulse Rate [Left Radial] 88 Respiratory Rate 20 12 12 Blood Pressure 118/72 111/73 Blood Pressure [Right Arm] 138/80 Blood Pressure Mean [Right Arm] 99 Blood Pressure Source Blood Pressure Position 02 Sat by Pulse Oximetry 97 99 98 Oxygen Delivery Method Room Air Room Air Room Air 01/16/24 22:04 Temperature 98.5 F Temperature Source Oral Pulse Rate 68 Pulse Rate [Left Radial] Respiratory Rate 18 Blood Pressure 139/90 Blood Pressure [Right Arm] Blood Pressure Mean [Right Arm] Blood Pressure Source Automatic Cuff Blood Pressure Position Sitting 02 Sat by Pulse Oximetry Oxygen Delivery Method Room Air Lab Data Labs: Lab Results 01/16/24 17:54: WBC 9.4, RBC 4.90, Hgb 14.4, Hct 44.0, MCV 89.7, MCH 29.5, MCHC 32.8, RDW 13.1, Plt Count 297, MPV 8.3, Neut % (Auto) 74.1, Lymph % (Auto) 18.4, [place] % (Auto) 5.4, Eos % (Auto) 1.5, Baso % (Auto) 0.6, Neut # (Auto) 7.0, Lymph # (Auto) 1.7, [place] # (Auto) 0.5, Eos # (Auto) 0.1, Baso # (Auto) 0.1, PT 10.4, INR 0.96, D-Dimer 0.93 H, Sodium 139, Potassium 3.8, Chloride 107, Carbon Dioxide 26, Anion Gap 9.8, BUN 11, Creatinine 0.80, Estimated Creat Clear 218, Estimated GFR 107, Est GFR ( Amer) 129, Glucose 134 H, Calcium 9.6, Magnesium 1.8, Total Bilirubin 0.4, AST 41, ALT 55, Alkaline Phosphatase 59, Troponin I < 0.01, NT-Pro-B Natriuret Pep < 20.0, Total Protein 7.5, Albumin 4.3, Globulin 3.2, Albumin/Globulin Ratio 1.3, Lipase 126, TSH 2.27 01/16/24 17:56: SARS-CoV-2 (PCR) Not detected, Influenza A Untype (PCR) Not detected, Influenza Type B (PCR) Not detected 01/16/24 18:48: Urine Color Yellow, Urine Appearance Clear, Urine pH 6.0, Ur Specific [place] >= 1.030, Urine Protein Negative, Urine Glucose (UA) Negative, Urine Ketones Negative, Urine Blood Negative, Urine Nitrate Negative, Urine Bilirubin Negative, Urine Urobilinogen 0.2, Ur Leukocyte Esterase Negative, Urine RBC Occasional, Urine WBC Occasional, Ur Squamous Epith Cells Occasional, Urine Bacteria None, Urine Mucus Trace 01/16/24 21:15: Troponin I < 0.01 Response Orders (Tests/Meds): ED MEDICATIONS Discontinued Medications Generic Name Dose Route Start Last Admin Trade Name Connie PRN Reason Stop Dose Admin Acetaminophen 1,000 mg 01/16/24 17:48 01/16/24 18:15 Acetaminophen 1,000mg/100ml Vial IV 01/16/24 17:49 1,000 mg ONCE ONE Administration Albuterol/Ipratropium 3 ml 01/16/24 17:48 01/16/24 18:15 Ipratropium/Albuterol 3 Ml Neb IH 01/16/24 17:49 3 ml ONCE ONE Administration Belladonna Alkaloids 60 ml 01/16/24 18:00 01/16/24 18:15 Belladonna Alkaloids 60 Ml Ml PO 01/16/24 18:01 60 ml ONCE ONE Administration Diazepam 2 mg 01/16/24 17:48 01/16/24 18:15 Diazepam 10mg/2ml Syringe IV 01/16/24 17:49 2 mg ONCE ONE Administration Iopamidol 75 ml 01/16/24 19:09 01/16/24 19:11 Iopamidol-370 (76%);100ml Bottle IV 01/16/24 19:10 75 ml ONCE ONE Administration Ketorolac Tromethamine 15 mg 01/16/24 17:48 01/16/24 18:15 Ketorolac 30mg/Ml Vial IV 01/16/24 17:49 15 mg ONCE ONE Administration Sodium Chloride 50 ml 01/16/24 19:09 01/16/24 19:11 0.9 % Sodium Chloride 50 Ml Vial IV 01/16/24 19:10 50 ml ONCE ONE Administration Sodium Chloride 10 ml 01/16/24 19:09 01/16/24 19:11 Sodium Chloride 0.9% 10ml Syr (Rad Only) IV 02/15/24 19:08 10 ml NEEDED PRN Administration Maintain IV Site ORDERS Category Date Time Status CT angio chest PE protocol Stat Cat Scan 01/16/24 18:59 Completed Chest XR -- portable [XR chest portable] Stat Exams 01/16/24 17:48 Completed BNP [NT Pro Brain Natriuretic Pep.] Stat Lab 01/16/24 17:54 Completed CBC w/Auto Diff [Complete Blood Count Auto Diff] Stat Lab 01/16/24 17:54 Completed CMP [Comprehensive Metabolic Panel] Stat Lab 01/16/24 17:54 Completed D-Dimer Stat Lab 01/16/24 17:54 Completed INR [Prothrombin Time INR] Stat Lab 01/16/24 17:54 Completed Lipase Stat Lab 01/16/24 17:54 Completed Magnesium Stat Lab 01/16/24 17:54 Completed Rapid PCR Covid and Flu A/B Stat Lab 01/16/24 17:56 Completed TSH [Thyroid Stimulating Hormone] Stat Lab 01/16/24 17:54 Completed Trop I [Troponin I] Stat Lab 01/16/24 17:54 Completed Troponin I Q3H Lab 01/16/24 21:15 Completed UA [Urinalysis and Microscopic] Stat Lab 01/16/24 18:48 Completed MDM Narrative Medical Decision Narrative: In summary patient is a 43-year-old male who presents to the emergency department for evaluation of shortness of breath and chest pain. Patient is hemodynamically stable upon arrival, febrile. Physical exam is remarkable for nonreducible subjective chest pain in the right chest that radiates to his back. Differential diagnosis includes ACS versus PE versus pancreatitis versus pneumonia versus gastrointestinal cause versus anxiety etc. Initial workup will be conducted with twelve-lead EKG plan for chest x-ray hematologic labs urinalysis. Initial interventions include Toradol Tylenol GI cocktail Valium. Initial workup reviewed by me shows an elevated D-dimer but the remainder of his hematologic labs are nonactionable including a normal troponin. The patient was placed in observation status at 1900 because of continued right sided chest pain refractory to any interventions. Medical necessity for observational status is serial troponins. The patient was provided serial reevaluations and cardiac monitoring while awaiting results. Results of his second troponin are again undetectable. Because of these results we have essentially ruled out any life- threatening or serious problem including ACS and PE. Total time in observation was 170 minutes. Patient will be referred to cardiology and PCP for close follow-up and patient will call his mental health provider for close follow-up as well. EKG independently interpreted, sinus rhythm 84 beats a minute no ST or T wave changes concerning for acute ischemia. Patient does have isolated T wave inversions in lead III without reciprocal change. Nondiagnostic. Intervals within normal limits. [place] normal. Because patient at baseline without signs or symptoms of clinical decompensation, deemed appropriate for discharge. Results were relayed to patient who voiced understanding and were agreeable to outpatient management and follow up. I discussed my clinical impression with patient and answered all questions. At this time, the evidence for any other entities in the differential is insufficient to warrant any further testing or ED observation. This was explained as well. Advisory was given that persistent or worsening symptoms require further evaluation. I confirmed the understanding of this discussion. I was consulted by the RONNI, and we discussed the complexity of the problems being addressed. I approved the treatment and management plan for this patient?s care in the Emergency Department, thus performing a substantive portion of the medical decision making. Jagdeep Hyman MD
--- NOTE | 2024-01-16 17:54 | ECG_ITS ---
APPROVED REPORT Exam: Resting ECG HR:84 bpm ECG Measurements Heart Rate 84 AXES NE 144 P 34 QRSd 98 QRS 10 QT 376 T -3 QTc 417 Conclusion SINUS RHYTHM POSSIBLE LEFT VENTRICULAR HYPERTROPHY INFERIOR MYOCARDIAL INFARCTION, old Nondiagnostic T wave inversions lead III Electronically signed by : AUDELIA CARR, 01/16/2024 21:00:35
[2024-01-16 18:10] LABS: Coronavirus 19, PCR Not Detected (NotDetected); Influenza A, PCR Not Detected (NotDetected); Influenza B, PCR Not Detected (NotDetected)
[2024-01-16] MEDS: KETOROLAC 30MG/ML VIAL 15 MG IV (18:15)
[2024-01-16] MEDS: BELLADONNA ALKALOIDS 60 ML ML PO (18:15)
[2024-01-16] MEDS: diazePAM 10MG/2ML SYRINGE 2 MG IV (18:15)
[2024-01-16] MEDS: IPRATROPIUM/ALBUTEROL 3 ML NEB IH (18:15)
[2024-01-16] MEDS: ACETAMINOPHEN 1,000MG/100ML VIAL 1000 MG IV (18:15)
[2024-01-16 18:17] LABS: Chloride 107 mmol/L (98-107)
[2024-01-16 18:18] LABS: Basophils # 0.1 K/mm3 (0-0.2); Basophils % 0.6 % (0.1-2.0); Eosinophils # 0.1 K/mm3 (0.0-0.4); Eosinophils % 1.5 % (0.1-12.0); Hemoglobin 14.4 g/dL (14.1-18.0); Lymphocytes # 1.7 K/mm3 (0.7-4.5); Lymphocytes % 18.4 % (10-50); Mean Corpuscular HGB Conc 32.8 g/dL (31.8-35.4); Mean Corpuscular Hemoglobin 29.5 pg (27.0-31.2); Mean Corpuscular Volume 89.7 fl (80-94); Mean Platelet Volume 8.3 fl (7.4-10.4); Monocytes # 0.5 K/mm3 (0.1-1.0); Monocytes % 5.4 % (1.7-9.3); Neutrophils % 74.1 % (37.0-80.0); Platelet Count 297 K/mm3 (142-424); Potassium 3.8 mmoL/L (3.5-5.1); Red Cell Distribution Width 13.1 % (11.5-17.5); Sodium 139 mmol/L (136-145); White Blood Count 9.4 K/mm3 (4.8-10.8)
[2024-01-16 18:20] LABS: Alanine Aminotransferase 55 U/L (12-78); Aspartate Amino Transferase 41 U/L (17-59); Blood Urea Nitrogen 11 mg/dl (9-20); Creatinine Clearance Estimated 218 mL/min (50-200); Estimated Glomerular Filt Rate 107 ml/min (>60); GFR (African American) 129 ML/MIN (>60)
[2024-01-16 18:21] LABS: Albumin Level 4.3 g/dl (3.5-5.0); Albumin/Globulin Ratio 1.3 (1.1-1.8); Alkaline Phosphatase 59 U/L (38-126); Anion Gap 9.8 mEq/L (5-15); Bilirubin,Total 0.4 mg/dl (0.2-1.3); Calcium 9.6 mg/dl (8.4-10.2); Carbon Dioxide 26 mmol/L (22.0-30.0); Globulin 3.2 g/dL (1.3-3.2); Glucose 134 mg/dl (74-100); INR 0.96 (0.9-1.1); Lipase 126 U/L (23-300); Magnesium 1.8 mg/dl (1.6-2.3); Prothrombin Time 10.4 seconds (10.1-12.5); Total Protein,Serum 7.5 g/dl (6.3-8.2)
[2024-01-16 18:24] VITALS: BP 118/72; PULSE 82; RESP 12; O2SAT 99
[2024-01-16 18:30] VITALS: BP 111/73; PULSE 88; RESP 12; O2SAT 98
[2024-01-16 18:31] LABS: NT Pro Brain Natriuretic Pep. < 20.0 pg/mL (0-125)
[2024-01-16 18:36] LABS: Troponin I < 0.01 ng/ml (0.00-0.034)
[2024-01-16 18:38] LABS: D-Dimer 0.93 ug/mL (0.0-0.5)
[2024-01-16 18:52] LABS: Thyroid Stimulating Hormone 2.27 uIU/mL (0.465-4.68)
[2024-01-16 18:54] LABS: Microscopic, Urine URINE MICROSCOPIC (MICROSCOPIC)
--- NOTE | 2024-01-16 18:59 | CT_ITS ---
PROCEDURE INFORMATION: Exam: CTA Chest With Contrast Exam date and time: 01/16/2024 7:10 PM Age: 43 years old Clinical indication: Chest wall pain; Additional info: Acute right chest pain TECHNIQUE: Imaging protocol: Computed tomographic angiography of the chest with contrast. Exam focused on the arteries. 3D rendering (Not supervised by radiologist): MIP and/or 3D reconstructed images were created by the technologist. Radiation optimization: All CT scans at this facility use at least one of these dose optimization techniques: automated exposure control; mA and/or kV adjustment per patient size (includes targeted exams where dose is matched to clinical indication); or iterative reconstruction. Contrast material: ISOVUE 370; Contrast volume: 75 ml; Contrast route: INTRAVENOUS (IV); COMPARISON: CT ANGIO CHEST PE PROTOCOL 10/29/2023 3:13 PM FINDINGS: Pulmonary arteries: Normal. No pulmonary emboli. Aorta: Unremarkable. No aortic aneurysm. No aortic dissection. Lungs: Mild atelectasis. No consolidation. No masses. Pleural spaces: Unremarkable. No pneumothorax. No pleural effusion. Heart: No cardiomegaly. Minimal pericardial effusion. Lymph nodes: Unremarkable. No enlarged lymph nodes. Liver: Hepatic steatosis. Gallbladder and bile ducts: Cholecystectomy. Bones/joints: Degenerative changes. No acute fracture. Soft tissues: Mild bilateral gynecomastia. IMPRESSION: No acute findings. No pulmonary artery embolism.
[2024-01-16 19:05] LABS: Appearance,Urine CLEAR (Clear); Bilirubin,Urine Negative (Negative); Blood, Urine Negative (Negative); Color,Urine YELLOW (Yellow); Glucose,Urine (UA) Negative (Negative); Ketones,Urine Negative (Negative); Leukocyte Esterase,Urine Negative (Negative); Nitrate,Urine Negative (Negative); Protein,Urine Negative (Negative); Specific Gravity, Urine >= 1.030 (1.005-1.030); Urobilinogen,Urine 0.2 EU/dl (0.2)
[2024-01-16] MEDS: SODIUM CHLORIDE 0.9% 10ML SYR (RAD ONLY) 10 ML IV (19:11)
[2024-01-16] MEDS: 0.9 % SODIUM CHLORIDE 50 ML VIAL IV (19:11)
[2024-01-16] MEDS: IOPAMIDOL-370 (76%);100ML BOTTLE 75 ML IV (19:11)
[2024-01-16 19:34] LABS: Mucus,Urine Trace /lpf; RBC,Urine Occasional #/hpf (0-3); Squamous Epithelial Cell,Urine Occasional #/hpf (0-5); WBC,Urine Occasional #/hpf (0-3)
[2024-01-16 21:45] LABS: Troponin I < 0.01 ng/ml (0.00-0.034)
[2024-01-16 22:04] VITALS: BP 139/90; PULSE 68; RESP 18; TEMP 36.9; O2SAT 98
== END 2024-01-16 22:05 | disposition home or self-care (01) ==
PROVIDERS: Physician Assistant; Emergency Provider Emergency Medicine; PCP Internal Medicine
DX: R07.89 Other chest pain (principal); R06.02 Shortness of breath; F41.1 Generalized anxiety disorder; Z86.711 Personal history of pulmonary embolism; Z87.891 Personal history of nicotine dependence
CPT/HCPCS: 36415; 71045; 71275; 80053; 81001; 83690; 83735; 83880; 84443; 84484; 85025; 85378; 85610; 87636; 93005; 96374; 96375; 99285; J0131; Q9967

== ENCOUNTER 2024-01-22 12:32 | Outpatient (CLI) | payer BC, SELFPAY ==
[2024-01-22 13:35] VITALS: PULSE 72; PULSE 74
[2024-01-22] MEDS: ALBUTEROL 0.083% 2.5 MG/3 ML NEB IH (13:35)
== END 2024-01-22 23:59 | disposition home or self-care (01) ==
LOC: RT 12:33
PROVIDERS: PCP Internal Medicine; Visit Provider Internal Medicine Pulmonary Disease
DX: R06.09 Other forms of dyspnea (principal)
CPT/HCPCS: 94060; 94618; 94640; 94726; 94729

== ENCOUNTER 2024-02-08 17:58 | Emergency (ER) | payer BC, SELFPAY ==
--- NOTE | 2024-02-08 17:49 | ECG_ITS ---
APPROVED REPORT Exam: Resting ECG HR:81 bpm ECG Measurements Heart Rate 81 AXES NE 143 P 56 QRSd 92 QRS 43 QT 375 T 20 QTc 412 Conclusion SINUS RHYTHM Unchanged from prior EKG. Electronically signed by : BRYAN OSEI, 02/08/2024 23:23:10
[2024-02-08 17:58] VITALS: BP 136/81; PULSE 79; RESP 18; TEMP 36.6; O2SAT 97; BMI 40.8
--- NOTE | 2024-02-08 18:06 | XR_ITS ---
PROCEDURE INFORMATION: Exam: XR Chest Exam date and time: 02/08/2024 6:07 PM Age: 43 years old Clinical indication: Other: Chest pain TECHNIQUE: Imaging protocol: Radiologic exam of the chest. Views: 1 view. COMPARISON: CT ANGIO CHEST PE PROTOCOL 01/16/2024 7:10 PM FINDINGS: Lungs: No evidence of acute pulmonary disease or infiltrates Pleural spaces: No large effusion or pneumothorax. Heart/Mediastinum: No evidence of mediastinal widening or cardiac silhouette enlargement; the mediastinum and heart appear within normal limits for contour and size. Bones/joints: No evidence of acute osseous abnormalities within the visualized portions of the thoracic spine and ribs. Osseous structures appear appropriate for patient age. IMPRESSION: No dense parenchymal consolidation, pleural effusion, or pneumothorax.
[2024-02-08 18:13] LABS: Basophils % 0.4 % (0.1-2.0); Eosinophils # 0.1 K/mm3 (0.0-0.4); Eosinophils % 1.1 % (0.1-12.0); Hematocrit 41.8 % (42.0-52.0); Hemoglobin 13.8 g/dL (14.1-18.0); Lymphocytes # 1.6 K/mm3 (0.7-4.5); Mean Corpuscular HGB Conc 33.1 g/dL (31.8-35.4); Mean Corpuscular Hemoglobin 29.5 pg (27.0-31.2); Mean Corpuscular Volume 89.2 fl (80-94); Mean Platelet Volume 8.1 fl (7.4-10.4); Monocytes # 0.5 K/mm3 (0.1-1.0); Monocytes % 5.3 % (1.7-9.3); Neutrophils # 6.5 K/mm3 (1.8-7.8); Neutrophils % 75.2 % (37.0-80.0); Platelet Count 283 K/mm3 (142-424); Red Blood Count 4.69 M/mm3 (4.60-6.20); Red Cell Distribution Width 13.2 % (11.5-17.5); White Blood Count 8.7 K/mm3 (4.8-10.8)
[2024-02-08 18:17] LABS: Chloride 105 mmol/L (98-107); Potassium 3.8 mmoL/L (3.5-5.1); Sodium 138 mmol/L (136-145)
[2024-02-08 18:19] LABS: Alanine Aminotransferase 50 U/L (12-78); Aspartate Amino Transferase 39 U/L (17-59); Blood Urea Nitrogen 10 mg/dl (9-20); Creatinine Clearance Estimated 222 mL/min (50-200); Estimated Glomerular Filt Rate 107 ml/min (>60); GFR (African American) 129 ML/MIN (>60)
[2024-02-08 18:20] LABS: Albumin Level 4.3 g/dl (3.5-5.0); Albumin/Globulin Ratio 1.3 (1.1-1.8); Alkaline Phosphatase 58 U/L (38-126); Anion Gap 11.8 mEq/L (5-15); Bilirubin,Total 0.3 mg/dl (0.2-1.3); Calcium 9.7 mg/dl (8.4-10.2); Carbon Dioxide 25 mmol/L (22.0-30.0); Globulin 3.4 g/dL (1.3-3.2); Glucose 111 mg/dl (74-100); Total Protein,Serum 7.7 g/dl (6.3-8.2)
--- NOTE | 2024-02-08 18:26 | ED_ITS ---
Discharge Plan Disposition Patient Disposition: Home, Self-Care Condition: Good Prescriptions Prescriptions: No Action Eliquis 5 mg tablet 5 mg PO BID Qty: 60 5RF Jardiance 10 mg tablet 10 mg PO DAILY olanzapine [Zyprexa] 10 mg tablet 10 mg PO HS Qty: 30 1RF hydroxyzine pamoate [Vistaril] 25 mg capsule 25 mg PO QID PRN (Reason: for increased anxiety) Qty: 120 1RF bisoprolol fumarate 10 mg tablet 10 mg PO DAILY Qty: 90 3RF Referrals Follow up/Referrals: Jono Lundberg DO [Primary Care Provider] - See instructions Activity Restrictions/Add. Instructions Additional Instructions/Restrictions: You were evaluated in the emergency department today. Please follow-up closely with your primary care provider for management of your anxiety. I also recommend calling your impersonator character and letting them know that you were evaluated in the emergency department today. Return to the emergency department for new or worsening symptoms. Clinical Impressions Clinical Impression: Anxiety, Chest pain Instructions Patient Instructions: DI for Atypical Chest Pain, DI for Anxiety -- Adult Discharge ED Provider: Lavonne Ferrell [facility] General Chief Complaint: Chest Pain Stated Complaint: cp Time Seen by Provider: 02/08/24 17:59 Mode of Arrival: Ambulatory Source of Information: Patient Limitations: No Limitations Description of Symptoms (Recalled from ER Triage Doc. by RN): pain with inspiration since 1300. CP occasional History of Present Illness HPI narrative: This patient is a 43-year-old male with history of chronic and recurrent chest pain, obesity, hypertension, PE on Eliquis, and anxiety presenting to the emergency department for evaluation with concern for anxiety and right-sided chest pain. He notes that he has had pressure on the right side of his chest that is worse when lying flat. Started at 1 AM. He states that he is feeling anxious and like his heart to get his breath in. He is requesting Valium, as he states that this is what helped him the last time he was in the ER with the symptoms. No other concerns noted at this time. Related Data Home Medications Medication Instructions Recorded Confirmed empagliflozin 10 mg tablet 10 mg PO DAILY 11/01/23 02/06/24 (Jardiance) Previous Rx's Medication Instructions Recorded bisoprolol fumarate 10 mg tablet 10 mg PO DAILY #90 tabs 09/12/23 hydroxyzine pamoate 25 mg capsule 25 mg PO QID PRN for increased 01/09/24 (Vistaril) anxiety #120 caps olanzapine 10 mg tablet (Zyprexa) 10 mg PO HS #30 tabs 01/09/24 apixaban 5 mg tablet (Eliquis) 5 mg PO BID #60 tabs 01/22/24 Allergies Allergy/AdvReac Type Severity Reaction Status Date / Time metformin AdvReac Intermediate Swelling Verified 01/22/24 15:02 of Lip/Tongue/Throat [facility] Disclaimer: The information contained in this section may have been updated after the patient was seen, as this information can be updated by other users. 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 Snoring Daytime somnolence Dyspnea Surgical History History of surgery on arm History of cholecystectomy Family History Other No significant family history Social History Smoking Status: Never smoker alcohol intake: former substance use type: denies use current occupational status: employed and other Travel in the last 8 weeks: None household members: spouse housing: house number of children: 1 caffeine: Yes ROS Obtained: Yes All systems reviewed & no additional complaints except as documented Physical Exam General General appearance: alert, in no apparent distress and obese Head Head exam: atraumatic and normocephalic Eye Eye exam: Present normal appearance, PERRL and EOMI ENT ENT exam: Present normal exam, normal oropharynx, mucous membranes moist and normal external ear exam Neck Neck exam: Present normal inspection, full ROM and trachea midline; Absent tenderness Chest Chest inspection: Present normal inspection and symmetric chest wall rise; Absent tenderness Respiratory Respiratory exam: Present normal lung sounds bilaterally; Absent respiratory distress, wheezes, stridor or accessory muscle use Cardiovascular Cardiovascular exam: Present regular rate and normal rhythm Abdominal Exam Abdominal exam: Present soft; Absent distention, tenderness or guarding Extremities Exam Extremities exam: Present normal inspection, full ROM and normal capillary refill; Absent tenderness or edema Back Exam Back exam: Present normal inspection and full ROM; Absent tenderness Neurological Exam Neurological exam: Present alert, oriented X3, CN II-XII intact and normal gait; Absent motor sensory deficit Psychiatric Psychiatric exam: Present normal affect and normal mood Skin Skin exam: Present warm and dry HEART Score HEART Score HEART Score assessment performed?: Yes History (anamnesis): Slightly suspicious ECG: Normal Age: <45 years Risk factors: 1-2 risk factors Troponin: </= normal limit HEART Score: 1 Critical Care Critical Care Time Critical Care Time: No Medical Decision Making Medical Records Medical records reviewed: Yes I reviewed the patient's medical records. Teofilo Inquiry Pt receiving controlled substance: No Vital Signs Vital Signs: 02/08/24 17:58 Temperature 97.9 F Temperature Source Oral Pulse Rate [Right] 79 Respiratory Rate 18 Blood Pressure [Right Arm] 136/81 Blood Pressure Mean [Right Arm] 99 02 Sat by Pulse Oximetry 97 Oxygen Delivery Method Room Air Lab Data Labs: Lab Results 02/08/24 17:59: WBC 8.7, RBC 4.69, Hgb 13.8 L, Hct 41.8 L, MCV 89.2, MCH 29.5, MCHC 33.1, RDW 13.2, Plt Count 283, MPV 8.1, Neut % (Auto) 75.2, Lymph % (Auto) 18.0, [place] % (Auto) 5.3, Eos % (Auto) 1.1, Baso % (Auto) 0.4, Neut # (Auto) 6.5, Lymph # (Auto) 1.6, [place] # (Auto) 0.5, Eos # (Auto) 0.1, Baso # (Auto) 0.0, Sodium 138, Potassium 3.8, Chloride 105, Carbon Dioxide 25, Anion Gap 11.8, BUN 10, Creatinine 0.80, Estimated Creat Clear 222, Estimated GFR 107, Est GFR ( Amer) 129, Glucose 111 H, Calcium 9.7, Total Bilirubin 0.3, AST 39, ALT 50, Alkaline Phosphatase 58, Troponin I < 0.01, Total Protein 7.7, Albumin 4.3, Globulin 3.4 H, Albumin/Globulin Ratio 1.3, TSH 1.79, Thyroxine (T4) 8.3 02/08/24 17:59 02/08/24 17:59 Response Orders (Tests/Meds): ED MEDICATIONS Discontinued Medications Generic Name Dose Route Start Last Admin Trade Name Connie PRN Reason Stop Dose Admin Hydroxyzine Pamoate 25 mg 02/08/24 18:07 02/08/24 18:32 Hydroxyzine Pamoate 25mg Capsule PO 02/08/24 18:08 25 mg ONCE ONE Administration ORDERS Category Date Time Status XR chest portable Stat Exams 02/08/24 18:06 Completed Complete Blood Count Auto Diff Stat Lab 02/08/24 17:59 Completed Comprehensive Metabolic Panel Stat Lab 02/08/24 17:59 Completed T4 (Thyroxine) Stat Lab 02/08/24 17:59 Completed Thyroid Stimulating Hormone Stat Lab 02/08/24 17:59 Completed Troponin I Q3H Lab 02/08/24 21:15 Ordered Troponin I Q3H Lab 02/09/24 00:15 Ordered Troponin I Stat Lab 02/08/24 17:59 Completed ECG Data Tracing #1: Attestation: I reviewed this ECG and interpreted as documented below: ECG Narrative: Normal sinus rhythm with a ventricular rate of [address] changes concerning for ischemia. Normal axis and intervals. ECG initial impression date: 02/08/24 ECG initial impression time: 17:50 MDM Narrative Medical Decision Narrative: In summary, this patient is a 43-year-old male presenting to the Emergency Department for evaluation of chest pain. Differential diagnoses considered include but are not limited to ACS, dysrhythmia, PE, anxiety, GERD. Ruling out the most morbid conditions drove assessment. It should be noted patient's history includes chronic and recurrent chest pain for which she has multiple ED evaluations as well as UTC evaluations which is not at goal therapy. This complicates all aspects of care by increasing patient's risk for morbidity. I reviewed patient's past medical records and noted all of his previous evaluations which has been reassuring. It is felt that her symptoms are likely related to anxiety, which the patient does confirm to me.. On exam, he is resting calmly with normal vital signs on cardiac telemetry and reassuring cardiopulmonary exam. EKG is normal. Labs do not demonstrate any acutely concerning abnormalities including troponin, which is negative. No significant elevation in white blood cell count. Thyroid studies are normal. Chest x-ray on my independent interpretation does not demonstrate any acute focal consolidation or pneumothorax. Please see radiology read for final interpretation. I considered obtaining second troponin, however I do not feel this is indicated this pain has been going on for many hours at this point and initial troponin is undetectable. On reassessment, patient has had no improvement after being administered hydroxyzine here. He states that he needs Valium, as this only thing that helps. I advised him that we cannot continue to give him controlled medications in the emergency department to treat chronic anxiety. I advised that he follow- up closely with his primary care provider for this. Given reassuring workup and exam and heart score of 1, feel the patient is appropriate for discharge home. He was given strict return precautions and was discharged after all questions were answered.
[2024-02-08] MEDS: hydrOXYzine pamoate 25MG CAPSULE 25 MG PO (18:32)
[2024-02-08 18:35] LABS: Troponin I < 0.01 ng/ml (0.00-0.034)
[2024-02-08 18:36] LABS: T4 (Thyroxine) 8.3 ug/dl (5.53-11.0)
[2024-02-08 18:50] LABS: Thyroid Stimulating Hormone 1.79 uIU/mL (0.465-4.68)
[2024-02-08 19:09] VITALS: BP 166/99; PULSE 74; RESP 18; TEMP 36.7; O2SAT 97
== END 2024-02-08 19:14 | disposition home or self-care (01) ==
PROVIDERS: Emergency Provider Emergency Medicine; PCP Internal Medicine
DX: R07.9 Chest pain, unspecified (principal); F41.1 Generalized anxiety disorder; I10 Essential (primary) hypertension; E66.9 Obesity, unspecified; Z68.41 Body mass index [BMI] 40.0-44.9, adult; Z86.711 Personal history of pulmonary embolism; Z79.01 Long term (current) use of anticoagulants
CPT/HCPCS: 71045; 80053; 84436; 84443; 84484; 85025; 93005; 99284

== ENCOUNTER 2024-02-15 11:51 | Outpatient (CLI) | payer BC, SELFPAY ==
[2024-02-15 18:22] LABS: Chol/HDL Ratio 4.5 (1-3.5); Cholesterol 256 mg/dl (140-200); HDL Cholesterol 57 mg/dl (40-60); Triglycerides 172 mg/dl (30-150); VLDL Cholesterol 34 mg/dL (0-40)
[2024-02-15 18:28] LABS: Microalbumin/Creatinine Ratio 10.3
[2024-02-15 18:31] LABS: Creatinine,Urine Random 159 mg/dL (Not Estab.)
[2024-02-15 18:34] LABS: Direct LDL Cholesterol 150.98 mg/dL (100-129)
[2024-02-15 18:35] LABS: Hemoglobin A1C 5.3 % (4.0-6.0)
[2024-02-15 18:40] LABS: 25-OH Vitamin D, Total 14.2 ng/mL (30-100)
[2024-02-15 19:13] LABS: Vitamin B12 329 pg/mL (239-931)
== END 2024-02-15 23:59 | disposition home or self-care (01) ==
LOC: LAB.DROPOF 02-16 11:51
PROVIDERS: PCP Internal Medicine; Visit Provider Internal Medicine
DX: R73.9 Hyperglycemia, unspecified (principal); E55.9 Vitamin D deficiency, unspecified; E66.9 Obesity, unspecified; Z68.41 Body mass index [BMI] 40.0-44.9, adult
CPT/HCPCS: 80061; 82043; 82306; 82570; 82607; 83036

== ENCOUNTER 2024-03-18 09:21 | Emergency (ER) | payer BC, SELFPAY ==
[2024-03-18] VITALS (9 sets, daily range): BP systolic 128–145; BP diastolic 55–91; PULSE 63–79; RESP 18–20; TEMP 36.7; O2SAT 94–98; BMI 40.3
--- NOTE | 2024-03-18 09:29 | ECG_ITS ---
APPROVED REPORT Exam: Resting ECG HR:61 bpm ECG Measurements Heart Rate 61 AXES QRSd 97 QRS 28 QT 403 T 10 QTc 407 Conclusion Largely nondiagnostic report. Wandering baseline. No ischemic change. Sinus rhythm Electronically signed by : AUDELIA CARR, 03/18/2024 15:53:49
--- NOTE | 2024-03-18 09:48 | XR_ITS ---
FINAL REPORT CLINICAL HISTORY: dizziness COMPARISON: 01/05/2024 FINDINGS: No acute pulmonary density is evident. There is no evidence of effusion or other pleural disease. The mediastinum has a normal appearance. The cardiac silhouette is unremarkable. IMPRESSION: Unremarkable chest exam. Reviewed, Interpreted and Dictated by Luna Grant MD Transcribed by Jennifer Verma Authenticated and [facility]
[2024-03-18 10:00] LABS: Basophils # 0.1 K/mm3 (0-0.2); Basophils % 0.6 % (0.1-2.0); Eosinophils # 0.1 K/mm3 (0.0-0.4); Eosinophils % 1.2 % (0.1-12.0); Hematocrit 44.3 % (42.0-52.0); Hemoglobin 14.2 g/dL (14.1-18.0); Lymphocytes # 1.1 K/mm3 (0.7-4.5); Mean Corpuscular HGB Conc 32.2 g/dL (31.8-35.4); Mean Corpuscular Hemoglobin 29.6 pg (27.0-31.2); Mean Corpuscular Volume 92.2 fl (80-94); Mean Platelet Volume 8.2 fl (7.4-10.4); Monocytes # 0.4 K/mm3 (0.1-1.0); Monocytes % 5.1 % (1.7-9.3); Neutrophils # 6.2 K/mm3 (1.8-7.8); Neutrophils % 79.3 % (37.0-80.0); Platelet Count 315 K/mm3 (142-424); Red Blood Count 4.81 M/mm3 (4.60-6.20); Red Cell Distribution Width 13.1 % (11.5-17.5); White Blood Count 7.8 K/mm3 (4.8-10.8)
[2024-03-18 10:01] LABS: Chloride 106 mmol/L (98-107); Sodium 140 mmol/L (136-145)
[2024-03-18 10:03] LABS: Alanine Aminotransferase 64 U/L (12-78); Aspartate Amino Transferase 46 U/L (17-59); Blood Urea Nitrogen 10 mg/dl (9-20); Creatinine Clearance Estimated 219 mL/min (50-200); Estimated Glomerular Filt Rate 107 ml/min (>60); GFR (African American) 129 ML/MIN (>60)
[2024-03-18 10:04] LABS: Albumin Level 4.4 g/dl (3.5-5.0); Albumin/Globulin Ratio 1.4 (1.1-1.8); Alkaline Phosphatase 63 U/L (38-126); Bilirubin,Total 0.3 mg/dl (0.2-1.3); Calcium 9.6 mg/dl (8.4-10.2); Carbon Dioxide 26 mmol/L (22.0-30.0); Globulin 3.2 g/dL (1.3-3.2); Glucose 145 mg/dl (74-100); Total Protein,Serum 7.6 g/dl (6.3-8.2)
[2024-03-18 10:25] LABS: Microscopic, Urine URINE MICROSCOPIC (MICROSCOPIC)
[2024-03-18 10:31] LABS: Appearance,Urine CLEAR (Clear); Blood, Urine TRACE-I (Negative); Color,Urine YELLOW (Yellow); Glucose,Urine (UA) Negative (Negative); Ketones,Urine Negative (Negative); Leukocyte Esterase,Urine Negative (Negative); Nitrate,Urine Negative (Negative); Protein,Urine Negative (Negative); Specific Gravity, Urine >= 1.030 (1.005-1.030)
[2024-03-18 10:40] LABS: Troponin I < 0.01 ng/ml (0.00-0.034)
--- NOTE | 2024-03-18 10:40 | ED_ITS ---
Discharge Plan Disposition Patient Disposition: Home, Self-Care Prescriptions Prescriptions: No Action Eliquis 5 mg tablet 5 mg PO BID Qty: 60 5RF olanzapine [Zyprexa] 10 mg tablet 10 mg PO HS Qty: 30 1RF hydroxyzine pamoate [Vistaril] 25 mg capsule 25 mg PO QID PRN (Reason: for increased anxiety) Qty: 120 1RF atorvastatin 40 mg tablet 40 mg PO DAILY Qty: 30 2RF lorazepam 1 mg tablet 1 mg PO DAILY PRN (Reason: panic attack(s)) 30 Days Qty: 15 1RF olanzapine-samidorphan 10-10 mg tablet 1 tab PO DAILY Qty: 30 2RF amoxicillin 500 mg capsule 500 mg PO BID 14 Days Qty: 28 0RF bisoprolol fumarate 10 mg tablet 10 mg PO DAILY Qty: 90 3RF Referrals Follow up/Referrals: Jono Lundberg DO [Primary Care Provider] - See instructions Activity Restrictions/Add. Instructions Additional Instructions/Restrictions: Call your family doctor to establish care for this visit to the emergency department and schedule follow-up within 48 hours to ensure improvement. If you have any worsening of your condition or any other concerning signs or symptoms, return to the emergency department or your primary care doctor for further evaluation. Clinical Impressions Clinical Impression: Lightheadedness Stand Alone Forms Stand Alone Forms: Work/School Release Discharge ED Provider: Jagdeep Hyman HPI General Chief Complaint: Dizziness Stated Complaint: dizzy, weakness, fever Time Seen by Provider: 03/18/24 09:29 Mode of Arrival: Ambulatory Source of Information: Patient Limitations: No Limitations Description of Symptoms (Recalled from ER Triage Doc. by RN): c/o dizziness and soa about one hour before arrival. PT states the soa has improved but he remains dizzy. History of Present Illness HPI narrative: Please note that above description of symptoms, in this electronic medical record under categorization of recalled from ER triage doctor by RN are reflective of an initial nursing assessment, however, is not reflective of my full history and physical exam that was personally taken and clarified. Consequentially, this preceding description of symptoms, which may include the patient's categorized chief complaint in the EMR, do not reflect my personal clinical impression, and the ultimate description of history of present illness and patient stated complaints should be deferred to this section of the note. Unless stated otherwise or congruent with this section of the note, additional signs, symptoms, or incongruence should be interpreted as inaccurate with my clinical impression. Related Data Previous Rx's Medication Instructions Recorded bisoprolol fumarate 10 mg tablet 10 mg PO DAILY #90 tabs 09/12/23 hydroxyzine pamoate 25 mg capsule 25 mg PO QID PRN for increased 01/09/24 (Vistaril) anxiety #120 caps olanzapine 10 mg tablet (Zyprexa) 10 mg PO HS #30 tabs 01/09/24 apixaban 5 mg tablet (Eliquis) 5 mg PO BID #60 tabs 01/22/24 amoxicillin 500 mg capsule 500 mg PO BID 14 days #28 caps 03/11/24 atorvastatin 40 mg tablet 40 mg PO DAILY #30 tabs 03/11/24 lorazepam 1 mg tablet 1 mg PO DAILY PRN panic attack(s) 03/11/24 30 days #15 tabs olanzapine 10 mg-samidorphan 10 mg 1 tab PO DAILY #30 tabs 03/11/24 tablet Allergies Allergy/AdvReac Type Severity Reaction Status Date / Time metformin AdvReac Intermediate Swelling Verified 03/11/24 12:54 of Lip/Tongue/Throat [facility] Disclaimer: The information contained in this section may have been updated after the patient was seen, as this information can be updated by other users. 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 Snoring Daytime somnolence Dyspnea Surgical History History of surgery on arm History of cholecystectomy Family History Other No significant family history Social History Smoking Status: Never smoker alcohol intake: former substance use type: denies use current occupational status: employed and other Travel in the last 8 weeks: None household members: spouse housing: house number of children: 1 caffeine: Yes ROS Obtained: Yes All systems reviewed & no additional complaints except as documented Physical Exam General General appearance: alert Neck Neck exam: Present trachea midline Chest Chest inspection: Present normal inspection and symmetric chest wall rise Respiratory Respiratory exam: Present normal lung sounds bilaterally; Absent respiratory distress, wheezes, stridor, accessory muscle use or prolonged expiratory phase Cardiovascular Cardiovascular exam: Present regular rate and normal rhythm Extremities Exam Extremities exam: Absent edema Neurological Exam Neurological exam: Present alert, oriented X3 and CN II-XII intact Skin Skin exam: Present warm and dry; Absent cyanosis, diaphoresis or pallor HEART Score HEART Score HEART Score assessment performed?: Yes History (anamnesis): Slightly suspicious ECG: Non-specific disturbance Age: <45 years Risk factors: 1-2 risk factors Troponin: </= normal limit HEART Score: 2 Critical Care Critical Care Time Critical Care Time: No Medical Decision Making Medical Records Medical records reviewed: Yes I reviewed the patient's medical records. Teofilo Inquiry Pt receiving controlled substance: No Teofilo was queried for this patient: No Vital Signs Vital Signs: 03/18/24 09:22 03/18/24 09:45 03/18/24 10:17 Temperature 98.0 F Temperature Source Oral Pulse Rate 63 65 Pulse Rate [Left Radial] 68 Respiratory Rate 18 Blood Pressure 134/85 Blood Pressure [Right Arm] 145/85 H Blood Pressure Mean Blood Pressure Mean [Right Arm] 105 Blood Pressure Source [Right Arm] Automatic Cuff Blood Pressure Position [Right Arm] Sitting 02 Sat by Pulse Oximetry 95 94 L 95 Oxygen Delivery Method Room Air Room Air 03/18/24 10:30 03/18/24 11:00 03/18/24 11:30 Temperature Temperature Source Pulse Rate 65 65 72 Pulse Rate [Left Radial] Respiratory Rate Blood Pressure 130/83 132/82 138/85 Blood Pressure [Right Arm] Blood Pressure Mean 104 98 96 Blood Pressure Mean [Right Arm] Blood Pressure Source [Right Arm] Blood Pressure Position [Right Arm] 02 Sat by Pulse Oximetry 95 95 97 Oxygen Delivery Method 03/18/24 12:00 03/18/24 12:30 03/18/24 13:37 Temperature 98.0 F Temperature Source Pulse Rate 69 71 79 Pulse Rate [Left Radial] Respiratory Rate 20 Blood Pressure 138/88 138/91 H 128/55 L Blood Pressure [Right Arm] Blood Pressure Mean Blood Pressure Mean [Right Arm] Blood Pressure Source [Right Arm] Blood Pressure Position [Right Arm] 02 Sat by Pulse Oximetry 97 97 Oxygen Delivery Method Room Air Room Air Room Air Lab Data Labs: Lab Results 03/18/24 09:30: WBC 7.8, RBC 4.81, Hgb 14.2, Hct 44.3, MCV 92.2, MCH 29.6, MCHC 32.2, RDW 13.1, Plt Count 315, MPV 8.2, Neut % (Auto) 79.3, Lymph % (Auto) 14.0, [place] % (Auto) 5.1, Eos % (Auto) 1.2, Baso % (Auto) 0.6, Neut # (Auto) 6.2, Lymph # (Auto) 1.1, [place] # (Auto) 0.4, Eos # (Auto) 0.1, Baso # (Auto) 0.1, Sodium 140, Potassium 4.0, Chloride 106, Carbon Dioxide 26, Anion Gap 12.0, BUN 10, Creatinine 0.80, Estimated Creat Clear 219, Estimated GFR 107, Est GFR ( Amer) 129, Glucose 145 H, Calcium 9.6, Total Bilirubin 0.3, AST 46, ALT 64, Alkaline Phosphatase 63, Troponin I < 0.01, NT-Pro-B Natriuret Pep < 20.0, Total Protein 7.6, Albumin 4.4, Globulin 3.2, Albumin/Globulin Ratio 1.4, Urine Color Yellow, Urine Appearance Clear, Urine pH 6.0, Ur Specific [place] >= 1.030, Urine Protein Negative, Urine Glucose (UA) Negative, Urine Ketones Negative, Urine Blood Trace-i, Urine Nitrate Negative, Urine Bilirubin 1+ A, Urine Urobilinogen 1.0, Ur Leukocyte Esterase Negative, Urine RBC Occasional, Urine WBC Occasional, Ur Squamous Epith Cells Occasional, Calcium Oxalate Crystal Trace, Urine Bacteria Trace, Urine Sperm Occ 03/18/24 12:15: Troponin I 0.01 03/18/24 09:30 03/18/24 09:30 Response Orders (Tests/Meds): ED MEDICATIONS Discontinued Medications Generic Name Dose Route Start Last Admin Trade Name Freq PRN Reason Stop Dose Admin Lactated Ringer's 1,000 mls @ 999 mls/hr 03/18/24 10:46 03/18/24 11:00 Lactated Ringer's 1000 Ml Bag IV 03/18/24 11:46 999 mls/hr .Q1H1M ONE Administration ORDERS Category Date Time Status XR chest 2V Stat Exams 03/18/24 09:48 Completed Complete Blood Count Auto Diff Stat Lab 03/18/24 09:30 Completed Comprehensive Metabolic Panel Stat Lab 03/18/24 09:30 Completed NT Pro Brain Natriuretic Pep. Stat Lab 03/18/24 09:30 Completed Troponin I Q3H Lab 03/18/24 12:15 Completed Troponin I Stat Lab 03/18/24 09:30 Completed UA [Urinalysis and Microscopic] Stat Lab 03/18/24 09:30 Completed MDM Narrative Medical Decision Narrative: 43-year-old male history of anxiety, panic, hypertension, hyperlipidemia, PE on Eliquis, CAD without stenting presenting with dizziness. 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 [place] dizzy, lightheaded, shortness of breath, but no chest pain. Denies syncope. Has not been standing hydrated working much. States that he also thinks that his urine is dark and malodorous. No dysuria, but concerned he may have hematuria. Currently without symptoms here while at rest. Taking all of his medications as prescribed. History was obtained via conversation with patient. On arrival, patient hemodynamically stable, alert, oriented x4, appropriate, GCS 15, moving all extremities spontaneously, pupils equal and reactive to light. Full physical exam performed and significant for neurologically intact male. Differential includes orthostasis, vasovagal, anxiety, ACS, OH, malignant arrhythmia, among others. Patient was given 324 mg aspirin for symptomatic management and correction of underlying abnormalities. Workup independently interpreted and significant for nonactionable CBC or chemistry, initial troponin negative. Chest x-ray without acute cardiopulmonary airspace disease see radiology read for full review of final results. Patient was placed on cardiac monitoring continuous pulse oximetry with initial blood pressure 145/85, pulse 68, oxygen 95 on room air. Independent interpretation of EKG shows largely nondiagnostic report. No obvious ischemic change. Sinus rhythm 61 beats a minute VT interval grossly normal. QRS 97, QTc 4 7. [place] normal. Patient placed on continuous cardiac monitoring and continuous pulse ox with initial blood pressure 145/85, heart rate 68, saturation 95 on room air. Heart score 2. Patient was placed in observation beginning at 9:30 AM in order to rule out evolving OH with delta troponin and determine need for admission versus home-going. The patient was provided meds, serial exams while awaiting results. Independent interpretation of results demonstrated negative delta troponin. On reevaluation, patient resting comfortably without acute complaints or symptoms, requesting work note. At this time, I feel patient is appropriate for discharge. Total observation time 3 hours. Because patient at baseline without signs or symptoms of clinical decompensation, deemed appropriate for discharge. Results were relayed to patient who voiced understanding and were agreeable to outpatient management and follow up. I discussed my clinical impression with patient and answered all questions. At this time, the evidence for any other entities in the differential is insufficient to warrant any further testing or ED observation. This was explained as well. Advisory was given that persistent or worsening symptoms require further evaluation. I confirmed the understanding of this discussion. [employer] disclaimer Much of this encounter note is an electronic drapery cutter machine spoken language to printed text. Electronic drapery cutter machine of the spoken language may permit errors. Although I have reviewed the note, some errors may still exist.
[2024-03-18 10:43] LABS: Bilirubin,Urine 1+ (Negative)
[2024-03-18] MEDS: LACTATED RINGERS 1000ML 1,000 ML 999 ML IV (11:00)
[2024-03-18 11:10] LABS: NT Pro Brain Natriuretic Pep. < 20.0 pg/mL (0-125)
[2024-03-18 11:40] LABS: Bacteria,Urine Trace /lpf; Calcium Oxalate Crystals,Urine Trace /lpf; RBC,Urine Occasional #/hpf (0-3); Sperm,Urine OCC /lpf; Squamous Epithelial Cell,Urine Occasional #/hpf (0-5); WBC,Urine Occasional #/hpf (0-3)
--- NOTE | 2024-03-18 12:39 | PC.NURSE ---
Rounded on pt. No needs voiced at this time. Call light remains within reach.
[2024-03-18 12:55] LABS: Troponin I 0.01 ng/ml (0.00-0.034)
== END 2024-03-18 13:39 | disposition home or self-care (01) ==
PROVIDERS: Emergency Provider Emergency Medicine; PCP Internal Medicine
DX: R06.02 Shortness of breath; R42 Dizziness and giddiness
CPT/HCPCS: 71046; 80053; 81001; 83880; 84484; 85025; 93005; 96360; 99284; J7120

== ENCOUNTER 2024-03-24 15:15 | Emergency (ER) | payer BC, SELFPAY ==
--- NOTE | 2024-03-24 15:15 | ECG_ITS ---
APPROVED REPORT Exam: Resting ECG HR:67 bpm ECG Measurements Heart Rate 67 AXES NE 144 P 47 QRSd 93 QRS 25 QT 401 T 33 QTc 416 Conclusion SINUS RHYTHM NORMAL ECG UNCONFIRMED REPORT Electronically signed by : AUDELIA CARR, 03/25/2024 15:04:01
[2024-03-24 15:21] VITALS: BP 133/77; PULSE 64; RESP 18; TEMP 36.7; O2SAT 96; BMI 40.6
[2024-03-24 15:31] VITALS: BP 124/70; PULSE 66; O2SAT 98
--- NOTE | 2024-03-24 15:33 | ED_ITS ---
<Statement entered by Malik Harris MD - 03/24/24 22:30> I was consulted by the RONNI, and we discussed the complexity of the problems being addressed. I approved the treatment and management plan for this patient's care in the emergency department, thus performing a substantive portion of the medical decision making. Malik Harris MD, REGINA, FACEP Discharge Plan Disposition Patient Disposition: Home, Self-Care Prescriptions Prescriptions: No Action Eliquis 5 mg tablet 5 mg PO BID Qty: 60 5RF olanzapine [Zyprexa] 10 mg tablet 10 mg PO HS Qty: 30 1RF hydroxyzine pamoate [Vistaril] 25 mg capsule 25 mg PO QID PRN (Reason: for increased anxiety) Qty: 120 1RF atorvastatin 40 mg tablet 40 mg PO DAILY Qty: 30 2RF lorazepam 1 mg tablet 1 mg PO DAILY PRN (Reason: panic attack(s)) 30 Days Qty: 15 1RF olanzapine-samidorphan 10-10 mg tablet 1 tab PO DAILY Qty: 30 2RF amoxicillin 500 mg capsule 500 mg PO BID 14 Days Qty: 28 0RF bisoprolol fumarate 10 mg tablet 10 mg PO DAILY Qty: 90 3RF Referrals Follow up/Referrals: Jono Lundberg DO [Primary Care Provider] - See instructions Activity Restrictions/Add. Instructions Additional Instructions/Restrictions: Follow-up with your PCP in 48 hours. Keep your scheduled follow-up with cardiology. Return to ER for any worsening signs or symptoms as needed. Clinical Impressions Clinical Impression: Atypical chest pain Instructions Patient Instructions: DI for Atypical Chest Pain Discharge ED Provider: Malik Harris HPI General Chief Complaint: Chest Pain Stated Complaint: CHEST PAIN Time Seen by Provider: 03/24/24 15:33 Mode of Arrival: Ambulatory Source of Information: Patient Limitations: No Limitations Description of Symptoms (Recalled from ER Triage Doc. by RN): PT REPORTS CHEST PAIN WHILE LYING IN BED, REPORTS PAIN STARTED IN LEFT SHOULDER AND WENT TO CHEST. DENIES CHEST PAIN AT THIS TIME, PAIN REMAINS IN SHOULDER. PT REPORTS HE FELT FAINT, HAS NEVER HAD THIS FEELING BEFORE. PT CURRENTLY TAKES ELIQUIS FOR PREVIOUS PE. History of Present Illness HPI narrative: Patient presents for evaluation of chest pain . Patient states that approximately an hour prior to arrival he woke up with left-sided chest pain that radiated from his left shoulder. Patient reports also a feeling of lightheadedness. Patient currently rates his shoulder pain at a 4 out of 10 but it was a 9 out of 10 when it happened. [place] and had another episode of lightheadedness since he presented to the emergency department. Patient currently denies fever chills hemoptysis hematochezia melena nausea vomiting diarrhea shortness of breath. Related Data Previous Rx's Medication Instructions Recorded bisoprolol fumarate 10 mg tablet 10 mg PO DAILY #90 tabs 09/12/23 hydroxyzine pamoate 25 mg capsule 25 mg PO QID PRN for increased 01/09/24 (Vistaril) anxiety #120 caps olanzapine 10 mg tablet (Zyprexa) 10 mg PO HS #30 tabs 01/09/24 apixaban 5 mg tablet (Eliquis) 5 mg PO BID #60 tabs 01/22/24 amoxicillin 500 mg capsule 500 mg PO BID 14 days #28 caps 03/11/24 atorvastatin 40 mg tablet 40 mg PO DAILY #30 tabs 03/11/24 lorazepam 1 mg tablet 1 mg PO DAILY PRN panic attack(s) 03/11/24 30 days #15 tabs olanzapine 10 mg-samidorphan 10 mg 1 tab PO DAILY #30 tabs 03/11/24 tablet Allergies Allergy/AdvReac Type Severity Reaction Status Date / Time metformin AdvReac Intermediate Swelling Verified 03/11/24 12:54 of Lip/Tongue/Throat [facility] Disclaimer: The information contained in this section may have been updated after the patient was seen, as this information can be updated by other users. 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 Snoring Daytime somnolence Dyspnea Surgical History History of surgery on arm History of cholecystectomy Family History Other No significant family history Social History Smoking Status: Former smoker tobacco type: cigarettes packs per day: 1 alcohol intake: former substance use type: denies use current occupational status: employed and other Travel in the last 8 weeks: None household members: spouse housing: house number of children: 1 caffeine: Yes ROS Obtained: Yes Systems reviewed as appropriate & no additional complaints except as documented Physical Exam General General appearance: alert and in no apparent distress Chest Chest inspection: Present tenderness (Left upper anterior chest below the clavicle and towards the shoulder.) Respiratory Respiratory exam: Present normal lung sounds bilaterally Cardiovascular Cardiovascular exam: Present regular rate and normal rhythm Neurological Exam Neurological exam: Present alert and oriented X3 HEART Score HEART Score HEART Score assessment performed?: Yes History (anamnesis): Slightly suspicious ECG: Normal Age: <45 years Risk factors: 3 or more risk factors Troponin: </= normal limit HEART Score: 2 Critical Care Critical Care Time Critical Care Time: No Medical Decision Making Medical Records Medical records reviewed: Yes I reviewed the patient's medical records. Teofilo Inquiry Pt receiving controlled substance: No Vital Signs Vital Signs: 03/24/24 15:21 03/24/24 15:31 03/24/24 16:00 Temperature 98.0 F Temperature Source Oral Pulse Rate 66 64 Pulse Rate [Apical] 64 Respiratory Rate 18 9 L Blood Pressure 124/70 126/61 Blood Pressure [Right Arm] 133/77 Blood Pressure Mean 80 70 Blood Pressure Mean [Right Arm] 95 Blood Pressure Source [Right Arm] Automatic Cuff Blood Pressure Position [Right Arm] Sitting 02 Sat by Pulse Oximetry 96 98 98 Oxygen Delivery Method Room Air Room Air Room Air 03/24/24 16:30 Temperature Temperature Source Pulse Rate 59 L Pulse Rate [Apical] Respiratory Rate 8 L Blood Pressure 128/69 Blood Pressure [Right Arm] Blood Pressure Mean 83 Blood Pressure Mean [Right Arm] Blood Pressure Source [Right Arm] Blood Pressure Position [Right Arm] 02 Sat by Pulse Oximetry 98 Oxygen Delivery Method Room Air Lab Data Lab results reviewed: Yes I reviewed the patient's lab results. Labs: Lab Results 03/24/24 15:20: WBC 9.2, RBC 4.89, Hgb 14.5, Hct 43.4, MCV 88.8, MCH 29.5, MCHC 33.3, RDW 13.0, Plt Count 306, MPV 7.9, Neut % (Auto) 69.1, Lymph % (Auto) 24.3, [place] % (Auto) 4.8, Eos % (Auto) 1.4, Baso % (Auto) 0.3, Neut # (Auto) 6.4, Lymph # (Auto) 2.2, [place] # (Auto) 0.4, Eos # (Auto) 0.1, Baso # (Auto) 0.0, D-Dimer 0.34, Sodium 140, Potassium 3.7, Chloride 104, Carbon Dioxide 28, Anion Gap 11.7, BUN 9, Creatinine 0.90, Estimated Creat Clear 196, Estimated GFR 93, Est GFR ( Amer) 113, Glucose 97, Calcium 9.4, Magnesium 1.9, Troponin I < 0.01 03/24/24 15:20 03/24/24 15:20 Response Orders (Tests/Meds): ED MEDICATIONS Discontinued Medications Generic Name Dose Route Start Last Admin Trade Name Freq PRN Reason Stop Dose Admin Acetaminophen 1,000 mg 03/24/24 15:33 03/24/24 15:46 Acetaminophen 1,000mg/100ml Vial IV 03/24/24 15:34 1,000 mg ONCE ONE Administration Lactated Ringer's 1,000 mls @ 999 mls/hr 03/24/24 15:33 03/24/24 15:45 Lactated Ringer's 1000 Ml Bag IV 03/24/24 16:33 999 mls/hr .Q1H1M ONE Administration Ketorolac Tromethamine 15 mg 03/24/24 15:33 03/24/24 15:45 Ketorolac 30mg/Ml Vial IV 03/24/24 15:34 15 mg ONCE ONE Administration ORDERS Category Date Time Status BMP [Basic Metabolic Panel] Stat Lab 03/24/24 15:20 Completed CBC w/Auto Diff [Complete Blood Count Auto Diff] Stat Lab 03/24/24 15:20 Completed D-Dimer Stat Lab 03/24/24 15:20 Completed Magnesium Stat Lab 03/24/24 15:20 Completed Trop I [Troponin I] Stat Lab 03/24/24 15:20 Completed Troponin I Q3H Lab 03/24/24 18:45 Ordered Troponin I Q3H Lab 03/24/24 21:45 Ordered MDM Narrative Medical Decision Narrative: In summary patient is a 43-year-old male who presents to the emergency department for evaluation of chest pain. Patient is hemodynamically stable upon arrival, afebrile. Physical exam is remarkable for reproducible tenderness to palpation of left anterior upper chest and to the left shoulder but no reduced range of motion of the left upper extremity and is neurovascular intact distally. Patient is in a normal sinus rhythm on the bedside monitor. Differential diagnosis includes ACS versus anxiety versus musculoskeletal pain etc. l. Initial workup will be conducted with hematologic labs twelve-lead EKG. Initial interventions include acetaminophen and Motrin. Initial workup reviewed by me shows his hematologic labs are nonactionable including an undetectable troponin. Upon repeat evaluation patient reported acceptable resolution of his symptoms and has had no chest pain.. Given this appropriate for discharge with follow-up with his PCP and cardiology as scheduled.
[2024-03-24] MEDS: KETOROLAC 30MG/ML VIAL 15 MG IV (15:45)
[2024-03-24] MEDS: LACTATED RINGERS 1000ML 1,000 ML 999 ML IV (15:45)
[2024-03-24] MEDS: ACETAMINOPHEN 1,000MG/100ML VIAL 1000 MG IV (15:46)
[2024-03-24 15:47] LABS: Basophils % 0.3 % (0.1-2.0); Eosinophils # 0.1 K/mm3 (0.0-0.4); Eosinophils % 1.4 % (0.1-12.0); Hematocrit 43.4 % (42.0-52.0); Hemoglobin 14.5 g/dL (14.1-18.0); Lymphocytes # 2.2 K/mm3 (0.7-4.5); Lymphocytes % 24.3 % (10-50); Mean Corpuscular HGB Conc 33.3 g/dL (31.8-35.4); Mean Corpuscular Hemoglobin 29.5 pg (27.0-31.2); Mean Corpuscular Volume 88.8 fl (80-94); Mean Platelet Volume 7.9 fl (7.4-10.4); Monocytes # 0.4 K/mm3 (0.1-1.0); Monocytes % 4.8 % (1.7-9.3); Neutrophils # 6.4 K/mm3 (1.8-7.8); Neutrophils % 69.1 % (37.0-80.0); Platelet Count 306 K/mm3 (142-424); Red Blood Count 4.89 M/mm3 (4.60-6.20); White Blood Count 9.2 K/mm3 (4.8-10.8)
[2024-03-24 15:52] LABS: Anion Gap 11.7 mEq/L (5-15); Blood Urea Nitrogen 9 mg/dl (9-20); Calcium 9.4 mg/dl (8.4-10.2); Carbon Dioxide 28 mmol/L (22.0-30.0); Chloride 104 mmol/L (98-107); Creatinine Clearance Estimated 196 mL/min (50-200); Estimated Glomerular Filt Rate 93 ml/min (>60); GFR (African American) 113 ML/MIN (>60); Glucose 97 mg/dl (74-100); Potassium 3.7 mmoL/L (3.5-5.1); Sodium 140 mmol/L (136-145)
[2024-03-24 15:57] LABS: D-Dimer 0.34 ug/mL (0.0-0.5)
[2024-03-24 16:00] VITALS: BP 126/61; PULSE 64; RESP 9; O2SAT 98
[2024-03-24 16:09] LABS: Magnesium 1.9 mg/dl (1.6-2.3)
[2024-03-24 16:14] LABS: Troponin I < 0.01 ng/ml (0.00-0.034)
[2024-03-24 16:30] VITALS: BP 128/69; PULSE 59; RESP 8; O2SAT 98
[2024-03-24 17:01] VITALS: BP 111/74; PULSE 59; RESP 12; O2SAT 98
[2024-03-24 17:12] VITALS: BP 111/74; PULSE 54; RESP 18; TEMP 36.6; O2SAT 98
== END 2024-03-24 17:13 | disposition home or self-care (01) ==
PROVIDERS: Physician Assistant; Emergency Provider Student in an Organized Health Care Education/Training Program; PCP Internal Medicine
DX: R07.89 Other chest pain (principal); R42 Dizziness and giddiness
CPT/HCPCS: 80048; 83735; 84484; 85025; 85378; 93005; 96361; 96374; 96375; 99284; J0131; J1885; J7120

== ENCOUNTER 2024-04-01 12:22 | Emergency (ER) | payer BC, SELFPAY ==
--- NOTE | 2024-04-01 | ECG_ITS ---
APPROVED REPORT Exam: Resting ECG HR:71 bpm ECG Measurements Heart Rate 71 AXES UT 137 P 43 QRSd 98 QRS 30 QT 386 T 39 QTc 408 Conclusion SINUS RHYTHM NORMAL ECG Electronically signed by : AUDELIA CARR, 04/02/2024 16:01:40
[2024-04-01 12:25] VITALS: BP 131/82; PULSE 72; RESP 16; TEMP 36.6; O2SAT 97; BMI 40.6
--- NOTE | 2024-04-01 12:35 | XR_ITS ---
FINAL REPORT CLINICAL HISTORY: abd pain COMPARISON: 03/18/2024 FINDINGS: A single portable view of the chest was obtained. The heart size and pulmonary vascularity are within normal limits. The mediastinum is within normal limits. No acute pulmonary abnormality is identified. The bony thorax is intact. IMPRESSION: No active cardiopulmonary disease. Reviewed, Interpreted and Dictated by Roderick Grimaldo III, MD Transcribed by Jennifer Verma Authenticated and . [facility]
[2024-04-01 12:41] LABS: Basophils % 0.4 % (0.1-2.0); Eosinophils # 0.1 K/mm3 (0.0-0.4); Eosinophils % 0.9 % (0.1-12.0); Hematocrit 44.5 % (42.0-52.0); Hemoglobin 14.9 g/dL (14.1-18.0); Lymphocytes # 1.1 K/mm3 (0.7-4.5); Lymphocytes % 10.6 % (10-50); Mean Corpuscular HGB Conc 33.4 g/dL (31.8-35.4); Mean Corpuscular Hemoglobin 30.2 pg (27.0-31.2); Mean Corpuscular Volume 90.6 fl (80-94); Mean Platelet Volume 8.4 fl (7.4-10.4); Monocytes # 0.5 K/mm3 (0.1-1.0); Monocytes % 4.4 % (1.7-9.3); Neutrophils # 8.7 K/mm3 (1.8-7.8); Neutrophils % 83.6 % (37.0-80.0); Platelet Count 300 K/mm3 (142-424); Red Blood Count 4.92 M/mm3 (4.60-6.20); Red Cell Distribution Width 13.3 % (11.5-17.5); White Blood Count 10.4 K/mm3 (4.8-10.8)
[2024-04-01 12:44] LABS: Chloride 109 mmol/L (98-107); Potassium 4.3 mmoL/L (3.5-5.1); Sodium 140 mmol/L (136-145)
[2024-04-01 12:46] LABS: Alanine Aminotransferase 66 U/L (12-78); Alkaline Phosphatase 80 U/L (38-126); Aspartate Amino Transferase 44 U/L (17-59); Bilirubin,Total 0.6 mg/dl (0.2-1.3); Blood Urea Nitrogen 12 mg/dl (9-20); Creatinine Clearance Estimated 196 mL/min (50-200); Estimated Glomerular Filt Rate 93 ml/min (>60); GFR (African American) 113 ML/MIN (>60)
[2024-04-01 12:47] LABS: Albumin Level 4.9 g/dl (3.5-5.0); Albumin/Globulin Ratio 1.4 (1.1-1.8); Anion Gap 10.3 mEq/L (5-15); Calcium 9.9 mg/dl (8.4-10.2); Carbon Dioxide 25 mmol/L (22.0-30.0); Globulin 3.6 g/dL (1.3-3.2); Glucose 104 mg/dl (74-100); Total Protein,Serum 8.5 g/dl (6.3-8.2)
[2024-04-01] MEDS: ONDANSETRON 4MG ODT 4 MG SL (12:47)
[2024-04-01 12:51] LABS: Coronavirus 19, PCR Not Detected (NotDetected); Influenza A, PCR Not Detected (NotDetected); Influenza B, PCR Not Detected (NotDetected)
[2024-04-01 13:05] LABS: Troponin I < 0.01 ng/ml (0.00-0.034)
--- NOTE | 2024-04-01 13:11 | [facility].EDCP ---
Discharge Plan Disposition Patient Disposition: Home, Self-Care Prescriptions Prescriptions: New ondansetron 4 mg tablet,disintegrating 4 mg PO Q6H PRN (Reason: nausea and vomiting) Qty: 10 0RF No Action Eliquis 5 mg tablet 5 mg PO BID Qty: 60 5RF olanzapine [Zyprexa] 10 mg tablet 10 mg PO HS Qty: 30 1RF hydroxyzine pamoate [Vistaril] 25 mg capsule 25 mg PO QID PRN (Reason: for increased anxiety) Qty: 120 1RF atorvastatin 40 mg tablet 40 mg PO DAILY Qty: 30 2RF lorazepam 1 mg tablet 1 mg PO DAILY PRN (Reason: panic attack(s)) 30 Days Qty: 15 1RF olanzapine-samidorphan 10-10 mg tablet 1 tab PO DAILY Qty: 30 2RF amoxicillin 500 mg capsule 500 mg PO BID 14 Days Qty: 28 0RF bisoprolol fumarate 10 mg tablet 10 mg PO DAILY Qty: 90 3RF Referrals Follow up/Referrals: Provider,Referral, MD [Primary Care Provider] - See instructions Activity Restrictions/Add. Instructions Additional Instructions/Restrictions: Follow-up with your family doctor regarding this abdominal pain within 48 hours to establish care and ensure improvement. Take Tylenol 1000 mg every 6 hours (4 times daily) and ibuprofen 400 mg every 6 hours (4 times daily) as needed with food and water to prevent GI upset and kidney damage. Do not take Advil for more than 3 to 5 days given that you are on Eliquis. Clinical Impressions Clinical Impression: Abdominal pain Discharge ED Provider: Jagdeep Hyman HPI General Chief Complaint: Chest Pain Stated Complaint: chest pain Time Seen by Provider: 04/01/24 12:34 Mode of Arrival: Ambulatory Source of Information: Patient Limitations: No Limitations Description of Symptoms (Recalled from ER Triage Doc. by RN): c/o lower left pain that shoots up to the center of his chest, pt states that it feels like a gas pain, dry hives and diarrhea for the last 2 hours. states the pain comes and goes. exposed to covid 4 days ago History of Present Illness HPI narrative: Please note that above description of symptoms, in this electronic medical record under categorization of recalled from ER triage doctor by RN are reflective of an initial nursing assessment, however, is not reflective of my full history and physical exam that was personally taken and clarified. Consequentially, this preceding description of symptoms, which may include the patient's categorized chief complaint in the EMR, do not reflect my personal clinical impression, and the ultimate description of history of present illness and patient stated complaints should be deferred to this section of the note. Unless stated otherwise or congruent with this section of the note, additional signs, symptoms, or incongruence should be interpreted as inaccurate with my clinical impression. Related Data Previous Rx's Medication Instructions Recorded hydroxyzine pamoate 25 mg capsule 25 mg PO QID PRN for increased 01/09/24 (Vistaril) anxiety #120 caps olanzapine 10 mg tablet (Zyprexa) 10 mg PO HS #30 tabs 01/09/24 apixaban 5 mg tablet (Eliquis) 5 mg PO BID #60 tabs 01/22/24 amoxicillin 500 mg capsule 500 mg PO BID 14 days #28 caps 03/11/24 atorvastatin 40 mg tablet 40 mg PO DAILY #30 tabs 03/11/24 lorazepam 1 mg tablet 1 mg PO DAILY PRN panic attack(s) 03/11/24 30 days #15 tabs olanzapine 10 mg-samidorphan 10 mg 1 tab PO DAILY #30 tabs 03/11/24 tablet bisoprolol fumarate 10 mg tablet 10 mg PO DAILY #90 tabs 03/25/24 ondansetron 4 mg disintegrating 4 mg PO Q6H PRN nausea and 04/01/24 tablet vomiting #10 tabs Allergies Allergy/AdvReac Type Severity Reaction Status Date / Time metformin AdvReac Intermediate Swelling Verified 03/11/24 12:54 of Lip/Tongue/Throat PFSH PFS Disclaimer: The information contained in this section may have been updated after the patient was seen, as this information can be updated by other users. 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 Snoring Daytime somnolence Dyspnea Surgical History History of surgery on arm History of cholecystectomy Family History Other No significant family history Social History Smoking Status: Never smoker alcohol intake: former substance use type: denies use current occupational status: employed and other Travel in the last 8 weeks: None household members: spouse housing: house number of children: 1 caffeine: Yes ROS Obtained: Yes All systems reviewed & no additional complaints except as documented Physical Exam General General appearance: alert Neck Neck exam: Present trachea midline Chest Chest inspection: Present normal inspection and symmetric chest wall rise Respiratory Respiratory exam: Present normal lung sounds bilaterally; Absent respiratory distress, wheezes, stridor, accessory muscle use or prolonged expiratory phase Cardiovascular Cardiovascular exam: Present regular rate and normal rhythm Abdominal Exam Abdominal exam: Present soft; Absent distention, tenderness or guarding Extremities Exam Extremities exam: Absent edema Neurological Exam Neurological exam: Present alert, oriented X3 and CN II-XII intact Skin Skin exam: Present warm and dry; Absent cyanosis, diaphoresis or pallor HEART Score HEART Score HEART Score assessment performed?: Yes History (anamnesis): Slightly suspicious ECG: Normal Age: <45 years Risk factors: 1-2 risk factors Troponin: </= normal limit HEART Score: 1 Critical Care Critical Care Time Critical Care Time: No Medical Decision Making Medical Records Medical records reviewed: Yes I reviewed the patient's medical records. Teofilo Inquiry Pt receiving controlled substance: No Teofilo was queried for this patient: No Vital Signs Vital Signs: 04/01/24 12:25 04/01/24 13:32 Temperature 97.9 F Temperature Source Oral Pulse Rate 74 Pulse Rate [Left Radial] 72 Respiratory Rate 16 16 Blood Pressure 119/80 Blood Pressure [Right Arm] 131/82 Blood Pressure Mean [Right Arm] 98 Blood Pressure Position [Right Arm] Sitting 02 Sat by Pulse Oximetry 97 97 Oxygen Delivery Method Room Air Room Air Lab Data Labs: Lab Results 04/01/24 12:28: WBC 10.4, RBC 4.92, Hgb 14.9, Hct 44.5, MCV 90.6, MCH 30.2, MCHC 33.4, RDW 13.3, Plt Count 300, MPV 8.4, Neut % (Auto) 83.6 H, Lymph % (Auto) 10.6, [place] % (Auto) 4.4, Eos % (Auto) 0.9, Baso % (Auto) 0.4, Neut # (Auto) 8.7 H, Lymph # (Auto) 1.1, [place] # (Auto) 0.5, Eos # (Auto) 0.1, Baso # (Auto) 0.0, Sodium 140, Potassium 4.3, Chloride 109 H, Carbon Dioxide 25, Anion Gap 10.3, BUN 12, Creatinine 0.90, Estimated Creat Clear 196, Estimated GFR 93, Est GFR ( Amer) 113, Glucose 104 H, Calcium 9.9, Total Bilirubin 0.6, AST 44, ALT 66, Alkaline Phosphatase 80, Troponin I < 0.01, Total Protein 8.5 H, Albumin 4.9, Globulin 3.6 H, Albumin/Globulin Ratio 1.4, Lipase 85, SARS-CoV-2 (PCR) Not detected, Influenza A Untype (PCR) Not detected, Influenza Type B (PCR) Not detected 04/01/24 13:52: Urine Color Yellow, Urine Appearance Clear, Urine pH 6.0, Ur Specific [place] >= 1.030, Urine Protein 1+, Urine Glucose (UA) Negative, Urine Ketones Trace, Urine Blood Negative, Urine Nitrate Negative, Urine Bilirubin Negative, Urine Urobilinogen 1.0, Ur Leukocyte Esterase Negative 04/01/24 12:28 04/01/24 12:28 Response Orders (Tests/Meds): ED MEDICATIONS Discontinued Medications Generic Name Dose Route Start Last Admin Trade Name Freq PRN Reason Stop Dose Admin Acetaminophen 1,000 mg 04/01/24 13:51 04/01/24 14:00 Acetaminophen 500mg Tab PO 04/01/24 13:52 1,000 mg ONCE ONE Administration Ibuprofen 600 mg 04/01/24 13:51 04/01/24 14:00 Ibuprofen 600 Mg Tablet PO 04/01/24 13:52 600 mg ONCE ONE Administration Ondansetron HCl 4 mg 04/01/24 12:34 04/01/24 12:47 Ondansetron 4mg Odt SL 04/01/24 12:35 4 mg ONCE ONE Administration ORDERS Category Date Time Status XR chest portable Stat Exams 04/01/24 12:35 Completed CBC w/Auto Diff [Complete Blood Count Auto Diff] Stat Lab 04/01/24 12:28 Completed CMP [Comprehensive Metabolic Panel] Stat Lab 04/01/24 12:28 Completed Lipase Stat Lab 04/01/24 12:28 Completed Rapid PCR Covid and Flu A/B Stat Lab 04/01/24 12:28 Completed Trop I [Troponin I] Stat Lab 04/01/24 12:28 Completed Troponin I Q3H Lab 04/01/24 15:45 Ordered Troponin I Q3H Lab 04/01/24 18:45 Ordered UA [Urinalysis and Microscopic] Stat Lab 04/01/24 13:52 Results MDM Narrative Medical Decision Narrative: 43-year-old male history of hypertension, hyperlipidemia, CAD, PEs currently on Eliquis presenting with abdominal pain, vomiting, diarrhea. Patient states that the symptoms started today, 04/01. He was lifting something when the abdominal pain started. No bulging. Patient has passed gas and had bowel movement since that time. States that change in position make it worse, is just left of navel. No blood in his stool or urine, no blood in his vomit. Not currently having discomfort. He was worried because the pain was moderate in intensity, radiated upward toward his epigastrium and then out through his left chest. No chest pain, shortness of breath, or otherwise. History was obtained via conversation with patient. On arrival, patient hemodynamically stable, alert, oriented x4, appropriate, GCS 15, moving all extremities spontaneously, pupils equal and reactive to light. Full physical exam performed and significant for very well-appearing male who is in no acute distress. Abdomen is soft, nontender, nondistended, no abnormalities or tenderness elicited on my exam with deep palpation. Bowel sounds are normal. Cardiac exam within normal limits, lungs clear to auscultation bilaterally anterior and posterior. Patient does not have any flank tenderness or bruising. Differential includes gastritis, enteritis, gastroenteritis, colitis, diverticulitis, PUD, pancreatitis, nephrolithiasis, UTI, among others. Patient was given Zofran sublingual for symptomatic management and correction of underlying abnormalities. Independent interpretation of EKG shows sinus rhythm 71 beats a minute no ST or T wave changes concerning for acute ischemia. No evidence of right heart strain. AR 137, QRS 98, QTc 408, axis normal. Workup independently interpreted and significant for nonactionable CBC or chemistry. Troponin negative, urinalysis negative. No acute cardiopulmonary airspace disease. See radiology read for full review of final results. Patient placed on continuous cardiac monitoring and continuous pulse ox with initial blood pressure 131/82, heart rate 72, saturation 97 on room air. Heart score 1. On reevaluation, patient still having some mild pain, given Tylenol and Motrin. Because patient at baseline without signs or symptoms of clinical decompensation, deemed appropriate for discharge. Results were relayed to patient who voiced understanding and were agreeable to outpatient management and follow up. I discussed my clinical impression with patient and answered all questions. At this time, the evidence for any other entities in the differential is insufficient to warrant any further testing or ED observation. This was explained as well. Advisory was given that persistent or worsening symptoms require further evaluation. I confirmed the understanding of this discussion. Entry Level Programmer disclaimer Much of this encounter note is an electronic sales agent fire insurance spoken language to printed text. Electronic sales agent fire insurance of the spoken language may permit errors. Although I have reviewed the note, some errors may still exist.
[2024-04-01 13:27] LABS: Lipase 85 U/L (23-300)
[2024-04-01 13:32] VITALS: BP 119/80; PULSE 74; RESP 16; O2SAT 97
[2024-04-01] MEDS: IBUPROFEN 600 MG TABLET PO (14:00)
[2024-04-01] MEDS: ACETAMINOPHEN 500MG TAB 1000 MG PO (14:00)
[2024-04-01 14:18] LABS: Microscopic, Urine URINE MICROSCOPIC (MICROSCOPIC)
[2024-04-01 14:32] LABS: Appearance,Urine CLEAR (Clear); Blood, Urine Negative (Negative); Color,Urine YELLOW (Yellow); Glucose,Urine (UA) Negative (Negative); Ketones,Urine TRACE (Negative); Leukocyte Esterase,Urine Negative (Negative); Nitrate,Urine Negative (Negative); Protein,Urine 1+ (Negative); Specific Gravity, Urine >= 1.030 (1.005-1.030)
[2024-04-01 14:34] LABS: Bilirubin,Urine Negative (Negative)
[2024-04-01 14:50] VITALS: BP 111/78; PULSE 73; RESP 16; TEMP 36.7; O2SAT 97
[2024-04-01 14:56] LABS: Bacteria,Urine Trace /lpf; Calcium Oxalate Crystals,Urine 1+ /lpf; Mucus,Urine Trace /lpf
== END 2024-04-01 14:50 | disposition home or self-care (01) ==
PROVIDERS: Emergency Provider Emergency Medicine
DX: R10.32 Left lower quadrant pain (principal); R11.2 Nausea with vomiting, unspecified; R19.7 Diarrhea, unspecified; E78.5 Hyperlipidemia, unspecified; Z86.711 Personal history of pulmonary embolism; Z79.01 Long term (current) use of anticoagulants; I10 Essential (primary) hypertension
CPT/HCPCS: 71045; 80053; 81001; 83690; 84484; 85025; 87636; 93005; 99284

== ENCOUNTER 2024-04-04 09:38 | Outpatient (CLI) | payer BC, SELFPAY | END 2024-04-04 23:59 | disposition home or self-care (01) | LOC: LAB.DROPOF 04-05 09:47 | PROVIDERS: PCP Internal Medicine; Visit Provider Internal Medicine | DX: Z02.9 Encounter for administrative examinations, unspecified (principal) ==

== ENCOUNTER 2024-05-13 19:04 | Emergency (ER) | payer BC, SELFPAY ==
[2024-05-13] VITALS (9 sets, daily range): BP systolic 97–121; BP diastolic 55–77; PULSE 59–79; RESP 16; TEMP 36.4–36.6; O2SAT 91–98; BMI 40.1; BMI 40.6
--- NOTE | 2024-05-13 19:07 | ECG_ITS ---
APPROVED REPORT Exam: Resting ECG HR:80 bpm ECG Measurements Heart Rate 80 AXES AR 143 P 51 QRSd 96 QRS 51 QT 371 T 8 QTc 408 Conclusion SINUS RHYTHM PROBABLE INFERIOR MYOCARDIAL INFARCTION , PROBABLY OLD [35 ms Q WAVE IN II/aVF] ABNORMAL ECG Electronically signed by : BRYAN OSEI, 05/14/2024 19:06:35
--- NOTE | 2024-05-13 19:07 | ED_ITS ---
<Statement entered by Lavonne Ferrell DO - 05/13/24 23:01> I was consulted by the RONNI, and we discussed the complexity of the problems being addressed. I approved the treatment and management plan for this patient's care in the emergency department, thus performing a substantive portion of the medical decision making. Lavonne Ferrell DO Discharge Plan Disposition Patient Disposition: Home, Self-Care Condition: Good Prescriptions Prescriptions: No Action lorazepam 1 mg tablet 1 mg PO DAILY PRN (Reason: panic attack(s)) 60 Days Qty: 30 0RF tadalafil 5 mg tablet 5 mg PO DAILY Qty: 30 2RF Eliquis 5 mg tablet 5 mg PO ONCE atorvastatin 40 mg tablet 40 mg PO DAILY Qty: 30 2RF olanzapine-samidorphan 10-10 mg tablet 1 tab PO DAILY Qty: 30 2RF bisoprolol fumarate 10 mg tablet 10 mg PO DAILY Qty: 90 3RF ondansetron 4 mg tablet,disintegrating 4 mg PO Q6H PRN (Reason: nausea and vomiting) Qty: 10 0RF Referrals Follow up/Referrals: Jono Lundberg DO [Primary Care Provider] - See instructions Activity Restrictions/Add. Instructions Additional Instructions/Restrictions: Follow-up with your PCP as scheduled follow-up with cardiology as scheduled return to ER for any worsening signs or symptoms as needed. Clinical Impressions Clinical Impression: Chest pain, Anxiety Instructions Patient Instructions: DI for Chest Pain, DI for Anxiety -- Adult Print Language Print Language: Cuban Discharge ED Provider: Lavonne Ferrell General Adult HPI <MEDARDO Beck - Last Filed: 05/13/24 22:22> General Chief complaint: Chest Pain Stated complaint: Chest pain Time Seen by Provider: 05/13/24 19:05 History of Present Illness HPI narrative: Patient presents for evaluation of chest pain and shortness of breath. Patient states that he began having chest pain shortness of breath shortly after arrival. He was eating supper when it occurred. He denies fever chills hemoptysis hematochezia melena nausea vomiting diarrhea. Patient states that the chest pain went away prior to arrival in the ER. Related Data Home Medications ?Medication ?Instructions ?Recorded ?Confirmed apixaban 5 mg tablet (Eliquis) 5 mg PO ONCE 04/19/24 05/13/24 Previous Rx's ?Medication ?Instructions ?Recorded atorvastatin 40 mg tablet 40 mg PO DAILY #30 tabs 03/11/24 olanzapine 10 mg-samidorphan 10 mg 1 tab PO DAILY #30 tabs 03/11/24 tablet bisoprolol fumarate 10 mg tablet 10 mg PO DAILY #90 tabs 03/25/24 ondansetron 4 mg disintegrating 4 mg PO Q6H PRN nausea and 04/01/24 tablet vomiting #10 tabs lorazepam 1 mg tablet 1 mg PO DAILY PRN panic attack(s) 04/04/24 60 days #30 tabs tadalafil 5 mg tablet 5 mg PO DAILY #30 tabs 04/04/24 Allergies Allergy/AdvReac Type Severity Reaction Status Date / Time metformin AdvReac Intermediate Swelling Verified 05/13/24 19:18 of Lip/Tongue/Throat [facility] <MEDARDO Beck - Last Filed: 05/13/24 22:22> [facility] Disclaimer: The information contained in this section may have been updated after the patient was seen, as this information can be updated by other users. 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 Snoring Daytime somnolence Dyspnea Surgical History History of surgery on arm History of cholecystectomy Family History (Updated 04/19/24 @ 09:26 by Ana Maria Tomas) Other Anxiety Coronary artery disease Depression Diabetes Hypertension No significant family history VINNIE (obstructive sleep apnea) Obesity Social History (Updated 04/19/24 @ 09:38 by Ana Maria Tomas) Smoking Status: Current every day smoker tobacco type: cigarettes packs per day: 1 years smoked: 8 how long ago did patient quit smokin years alcohol intake: former year quit: 2018 substance use type: denies use current occupational status: employed Travel in the last 8 weeks: None household members: significant other housing: house marital status: single number of children: 1 caffeine: Yes <MEDARDO Beck - Last Filed: 05/13/24 22:22> ROS Obtained: Yes Systems reviewed as appropriate & no additional complaints except as documented Physical Exam <MEDARDO Beck - Last Filed: 05/13/24 22:22> General General appearance: alert and in no apparent distress Respiratory Respiratory exam: Present normal lung sounds bilaterally Cardiovascular Cardiovascular exam: Present regular rate, normal rhythm and normal heart sounds Neurological Exam Neurological exam: Present alert and oriented X3 Medical Decision Making <MEDARDO Beck - Last Filed: 05/13/24 22:22> Medical Records Medical records reviewed: Yes I reviewed the patient's medical records. Teofilo Inquiry Pt receiving controlled substance: No Vital Signs: 05/13/24 19:08 05/13/24 19:15 05/13/24 19:45 Temperature 97.6 F Temperature Source Oral Pulse Rate 79 68 Pulse Rate [Left Brachial] 78 Respiratory Rate 16 Blood Pressure 114/55 L 121/73 Blood Pressure [Left Arm] 114/55 L Blood Pressure Mean [Left Arm] 74 Blood Pressure Source [Left Arm] Automatic Cuff Blood Pressure Position [Left Arm] Sitting 02 Sat by Pulse Oximetry 96 98 95 Oxygen Delivery Method Room Air 05/13/24 20:30 05/13/24 21:00 05/13/24 21:30 Temperature Temperature Source Pulse Rate 62 59 L 60 Pulse Rate [Left Brachial] Respiratory Rate Blood Pressure 112/67 117/65 100/58 L Blood Pressure [Left Arm] Blood Pressure Mean [Left Arm] Blood Pressure Source [Left Arm] Blood Pressure Position [Left Arm] 02 Sat by Pulse Oximetry 94 L 93 L 91 L Oxygen Delivery Method 05/13/24 22:00 Temperature Temperature Source Pulse Rate 66 Pulse Rate [Left Brachial] Respiratory Rate Blood Pressure 104/61 L Blood Pressure [Left Arm] Blood Pressure Mean [Left Arm] Blood Pressure Source [Left Arm] Blood Pressure Position [Left Arm] 02 Sat by Pulse Oximetry 92 L Oxygen Delivery Method Lab Data Lab results reviewed: Yes I reviewed the patient's lab results. Lab Results 05/13/24 19:12: WBC 9.4, RBC 4.90, Hgb 14.2, Hct 44.6, MCV 90.9, MCH 28.9, MCHC 31.8, RDW 13.3, Plt Count 297, MPV 8.1, Neut % (Auto) 64.0, Lymph % (Auto) 27.1, Mora % (Auto) 6.5, Eos % (Auto) 1.5, Baso % (Auto) 0.8, Neut # (Auto) 6.0, Lymph # (Auto) 2.5, Mora # (Auto) 0.6, Eos # (Auto) 0.1, Baso # (Auto) 0.1, D-Dimer 0.30, Sodium 139, Potassium 3.8, Chloride 105, Carbon Dioxide 28, Anion Gap 9.8, BUN 14, Creatinine 0.80, Estimated Creat Clear 221, Estimated GFR 107, Est GFR ( Amer) 129, Glucose 123 H, Calcium 9.1, Total Bilirubin 0.5, AST 48, ALT 62, Alkaline Phosphatase 69, Troponin I < 0.01, Total Protein 7.5, Albumin 4.4, Globulin 3.1, Albumin/Globulin Ratio 1.4 05/13/24 19:19: VBG pH 7.41, VBG pCO2 40.9, VBG pO2 135.4 H, VBG HCO3 25.6, VBG Total CO2 26.8, VBG O2 Saturation 98.8 H, VBG Base Excess 1.0, VBG Lactic Acid 2.3 H 05/13/24 19:12 05/13/24 19:12 Orders (Tests/Meds): ED MEDICATIONS Generic Name Dose Route Start Last Admin Trade Name Freq PRN Reason Stop Dose Admin Sodium Chloride 10 ml 05/13/24 20:55 Sodium Chloride 0.9% 10ml Vial IV 06/12/24 20:54 NEEDED PRN to Dilute Lorazepam inj Discontinued Medications Generic Name Dose Route Start Last Admin Trade Name Freq PRN Reason Stop Dose Admin Acetaminophen 1,000 mg 05/13/24 19:10 05/13/24 19:22 Acetaminophen 1,000mg/100ml Vial IV 05/13/24 19:11 1,000 mg ONCE ONE Administration Dexamethasone Sodium Phosphate 10 mg 05/13/24 19:10 05/13/24 19:22 Dexamethasone 4mg/Ml 5ml Mdv IV 05/13/24 19:11 10 mg ONCE ONE Administration Hydroxyzine Pamoate 50 mg 05/13/24 19:10 05/13/24 19:22 Hydroxyzine Pamoate 25mg Capsule PO 05/13/24 19:11 50 mg ONCE ONE Administration Lorazepam 1 mg 05/13/24 20:55 05/13/24 21:13 Lorazepam 2mg/Ml Vial IV 05/13/24 20:56 1 mg ONCE ONE Administration Ondansetron HCl 4 mg 05/13/24 19:10 05/13/24 19:22 Ondansetron 4mg/2ml Vial IV 05/13/24 19:11 4 mg ONCE ONE Administration ORDERS Category Date Time Status Chest XR 2 view (NOT portable) [XR chest 2V] Stat Exams 05/13/24 19:10 Completed CBC w/Auto Diff [Complete Blood Count Auto Diff] Stat Lab 05/13/24 19:12 Completed CMP [Comprehensive Metabolic Panel] Stat Lab 05/13/24 19:12 Completed D-Dimer Stat Lab 05/13/24 19:12 Completed Trop I [Troponin I] Stat Lab 05/13/24 19:12 Completed Troponin I Q3H Lab 05/13/24 22:04 Received Troponin I Q3H Lab 05/14/24 01:15 Ordered VBG [Venous Blood Gas] Stat RT 05/13/24 19:19 Completed HEART Score History (anamnesis): Slightly suspicious ECG: Non-specific disturbance Age: <45 years Risk factors: 3 or more risk factors Troponin: </= normal limit HEART Score: 3 Medical Decision Narrative: In summary patient is a 43-year-old male who presents to the emergency department for evaluation of chest pain shortness of breath. Patient is hemodynamically stable upon arrival, afebrile. Physical exam is unremarkable including normal breath sounds normal heart sounds no reproducible pain on palpation sinus rhythm on the bedside monitor satting at greater than 94% on room air. Differential diagnosis includes ACS versus PE versus pneumonia versus anxiety etc. patient cannot be ruled out by PERC criteria given his previous DVT however his Wells criteria is low at 1.5. Thus we will order a D-dimer. Initial workup will be conducted with hematologic labs twelve-lead EKG plain film chest x-ray. Initial interventions include Toradol Tylenol Decadron Zofran. Initial workup reviewed by me shows that hematologic labs are nonactionable including an undetectable troponin and a D-dimer less than 1 and my informal interpretation is plain film chest x-ray shows no acute processes. Upon repeat evaluation patient has had no recurrence. The patient was placed in observation status at 2039. Medical necessity for observational status is serial troponins continuous pulse oximetry and cardiac monitoring. Shows that his troponin remains undetectable. Because of this I believe the patient can be safely discharged and we have effectively ruled out any acute serious or life- threatening cardiac problem or any other cause. Patient has significant anxiety and had significant improvement after administration of Ativan. All of his symptoms resolved completely.. Total time in observation was 120 minutes. <Lavonne Franciscos, DO - Last Filed: 05/13/24 19:10> Vital Signs: 05/13/24 19:08 05/13/24 19:15 05/13/24 19:45 Temperature 97.6 F Temperature Source Oral Pulse Rate 79 68 Pulse Rate [Left Brachial] 78 Respiratory Rate 16 Blood Pressure 114/55 L 121/73 Blood Pressure [Left Arm] 114/55 L Blood Pressure Mean [Left Arm] 74 Blood Pressure Source [Left Arm] Automatic Cuff Blood Pressure Position [Left Arm] Sitting 02 Sat by Pulse Oximetry 96 98 95 Oxygen Delivery Method Room Air 05/13/24 20:30 05/13/24 21:00 05/13/24 21:30 Temperature Temperature Source Pulse Rate 62 59 L 60 Pulse Rate [Left Brachial] Respiratory Rate Blood Pressure 112/67 117/65 100/58 L Blood Pressure [Left Arm] Blood Pressure Mean [Left Arm] Blood Pressure Source [Left Arm] Blood Pressure Position [Left Arm] 02 Sat by Pulse Oximetry 94 L 93 L 91 L Oxygen Delivery Method 05/13/24 22:00 Temperature Temperature Source Pulse Rate 66 Pulse Rate [Left Brachial] Respiratory Rate Blood Pressure 104/61 L Blood Pressure [Left Arm] Blood Pressure Mean [Left Arm] Blood Pressure Source [Left Arm] Blood Pressure Position [Left Arm] 02 Sat by Pulse Oximetry 92 L Oxygen Delivery Method Lab Data Lab Results 05/13/24 19:12: WBC 9.4, RBC 4.90, Hgb 14.2, Hct 44.6, MCV 90.9, MCH 28.9, MCHC 31.8, RDW 13.3, Plt Count 297, MPV 8.1, Neut % (Auto) 64.0, Lymph % (Auto) 27.1, Mora % (Auto) 6.5, Eos % (Auto) 1.5, Baso % (Auto) 0.8, Neut # (Auto) 6.0, Lymph # (Auto) 2.5, Mora # (Auto) 0.6, Eos # (Auto) 0.1, Baso # (Auto) 0.1, D-Dimer 0.30, Sodium 139, Potassium 3.8, Chloride 105, Carbon Dioxide 28, Anion Gap 9.8, BUN 14, Creatinine 0.80, Estimated Creat Clear 221, Estimated GFR 107, Est GFR ( Amer) 129, Glucose 123 H, Calcium 9.1, Total Bilirubin 0.5, AST 48, ALT 62, Alkaline Phosphatase 69, Troponin I < 0.01, Total Protein 7.5, Albumin 4.4, Globulin 3.1, Albumin/Globulin Ratio 1.4 05/13/24 19:19: VBG pH 7.41, VBG pCO2 40.9, VBG pO2 135.4 H, VBG HCO3 25.6, VBG Total CO2 26.8, VBG O2 Saturation 98.8 H, VBG Base Excess 1.0, VBG Lactic Acid 2.3 H Orders (Tests/Meds): ED MEDICATIONS Generic Name Dose Route Start Last Admin Trade Name Freq PRN Reason Stop Dose Admin Sodium Chloride 10 ml 05/13/24 20:55 Sodium Chloride 0.9% 10ml Vial IV 06/12/24 20:54 NEEDED PRN to Dilute Lorazepam inj Discontinued Medications Generic Name Dose Route Start Last Admin Trade Name Freq PRN Reason Stop Dose Admin Acetaminophen 1,000 mg 05/13/24 19:10 05/13/24 19:22 Acetaminophen 1,000mg/100ml Vial IV 05/13/24 19:11 1,000 mg ONCE ONE Administration Dexamethasone Sodium Phosphate 10 mg 05/13/24 19:10 05/13/24 19:22 Dexamethasone 4mg/Ml 5ml Mdv IV 05/13/24 19:11 10 mg ONCE ONE Administration Hydroxyzine Pamoate 50 mg 05/13/24 19:10 05/13/24 19:22 Hydroxyzine Pamoate 25mg Capsule PO 05/13/24 19:11 50 mg ONCE ONE Administration Lorazepam 1 mg 05/13/24 20:55 05/13/24 21:13 Lorazepam 2mg/Ml Vial IV 05/13/24 20:56 1 mg ONCE ONE Administration Ondansetron HCl 4 mg 05/13/24 19:10 05/13/24 19:22 Ondansetron 4mg/2ml Vial IV 05/13/24 19:11 4 mg ONCE ONE Administration ORDERS Category Date Time Status Chest XR 2 view (NOT portable) [XR chest 2V] Stat Exams 05/13/24 19:10 Completed CBC w/Auto Diff [Complete Blood Count Auto Diff] Stat Lab 05/13/24 19:12 Completed CMP [Comprehensive Metabolic Panel] Stat Lab 05/13/24 19:12 Completed D-Dimer Stat Lab 05/13/24 19:12 Completed Trop I [Troponin I] Stat Lab 05/13/24 19:12 Completed Troponin I Q3H Lab 05/13/24 22:04 Received Troponin I Q3H Lab 05/14/24 01:15 Ordered VBG [Venous Blood Gas] Stat RT 05/13/24 19:19 Completed ECG Data Tracing #1: I reviewed this ECG and interpreted as documented below: Normal sinus rhythm with a ventricular rate of [address] changes concerning for ischemia. Patient does have Q waves noted in lead II and aVF. [place] and intervals. ECG initial impression date: 05/13/24 ECG initial impression time: 19:08 Critical Care <MEDARDO Beck - Last Filed: 05/13/24 22:22> Critical Care Time Critical Care Time: No
--- NOTE | 2024-05-13 19:10 | XR_ITS ---
PROCEDURE INFORMATION: Exam: XR Chest Exam date and time: 05/13/2024 7:09 PM Age: 43 years old Clinical indication: Pain; Angina pectoris; Additional info: Chest pain TECHNIQUE: Imaging protocol: Radiologic exam of the chest. Views: 2 views. COMPARISON: CR XR CHEST PORTABLE 04/01/2024 12:56 PM FINDINGS: Lungs: Normal pulmonary expansion. Pulmonary vasculature grossly normal. No gross pulmonary infiltrates or edema pattern. Pleural spaces: No pleural effusion. No pneumothorax. Heart/Mediastinum: Heart size normal. No tracheal/mediastinal shift. Bones/joints: No acute osseous abnormalities are identified. Intraperitoneal space: Right upper quadrant surgical clips suggest prior cholecystectomy. IMPRESSION: No acute thoracic process.
[2024-05-13] MEDS: ACETAMINOPHEN 1,000MG/100ML VIAL 1000 MG IV (19:22)
[2024-05-13] MEDS: ONDANSETRON 4MG/2ML VIAL 4 MG IV (19:22)
[2024-05-13] MEDS: hydrOXYzine pamoate 25MG CAPSULE 50 MG PO (19:22)
[2024-05-13] MEDS: DEXAMETHASONE 4MG/ML 5ML MDV 10 MG IV (19:22)
[2024-05-13 19:26] LABS: VBG HCO3 25.6 mmol/L (23-30); VBG Oxygen Saturation 98.8 % (50-70); VBG PCO2 40.9 mmol/L (35-51); VBG PH 7.41 mmol/L (7.31-7.41); VBG PO2 135.4 mmol/L (28-40); VBG Total CO2 26.8 mmol/L (23-27)
[2024-05-13 19:27] LABS: Lactate Venous 2.3 mmol/L (0.4-2.0)
[2024-05-13 19:29] LABS: Basophils # 0.1 K/mm3 (0-0.2); Basophils % 0.8 % (0.1-2.0); Eosinophils # 0.1 K/mm3 (0.0-0.4); Eosinophils % 1.5 % (0.1-12.0); Hematocrit 44.6 % (42.0-52.0); Hemoglobin 14.2 g/dL (14.1-18.0); Lymphocytes # 2.5 K/mm3 (0.7-4.5); Lymphocytes % 27.1 % (10-50); Mean Corpuscular HGB Conc 31.8 g/dL (31.8-35.4); Mean Corpuscular Hemoglobin 28.9 pg (27.0-31.2); Mean Corpuscular Volume 90.9 fl (80-94); Mean Platelet Volume 8.1 fl (7.4-10.4); Monocytes # 0.6 K/mm3 (0.1-1.0); Monocytes % 6.5 % (1.7-9.3); Platelet Count 297 K/mm3 (142-424); Red Cell Distribution Width 13.3 % (11.5-17.5); White Blood Count 9.4 K/mm3 (4.8-10.8)
[2024-05-13 19:32] LABS: Albumin Level 4.4 g/dl (3.5-5.0); Chloride 105 mmol/L (98-107); Potassium 3.8 mmoL/L (3.5-5.1); Sodium 139 mmol/L (136-145)
[2024-05-13 19:35] LABS: Alanine Aminotransferase 62 U/L (12-78); Albumin/Globulin Ratio 1.4 (1.1-1.8); Alkaline Phosphatase 69 U/L (38-126); Anion Gap 9.8 mEq/L (5-15); Aspartate Amino Transferase 48 U/L (17-59); Bilirubin,Total 0.5 mg/dl (0.2-1.3); Blood Urea Nitrogen 14 mg/dl (9-20); Calcium 9.1 mg/dl (8.4-10.2); Carbon Dioxide 28 mmol/L (22.0-30.0); Creatinine Clearance Estimated 221 mL/min (50-200); Estimated Glomerular Filt Rate 107 ml/min (>60); GFR (African American) 129 ML/MIN (>60); Globulin 3.1 g/dL (1.3-3.2); Glucose 123 mg/dl (74-100); Total Protein,Serum 7.5 g/dl (6.3-8.2)
[2024-05-13 19:50] LABS: Troponin I < 0.01 ng/ml (0.00-0.034)
--- NOTE | 2024-05-13 19:54 | PC.NURSE ---
Rounded on patient at this time, no needs. Chest pain has decreased per patient. Family at bedside, call light within reach.
[2024-05-13] MEDS: LORazepam 2MG/ML VIAL 1 MG IV (21:13)
[2024-05-13 22:49] LABS: Troponin I < 0.01 ng/ml (0.00-0.034)
== END 2024-05-13 22:59 | disposition home or self-care (01) ==
PROVIDERS: Physician Assistant; Emergency Provider Emergency Medicine; PCP Internal Medicine
DX: R07.9 Chest pain, unspecified (principal); F41.9 Anxiety disorder, unspecified; R06.02 Shortness of breath
CPT/HCPCS: 71046; 80053; 82803; 84484; 85025; 85378; 93005; 96374; 96375; 99284; J0131; J1100; J2060; J2405

== ENCOUNTER 2024-06-03 09:14 | Outpatient (CLI) | payer BC, SELFPAY ==
[2024-06-03 10:44] LABS: Alanine Aminotransferase 42 U/L (12-78); Albumin Level 3.9 g/dl (3.5-5.0); Alkaline Phosphatase 76 U/L (38-126); Aspartate Amino Transferase 31 U/L (17-59); Bilirubin,Direct 0.3 mg/dl (0.0-0.4); Bilirubin,Indirect 0.2 mg/dL (0.0-0.9); Bilirubin,Total 0.5 mg/dl (0.2-1.3); Bilirubin,Unconjugated 0.2 mg/dL (0.0-1.1); Chol/HDL Ratio 3.2 (1-3.5); Cholesterol 159 mg/dl (140-200); HDL Cholesterol 50 mg/dl (40-60); Triglycerides 97 mg/dl (30-150); VLDL Cholesterol 19 mg/dL (0-40)
[2024-06-03 10:55] LABS: Direct LDL Cholesterol 82.54 mg/dL (100-129)
== END 2024-06-03 23:59 | disposition home or self-care (01) ==
LOC: LAB 09:16
PROVIDERS: PCP Internal Medicine; Visit Provider Nurse Practitioner
DX: E78.5 Hyperlipidemia, unspecified (principal)
CPT/HCPCS: 36415; 80061; 80076

== ENCOUNTER 2024-10-22 11:35 | Emergency (ER) | payer BC, SELFPAY ==
[2024-10-22 11:50] VITALS: BP 107/66; PULSE 67; RESP 18; TEMP 36.6; O2SAT 97; BMI 38.2
--- NOTE | 2024-10-22 12:21 | EXP.UTC ---
Discharge Plan Disposition Patient Disposition: Home, Self-Care Condition: Good Prescriptions Prescriptions: No Action bisoprolol fumarate 10 mg tablet 10 mg PO DAILY Qty: 90 3RF Eliquis 5 mg tablet 5 mg PO BID Qty: 60 5RF olanzapine-samidorphan 20-10 mg tablet 1 tab PO DAILY Qty: 30 2RF lorazepam 1 mg tablet 1 mg PO DAILY PRN (Reason: panic attack(s)) 30 Days Qty: 20 1RF atorvastatin 40 mg tablet See Rx Instructions .ROUTE .COMPLEX Qty: 30 2RF Dose Instruction: TAKE ONE TABLET BY MOUTH EVERY DAY Rx Instructions: TAKE ONE TABLET BY MOUTH EVERY DAY Referrals Follow up/Referrals: Jono Lundberg DO [Primary Care Provider] - See instructions Activity Restrictions/Add. Instructions Additional Instructions/Restrictions: Drink extra fluids with and between meals. If you have difficulty drinking, try very small amounts of water or suck on ice chips. ? Avoid fruit juices, as these do not replace minerals and can actually increase diarrhea. ? Children and adults can use sports drinks to replenish electrolytes. Younger children and infants should use products formulated for children, like oral rehydration solutions. ? Eat food in small amounts and let your stomach recover. ? Get lots of rest. You may feel tired or weak. ? No greasy or fried foods for the next 24-48 hours BRAT diet Bananas Rice Apples and Galt ? Make sure to drink plenty of liquids ? Return if needed ? Straight to ER if any life threatening symptoms ? Follow up with family doctor in the next 48-72 hours if no improvement or any worsening of symptoms Clinical Impressions Clinical Impression: Viral syndrome Stand Alone Forms Stand Alone Forms: Work/School Release Instructions Patient Instructions: DI for Viral Syndrome Print Language Print Language: [place] Discharge ED Provider: Mary Kent [facility] – [place], [place] HPI General Stated complaint: vomiting nausea Mode of Arrival: Ambulatory Source of Information: Patient Limitations: No Limitations Time Seen by Provider: 10/22/24 12:21 Description of Symptoms (Recalled from Triage Doc. by RN): PATIENT C/O NAUSEA AND VOMITING THAT STARTED LAST NIGHT HEENT Symptoms (Recalled from RN notes): No Resp Symptoms (Recalled from RN notes): No Skin Symptoms (Recalled from RN notes): No MS Symptoms (Recalled from RN notes): No Functional Status (Recalled from RN notes): WNL History of Present Illness Provider Complaint: Patient states that he started feeling bad last night States that he has been having body aches and chills and had some N/V last night and wasnt able to work today wanting to get tested for the flu and get a note for work Related Data Previous Rx's ?Medication ?Instructions ?Recorded apixaban 5 mg tablet (Eliquis) 5 mg PO BID #60 tabs 06/03/24 bisoprolol fumarate 10 mg tablet 10 mg PO DAILY #90 tabs 06/03/24 olanzapine 20 mg-samidorphan 10 mg 1 tab PO DAILY #30 tabs 07/23/24 tablet lorazepam 1 mg tablet 1 mg PO DAILY PRN panic attack(s) 07/29/24 30 days #20 tabs atorvastatin 40 mg tablet See Rx Instructions .Route 09/20/24 .COMPLEX #30 tabs Allergies Allergy/AdvReac Type Severity Reaction Status Date / Time metformin AdvReac Intermediate Swelling Verified 07/23/24 09:58 of Lip/Tongue/Throat Worker's Comp Is this a Worker's Comp case?: No [facility] Disclaimer: The information contained in this section may have been updated after the patient was seen, as this information can be updated by other users. Medical History Hyperlipemia History of anxiety History of depression History of pulmonary embolism R leg trauma, hematoma preceding PE. 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 Snoring Daytime somnolence Dyspnea Surgical History History of surgery on arm History of cholecystectomy Family History Other Anxiety Coronary artery disease Depression Diabetes Hypertension No significant family history VINNIE (obstructive sleep apnea) Obesity Social History Smoking Status: Current every day smoker tobacco type: cigarettes packs per day: 1 years smoked: 8 how long ago did patient quit smokin years alcohol intake: former year quit: 2018 substance use type: denies use current occupational status: employed Travel in the last 8 weeks: None household members: significant other housing: house marital status: single number of children: 1 caffeine: Yes Have you lived/traveled outside US in past 30 days?: No Contact w/someone who lives/traveled outside US past 30 days?: No Exposure to someone with infectious disease in past 14 days?: No Do you have a fever (greater than 100.4 F or 38 C)?: No Have you tested positive for COVID-19: No Exposed to someone with COVID-19 in past 14 days?: No Do you have a sore throat?: No Do you have a cough?: No Do you have any weakness?: No Do you have any diarrhea?: No Are you experiencing any unusual bleeding?: No Do you have any muscle aches/pain?: No Do you have any abdominal pain?: No Are you experiencing loss of taste or smell?: No ROS Obtained: Yes All systems reviewed & no additional complaints except as documented and Yes Systems reviewed as appropriate & no additional complaints except as documented Constitutional Constitutional: Reports system reviewed and no additional complaints, except as documented, Reports as per HPI, Reports body ache and Reports chills ENT Ears, Nose, Mouth, and Throat: Reports system reviewed and no additional complaints, except as documented and Reports as per HPI Cardiovascular Cardiovascular: Reports system reviewed and no additional complaints, except as documented and Reports as per HPI Respiratory Respiratory: Reports system reviewed and no additional complaints, except as documented and Reports as per HPI Gastrointestinal Gastrointestingal: Reports system reviewed and no additional complaints, except as documented, as per HPI, nausea and vomiting Physical Exam General General appearance: alert and in no apparent distress ENT ENT exam: Present normal exam, normal oropharynx, mucous membranes moist and TM's normal bilaterally Respiratory Respiratory exam: Present normal lung sounds bilaterally; Absent respiratory distress or wheezes Cardiovascular Cardiovascular exam: Present regular rate, normal rhythm and normal heart sounds; Absent bradycardia Abdominal Exam Abdominal exam: Present soft and normal bowel sounds; Absent distention or tenderness Neurological Exam Neurological exam: Present alert, oriented X3 and normal gait Medical Decision Making Medical Records Screening: Per USPSTF and CDC recommendations, given the prevalence of disease in our region, it is our hospital?s policy to screen for HIV and viral Hepatitis for all patients aged 18 and over and those with ongoing risk factors. Teofilo Inquiry Pt receiving controlled substance: No Teofilo was queried for this patient: No Vital Signs: 10/22/24 11:50 Temperature 97.9 F Temperature Source Oral Pulse Rate [Left Brachial] 67 Respiratory Rate 18 Blood Pressure [Left Arm] 107/66 L Blood Pressure Mean [Left Arm] 79 Blood Pressure Source [Left Arm] Automatic Cuff Blood Pressure Position [Left Arm] Sitting 02 Sat by Pulse Oximetry 97 Oxygen Delivery Method Room Air Lab Data Lab results reviewed: Yes I reviewed the patient's lab results.
[2024-10-22 12:45] LABS: UTC Influenza A Antigen Negative (Negative); UTC Influenza B Antigen Negative (Negative)
[2024-10-22 12:48] VITALS: BP 107/66; PULSE 67; RESP 18; TEMP 36.6; O2SAT 97
== END 2024-10-22 12:51 | disposition home or self-care (01) ==
PROVIDERS: Emergency Provider Nurse Practitioner; PCP Internal Medicine
DX: B34.9 Viral infection, unspecified (principal)
CPT/HCPCS: 87804; 99212; G0381

== ENCOUNTER 2025-05-16 10:26 | Emergency (ER) | payer OTHER, SELFPAY ==
[2025-05-16] VITALS (9 sets, daily range): BP systolic 148–168; BP diastolic 86–108; PULSE 64–89; RESP 11–20; TEMP 36.7; O2SAT 97–99; BMI 40.1
--- NOTE | 2025-05-16 10:30 | PC.NURSE ---
deferred placing the pt in a [facility].
--- NOTE | 2025-05-16 10:35 | ECG_ITS ---
APPROVED REPORT Exam: Resting ECG HR:92 bpm ECG Measurements Heart Rate 92 AXES AK 133 P 59 QRSd 94 QRS 35 QT 351 T 42 QTc 401 Conclusion SINUS RHYTHM POSSIBLE INFERIOR MYOCARDIAL INFARCTION , PROBABLY OLD [30 ms Q WAVE IN II/aVF] No STEMI Electronically signed by : AMRITA ORTIZ, 05/17/2025 07:47:13
--- OUTSIDE RECORDS SUMMARY | 2025-05-16 10:35 | XMS_ITS | Patient Health Record ---
Author Organization [id number] [facility] Address [address] [place], [place] [id number] Support Name Relationship Address Phone Jewel Carter Guarantor Unknown [phone] Reason For Referral No Information Plan Of Treatment No Information Insurance Providers Payer Name Payer Address Payer Phone Subscriber Number Group Number Insured Name Patient Relationship to Insured Coverage Start Date Coverage End Date [employer] NON-HMO [address] [place], [place] [id number] Jewel Carter Self - patient is the insured 4
--- OUTSIDE RECORDS SUMMARY | 2025-05-16 10:35 | XMS_ITS | Clinical Summary ---
Author Organization [facility] ystem Address [address] [place] [address] Care Team Providers Care Chief Of Police Name Role Phone Donn Rodriguez MD Primary Care Provider [phone] Allergies No known active allergies Medications meloxicam (MOBIC) 7.5 MG tablet Take 1 tablet by mouth Daily. 08/23/2022 Active QUEtiapine (SEROquel) 100 MG tablet Take 1 tablet by mouth every night at bedtime. 08/07/2022 Active bisoprolol (ZEBeta) 10 MG tablet Take 1 tablet by mouth Daily. 08/22/2022 Active gabapentin (NEURONTIN) 300 MG capsuleIndicati ons:Examination for normal comparison for clinical research Take 1 capsule by mouth 3 (Three) Times a Day. 90 capsule 09/08/2022 Active Active Problems Problem Noted Date Diagnosed Date Examination for normal comparison for clinical r esearch 09/09/2022 Chronic bilateral low back pain with bilateral s ciatica 09/09/2022 Family History Medical History Relation Name Comments Anxiety disorder Brother Donn Carter Constant a nxiety Hyperlipidemia Brother Donn Carter Hypertension Mental illness Brother Donn Carter Adhd and oth er unknown Diabetes Father Abdulaziz Carter Type 2 diabetes that became fatal Heart disease Father Abdulaziz Carter Triple heart b ypass. Blocked coronary disease Mental illness Father Abdulaziz Carter PTSD - [place] Vision loss Father Abdulaziz Carter Blindness Thyroid disease Maternal Aunt Cathy Lopez Thyroid disease Liver disease Maternal Grandfather Cruz valencia Liver failure from cirhossis Arthritis Mother Priyanka Carter Since young age Diabetes Mother Priyanka Carter Type 2 diabetes Heart disease Mother Priyanka Carter Cardiomyopathy Hyperlipidemia Mother Priyanka Carter Hypertension Anxiety disorder Sister Liz Echols Sporatic attacks Relation Name Status Comments Brother Donn Caretr Father Abdulaziz Carter Maternal Aunt Cathy Lopez Maternal Grandfather Cruz valencia Mother Priyanka Carter Sister Liz Echols Social History Tobacco Use Types Packs/Day Years Used Date Smoking Tobacco: Former Cigarettes 1 10.3 0 05/25/2003 - 09/14/2013 Electronic Cigarette Comments:Excessive Alcohol Use Standard Drinks/Week Comments Yes 40 (1 standard drink = 0.6 oz pu re alcohol) Quit drinking 2013 Abuse Screen Answer Date Recorded Unsafe at Home or Work/School Not on file Feels Threatened by Someone? Not on file 07/2023 Does Anyone Keep You from Co ntacting Others or Doint Things Outside the Home? Not on file 07/05/2023 Physical Sign of Abuse Present Not on file 1 Housing Stability Answer Date Recorded Current Living Arrangements Not on file 06/25 Potentially Unsafe Housing Conditions Not on andrew e 07/05/2023 Family and Community Support Answer Anuj e Recorded Help with Day-to-Day Activities Not on file 07/05/2023 Lonely or Isolated Not on file 07/05/2023 Employment Answer Date Recorded Do you want help finding or keeping work or a jorgito b? Not on file 07/05/2023 Disabilities Answer Date Recorded Concentrating, Remembering, or Making Decisions Difficulty Not on file 07/05/2023 Doing Errands Independently Difficulty Not on fi le 07/05/2023 Education Answer Date Recorded Help with school or training? Not on file Preferred Language Not on file 07/05/2023 Sex and Gender Information Value Date Recorded Sex Assigned at Not on file Legal Sex Male 12:05 PM EDT Gender Identity Not on file Sexual Orientation Not on file Last Filed Vital Signs Vital Sign Reading Time Taken Comments Blood Pressure 120/71 11/03/2019 8:30 PM EST Pulse 62 11/03/2019 8:30 PM EST Temperature 36.5 C (97.7 F) 11/03/2019 5:47 PM EST Respiratory Rate 17 11/14/2022 3:05 PM EST Oxygen Saturation 98% 11/03/2019 8:30 PM EST Inhaled Oxygen Concentration - - Weight 125 kg (275 lb 6.4 oz) 11/14/2022 3:05 PM EST Height 177.8 cm (5' 10 ) 11/14/2022 3:05 PM EST Body Mass Index 39.52 11/14/2022 3:05 PM EST Plan of Treatment Health Maintenance Due Date Last Done Comments ANNUAL PHYSICAL 03/29/2019 HEPATITIS C SCREENING 03/29/2019 COVID-19 Vaccine (1 - 2023-2 5 season) 2024 INFLUENZA VACCINE 06/25/2025 TDAP/TD VACCINES (3 - Td or Tdap) 10/25/2028 10/25/2018, 02/16/1999 Pneumococcal Vaccine 0-49 Aged Out No longer eligible based on patient's age to complete this topic Insurance Member Subscriber Plan / Payer (Ef fective 2021-Present) Name:Jewel Carter Relation to Subscriber:Self Name:Jewel Carter Payer ID:[id number] (NAIC) Type:POS Address: [address] [facility] Care Teams Chief Of Police Relationship Specialty Start Date End Date Donn Rodriguez MD [address] [place] [address] [place] [id number] PCP - General Emergency Medicine 09/08/22
--- NOTE | 2025-05-16 10:36 | XR_ITS ---
PROCEDURE INFORMATION: Exam: XR Left Hip Exam date and time: 05/16/2025 11:09 AM Age: 44 years old Clinical indication: Injury or trauma; Other: Pain after fall from ladder TECHNIQUE: Imaging protocol: Radiologic exam of the left hip. Views: 2 or 3 views hip with pelvis when performed. COMPARISON: CT ANGIO ABD/PEL - TRAUMA 05/16/2025 11:05 AM FINDINGS: Bones/joints: Unremarkable. No acute fracture. Soft tissues: Unremarkable. IMPRESSION: No acute findings.
--- NOTE | 2025-05-16 10:36 | XR_ITS ---
PROCEDURE INFORMATION: Exam: XR Left Femur Exam date and time: 05/16/2025 11:09 AM Age: 44 years old Clinical indication: Injury or trauma; Other: Pain after fall from ladder TECHNIQUE: Imaging protocol: Radiologic exam of the left femur. Views: 2 views. COMPARISON: CT ANGIO ABD/PEL - TRAUMA 05/16/2025 11:05 AM FINDINGS: Bones/joints: Unremarkable. No acute fracture. Soft tissues: Unremarkable. IMPRESSION: No acute findings.
--- NOTE | 2025-05-16 10:36 | XR_ITS ---
PROCEDURE INFORMATION: Exam: XR Left Knee Exam date and time: 05/16/2025 11:09 AM Age: 44 years old Clinical indication: Injury or trauma; Other: Pain after fall from ladder TECHNIQUE: Imaging protocol: Radiologic exam of the left knee. Views: 1 or 2 views. COMPARISON: CR XR KNEE LT 3V 05/24/2021 7:00 PM FINDINGS: Bones/joints: Normal. Soft tissues: Normal. IMPRESSION: No acute findings.
--- NOTE | 2025-05-16 10:36 | CT_ITS ---
PROCEDURE INFORMATION: Exam: CT Cervical Spine Without Contrast Exam date and time: 05/16/2025 10:56 AM Age: 44 years old Clinical indication: Injury or trauma; Fall; Blunt trauma; Additional info: Trauma, critical injury suspected TECHNIQUE: Imaging protocol: Computed tomography of the cervical spine without contrast. Radiation optimization: All CT scans at this facility use at least one of these dose optimization techniques: automated exposure control; mA and/or kV adjustment per patient size (includes targeted exams where dose is matched to clinical indication); or iterative reconstruction. COMPARISON: CT CERVICAL SPINE WO CON 05/16/2025 10:56 AM FINDINGS: Bones: Alignment is normal. posterior vertebral line and the spinal laminar line normal. odontoid process normal. no fracture. disk space height preserved Lungs: Lung apices unremarkable. Visualized ribs unremarkable. Soft tissues unremarkable. Soft tissues: See Lungs finding. IMPRESSION: 1. No fracture. 2. Normal cervical spine .
--- NOTE | 2025-05-16 10:36 | CT_ITS ---
PROCEDURE INFORMATION: Exam: CT Lumbar Spine Without Contrast Exam date and time: 05/16/2025 11:01 AM Age: 44 years old Clinical indication: Low back pain; Additional info: Trauma, critical injury suspected TECHNIQUE: Imaging protocol: Computed tomography of the lumbar spine without contrast. Radiation optimization: All CT scans at this facility use at least one of these dose optimization techniques: automated exposure control; mA and/or kV adjustment per patient size (includes targeted exams where dose is matched to clinical indication); or iterative reconstruction. COMPARISON: MR LUMBAR SPINE WO CON 09/02/2021 4:18 PM FINDINGS: Bones/joints: There is no evidence for acute lumbar fracture. Alignment is within normal limits. Spondylosis is noted with disc bulging and facet arthropathy. There is mild canal narrowing and multifocal moderate to severe neural foraminal stenosis due to uncovertebral spurring worse at L4-L5. Soft tissues: Unremarkable. IMPRESSION: No evidence for acute lumbar fracture. Lumbar spondylosis.
--- NOTE | 2025-05-16 10:36 | CT_ITS ---
PROCEDURE INFORMATION: Exam: CTA Abdomen and Pelvis With Contrast Exam date and time: 05/16/2025 11:05 AM Age: 44 years old Clinical indication: Abdominal pain; Epigastric; Additional info: Trauma, critical injury suspected TECHNIQUE: Imaging protocol: Computed tomographic angiography of the abdomen and pelvis with contrast. Exam focused on the arteries. 3D rendering (Not supervised by radiologist): MIP and/or 3D reconstructed images were created by the technologist. Radiation optimization: All CT scans at this facility use at least one of these dose optimization techniques: automated exposure control; mA and/or kV adjustment per patient size (includes targeted exams where dose is matched to clinical indication); or iterative reconstruction. Contrast material: ISOVUE 370; Contrast volume: 85 ml; Contrast route: INTRAVENOUS (IV); COMPARISON: CT ANGIO ABD/PEL - TRAUMA 05/16/2025 11:05 AM FINDINGS: Aorta: No aortic aneurysm. No aortic dissection. Celiac trunk and mesenteric arteries: No occlusion or significant stenosis. Renal arteries: No occlusion or significant stenosis. Right iliac arteries: No occlusion or significant stenosis. Left iliac arteries: No occlusion or significant stenosis. Liver: No mass. Gallbladder and biliary ducts: Surgical clips are noted in the gallbladder fossa compatible with a prior cholecystectomy. Pancreas: Unremarkable. No mass. No ductal dilation. Spleen: Unremarkable. No splenomegaly. Adrenal glands: Unremarkable. No mass. Kidneys and ureters: The kidneys enhance symmetrically there is no hydronephrosis. Stomach and bowel: There is no evidence for small bowel obstruction. Stool and diverticula are scattered throughout the colon. Appendix: No evidence of appendicitis. Intraperitoneal space: Unremarkable. No free air. No significant fluid collection. Lymph nodes: Unremarkable. No enlarged lymph nodes. Urinary bladder: The urinary bladder is relatively contracted. Reproductive: Unremarkable as visualized. Bones/joints: No acute fracture. Soft tissues: Unremarkable. IMPRESSION: No evidence for acute trauma in the abdomen and pelvis.
--- NOTE | 2025-05-16 10:36 | CT_ITS ---
PROCEDURE INFORMATION: Exam: CT Thoracic Spine Without Contrast Exam date and time: 05/16/2025 10:58 AM Age: 44 years old Clinical indication: Injury or trauma; Fall; Blunt trauma (contusions or hematomas); Additional info: Trauma, critical injury suspected. Fall off ladder TECHNIQUE: Imaging protocol: Computed tomography of the thoracic spine without contrast. Radiation optimization: All CT scans at this facility use at least one of these dose optimization techniques: automated exposure control; mA and/or kV adjustment per patient size (includes targeted exams where dose is matched to clinical indication); or iterative reconstruction. COMPARISON: CT CERVICAL SPINE WO CON 05/16/2025 10:56 AM FINDINGS: Bones/joints: There is an 8 degree dextroconvex curvature of the thoracic spine. Vertebral body height and mineralization is within normal limits. Spondylosis is noted with disc osteophyte productive change but no severe bony canal or foraminal narrowing. Soft tissues: Unremarkable. IMPRESSION: No evidence for acute fracture in the thoracic spine.
--- NOTE | 2025-05-16 10:36 | CT_ITS ---
PROCEDURE INFORMATION: Exam: CTA Chest With Contrast Exam date and time: 05/16/2025 11:05 AM Age: 44 years old Clinical indication: Injury or trauma; Fall; Blunt trauma (contusions or hematomas); Additional info: Trauma, critical injury suspected. Fell off ladder TECHNIQUE: Imaging protocol: Computed tomographic angiography of the chest with contrast. Exam focused on the arteries. 3D rendering (Not supervised by radiologist): MIP and/or 3D reconstructed images were created by the technologist. Radiation optimization: All CT scans at this facility use at least one of these dose optimization techniques: automated exposure control; mA and/or kV adjustment per patient size (includes targeted exams where dose is matched to clinical indication); or iterative reconstruction. Contrast material: ISOVUE 370; Contrast volume: 80 ml; Contrast route: INTRAVENOUS (IV); COMPARISON: CT ANGIO CHEST PE PROTOCOL 01/16/2024 7:10 PM FINDINGS: Pulmonary arteries: There is suboptimal enhancement of the pulmonary arterial tree. No central filling defect is identified. Aorta: Unremarkable. No aortic aneurysm. No aortic dissection. Lungs: [place] dependent subsegmental atelectasis is noted in the lungs. Pleural spaces: Unremarkable. No pneumothorax. No pleural effusion. Heart: Unremarkable. No cardiomegaly. No pericardial effusion. Lymph nodes: Unremarkable. No enlarged lymph nodes. Bones/joints: Unremarkable. No acute fracture. Soft tissues: Unremarkable. IMPRESSION: No evidence for acute trauma in the chest.
--- NOTE | 2025-05-16 10:36 | CT_ITS ---
PROCEDURE INFORMATION: Exam: CT Head Without Contrast Exam date and time: 05/16/2025 10:53 AM Age: 44 years old Clinical indication: Injury or trauma; Fall; Blunt trauma (contusions or hematomas); Additional info: Trauma, critical injury suspected TECHNIQUE: Imaging protocol: Computed tomography of the head without contrast. Radiation optimization: All CT scans at this facility use at least one of these dose optimization techniques: automated exposure control; mA and/or kV adjustment per patient size (includes targeted exams where dose is matched to clinical indication); or iterative reconstruction. COMPARISON: CT HEAD/BRAIN WO CON 02/20/2020 4:01 PM FINDINGS: Brain: No intra or extra-axial masses, lesions or collections. Turk white matter distinction is maintained throughout the brain. No radiographic evidence of intracranial hemorrhage. No parafalcine or tentorial hemorrhage. No CT evidence of mass hemorrhage or acute infarction. Cerebral ventricles: Ventricles are of normal size and configuration. Paranasal sinuses: Visualized sinuses are unremarkable. No fluid levels. Mastoid air cells: Visualized mastoid air cells are well aerated. Bones: Greater and lesser wings of the sphenoid normal. Retro bulbar fat normal. Medial and lateral pterygoids normal. Fracture of the right zygoma the zygomatical frontal suture. Likely chronic. Correlate. Soft tissues: Unremarkable. IMPRESSION: No acute intracranial process is appreciated.
--- NOTE | 2025-05-16 10:41 | ED_ITS ---
Discharge Plan Disposition Patient Disposition: Home, Self-Care Prescriptions Prescriptions: New methocarbamol 500 mg tablet 500 mg PO BID Qty: 60 0RF acetaminophen [Tylenol] 325 mg tablet 325 mg PO Q6H PRN (Reason: fever or pain) Qty: 30 0RF oxycodone 5 mg tablet 5 mg PO Q8H PRN (Reason: pain) Qty: 10 0RF No Action bisoprolol fumarate 10 mg tablet 10 mg PO DAILY Qty: 90 3RF olanzapine-samidorphan 20-10 mg tablet 1 tab PO DAILY Qty: 30 2RF lorazepam 1 mg tablet 1 mg PO DAILY PRN (Reason: panic attack(s)) 30 Days Qty: 20 1RF atorvastatin 40 mg tablet See Rx Instructions .ROUTE .COMPLEX Qty: 30 2RF Dose Instruction: TAKE ONE TABLET BY MOUTH EVERY DAY Rx Instructions: TAKE ONE TABLET BY MOUTH EVERY DAY Eliquis 5 mg tablet See Rx Instructions .ROUTE .COMPLEX Qty: 180 3RF Dose Instruction: TAKE ONE TABLET BY MOUTH TWICE DAILY Rx Instructions: TAKE ONE TABLET BY MOUTH TWICE DAILY ondansetron 4 mg tablet,disintegrating 4 mg PO Q8H PRN (Reason: nausea and vomiting) Qty: 10 0RF Referrals Follow up/Referrals: Jono Lundberg DO [Non-Staff, Internal Medicine] - See instructions Activity Restrictions/Add. Instructions Additional Instructions/Restrictions: You were seen in the emergency department after a fall. At this point your imaging only shows a large contusion. Please follow-up with your primary care provider outpatient. If symptoms worsen, or new symptoms develop, please return to the emergency department. 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 The patient was working on a 20 foot ladder when something struck the bottom of the ladder causing it to collapse. He fell approximately 20 feet and landed on his left side. He was able to ambulate away from the accident, and walks himself into the emergency department. He reports significant pain from his left lower extremity, and has a visible contusion on the left thigh, as well as an abrasion on the left flank. At this time he has no other complaints. Related Data Previous Rx's ?Medication ?Instructions ?Recorded bisoprolol fumarate 10 mg tablet 10 mg PO DAILY #90 ta bs 06/03/24 olanzapine 20 mg-samidorphan 10 mg 1 tab PO DAILY #30 tabs 07/23/24 tablet lorazepam 1 mg tablet 1 mg PO DAILY PRN panic usama ck(s) 07/29/24 30 days #20 tabs atorvastatin 40 mg tablet See Rx Instructions .Route 1 11/21/23 .COMPLEX #30 tabs ondansetron 4 mg disintegrating 4 mg PO Q8H PRN nausea and 10/22/24 tablet vomiting #10 tabs apixaban 5 mg tablet (Eliquis) See Rx Instructions .Ro rad 12/16/24 .COMPLEX #180 tabs acetaminophen 325 mg tablet 325 mg PO Q6H PRN fever or pain 05/16/25 (Tylenol) #30 tabs methocarbamol 500 mg tablet 500 mg PO BID #60 tabs oxycodone 5 mg tablet 5 mg PO Q8H PRN pain #10 tab s 05/16/25 Allergies Allergy/AdvReac Type Severity Reaction Status Date / Time metformin AdvReac Intermediate Swelling Verified 07/23/24 09:58 of Lip/Tongue/Throat [facility] Disclaimer: The information contained in this section may have been updated after the patient was seen, as this information can be updated by other users. Medical History Hyperlipemia History of anxiety History of depression History of pulmonary embolism R leg trauma, hematoma preceding PE. 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 Snoring Daytime somnolence Dyspnea Surgical History History of surgery on arm History of cholecystectomy Family History Other Anxiety Coronary artery disease Depression Diabetes Hypertension No significant family history VINNIE (obstructive sleep apnea) Obesity Social History Smoking Status: Current every day smoker tobacco type: cigarettes packs per day: 1 years smoked: 8 how long ago did patient quit smokin years alcohol intake: former year quit: 2018 substance use type: denies use current occupational status: employed Travel in the last 8 weeks?: None household members: significant other housing: house marital status: single number of children: 1 caffeine: Yes Other Medical History Have you received the Flu Vaccine for this season: No Have you received the Pneumonia Vaccine: No ROS Obtained: Yes All systems reviewed & no additional complaints except as documented Physical Exam Narrative Physical exam: Patient has a contusion on the left thigh, normal pulses in lower extremities bilaterally. No palpable step-offs or deformities along the spine, no pain with deep palpation in the abdomen, no pain with compression of the hip girdle. General General appearance: alert and in no apparent distress Head Head exam: atraumatic and normocephalic Eye Eye exam: Present normal appearance, PERRL and EOMI ENT ENT exam: Present normal exam and normal external ear exam Neck Neck exam: Present normal inspection, full ROM and trachea midline Chest Chest inspection: Present normal inspection and symmetric chest wall rise; Absent tenderness Respiratory Respiratory exam: Absent respiratory distress Cardiovascular Cardiovascular exam: Present regular rate, normal rhythm and other (appears warm and well perfused) Abdominal Exam Abdominal exam: Absent distention or tenderness exam: Absent deferred Extremities Exam Extremities exam: Present full ROM Neurological Exam Neurological exam: Present alert and oriented X3 Psychiatric Psychiatric exam: Present normal affect Skin Skin exam: Present warm and dry Medical Decision Making Medical Records Medical records reviewed: Yes I reviewed the patient's medical records. Screening: Per USPSTF and CDC recommendations, given the prevalence of disease in our region, it is our hospital?s policy to screen for HIV and viral Hepatitis for all patients aged 18 and over and those with ongoing risk factors. Teofilo Inquiry Pt receiving controlled substance: Yes Teofilo was queried for this patient: Yes Risks and benefits of using a controlled substance: were discussed with pt by me Vital Signs: 05/16/25 10:29 05/16/25 10:29 05/16/25 10:38 Temperature 98.0 F Temperature Source Oral Pulse Rate 89 Pulse Rate [Right] 86 86 Respiratory Rate 18 18 17 Blood Pressure 149/92 H Blood Pressure [Right Arm] 148/92 H 148/92 H Blood Pressure Mean Blood Pressure Mean [Right Arm] 110 110 Blood Pressure Source Blood Pressure Source [Right Arm] Automatic Cuff Manual Cuff/ Auscultation 02 Sat by Pulse Oximetry 98 98 98 Oxygen Delivery Method Room Air Room Air 05/16/25 11:30 05/16/25 11:30 05/16/25 12:00 Temperature Temperature Source Pulse Rate 64 64 Pulse Rate [Right] 88 Respiratory Rate 14 20 16 Blood Pressure 154/86 H 161/108 H Blood Pressure [Right Arm] Blood Pressure Mean Blood Pressure Mean [Right Arm] Blood Pressure Source Blood Pressure Source [Right Arm] 02 Sat by Pulse Oximetry 98 98 99 Oxygen Delivery Method Room Air 05/16/25 12:30 05/16/25 13:01 05/16/25 14:00 Temperature Temperature Source Pulse Rate 89 Pulse Rate [Right] Respiratory Rate 11 L 19 19 Blood Pressure 149/98 H 151/98 H 165/106 H Blood Pressure [Right Arm] Blood Pressure Mean 115 111 Blood Pressure Mean [Right Arm] Blood Pressure Source Blood Pressure Source [Right Arm] 02 Sat by Pulse Oximetry 98 Oxygen Delivery Method 05/16/25 14:30 05/16/25 15:15 Temperature 98.0 F Temperature Source Oral Pulse Rate 82 79 Pulse Rate [Right] Respiratory Rate 14 18 Blood Pressure 168/95 H 156/100 H Blood Pressure [Right Arm] Blood Pressure Mean Blood Pressure Mean [Right Arm] Blood Pressure Source Automatic Cuff Blood Pressure Source [Right Arm] 02 Sat by Pulse Oximetry 97 Oxygen Delivery Method Room Air Lab Data Lab results reviewed: Yes I reviewed the patient's lab results. Lab Results 05/16/25 10:42: WBC 15.4 H, RBC 4.58 L, Hgb 13.5 L, Hct 40.0 L, MCV 87.3, MCH 29.5, MCHC 33.8, RDW 12.4, Plt Count 255, MPV 10.1, Neut % (Auto) 86.2 H, Lymph % (Auto) 8.3 L, [place] % (Auto) 4.7, Eos % (Auto) 0.2, Baso % (Auto) 0.2, Neut # (Auto) 13.3 H, Lymph # (Auto) 1.3, [place] # (Auto) 0.7, Eos # (Auto) 0.0, Baso # (Auto) 0.0, Sodium 139, Potassium 4.1, Chloride 109 H, Carbon Dioxide 20 L, Anion Gap 14.1, BUN 16, Creatinine 0.70, Estimated GFR 124, Est GFR ( Amer) 150, Glucose 96, Calcium 9.2, Total Bilirubin 0.5, AST 34, ALT 33, Alkaline Phosphatase 72, Total Protein 7.7, Albumin 4.6, Globulin 3.1, Albumin/Globulin Ratio 1.5, HCV Ab MICHEAL w/Rflx PCR Qn Negative, HIV Ag/Ab Combo Qual Negative 05/16/25 10:42 05/16/25 10:42 Orders (Tests/Meds): ED MEDICATIONS Discontinued Medications Generic Name Dose Route Start Last Admin Trade Name Freq PRN Reason Stop Dose Admin Iopamidol 80 ml 05/16/25 11:04 05/16/25 11:13 Iopamidol-370 (76%);100ml Bottle IV 05/16/25 11:05 80 ml ONCE ONE Administration Iopamidol 100 ml 05/16/25 13:38 05/16/25 13:39 Iopamidol-370 (76%);100ml Bottle IV 05/16/25 13:39 100 ml ONCE ONE Administration Morphine Sulfate 4 mg 05/16/25 11:49 05/16/25 11:55 Morphine 4mg/Ml Syringe IV 05/16/25 11:50 4 mg ONCE ONE Administration Ondansetron HCl 4 mg 05/16/25 11:49 05/16/25 11:55 Ondansetron 4mg/2ml Vial IV 05/16/25 11:50 4 mg ONCE ONE Administration Sodium Chloride 50 ml 05/16/25 11:04 05/16/25 11:13 0.9 % Sodium Chloride 50 Ml Vial IV 05/16/25 11:05 50 ml ONCE ONE Administration Sodium Chloride 10 ml 05/16/25 11:04 05/16/25 11:13 Sodium Chloride 0.9% 10ml Syr (Rad Only) IV 06/15/25 11:03 10 ml NEEDED PRN Administration Maintain IV Site Sodium Chloride 10 ml 05/16/25 13:38 05/16/25 13:39 Sodium Chloride 0.9% 10ml Syr (Rad Only) IV 06/15/25 13:37 10 ml NEEDED PRN Administration Maintain IV Site Sodium Chloride 50 ml 05/16/25 13:38 05/16/25 13:39 0.9 % Sodium Chloride 50 Ml Vial IV 05/16/25 13:39 50 ml ONCE ONE Administration ORDERS Category Date Time Status CT angio abd/pel - TRAUMA Stat Cat Scan 05/16/25 10:[address] angio abdomen/femoral Stat Cat Scan 05/16/25 13:[address] angio chest - dissection Stat Cat Scan 05/16/25 10:[address] cervical spine wo con Stat Cat Scan 05/16/25 10:[address] head/brain wo con Stat Cat Scan 05/16/25 10:[address] lumbar spine wo con Stat Cat Scan 05/16/25 10:[address] thoracic spine wo con Stat Cat Scan 05/16/25 10:36 Completed Femur XR left 2 views [XR femur LT 2V] Stat Exams 05/16/25 10:36 Completed Hip XR left minimum 2 views [XR hip LT 2-3V w/pelvis] Exams 05/16/25 10:36 Completed Stat Knee XR left 2 views [XR knee LT 2V] Stat Exams 05/16/25 10:36 Completed CBC w/Auto Diff [Complete Blood Count Auto Diff] Stat Lab 05/16/25 10:42 Completed CMP [Comprehensive Metabolic Panel] Stat Lab 05/16/25 10:42 Completed HIV Combo Stat Lab 05/16/25 10:42 Completed Hepatitis C Ab Qual. W/ RFX Stat Lab 05/16/25 10:42 Completed Medical Decision Narrative: MDM In summary, this 44-year-old male presents to the emergency department today with concern for injury after fall. Initial evaluation the patient the patient is uncomfortable, otherwise hemodynamically stable. Differential diagnosis includes but is not limited to fracture, dislocation, intra-abdominal injury, intrathoracic injury, intracranial injury, hemorrhage. Based on these concerns, I ordered a comprehensive laboratory and imaging workup. ECG personally interpreted by me demonstrates normal sinus rhythm. Patient received morphine, Zofran for treatment. Labs personally reviewed and interpreted demonstrate mild leukocytosis, mild anemia, no major metabolic abnormalities. X-rays personally interpreted by me demonstrate no acute fracture or dislocation within the left lower extremity. CT imaging personally interpreted by me demonstrate no intracranial injury, no fracture or dislocation of the cervical spine, thoracic spine, lumbar spine, no acute intrathoracic or intra-abdominal injury. After the initial imaging workup was done, I became concerned that the patient's left thigh contusion might be increasing in size, given the patient's anticoagulated status this raise concern for an expanding hematoma. Repeat CT angiogram of the abdomen pelvis was ordered with runoff, prior to ordering this I discussed the clinical problem with the patient and his , they were both comfortable with an additional CT scan. Repeat CT scan showed that the area of soft tissue swelling of the patient's leg was a contusion, not a hematoma. Given the patient's anticoagulated status I offered consultation with the trauma surgery service at the [facility], the patient vehemently denied admission to the hospital. I informed him that this increased his risk of developing complications and he reported that he was confident he could return to the hospital if he developed worsening complications. Ultimately I was comfortable discharging the patient home with careful return precautions that were thoroughly discussed. Critical Care Critical Care Time Critical Care Time: No
[2025-05-16 10:47] LABS: Hematocrit 40.0 % (42.0-52.0); Hemoglobin 13.5 g/dL (14.1-18.0); Immature Granulocytes % 0.4 %; Mean Corpuscular HGB Conc 33.8 g/dL (31.8-35.4); Mean Corpuscular Hemoglobin 29.5 pg (27.0-31.2); Mean Corpuscular Volume 87.3 fl (80-94); Nucleated Red Blood Cells % 0 %; Platelet Count 255 K/mm3 (142-424); Red Blood Count 4.58 M/mm3 (4.60-6.20); Red Cell Distribution Width-SD 39.6 fL; White Blood Count 15.4 K/mm3 (4.8-10.8)
[2025-05-16 10:53] LABS: Albumin Level 4.6 g/dl (3.5-5.0); Chloride 109 mmol/L (98-107); Potassium 4.1 mmoL/L (3.5-5.1); Sodium 139 mmol/L (136-145)
[2025-05-16 10:55] LABS: Blood Urea Nitrogen 16 mg/dl (9-20)
[2025-05-16 10:56] LABS: Alanine Aminotransferase 33 U/L (12-78); Albumin/Globulin Ratio 1.5 (1.1-1.8); Alkaline Phosphatase 72 U/L (38-126); Anion Gap 14.1 mEq/L (5-15); Aspartate Amino Transferase 34 U/L (17-59); Bilirubin,Total 0.5 mg/dl (0.2-1.3); Calcium 9.2 mg/dl (8.4-10.2); Carbon Dioxide 20 mmol/L (22.0-30.0); Creatinine,Serum 0.70 mg/dl (0.66-1.25); Estimated Glomerular Filt Rate 124 ml/min (>60); GFR (African American) 150 ML/MIN (>60); Globulin 3.1 g/dL (1.3-3.2); Glucose 96 mg/dl (74-100); Total Protein,Serum 7.7 g/dl (6.3-8.2)
[2025-05-16] MEDS: 0.9 % SODIUM CHLORIDE 50 ML VIAL IV ×2 (11:13→13:39)
[2025-05-16] MEDS: IOPAMIDOL-370 (76%);100ML BOTTLE 80 ML IV (11:13)
[2025-05-16] MEDS: SODIUM CHLORIDE 0.9% 10ML SYR (RAD ONLY) 10 ML IV ×2 (11:13→13:39)
[2025-05-16] MEDS: MORPHINE 4MG/ML SYRINGE 4 MG IV (11:55)
[2025-05-16] MEDS: ONDANSETRON 4MG/2ML VIAL 4 MG IV (11:55)
[2025-05-16 13:01] LABS: Hepatitis C Ab Qual. W/ RFX NEGATIVE (Negative)
--- NOTE | 2025-05-16 13:06 | CT_ITS ---
FINAL REPORT CLINICAL HISTORY: left lateral posterior hematoma, concern for expansion COMPARISON: 05/16/2025 FINDINGS: Post contrast axial imaging of the aorta and bilateral lower extremity was obtained and reviewed. This study was performed with techniques to keep radiation doses as low as reasonably achievable (ALARA). Individualized dose reduction techniques using automated exposure control or adjustment of mA and/or kV according to the patient's size were employed. There is no evidence of aortic aneurysm. There is no evidence of aortic stenosis. The celiac axis, superior mesenteric artery and inferior mesenteric artery are patent without stenosis. The left gastric artery appears replaced to the aorta. There is no evidence of renal artery stenosis. The iliac arteries are unremarkable, without stenosis. The internal iliac arteries are patent. Right: The right common femoral artery, deep femoral artery and superficial femoral artery are all patent, without stenosis. There is no stenosis of the popliteal artery. The anterior and posterior tibial and peroneal arteries are patent to the lower leg. The anterior and posterior tibial arteries are patent to the foot. Left: The left common femoral artery, deep femoral artery and superficial femoral artery are all patent, without stenosis. There is no stenosis of the popliteal artery. The anterior and posterior tibial and peroneal arteries are patent to the lower leg. The anterior and posterior tibial arteries are patent to the foot. There is stranding in the subcutaneous soft tissues of the left upper and lateral thigh. This area is not well-visualized on the prior exam of 05/16/2025 as a portion of it is outside the [id number]. However, the overall appearance appears similar with perhaps slight increase in subcutaneous edema. There is no focal fluid collection is present, and no patsy hematoma is identified. In the abdomen and pelvis, there is mild fatty infiltration of the liver. The gallbladder has been surgically resected. The solid organs and bowel appear unremarkable. The appendix is normal. The bladder is incompletely distended. No free fluid is identified. IMPRESSION: There is subcutaneous soft tissue stranding in the left lateral and upper thigh, which was not well visualized on the prior exam secondary to [id number]. There is no fluid collection identified, and no ptasy hematoma is identified. There is a slight increase in soft tissue swelling in this region. No significant vascular abnormality is noted in the abdomen, pelvis, or extremities. Reviewed, Interpreted and Dictated by Etienne Cuellar MD Transcribed by Genet Rodriguez Authenticated and [facility]
[2025-05-16] MEDS: IOPAMIDOL-370 (76%);100ML BOTTLE 100 ML IV (13:39)
== END 2025-05-16 15:32 | disposition home or self-care (01) ==
PROVIDERS: Emergency Provider Student in an Organized Health Care Education/Training Program; PCP Family Medicine
DX: S70.12XA Contusion of left thigh, initial encounter (principal); Z86.718 Personal history of other venous thrombosis and embolism; Z79.01 Long term (current) use of anticoagulants; W11.XXXA Fall on and from ladder, initial encounter
CPT/HCPCS: 70450; 71275; 72125; 72128; 72131; 73502; 73552; 73560; 74174; 75635; 80053; 85025; 86803; 87389; 93005; 96374; 96375; 99285; J2270; J2405; Q9967

== ENCOUNTER 2025-05-17 18:38 | Emergency (ER) | payer OTHER, SELFPAY ==
[2025-05-17 18:51] VITALS: BP 146/82; PULSE 90; RESP 20; TEMP 36.7; O2SAT 99; BMI 40.1
--- NOTE | 2025-05-17 18:53 | ED_ITS ---
<Statement entered by Nadiya Delaney DO - 05/17/25 21:07> I was consulted by the RONNI, and we discussed the complexity of problems being addressed. I approve the treatment and management plan for this patient's care in the emergency department, thus performing a substantial portion of the medical decision making. Nadiya Delaney DO Discharge Plan Disposition Patient Disposition: Home, Self-Care Condition: Good Prescriptions Prescriptions: No Action bisoprolol fumarate 10 mg tablet 10 mg PO DAILY Qty: 90 3RF olanzapine-samidorphan 20-10 mg tablet 1 tab PO DAILY Qty: 30 2RF lorazepam 1 mg tablet 1 mg PO DAILY PRN (Reason: panic attack(s)) 30 Days Qty: 20 1RF atorvastatin 40 mg tablet See Rx Instructions .ROUTE .COMPLEX Qty: 30 2RF Dose Instruction: TAKE ONE TABLET BY MOUTH EVERY DAY Rx Instructions: TAKE ONE TABLET BY MOUTH EVERY DAY Eliquis 5 mg tablet See Rx Instructions .ROUTE .COMPLEX Qty: 180 3RF Dose Instruction: TAKE ONE TABLET BY MOUTH TWICE DAILY Rx Instructions: TAKE ONE TABLET BY MOUTH TWICE DAILY methocarbamol 500 mg tablet 500 mg PO BID Qty: 60 0RF acetaminophen [Tylenol] 325 mg tablet 325 mg PO Q6H PRN (Reason: fever or pain) Qty: 30 0RF oxycodone 5 mg tablet 5 mg PO Q8H PRN (Reason: pain) Qty: 10 0RF ondansetron 4 mg tablet,disintegrating 4 mg PO Q8H PRN (Reason: nausea and vomiting) Qty: 10 0RF Referrals Follow up/Referrals: Wilfrido Jones MD [Primary Care Provider, Family Practice] - See instructions Clinical Impressions Clinical Impression: Headache Instructions Patient Instructions: DI for Headache Print Language Print Language: Pashto Discharge ED Provider: Nadiya Delaney General Adult HPI General Chief complaint: Headache Stated complaint: Mild Headache Time Seen by Provider: 05/17/25 18:49 Mode of Arrival: Ambulatory Source of Information: Patient and Medical Record Limitations: No Limitations History of Present Illness HPI narrative: 44-year-old male presents the emergency department today for left-sided headache that he woke up with this morning he is taken Tylenol today with little to no relief of symptomatology, patient denies any fever chills chest pain shortness of breath nausea vomiting constipation diarrhea no visual disturbance, no lightheadedness no dizziness, does endorse some congestion/ sinus drainage , when asked how long this is going on for, patient dates is quite chronic for him, no neck pain, no radicular symptomatology, no presyncopal or syncopal event, no urinary type symptomatology, no abdominal pain, does admit to left- sided leg pain, has a small hematoma to that area, patient was seen in the emergency department on 05/16/2025, where he fell off a ladder at work, he had full trauma scans and laboratory studies performed, mild leukocytosis most likely in setting of trauma, mild anemia no major metabolic abnormalities, performed to include CT head and neck CT of the entire spine, CT angiograms of his abdomen showed no intrathoracic or intra-abdominal pathology, there was concern yesterday with expanding hematoma of the left thigh, patient states that this has actually improved overnight and after the area was marked yesterday some of the bruising and area that was affected has decreased in size , found to be contusion. Patient denies any alcohol use, former tobacco use, denies any drug use, triage vitals in the emergency department are unremarkable today, other past medical history is consistent with hyperlipidemia, hypertension, TRICE, degenerative disc disease, obesity, degenerative disc disease of the spine, GERD, MDD, patient was recently on anticoagulation therapy with Eliquis due to remote history of PE, patient states that he is not taking his anticoagulants/he has been taken off them in over a 6 months . Please note that above description of symptoms, in this electronic medical record under categorization of recalled from ER triage doctor by RN are reflective of an initial nursing assessment, however, is not reflective of my full history and physical exam that was personally taken and clarified. Consequentially, this preceding description of symptoms, which may include the patient's categorized chief complaint in the EMR, do not reflect my personal clinical impression, and the ultimate description of history of present illness and patient stated complaints should be deferred to this section of the note. Unless stated otherwise or congruent with this section of the note, additional signs, symptoms, or incongruence should be interpreted as inaccurate with my clinical impression. Onset (ago): hour(s) Related Data Previous Rx's ?Medication ?Instructions ?Recorded bisoprolol fumarate 10 mg tablet 10 mg PO DAILY #90 ta bs 06/03/24 olanzapine 20 mg-samidorphan 10 mg 1 tab PO DAILY #30 tabs 07/23/24 tablet lorazepam 1 mg tablet 1 mg PO DAILY PRN panic usama ck(s) 07/29/24 30 days #20 tabs atorvastatin 40 mg tablet See Rx Instructions .Route 1 11/21/23 .COMPLEX #30 tabs ondansetron 4 mg disintegrating 4 mg PO Q8H PRN nausea and 10/22/24 tablet vomiting #10 tabs apixaban 5 mg tablet (Eliquis) See Rx Instructions .Ro napaimute 12/16/24 .COMPLEX #180 tabs acetaminophen 325 mg tablet 325 mg PO Q6H PRN fever or pain 05/16/25 (Tylenol) #30 tabs methocarbamol 500 mg tablet 500 mg PO BID #60 tabs oxycodone 5 mg tablet 5 mg PO Q8H PRN pain #10 tab s 05/16/25 Allergies Allergy/AdvReac Type Severity Reaction Status Date / Time metformin AdvReac Intermediate Swelling Verified 07/23/24 09:58 [facility] Disclaimer: The information contained in this section may have been updated after the patient was seen, as this information can be updated by other users. Medical History Hyperlipemia History of anxiety History of depression History of pulmonary embolism R leg trauma, hematoma preceding PE. 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 Snoring Daytime somnolence Dyspnea Surgical History History of surgery on arm History of cholecystectomy Family History Other Anxiety Coronary artery disease Depression Diabetes Hypertension No significant family history VINNIE (obstructive sleep apnea) Obesity Social History Smoking Status: Never smoker years smoked: 8 how long ago did patient quit smokin years alcohol intake: former year quit: 2018 substance use type: denies use current occupational status: employed Travel in the last 8 weeks?: None household members: significant other housing: house marital status: single number of children: 1 caffeine: Yes Have you lived/traveled outside [place] in past 30 days?: No Contact w/someone who lives/traveled outside US past 30 days?: No Exposure to someone with infectious disease in past 14 days?: No Do you have a fever (greater than 100.4 F or 38 C)?: No Have you tested positive for COVID-19?: No Exposed to someone with COVID-19 in past 14 days?: No Do you have a sore throat?: No Do you have a cough?: No Do you have any weakness?: No Do you have any diarrhea?: No Are you experiencing any unusual bleeding?: No Do you have any muscle aches/pain?: No Do you have any abdominal pain?: No Are you experiencing loss of taste or smell?: No Other Medical History Have you received the Flu Vaccine for this season: No Have you received the Pneumonia Vaccine: No ROS Obtained: Yes All systems reviewed & no additional complaints except as documented Physical Exam General General appearance: alert and in no apparent distress Head Head exam: atraumatic and normocephalic Eye Eye exam: Present PERRL and EOMI ENT ENT exam: Present mucous membranes moist Neck Neck exam: Present normal inspection Chest Chest inspection: Present normal inspection and symmetric chest wall rise Respiratory Respiratory exam: Present normal lung sounds bilaterally; Absent respiratory distress Cardiovascular Cardiovascular exam: Present regular rate and normal rhythm Abdominal Exam Abdominal exam: Present soft; Absent tenderness Extremities Exam Extremities exam: Present normal inspection Neurological Exam Neurological exam: Present alert, oriented X3 and other (GCS 15 no extremities to command, no focal neurological deficit) Psychiatric Psychiatric exam: Present normal affect Skin Skin exam: Present warm, dry and other (Contusion/area of ecchymoses on the left lateral thigh, does look improved from previous description and medical record yesterday, some pain to palpation to the area. Compartments are soft.) Medical Decision Making Medical Records Medical records reviewed: Yes I reviewed the patient's medical records. Screening: Per USPSTF and CDC recommendations, given the prevalence of disease in our region, it is our hospital?s policy to screen for HIV and viral Hepatitis for all patients aged 18 and over and those with ongoing risk factors. Teofilo Inquiry Pt receiving controlled substance: No Teofilo was queried for this patient: No Vital Signs: 05/17/25 18:51 Temperature 98.1 F Temperature Source Oral Pulse Rate [Left Radial] 90 Respiratory Rate 20 Blood Pressure [Right Arm] 146/82 H Blood Pressure Mean [Right Arm] 103 02 Sat by Pulse Oximetry 99 Oxygen Delivery Method Room Air Lab Data Lab results reviewed: Yes I reviewed the patient's lab results. Orders (Tests/Meds): ED MEDICATIONS Generic Name Dose Route Start Last Admin Trade Name Freq PRN Reason Stop Dose Admin Acetam/Butalbital/Caffeine/Codeine 1 each 05/17/25 20:17 Apap 325mg/Caff 40mg/Butal 50mg W/Codeine 30mg Cap PO 05/17/25 20:18 ONCE ONE ORDERS Category Date Time Status CT head/brain wo con Stat Cat Scan 05/17/25 19:03 Completed Medical Decision Narrative: 44-year-old male presents the emergency department with a headache that started this morning, see HPI for detail past medical history, differential diagnosis include but not limited to, postconcussive syndrome, closed head injury, acute SDH, traumatic SAH, tension headache, cluster headache, migraine without aura among others. I discussed this patient's case with the attending physician Dr. Delaney Will obtain CT head without contrast for further evaluation/characterization, will give Fioricet p.o. here in the emergency department for patient's headache. I reviewed the patient's CT head without contrast on the corresponding radiologic report, no acute intracranial abnormality. I discussed the results with the patient at the bedside, patient voiced understanding and agreement with the current treatment plan/discharge plan. Patient was given strict ED return precautions. Patient voiced understanding and agreement with the current treatment plan/discharge plan. Patient follow-up PCP and other providers as directed and take all of his medication as prescribed. Critical Care Critical Care Time Critical Care Time: No
--- OUTSIDE RECORDS SUMMARY | 2025-05-17 18:53 | XMS_ITS | Patient Health Record ---
Author Organization [id number] [facility] Address [address] [place], [place] [id number] Support Name Relationship Address Phone Jewel Carter Guarantor Unknown [phone] Reason For Referral No Information Plan Of Treatment No Information Insurance Providers Payer Name Payer Address Payer Phone Subscriber Number Group Number Insured Name Patient Relationship to Insured Coverage Start Date Coverage End Date [employer] [address] [place], [place] [id number] Jewel Carter Self - patient is the insured 4
--- OUTSIDE RECORDS SUMMARY | 2025-05-17 18:53 | XMS_ITS | Clinical Summary ---
Author Organization [facility] Address [address] [place] [address] Care Team Providers Care Fire Management Technician Name Role Phone Donn Rodriguez MD Primary Care Provider [phone] Allergies No known active allergies Medications meloxicam [...] attacks Relation Name Status Comments Brother Donn Carter Father Abdulaziz Carter Maternal Aunt Cathy Lopez [...] Name:Jewel Carter Payer ID:[id number] (NAIC) Type:POS Address: [address] [facility] Care Teams Fire Management Technician Relationship Specialty Start Date End Date Donn Rodriguez MD [address] [place] [address] [facility] [place] [id number] PCP - General Emergency Medicine 09/08/22
--- NOTE | 2025-05-17 19:03 | CT_ITS ---
PROCEDURE INFORMATION: Exam: CT Head Without Contrast Exam date and time: 05/17/2025 7:11 PM Age: 44 years old Clinical indication: Injury or trauma; Fall; Other: VILLEGAS today left sided; Additional info: Fall, yesterday, VILLEGAS today left sided TECHNIQUE: Imaging protocol: Computed tomography of the head without contrast. Radiation optimization: All CT scans at this facility use at least one of these dose optimization techniques: automated exposure control; mA and/or kV adjustment per patient size (includes targeted exams where dose is matched to clinical indication); or iterative reconstruction. COMPARISON: CT HEAD/BRAIN WO CON 05/16/2025 10:53 AM FINDINGS: Brain: Normal. No hemorrhage. Unremarkable white matter. No mass effect. Cerebral ventricles: No ventriculomegaly. Paranasal sinuses: Visualized sinuses are unremarkable. No fluid levels. Mastoid air cells: Visualized mastoid air cells are well aerated. Bones: Stable defect in the left anterior maxilla. Soft tissues: Stable soft tissue swelling involving the upper lip region on the left. IMPRESSION: No acute intracranial abnormality.
[2025-05-17] MEDS: CAFFEINE PO (20:57)
[2025-05-17] MEDS: CODEINE 30 MG PO (20:57)
[2025-05-17] MEDS: BUTALBITAL PO (20:57)
[2025-05-17] MEDS: ACETAMINOPHEN PO (20:57)
[2025-05-17 21:01] VITALS: BP 138/74; PULSE 72; RESP 16; TEMP 36.6; O2SAT 98
== END 2025-05-17 21:02 | disposition home or self-care (01) ==
PROVIDERS: Emergency Provider Student in an Organized Health Care Education/Training Program; PCP Family Medicine
DX: R51.9 Headache, unspecified (principal); E78.5 Hyperlipidemia, unspecified
CPT/HCPCS: 70450; 99283; 99284

== ENCOUNTER 2025-05-20 03:06 | Emergency (ER) | payer OTHER, SELFPAY ==
[2025-05-20] VITALS (17 sets, daily range): BP systolic 141–225; BP diastolic 82–136; PULSE 71–114; RESP 10–25; TEMP 36.9–37.1; O2SAT 80–99; BMI 37.3
--- NOTE | 2025-05-20 03:14 | ECG_ITS ---
APPROVED REPORT Exam: Resting ECG HR:106 bpm ECG Measurements Heart Rate 106 AXES MN 140 P 50 QRSd 90 QRS 32 QT 343 T 14 QTc 405 Conclusion SINUS TACHYCARDIA POSSIBLE INFERIOR MYOCARDIAL INFARCTION , PROBABLY OLD [30 ms Q WAVE IN II/aVF] ABNORMAL RHYTHM ECG UNCONFIRMED REPORT Electronically signed by : BELLA CARLOS, 05/22/2025 06:56:23
--- NOTE | 2025-05-20 03:14 | ED_ITS ---
Discharge Plan Disposition Patient Disposition: Home, Self-Care Prescriptions Prescriptions: New bisoprolol fumarate 10 mg tablet 10 mg PO DAILY Qty: 60 1RF No Action oxycodone 10 mg tablet 10 mg PO HS PRN (Reason: pain) Qty: 10 0RF methocarbamol 500 mg tablet 500 mg PO BID Qty: 60 0RF acetaminophen [Tylenol] 325 mg tablet 325 mg PO Q6H PRN (Reason: fever or pain) Qty: 30 0RF oxycodone 5 mg tablet 5 mg PO Q8H PRN (Reason: pain) Qty: 10 0RF Referrals Follow up/Referrals: Wilfrido Jones MD [Primary Care Provider, Family Practice] - See instructions Activity Restrictions/Add. Instructions Additional Instructions/Restrictions: I sent a prescription for your blood pressure medication. Recommend following with your PCP for further assessment and blood pressure management. Clinical Impressions Clinical Impression: Hypertensive urgency, Palpitations Print Language Print Language: [place] Island[place] Discharge ED Provider: Evaristo Gonzalez General Adult HPI General Chief complaint: Chest Pain Stated complaint: fluttering heart Time Seen by Provider: 05/20/25 03:10 History of Present Illness HPI narrative: 44 male with history of hypertension, obese, palpitations GERD presents for palpitations. He reports that he was lying around when he felt a fluttering in his chest and felt like his heart rate was going up. He felt like his blood pressure was high. He denies any chest pain, either at the time of the fluttering or currently. He reports he has not been taking his blood pressure medication for some time due to insurance issues. Denies any shortness of breath. Reports history of prior PE. Related Data Previous Rx's ?Medication ?Instructions ?Recorded acetaminophen 325 mg tablet 325 mg PO Q6H PRN fever or pain 05/16/25 (Tylenol) #30 tabs methocarbamol 500 mg tablet 500 mg PO BID #60 tabs oxycodone 5 mg tablet 5 mg PO Q8H PRN pain #10 tab s 05/16/25 oxycodone 10 mg tablet 10 mg PO HS PRN pain #10 tab s 05/19/25 bisoprolol fumarate 10 mg tablet 10 mg PO DAILY #60 ta bs 05/20/25 Allergies Allergy/AdvReac Type Severity Reaction Status Date / Time metformin AdvReac Intermediate Swelling Verified 05/19/25 09:14 of Lip/Tongue/Throat PFSH [facility] Disclaimer: The information contained in this section may have been updated after the patient was seen, as this information can be updated by other users. 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 Snoring Daytime somnolence Dyspnea Surgical History History of surgery on arm History of cholecystectomy Family History Other Anxiety Coronary artery disease Depression Diabetes Hypertension No significant family history VINNIE (obstructive sleep apnea) Obesity Social History Smoking Status: Never smoker years smoked: 8 how long ago did patient quit smokin years alcohol intake: former year quit: 2018 substance use type: denies use current occupational status: employed Travel in the last 8 weeks?: None household members: significant other housing: house marital status: single number of children: 1 caffeine: Yes Have you lived/traveled outside US in past 30 days?: No Contact w/someone who lives/traveled outside US past 30 days?: No Exposure to someone with infectious disease in past 14 days?: No Do you have a fever (greater than 100.4 F or 38 C)?: No Have you tested positive for COVID-19?: No Exposed to someone with COVID-19 in past 14 days?: No Do you have a sore throat?: No Do you have a cough?: No Do you have any weakness?: No Do you have any diarrhea?: No Are you experiencing any unusual bleeding?: No Do you have any muscle aches/pain?: No Do you have any abdominal pain?: No Are you experiencing loss of taste or smell?: No Other Medical History Have you received the Flu Vaccine for this season: No Have you received the Pneumonia Vaccine: No ROS Obtained: Yes All systems reviewed & no additional complaints except as documented Physical Exam General General appearance: alert and anxious Head Head exam: atraumatic and normocephalic Eye Eye exam: Present normal appearance, PERRL and EOMI ENT ENT exam: Present normal oropharynx and normal external ear exam Neck Neck exam: Present normal inspection and full ROM Chest Chest inspection: Present normal inspection and symmetric chest wall rise; Absent tenderness Respiratory Respiratory exam: Present normal lung sounds bilaterally; Absent respiratory distress Cardiovascular Cardiovascular exam: Present regular rate and normal rhythm Abdominal Exam Abdominal exam: Present soft; Absent distention, tenderness or guarding Extremities Exam Extremities exam: Present normal inspection; Absent edema or joint swelling Back Exam Back exam: Present normal inspection; Absent tenderness Neurological Exam Neurological exam: Present alert and oriented X3; Absent motor sensory deficit Psychiatric Psychiatric exam: Present normal affect and normal mood Skin Skin exam: Present warm, dry and normal color Lymphatic Lymphatic Findings: no adenopathy Medical Decision Making Medical Records Medical records reviewed: Yes I reviewed the patient's medical records. Screening: Per USPSTF and CDC recommendations, given the prevalence of disease in our region, it is our hospital?s policy to screen for HIV and viral Hepatitis for all patients aged 18 and over and those with ongoing risk factors. Teofilo Inquiry Pt receiving controlled substance: No Teofilo was queried for this patient: No Vital Signs: 05/20/25 03:17 05/20/25 03:23 05/20/25 03:39 Temperature 98.7 F Temperature Source Oral Pulse Rate 109 H 107 H Pulse Rate [Right] 109 H Respiratory Rate 18 16 Blood Pressure 221/136 H Blood Pressure [Right Arm] 207/135 H Blood Pressure Mean 146 Blood Pressure Mean [Right Arm] 159 02 Sat by Pulse Oximetry 98 98 Oxygen Delivery Method Room Air 05/20/25 03:45 05/20/25 03:49 05/20/25 04:12 Temperature Temperature Source Pulse Rate 105 H 111 H 114 H Pulse Rate [Right] Respiratory Rate 18 10 L 15 Blood Pressure 225/127 H 225/127 H Blood Pressure [Right Arm] Blood Pressure Mean Blood Pressure Mean [Right Arm] 02 Sat by Pulse Oximetry 97 99 98 Oxygen Delivery Method Room Air 05/20/25 04:23 05/20/25 04:26 05/20/25 04:30 Temperature Temperature Source Pulse Rate 112 H 113 H 109 H Pulse Rate [Right] Respiratory Rate 12 16 22 Blood Pressure 207/119 H 207/119 H 204/120 H Blood Pressure [Right Arm] Blood Pressure Mean Blood Pressure Mean [Right Arm] 02 Sat by Pulse Oximetry 98 98 98 Oxygen Delivery Method Room Air 05/20/25 04:48 05/20/25 04:51 05/20/25 04:53 Temperature Temperature Source Pulse Rate 109 H 104 H 105 H Pulse Rate [Right] Respiratory Rate 19 19 23 Blood Pressure 172/106 H 171/106 H Blood Pressure [Right Arm] Blood Pressure Mean 122 Blood Pressure Mean [Right Arm] 02 Sat by Pulse Oximetry 97 98 98 Oxygen Delivery Method Room Air 05/20/25 05:02 05/20/25 05:30 05/20/25 05:34 Temperature Temperature Source Pulse Rate 101 H 87 80 Pulse Rate [Right] Respiratory Rate 19 21 25 H Blood Pressure 162/109 H 157/94 H 157/94 H Blood Pressure [Right Arm] Blood Pressure Mean Blood Pressure Mean [Right Arm] 02 Sat by Pulse Oximetry 97 96 80 L Oxygen Delivery Method Room Air 05/20/25 06:00 Temperature Temperature Source Pulse Rate 75 Pulse Rate [Right] Respiratory Rate 17 Blood Pressure 141/82 H Blood Pressure [Right Arm] Blood Pressure Mean Blood Pressure Mean [Right Arm] 02 Sat by Pulse Oximetry 97 Oxygen Delivery Method Lab Data Lab results reviewed: Yes I reviewed the patient's lab results. Lab Results 05/20/25 03:13: WBC 10.9 H, RBC 4.88, Hgb 14.2, Hct 43.6, MCV 89.3, MCH 29.1, MCHC 32.6, RDW 12.3, Plt Count 296, MPV 10.4, Neut % (Auto) 58.8, Lymph % (Auto) 30.7, [place] % (Auto) 8.2, Eos % (Auto) 1.5, Baso % (Auto) 0.4, Neut # (Auto) 6.4, Lymph # (Auto) 3.4, [place] # (Auto) 0.9, Eos # (Auto) 0.2, Baso # (Auto) 0.0, D- Dimer 1.10 H, Sodium 138, Potassium 3.4 L, Chloride 102, Carbon Dioxide 25, Anion Gap 14.4, BUN 17, Creatinine 0.80, Estimated Creat Clear 201, Estimated GFR 106, Est GFR ( Amer) 128, Glucose 99, Calcium 9.7, Magnesium 1.9, Total Bilirubin 0.8, AST 30, ALT 29, Alkaline Phosphatase 56, Troponin I < 0.01, Total Protein 8.0, Albumin 4.7, Globulin 3.3 H, Albumin/Globulin Ratio 1.4 05/20/25 05:33: Troponin I < 0.01 05/20/25 03:13 05/20/25 03:13 Orders (Tests/Meds): ED MEDICATIONS Discontinued Medications Generic Name Dose Route Start Last Admin Trade Name Connie PRN Reason Stop Dose Admin Bisoprolol Fumarate 10 mg 05/20/25 03:29 05/20/25 03:46 Bisoprolol 5mg Tablet PO 05/20/25 03:30 10 mg ONCE ONE Administration Hydralazine HCl 10 mg 05/20/25 03:53 05/20/25 04:00 Hydralazine 20mg/Ml Vial IV 05/20/25 03:54 10 mg ONCE ONE Administration Hydroxyzine Pamoate 25 mg 05/20/25 04:33 05/20/25 04:49 Hydroxyzine Pamoate 25mg Capsule PO 05/20/25 04:34 25 mg ONCE ONE Administration Iopamidol 80 ml 05/20/25 04:18 05/20/25 04:19 Iopamidol-370 (76%);100ml Bottle IV 05/20/25 04:19 80 ml ONCE ONE Administration Nitroglycerin 1 gm 05/20/25 04:33 05/20/25 04:48 Nitroglycerin 1 Gm Ointment TD 05/20/25 04:34 1 gm ONCE ONE Administration Sodium Chloride 50 ml 05/20/25 04:18 05/20/25 04:19 0.9 % Sodium Chloride 50 Ml Vial IV 05/20/25 04:19 50 ml ONCE ONE Administration Sodium Chloride 10 ml 05/20/25 04:18 05/20/25 04:19 Sodium Chloride 0.9% 10ml Syr (Rad Only) IV 05/20/25 04:19 10 ml ONCE ONE Administration ORDERS Category Date Time Status CT angio chest PE protocol Stat Cat Scan 05/20/25 03:51 Completed CXR --portable [XR chest portable] Stat Exams 05/20/25 03:28 Completed CBC w/Auto Diff [Complete Blood Count Auto Diff] Stat Lab 05/20/25 03:13 Completed CMP [Comprehensive Metabolic Panel] Stat Lab 05/20/25 03:13 Completed D-Dimer Stat Lab 05/20/25 03:13 Completed Magnesium Stat Lab 05/20/25 03:13 Completed Troponin I Q3H Lab 05/20/25 03:13 Completed Troponin I Q3H Lab 05/20/25 05:33 Completed ECG Data Tracing #1: I reviewed this ECG and interpreted as documented below: Sinus tachycardia, rate of 106, Q waves in lead III, no significant ST elevation. ECG initial impression date: 05/20/25 ECG initial impression time: 03:14 HEART Score History (anamnesis): Slightly suspicious ECG: Non-specific disturbance Age: <45 years Risk factors: 1-2 risk factors Troponin: </= normal limit HEART Score: 2 Medical Decision Narrative: 44-year-old male with history of untreated hypertension presents for palpitations and hypertension. History was obtained via interactive discussion with patient, family. On arrival, patient is afebrile, hypertensive, satting appropriately on room air, mildly tachycardic, moving all extremities spontaneously. Full physical exam performed and significant for clear lungs, no abdominal tenderness Differential includes but is not limited to palpitations, arrhythmia, anxiety, hypertensive urgency, hypertensive emergency. Patient was given IV hydralazine and p.o. bisoprolol (home medication) for symptomatic management and correction of underlying abnormalities. Workup initiated including CBC CMP D-dimer troponin EKG chest x-ray. On re-evaluation, patient [remains afebrile, HD stable.] Laboratory workup independently interpreted by me and significant for positive D-dimer, will follow-up with CT PE. Renal function is normal. Negative initial troponin, negative repeat troponin Imaging independently interpreted by me and significant for clear lungs bilaterally without focal opacity. See radiology read for full review of final results. Admission was considered, but deemed unnecessary due to no findings consistent with hypertensive emergency. Given patient history, exam and workup, patient's presentation most likely represents hypertensive urgency. After a single dose of hydralazine and 1 dose of bisoprolol and approximately 5 minutes of Nitropaste, patient's blood pressure dropped back down to normal for him. He sustained blood pressures in the 140 systolic for some time until discharge. He remains asymptomatic. Given this, history and appropriate discharge the patient management. I sent a prescription for his home bisoprolol 10 mg daily. Procedures Risk/Benefits of Procedure(s) Were Explained: Yes Critical Care Critical Care Time Critical Care Time: No
--- OUTSIDE RECORDS SUMMARY | 2025-05-20 03:15 | XMS_ITS | Clinical Summary ---
Author Organization [facility] ystem Address [address] [place] [address] Care Team Providers Care Generator Repairer Name Role Phone Donn Rodriguez MD Primary Care Provider [phone] Allergies No known active allergies Medications meloxicam [...] Mother Priyanka Carter Cardiomyopathy Hyperlipidemia Mother Priyanka Cartre Hypertension Anxiety disorder Sister Liz Echols Sporatic [...] Name:Jewel Carter Payer ID:[id number] (NAIC) Type:POS Address: [address] HEALTHCARE Care Teams Generator Repairer Relationship Specialty Start Date End Date Donn Rodriguez MD [address] [place] [address] [place] [id number] PCP - General Emergency Medicine 09/08/22
--- OUTSIDE RECORDS SUMMARY | 2025-05-20 03:15 | XMS_ITS | Patient Health Record ---
Author Organization [id number] [facility] Address [address] [place], [place] [id number] Support Name Relationship Address Phone Jewel Carter Guarantor Unknown [phone] Reason For Referral No Information Plan Of Treatment No Information Insurance Providers Payer Name Payer Address Payer Phone Subscriber Number Group Number Insured Name Patient Relationship to Insured Coverage Start Date Coverage End Date [employer] NON-HMO [address] [place], [place] [id number] [phone] [id number] Jewel Carter Self - patient is the insured 4
--- NOTE | 2025-05-20 03:28 | XR_ITS ---
PROCEDURE INFORMATION: Exam: XR Chest Exam date and time: 05/20/2025 3:39 AM Age: 44 years old Clinical indication: Pain; Chest pressure; Additional info: Cp TECHNIQUE: Imaging protocol: Radiologic exam of the chest. Views: 1 view. COMPARISON: CT ANGIO CHEST 05/16/2025 11:05 AM FINDINGS: Lungs: Unremarkable. No consolidation. Pleural spaces: Unremarkable. No pleural effusion. No pneumothorax. Heart/Mediastinum: Unremarkable. No cardiomegaly. Bones/joints: Unremarkable. IMPRESSION: No acute findings.
[2025-05-20 03:35] LABS: Hematocrit 43.6 % (42.0-52.0); Hemoglobin 14.2 g/dL (14.1-18.0); Immature Granulocytes % 0.4 %; Mean Corpuscular HGB Conc 32.6 g/dL (31.8-35.4); Mean Corpuscular Hemoglobin 29.1 pg (27.0-31.2); Mean Corpuscular Volume 89.3 fl (80-94); Nucleated Red Blood Cells % 0 %; Platelet Count 296 K/mm3 (142-424); Red Blood Count 4.88 M/mm3 (4.60-6.20); Red Cell Distribution Width-SD 40.2 fL; White Blood Count 10.9 K/mm3 (4.8-10.8)
--- NOTE | 2025-05-20 03:36 | PC.NURSE ---
Spoke to medsur Charge, LINA Sumner, r/t med need from their omni.
--- NOTE | 2025-05-20 03:41 | PC.NURSE ---
Radiology at bedside.
[2025-05-20 03:42] LABS: Alanine Aminotransferase 29 U/L (12-78); Albumin Level 4.7 g/dl (3.5-5.0); Albumin/Globulin Ratio 1.4 (1.1-1.8); Alkaline Phosphatase 56 U/L (38-126); Anion Gap 14.4 mEq/L (5-15); Aspartate Amino Transferase 30 U/L (17-59); Bilirubin,Total 0.8 mg/dl (0.2-1.3); Blood Urea Nitrogen 17 mg/dl (9-20); Calcium 9.7 mg/dl (8.4-10.2); Carbon Dioxide 25 mmol/L (22.0-30.0); Chloride 102 mmol/L (98-107); Creatinine Clearance Estimated 201 mL/min (50-200); Creatinine,Serum 0.80 mg/dl (0.66-1.25); Estimated Glomerular Filt Rate 106 ml/min (>60); GFR (African American) 128 ML/MIN (>60); Globulin 3.3 g/dL (1.3-3.2); Glucose 99 mg/dl (74-100); Magnesium 1.9 mg/dl (1.6-2.3); Potassium 3.4 mmoL/L (3.5-5.1); Sodium 138 mmol/L (136-145); Total Protein,Serum 8.0 g/dl (6.3-8.2)
[2025-05-20 03:46] LABS: D-Dimer 1.10 ug/mL (0.0-0.5)
[2025-05-20] MEDS: BISOPROLOL 5MG TABLET 10 MG PO (03:46)
--- NOTE | 2025-05-20 03:51 | CT_ITS ---
PROCEDURE INFORMATION: Exam: CTA Chest With Contrast Exam date and time: 05/20/2025 4:08 AM Age: 44 years old Clinical indication: Pain; Chest pressure; Additional info: Cp, positive dimer TECHNIQUE: Imaging protocol: Computed tomographic angiography of the chest with contrast. Exam focused on the arteries. 3D rendering (Not supervised by radiologist): MIP and/or 3D reconstructed images were created by the technologist. Radiation optimization: All CT scans at this facility use at least one of these dose optimization techniques: automated exposure control; mA and/or kV adjustment per patient size (includes targeted exams where dose is matched to clinical indication); or iterative reconstruction. Contrast material: ISOVUE; Contrast volume: 80 ml; Contrast route: INTRAVENOUS (IV); COMPARISON: CT ANGIO CHEST 05/16/2025 11:05 AM FINDINGS: Pulmonary arteries: Normal. No pulmonary emboli. Aorta: Motion limits assessment of the ascending aorta. The aorta is otherwise unremarkable. Lungs: Unremarkable. No consolidation. No masses. Pleural spaces: Unremarkable. No pneumothorax. No pleural effusion. Heart: Unremarkable. No cardiomegaly. No pericardial effusion. Lymph nodes: Unremarkable. No enlarged lymph nodes. Bones/joints: Unremarkable. No acute fracture. Soft tissues: Unremarkable. IMPRESSION: No acute findings.
[2025-05-20 03:58] LABS: Troponin I < 0.01 ng/ml (0.00-0.034)
[2025-05-20] MEDS: HYDRALAZINE 20MG/ML VIAL 10 MG IV (04:00)
--- NOTE | 2025-05-20 04:02 | PC.NURSE ---
PT transported to radiology via stretcher by radiology staff
[2025-05-20] MEDS: IOPAMIDOL-370 (76%);100ML BOTTLE 80 ML IV (04:19)
[2025-05-20] MEDS: 0.9 % SODIUM CHLORIDE 50 ML VIAL IV (04:19)
[2025-05-20] MEDS: SODIUM CHLORIDE 0.9% 10ML SYR (RAD ONLY) 10 ML IV (04:19)
[2025-05-20] MEDS: NITROGLYCERIN 1 GM OINTMENT TD (04:48)
[2025-05-20 06:02] LABS: Troponin I < 0.01 ng/ml (0.00-0.034)
== END 2025-05-20 06:18 | disposition home or self-care (01) ==
PROVIDERS: Emergency Provider Emergency Medicine; PCP Family Medicine
DX: I16.0 Hypertensive urgency (principal); R00.2 Palpitations; E78.5 Hyperlipidemia, unspecified; I10 Essential (primary) hypertension
CPT/HCPCS: 71045; 71275; 80053; 83735; 84484; 85025; 85378; 93005; 96374; 99285; J0360; Q9967

== ENCOUNTER 2025-07-15 12:45 | Outpatient (CLI) | payer OTHER, SELFPAY ==
--- NOTE | 2025-07-15 12:49 | XR_ITS ---
FINAL REPORT CLINICAL HISTORY: right shoulder pain COMPARISON: None FINDINGS: Two views of the right shoulder show no evidence of acute displaced fracture or dislocation of the visualized bony architecture. There is moderate AC joint arthropathy. The glenohumeral joint is intact. IMPRESSION: Moderate AC joint arthropathy with no acute findings. Reviewed, Interpreted and Dictated by Luna Grant MD Transcribed by Jennifer Verma Authenticated and [facility]
--- OUTSIDE RECORDS SUMMARY | 2025-07-15 12:49 | XMS_ITS | Clinical Summary ---
Author Organization [facility] ystem Address [address] [place] [address] Care Team Providers Care Tailer Off Name Role Phone Donn Rodriguez MD Primary Care Provider [phone] Allergies No known active allergies Medications meloxicam [...] Status Comments Brother Donn Carter Father Abdulaziz Caretr Maternal Aunt Cathy Lopez Maternal Grandfather Cruz [...] ANNUAL PHYSICAL 03/29/2019 HEPATITIS C SCREENING 03/29/2019 INFLUENZA VACCINE 04/25/2025 TDAP/TD VACCINES (3 - Td or Tdap) 10/25/2028 10/25/2018, 02/16/1999 Pneumococcal Vaccine 0-49 Aged Out No longer eligible based on patient's age to complete this topic Insurance Member Subscriber Plan / Payer (Ef fective 2021-Present) Name:Jewel Carter Relation to Subscriber:Self Name:Jewel Carter Payer ID:[id number] (NAIC) Type:POS Address: [address] HEALTHCARE Care Teams Tailer Off Relationship Specialty Start Date End Date Donn Rodriguez MD [address] [place], [place] [id number] PCP - General Emergency Medicine 09/08/22
--- OUTSIDE RECORDS SUMMARY | 2025-07-15 12:49 | XMS_ITS | Patient Health Record ---
Author Organization [id number] [address] [place] [address] SURGICAL Address [address] [place], [place] [id number] Support Name Relationship Address Phone Jewel Carter Guarantor Unknown [phone] Reason For Referral No Information Plan Of Treatment No Information Insurance Providers Payer Name Payer Address Payer Phone Subscriber Number Group Number Insured Name Patient Relationship to Insured Coverage Start Date Coverage End Date JESSICA EATON PPO [address] [place], [place] [id number] Jewel Carter Self - patient is the insured 4
== END 2025-07-15 23:59 | disposition home or self-care (01) ==
PROVIDERS: PCP Family Medicine; Visit Provider Physician Assistant
DX: M19.011 Primary osteoarthritis, right shoulder (principal); S46.001A Unspecified injury of muscle(s) and tendon(s) of the rotator cuff of right shoulder, initial encounter
CPT/HCPCS: 73030

== ENCOUNTER 2025-08-03 16:42 | Emergency (ER) | payer OTHER, SELFPAY ==
[2025-08-03] VITALS (7 sets, daily range): BP systolic 126–152; BP diastolic 70–79; PULSE 76–89; RESP 16–20; TEMP 36.9–37; O2SAT 96–98; BMI 37.8
--- OUTSIDE RECORDS SUMMARY | 2025-08-03 17:02 | XMS_ITS | Patient Health Record ---
Author Organization [facility] Physician Chase moore Billing Info Address [address] [place], [place] [id number] Support Name Relationship Address Phone Jewel Carter Guarantor Unknown [phone] Reason For Referral No Information Plan Of Treatment No Information Insurance Providers Payer Name Payer Address Payer Phone Subscriber Number Group Number Insured Name Patient Relationship to Insured Coverage Start Date Coverage End Date JESSICA EATON PPO [address] [place], [place] [id number] Jewel Carter Self - patient is the insured 4
--- OUTSIDE RECORDS SUMMARY | 2025-08-03 17:02 | XMS_ITS | Clinical Summary ---
Author Organization [facility] ystem Address [address] [place] [address] Care Team Providers Care Flower Buncher Or Picker Name Role Phone Donn Rodriguez MD Primary Care Provider [phone] Allergies No known active allergies Medications meloxicam [...] Carter Maternal Aunt Cathy Lopez Maternal Grandfather Crzu valencia Mother Priyanka Carter Sister Liz Echols [...] Carter Payer ID:[id number] (NAIC) Type:POS Address: [address] HEALTHCARE Care Teams Flower Buncher Or Picker Relationship Specialty Start Date End Date Donn Rodriguez MD [address] [place], [place] [phone] PCP - General Emergency Medicine 09/08/22
[2025-08-03] MEDS: ACETAMINOPHEN 500MG TAB 1000 MG PO (17:11)
[2025-08-03] MEDS: KETOROLAC 60MG/2ML VIAL 60 MG IM (17:11)
[2025-08-03] MEDS: LIDOCAINE 5% TRANSDERMAL PATCH 1 EACH TD (17:11)
[2025-08-03] MEDS: diazePAM 5MG TABLET 5 MG PO (17:11)
--- NOTE | 2025-08-03 17:19 | ED_ITS ---
<Statement entered by Lavonne Ferrell DO - 08/03/25 19:41> I was consulted by the RONNI, and we discussed the complexity of the problems being addressed. I approved the treatment and management plan for this patient's care in the emergency department, thus performing a substantive portion of the medical decision making. No alarm finding suggestive of cauda equina syndrome or spinal cord compression. Patient is ambulatory. After symptomatic improvement with medications administered, he is deemed to be appropriate for discharge with instructions for close [employer] follow-up and strict return precautions. Lavonne Ferrell DO Discharge Plan Disposition Patient Disposition: Home, Self-Care Condition: Good Prescriptions Prescriptions: New methylprednisolone [Medrol (Qamar)] 4 mg tablets,dose pack See Rx Instructions .ROUTE .COMPLEX Qty: 21 0RF Rx Instructions: for 6 days No Action bisoprolol fumarate 10 mg tablet 10 mg PO DAILY Qty: 90 3RF lisinopril 10 mg tablet 10 mg PO DAILY Qty: 90 3RF cyclobenzaprine 10 mg tablet 10 mg PO HS Qty: 30 0RF meloxicam 15 mg tablet 15 mg PO DAILY Qty: 30 0RF loratadine [Claritin] 10 mg tablet 10 mg PO DAILY Qty: 30 2RF acetaminophen [Tylenol] 325 mg tablet 325 mg PO Q6H PRN (Reason: fever or pain) Qty: 30 0RF Referrals Follow up/Referrals: Wilfrido Jones MD [Primary Care Provider, Family Practice] - See instructions Activity Restrictions/Add. Instructions Additional Instructions/Restrictions: You were seen for back pain. Please follow up with your PCP this week for recheck and to discuss imaging/ physical therapy. Clinical Impressions Clinical Impression: Acute back pain Instructions Patient Instructions: DI for Low Back Pain Print Language Print Language: Syriac Discharge ED Provider: Lavonne Ferrell General Adult HPI General Chief complaint: Back Pain/Injury Stated complaint: bending forward and hurt back Time Seen by Provider: 08/03/25 16:51 Mode of Arrival: Ambulatory Source of Information: Patient Description of Symptoms (Recalled from ER Triage Doc. by RN): pt presents to the ED with back pain. pt reports that he stood up when he heard a pop in his back. hx of back probems. Denies shortness of breath and chest pain. History of Present Illness HPI narrative: Patient presents complaining of low back pain. He reports that he was bending to put his shoes on today when he felt a sudden pop. He reports a history of back pain which he saw Dr. Gan for. He reports that this pain is more severe. He reports shuffling his feet due to significant pain. Denies any bowel or bladder incontinence or saddle anesthesias. He reports he has taken an ibuprofen and a muscle relaxer without improvement. MD complaint: back pain Onset (ago): hour(s) Location: back Radiation: non-radiation Severity: mild Consistency: constant Relieving factors: none Exacerbating factors: movement Associated symptoms: negative fever/chills Treatments prior to arrival: NSAID Related Data Previous Rx's ?Medication ?Instructions ?Recorded acetaminophen 325 mg tablet 325 mg PO Q6H PRN fever or pain 05/16/25 (Tylenol) #30 tabs bisoprolol fumarate 10 mg tablet 10 mg PO DAILY #90 ta bs 05/29/25 lisinopril 10 mg tablet 10 mg PO DAILY #90 tabs 01/17 cyclobenzaprine 10 mg tablet 10 mg PO HS muscle spasm #30 tabs 07/04/25 loratadine 10 mg tablet (Claritin) 10 mg PO DAILY #30 tabs 07/04/25 meloxicam 15 mg tablet 15 mg PO DAILY #30 tabs 06/25 methylprednisolone 4 mg tablets in See Rx Instructions PO .COMPLEX 08/03/25 a dose pack (Medrol (Qamar)) #21 tabs Allergies Allergy/AdvReac Type Severity Reaction Status Date / Time metformin AdvReac Intermediate Swelling Verified 07/24/25 14:27 of Lip/Tongue/Throat [facility] Disclaimer: The information contained in this section may have been updated after the patient was seen, as this information can be updated by other users. 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 Snoring Daytime somnolence Dyspnea Surgical History History of surgery on arm History of cholecystectomy Family History Other Anxiety Coronary artery disease Depression Diabetes Hypertension No significant family history VINNIE (obstructive sleep apnea) Obesity Social History Smoking Status: Never smoker years smoked: 8 how long ago did patient quit smokin years alcohol intake: former year quit: 2018 substance use type: denies use current occupational status: employed Travel in the last 8 weeks?: None household members: significant other housing: house marital status: single number of children: 1 caffeine: Yes Have you lived/traveled outside [place] in past 30 days?: No Contact w/someone who lives/traveled outside US past 30 days?: No Exposure to someone with infectious disease in past 14 days?: No Do you have a fever (greater than 100.4 F or 38 C)?: No Have you tested positive for COVID-19?: No Exposed to someone with COVID-19 in past 14 days?: No Do you have a sore throat?: No Do you have a cough?: No Do you have any weakness?: No Do you have any diarrhea?: No Are you experiencing any unusual bleeding?: No Do you have any muscle aches/pain?: No Do you have any abdominal pain?: No Are you experiencing loss of taste or smell?: No Other Medical History Have you received the Flu Vaccine for this season: No Have you received the Pneumonia Vaccine: No ROS Obtained: Yes Systems reviewed as appropriate & no additional complaints except as documented Physical Exam General General appearance: alert and in no apparent distress Head Head exam: atraumatic and normocephalic Eye Eye exam: Present normal appearance and EOMI Chest Chest inspection: Present symmetric chest wall rise Respiratory Respiratory exam: Present normal lung sounds bilaterally; Absent wheezes or stridor Cardiovascular Cardiovascular exam: Present regular rate and normal rhythm; Absent systolic murmur Extremities Exam Extremities exam: Present full ROM Back Exam Back exam: Present tenderness (lower thoracic/ upper lumbar tenderness. Equal BLLE strength and reflexes ) and other (Limited lateral rotation and forward flexion of low back ) Neurological Exam Neurological exam: Present alert, oriented X3 and reflexes normal; Absent motor sensory deficit Psychiatric Psychiatric exam: Present normal affect and normal mood Skin Skin exam: Present warm, dry and intact Medical Decision Making Medical Records Screening: Per USPSTF and CDC recommendations, given the prevalence of disease in our region, it is our hospital?s policy to screen for HIV and viral Hepatitis for all patients aged 18 and over and those with ongoing risk factors. Teofilo Inquiry Pt receiving controlled substance: No Vital Signs: 08/03/25 16:45 08/03/25 16:45 08/03/25 17:00 Temperature 98.6 F 98.6 F Temperature Source Oral Oral Pulse Rate 89 76 Pulse Rate [Right] 89 Respiratory Rate 16 16 Blood Pressure 147/79 H 143/71 H Blood Pressure [Right Arm] 147/79 H Blood Pressure Mean Blood Pressure Mean [Right Arm] 101 Blood Pressure Source Automatic Cuff Blood Pressure Source [Right Arm] Automatic Cuff Blood Pressure Position Supine Blood Pressure Position [Right Arm] Supine 02 Sat by Pulse Oximetry 98 98 97 Oxygen Delivery Method Room Air Room Air Room Air 08/03/25 17:13 08/03/25 17:31 08/03/25 17:46 Temperature Temperature Source Pulse Rate 81 77 79 Pulse Rate [Right] Respiratory Rate Blood Pressure 148/73 H 133/70 126/72 Blood Pressure [Right Arm] Blood Pressure Mean 91 82 Blood Pressure Mean [Right Arm] Blood Pressure Source Blood Pressure Source [Right Arm] Blood Pressure Position Blood Pressure Position [Right Arm] 02 Sat by Pulse Oximetry 96 Oxygen Delivery Method Room Air 08/03/25 18:00 08/03/25 18:33 Temperature 98.4 F Temperature Source Pulse Rate 78 81 Pulse Rate [Right] Respiratory Rate 20 Blood Pressure 152/71 H 127/78 Blood Pressure [Right Arm] Blood Pressure Mean 98 Blood Pressure Mean [Right Arm] Blood Pressure Source Blood Pressure Source [Right Arm] Blood Pressure Position Blood Pressure Position [Right Arm] 02 Sat by Pulse Oximetry Oxygen Delivery Method Orders (Tests/Meds): ED MEDICATIONS Discontinued Medications Generic Name Dose Route Start Last Admin Trade Name Freq PRN Reason Stop Dose Admin Acetaminophen 1,000 mg 08/03/25 17:01 08/03/25 17:11 Acetaminophen 500mg Tab PO 08/03/25 17:02 1,000 mg ONCE ONE Administration Diazepam 5 mg 08/03/25 17:01 08/03/25 17:11 Diazepam 5mg Tablet PO 08/03/25 17:02 5 mg ONCE ONE Administration Ketorolac Tromethamine 60 mg 08/03/25 17:01 08/03/25 17:11 Ketorolac 60mg/2ml Vial IM 08/03/25 17:02 60 mg ONCE ONE Administration Lidocaine 1 each 08/03/25 17:01 08/03/25 17:11 Lidocaine 5% Transdermal Patch TD 08/03/25 17:02 1 each ONCE ONE Administration Methylprednisolone Sodium Succinate 125 mg 08/03/25 17:53 08/03/25 18:04 Methylprednisolone Sod Succ 125mg Vial IM 08/03/25 17:54 125 mg ONCE ONE Administration ORDERS Category Date Time Status HIV Combo Stat Lab 08/03/25 17:00 Ordered Hepatitis C Ab Qual. W/ RFX Stat Lab 08/03/25 17:00 Ordered Medical Decision Narrative: In summary patient is a 44-year-old who presents the emergency department for evaluation of low back pain. Patient is hemodynamically stable upon arrival, afebrile. Mild lower thoracic tenderness with limited range of motion. Differential diagnosis includes thoracolumbar strain, disc disease, fracture. Given no direct trauma or point tenderness fracture unlikely. Patient was offered a CT scan however declines at this time. initial inventions include Toradol, Tylenol, lidocaine, Valium, Solu-Medrol. Upon repeat evaluation patient has not had significant improvement of pain, however is requesting to go home at this time. Given a prescription for Medrol dose pack and advised follow-up with his PCP to discuss possible MRI. Critical Care Critical Care Time Critical Care Time: No
[2025-08-03] MEDS: METHYLPREDNISOLONE SOD SUCC 125MG VIAL 125 MG IM (18:04)
== END 2025-08-03 18:39 | disposition home or self-care (01) ==
PROVIDERS: Emergency Provider Emergency Medicine; PCP Family Medicine
DX: M54.50 Low back pain, unspecified (principal)
CPT/HCPCS: 96372; 99283; 99285; J1885; J2919

== ENCOUNTER 2025-08-07 14:55 | Outpatient (CLI) | payer OTHER, SELFPAY ==
--- NOTE | 2025-08-07 15:00 | MR_ITS ---
FINAL REPORT TECHNIQUE: Multiplanar MR without contrast CLINICAL HISTORY: right rotator cuff injury, FELL OFF A LADDER FINDINGS: Marrow signal: Unremarkable Glenohumeral joint: Physiologic effusion. Mild degenerative changes. AC joint: Severe hypertrophic arthropathy. Severe rotator cuff impingement. Rotator cuff: Severe diffuse tendinosis without evidence of tear. Labrum: Normal morphology without tear Biceps tendon: Intra-articular long head biceps tendon intact. IMPRESSION: Rotator cuff tendinosis without tear. Severe AC hypertrophic arthropathy with rotator cuff impingement Reviewed, Interpreted and Dictated by Luna Grant MD Transcribed by Lisbeth Dias Authenticated and . [facility]
--- NOTE | 2025-08-07 15:00 | XR_ITS ---
FINAL REPORT CLINICAL HISTORY: MRI CLEARANCE FINDINGS: ORBITS Look up and look down views were obtained. No metallic foreign body identified. There are multiple small rounded lucent lesions in the calvarium which are nonspecific and could represent myeloma or metastatic disease. IMPRESSION: No metal detected. Reviewed, Interpreted and Dictated by Luna Grant MD Transcribed by Jennifer Verma Authenticated and . [facility]
--- OUTSIDE RECORDS SUMMARY | 2025-08-07 15:02 | XMS_ITS | Patient Health Record ---
Author Organization [facility] Physician Chase moore Billing Info Address [address] [place], [place] [id number] Support Name Relationship Address Phone Jewel Carter Guarantor Unknown [phone] Reason For Referral No Information Plan Of Treatment No Information Insurance Providers Payer Name Payer Address Payer Phone Subscriber Number Group Number Insured Name Patient Relationship to Insured Coverage Start Date Coverage End Date JESSICA EATON PPO [address] [place], [place] [id number] [phone] [id number] Jewel Carter Self - patient is the insured 4
--- OUTSIDE RECORDS SUMMARY | 2025-08-07 15:02 | XMS_ITS | Clinical Summary ---
Author Organization [facility] Address [address] [place] [address] Care Team Providers Care Procurement Engineer Name Role Phone Donn Rodriguez MD Primary Care Provider [phone] Allergies No known active allergies Medications meloxicam [...] Name:Jewel Carter Payer ID:[id number] (NAIC) Type:POS Address: [address] [facility]ALTH[facility] Care Teams Procurement Engineer Relationship Specialty Start Date End Date Donn Rodriguez MD [address] [place], [place] [id number] PCP - General Emergency Medicine 09/08/22
== END 2025-08-07 23:59 | disposition home or self-care (01) ==
LOC: RAD 14:56
PROVIDERS: PCP Family Medicine; Visit Provider Physician Assistant
DX: M25.811 Other specified joint disorders, right shoulder (principal); M65.911 Unspecified synovitis and tenosynovitis, right shoulder; M19.011 Primary osteoarthritis, right shoulder; S46.001A Unspecified injury of muscle(s) and tendon(s) of the rotator cuff of right shoulder, initial encounter; W11.XXXA Fall on and from ladder, initial encounter
CPT/HCPCS: 70200; 73221